=== PATIENT | male | born 1950 | race Caucasian/White ===

== ENCOUNTER → 2021-03-13 12:55 | Outpatient (CLI) | payer OTHER, SELFPAY | PROVIDERS: PCP Family Medicine; Referring Provider Urology; Visit Provider Urology | DX: R33.8 Other retention of urine (principal) | CPT/HCPCS: 87077; 87086; 87088 ==

== ENCOUNTER → 2021-10-13 | Outpatient (CLI) | payer OTHER, SELFPAY ==
--- NOTE | 2021-10-13 07:56 | CT_ITS ---
STUDY: LOW DOSE CT LUNG CANCER SCREENING REASON FOR EXAM: Male, 71 years old. H/o tobacco dependency, SMOKED 1 TO 2 PPD X 55 YEARS RADIATION DOSAGE (If Supplied By Facility): CTDIvol = ( 3.02 ) mGy, DLP = ( 106.84 ) mGycm TECHNIQUE: No contrast was administered. Low dose technique was utilized (average mAS-38 and kVp 120). 1.25 mm axial source images with a slice interval of 1.25-mm were reconstructed in lung windows. 2.5 mm axial source images with a slice interval of 2.5-mm were reconstructed in lung windows. 5.0 mm axial source images with a slice interval of 5.0-mm were reconstructed in soft tissue windows. COMPARISON: None. NODULES: No suspicious nodules are seen. Emphysema: Hyperinflation. Mild emphysematous changes in both lungs. Endobronchial lesion: None Aorta: Atherosclerotic plaque formation. CORONARY ARTERIES: Coronary artery calcification is seen. Heart: Unremarkable Pulmonary artery: Unremarkable Mediastinal nodes: Small mediastinal lymph nodes. Other chest and abdominal findings: CT/Low Dose CT Lung Screening IMPRESSION: Lung-RADS category 2 - Continue annual screening with LDCT in 12 months. IMPORTANT NOTES FOR USE: ACR Lung-RADS Version 1.1 Assessment Categories Release Date: 2018 Category: Coded 0-4 bases on nodule(s) with highest degree of suspicion. Negative screen is defined as categories 1 and 2; a positive screen is defined as categories 3 and 4. Category 3 and 4A nodules that are unchanged on interval CT should be coded as category 2, and individuals returned to screening in 12 months. Category 4X: Category 3 or 4 nodules with additional imaging findings that increase the suspicion of lung cancer, such as spiculation, GGN that doubles in size in 1 year, enlarged lymph notes, etc. Category Modifiers: S (significant finding unrelated to lung cancer) Electronically Signed: Preston Santos MD at 8:53 EDT ,
== END | disposition home or self-care (01) ==
PROVIDERS: PCP Family Medicine; Referring Provider Internal Medicine Critical Care Medicine; Visit Provider Internal Medicine Critical Care Medicine
DX: Z87.891 Personal history of nicotine dependence (principal)
CPT/HCPCS: 71271

== ENCOUNTER → 2021-11-09 | Outpatient (CLI) | payer OTHER, SELFPAY ==
[2021-11-09 12:30] VITALS: PULSE 101; PULSE 74; PULSE 75; PULSE 83; PULSE 84; PULSE 85; PULSE 89; PULSE 96; O2SAT 96; O2SAT 97
--- NOTE | 2021-11-10 05:37 | PCM.PSN.6M ---
PSN 6 Minute Walk Test 6 Minute Walk Test 6 Minute Walk Test: 6 Minute Walk Test PSN:6-Minute Walk Test Start: 11/09/21 12:50 Freq: Status: Active Protocol: [id number] Document 11/09/21 12:30 [facility] (Rec: 11/09/21 12:53 [facility] [id number]) 6 Minute Walk Test Date Performed 11/09/21 Time Performed 12:30 Height 5 ft 9 in Weight: 86.183 kg Weight in Pounds 190.[address]: Dr Sen Assistive device used: None Pre-test Oxygen Delivery Method Room Air Pulse Ox (%) 96 Pulse Rate (60-100 beats/min) 75 Dyspnea Coby Scale (0-10) 0 Exertion Coby Scale (6-20) 6 1st minute Oxygen Delivery Method Room Air Pulse Ox (%) 96 Pulse Rate (60-100 beats/min) 85 2nd minute Oxygen Delivery Method Room Air Pulse Ox (%) 97 Pulse Rate (60-100 beats/min) 83 3rd minute Oxygen Delivery Method Room Air Pulse Rate (60-100 beats/min) 96 Dyspnea Coby Scale (0-10) 89 4th minute Oxygen Delivery Method Room Air Pulse Ox (%) 97 Pulse Rate (60-100 beats/min) 84 5th minute Oxygen Delivery Method Room Air Pulse Ox (%) 97 Pulse Rate (60-100 beats/min) 101 H 6th minute Oxygen Delivery Method Room Air Pulse Ox (%) 96 Pulse Rate (60-100 beats/min) 89 Dyspnea Coby Scale (0-10) 0 Exertion Coby Scale (6-20) 11 Post-test Oxygen Delivery Method Room Air Pulse Ox (%) 97 Pulse Rate (60-100 beats/min) 74 Full Laps Walked 21 Partial Lap, Number of Tiles Walked 14 Total Distance Walked (ft) 1253 Interpretation Interpretation: The patient was able to ambulate 1253 feet over the course of 6 minutes on room air with no assistive devices or breaks. The patient experienced no significant desaturation with an oxygen osvaldo of 96% and no significant tachycardia with a peak heart rate of 101 bpm. These findings are consistent with a normal walking oximetry. Recommendations Recommendations: No supplemental oxygen is indicated at this time.
== END | disposition home or self-care (01) ==
LOC: PSN 12:31
PROVIDERS: PCP Family Medicine; Referring Provider Internal Medicine Critical Care Medicine; Visit Provider Internal Medicine Critical Care Medicine
DX: R06.02 Shortness of breath (principal)
CPT/HCPCS: 94618

== ENCOUNTER → 2021-11-13 | Outpatient (CLI) | payer OTHER, SELFPAY ==
--- NOTE | 2021-11-14 08:52 | PFT ---
INTRODUCTION: The patient is a 71-year-old male that presents for pulmonary function studies secondary to a diagnosis of shortness of breath. Respiratory therapy reported good patient effort. Bronchodilators were used during testing. INTERPRETATION: Forced expiration spirometry demonstrates no evidence of a large airways obstructive ventilatory defect. There was no significant response to aerosolized bronchodilators. Spirograms are of good quality and plateau gradually indicating slow emptying of the lungs. Body plethysmography was performed and reveals lung volumes to be within normal limits. Diffusing capacity by single breath CO is also within normal limits. IMPRESSION: Grossly normal pulmonary function studies.
== END | disposition home or self-care (01) ==
LOC: PSN 10:35
PROVIDERS: PCP Family Medicine; Referring Provider Internal Medicine Critical Care Medicine; Visit Provider Internal Medicine Critical Care Medicine
DX: R06.02 Shortness of breath (principal)
CPT/HCPCS: 94060; 94726; 94729

== ENCOUNTER → 2022-09-06 | Outpatient (CLI) | payer OTHER, SELFPAY ==
--- NOTE | 2022-09-06 09:55 | CDU_ITS ---
Reason For Study: TIA Rt. Velocities/BP Lt. Velocities/BP Prox CCA 67.4/14.5 cm/sec. Prox CCA 64.2/18.8 cm/sec. Mid CCA 58.9/14.5 cm/sec. Mid CCA 69.1/16.3 cm/sec. Dist CCA 53.2/14.5 cm/sec. Dist CCA 58.1/18.8 cm/sec. Prox ICA 56.9/15.1 cm/sec. Prox ICA 104.7/29.8 cm/sec. Mid ICA 93.7/27.4 cm/sec. Mid ICA 74.0/23.7 cm/sec. Dist ICA 72.8/22.5 cm/sec. Dist ICA 60.5/22.5 cm/sec. Rt. ICA/CCA = 1.6. Lt. ICA/CCA = 1.5. Prox ECA 147.7/33.6 cm/sec. Prox ECA 133.9/26.1 cm/sec. Rt. Vert. 54.4/11.4 cm/sec. Lt. Vert. 39.7/13.9 cm/sec. Right Extracranial There is homogeneous, smooth atherosclerotic plaque noted in the right common carotid artery. There is heterogeneous, irregular atherosclerotic plaque noted in the right internal carotid artery. There is homogeneous, smooth atherosclerotic plaque noted in the right external carotid artery. Antegrade flow is noted in the right vertebral artery. Left Extracranial There is homogeneous, smooth atherosclerotic plaque noted in the left common carotid artery. There is heterogeneous, irregular atherosclerotic plaque noted in the left internal carotid artery. There is homogeneous, smooth atherosclerotic plaque noted in the left external carotid artery. Antegrade flow is noted in the left vertebral artery. Procedure Carotid Duplex 19633. This is a Carotid Duplex examination using B-mode, color flow and specral Doppler. The exam was diagnostic. Exam performed in department. VL/Carotid Duplex Ultrasound Interpretation Summary Mild (<50%) stenosis right extracranial internal carotid. Mild (<50%) stenosis left extracranial internal carotid. Patent and antegrade vertebrals bilaterally Ordering Physician: Nohemi Multani Referring Physician: Nohemi Multani Performed By: Arslan Ralph, RVT
--- NOTE | 2022-09-06 09:55 | ART_ITS ---
Reason For Study: claudication Procedure A bilateral lower extremity continuous wave Doppler with analog waveform analysis,segmental pressures,and ankle brachial indexes with exercise. Left Segmental Pressures Left brachial= 188mmHg. Left thigh = 172mmHg. Left calf = 128mmHg. Left posterior tibial artery = 107mmHg. Left dorsalis pedis artery = 104mmHg. Left digit = 75 mmHg. The left dorsalis pedis waveforms are monophasic. The left posterior tibial artery waveforms are monophasic. Right Segmental Pressures Right brachial= 192mmHg. Right thigh = 187mmHg. Right calf = 151mmHg. Right posterior tibial artery = 120mmHg. Right dorsalis pedis artery = 108mmHg. Right digit = 80 mmHg. The right dorsalis pedis waveforms are monophasic. The right posterior tibial artery waveforms are monophasic. Indices The right ankle brachial index by the dorsalis pedis is .56. The right ankle brachial index by the posterior tibial artery is .63. The right digital-brachial index is .42. The right post exercise ankle brachial index is .27. The left ankle brachial index by the dorsalis pedis is .54. The left ankle brachial index by the posterior tibial artery is .56. The left digital-brachial index is .39. The left post exercise ankle brachial index is .27. VL/Lower Ext Art Exam w/ Exercise Interpretation Summary Right CORBY 0.63, moderate arterial insufficiency. Doppler/PVR waveforms and segm ental pressure reveal distal SFA/popliteal, infrapopliteal disease. Right lower extremity with abnormal response to exercise and post exercise CORBY in the critical category. Left CORBY 0.56, severe arterial insufficiency. Doppler/PVR waveforms and segment al pressures reveal vsqdy-[id number]-[id number] femoral, distal SFA/popliteal, infrapopliteal disease. Left lower extremity with abnormal response to exercise and post exercise CORBY i n the critical category. Ordering Physician: Nohemi Multani Performed By: Arslan Ralph RVT
== END | disposition home or self-care (01) ==
LOC: CVS 09:54
PROVIDERS: PCP Family Medicine; Referring Provider Physician Assistant; Visit Provider Physician Assistant
DX: I73.9 Peripheral vascular disease, unspecified (principal); Z86.73 Personal history of transient ischemic attack (TIA), and cerebral infarction without residual deficits
CPT/HCPCS: 93880; 93924

== ENCOUNTER → 2022-11-15 | Outpatient (CLI) | payer OTHER, SELFPAY ==
--- NOTE | 2022-11-15 08:30 | CT_ITS ---
STUDY: LOW DOSE CT LUNG CANCER SCREENING REASON FOR EXAM: Male, 72 years old. h/o Tobacco Dependency. 1 pack per day x58 years RADIATION DOSAGE (If Supplied By Facility): CTDIvol = ( 3.02 ) mGy, DLP = ( 114.00 ) mGycm TECHNIQUE: No contrast was administered. Low dose technique was utilized (average mAS-38 and kVp 120). 1.25 mm axial source images with a slice interval of 1.25-mm were reconstructed in lung windows with coronal and sagittal reformats. COMPARISON: October 13, 2021 NODULES: Nodule #: 1 Density: Solid Lung location: Lateral right apex lobe: Adjacent to pleura Location in series: Series Number: 2 Image: 50 Size - D1 x D2 mm: 2 x 2 mm: 2 average diameter Margin: Circumscribed Shape: Round Calcification: None Fat: None Temporal comparison: Unchanged from October 13, 2021 Nodule #: 2 Density: Solid Lung location: Anterior right upper lobe: 9 mm from pleura Location in series: Series Number: 2 Image: 95 Size - D1 x D2 mm: 3 x 3 mm: 3 average diameter Margin: Circumscribed Shape: Round Calcification: None Fat: None Temporal comparison: New from October 13, 2021 Small calcified granuloma lateral right middle lobe. Parenchyma: No airspace consolidation, effusion, or pneumothorax. Minimal lateral right upper lobe peripheral scarring without significant change from October 13, 2021. Endobronchial lesion: No endobronchial lesion. Aorta: Atherosclerosis. Ascending aorta measures upper limits of normal at 3.9 cm without intramural hematoma. CORONARY ARTERIES: Moderate multivessel coronary atherosclerosis. Heart: No cardiomegaly or pericardial effusion. Pulmonary artery: No main pulmonary arterial enlargement. Mediastinal nodes: Scattered subcentimeter mediastinal lymph nodes, nonpathologic by size criteria. No bulky hilar adenopathy. Other chest and abdominal findings: Left hepatic 2.3 cm cyst unchanged from October 13, 2021. Unremarkable adrenals. Unremarkable esophagus. Unremarkable thyroid. CT/Low Dose CT Lung Screening IMPRESSION: 2 mm right upper lobe nodules, one new from October 13, 2021 with stable calcified right middle lobe granuloma, likely representing sequela of prior granulomatous disease. Continued screening recommended. Lung-RADS category 2 - Continue annual screening with LDCT in 12 months. IMPORTANT NOTES FOR USE: ACR Lung-RADS Version 1.1 Assessment Categories Release Date: 2018 Category: Coded 0-4 bases on nodule(s) with highest degree of suspicion. Negative screen is defined as categories 1 and 2; a positive screen is defined as categories 3 and 4. Category 3 and 4A nodules that are unchanged on interval CT should be coded as category 2, and individuals returned to screening in 12 months. Category 4X: Category 3 or 4 nodules with additional imaging findings that increase the suspicion of lung cancer, such as spiculation, GGN that doubles in size in 1 year, enlarged lymph notes, etc. Category Modifiers: S (significant finding unrelated to lung cancer) Electronically Signed: Aba Gonzalez MD at 19:51 EDT ,
== END | disposition home or self-care (01) ==
LOC: CT 08:30
PROVIDERS: PCP Family Medicine; Referring Provider Internal Medicine Critical Care Medicine; Visit Provider Internal Medicine Critical Care Medicine
DX: F17.210 Nicotine dependence, cigarettes, uncomplicated (principal)
CPT/HCPCS: 71271

== ENCOUNTER → 2022-11-19 | Outpatient (CLI) | payer OTHER, SELFPAY ==
[2022-11-19 11:09] LABS: PSA,Total - Annual Screen 1.07 ng/mL (0.00-4.00)
== END | disposition home or self-care (01) ==
LOC: LAB 09:40
PROVIDERS: PCP Family Medicine; Referring Provider Urology; Visit Provider Urology
DX: Z12.5 Encounter for screening for malignant neoplasm of prostate (principal)
CPT/HCPCS: 36415; 84153; G0103

== ENCOUNTER → 2023-05-29 | Outpatient (CLI) | payer OTHER, SELFPAY ==
[2023-05-29 13:34] LABS: Anion Gap 7 (5-15); BUN 24 mg/dL (7-18); BUN/Creat Ratio 17.5 RATIO (10-20); Calcium,Total 9.3 mg/dL (8.5-10.1); Chloride 108 mmol/L (98-107); Creatinine, Serum 1.37 mg/dL (0.70-1.30); EST Glomerular Filtration Rate 54 mL/min (>60); Est Glom Filt Rate - Afr Amer 65 mL/min (>60); Glucose 97 mg/dL (74-106); Potassium 3.9 mmol/L (3.5-5.1); Sodium Level 140 mmol/L (136-145)
== END | disposition home or self-care (01) ==
LOC: LAB 12:29
PROVIDERS: PCP Family Medicine; Referring Provider Internal Medicine Cardiovascular Disease; Visit Provider Internal Medicine Cardiovascular Disease
DX: R94.31 Abnormal electrocardiogram [ECG] [EKG] (principal); F17.200 Nicotine dependence, unspecified, uncomplicated; I10 Essential (primary) hypertension; R06.02 Shortness of breath; E78.5 Hyperlipidemia, unspecified
CPT/HCPCS: 36415; 80048

== ENCOUNTER → 2023-05-31 | Outpatient (CLI) | payer OTHER, SELFPAY ==
--- NOTE | 2023-05-31 13:56 | CT_ITS ---
HISTORY: ACUTE CYSTITIS. TECHNIQUE: Helically acquired images were obtained of the abdomen and pelvis without oral or IV contrast. A radiation dose optimization technique was used for this scan. 466 images. COMPARISON: None. FINDINGS: LOWER CHEST: Lung bases clear. BOWEL: Bowel including appendix nondilated. Colonic diverticulosis. Mild sigmoid wall thickening. No focal pericolonic inflammatory change. PERITONEUM: No significant free fluid. LIVER: 1.8 cm cyst in the left lobe. GALLBLADDER/BILIARY TREE: Gallbladder present. SPLEEN/PANCREAS/ADRENAL GLANDS: Nonenlarged. KIDNEYS AND URETERS: 9 mm hyperdense lesion in the left upper pole. 1.5 cm right lower and 1.4 cm left lower pole simple appearing cysts. Mild renal vascular calcifications. No hydronephrosis or obstructing ureteral calculus. VESSELS: No abdominal aortic aneurysm. Atherosclerosis present. PELVIC ORGANS: Mild bladder wall thickening. Prostate calcifications. BONES: Mild degenerative change. CT/Abdomen/Pelvis without Cont IMPRESSION: Mild bladder wall thickening, compatible with the history of cystitis. Negative examination for renal stone. 9 mm hyperdense left renal lesion; recommend ultrasound or postcontrast imaging to assess for hyperdense cyst or small solid mass. Mild sigmoid wall thickening, likely sequela of mild colitis or diverticulitis. Electronically Signed: Deborah Weldon MD at 15:08 EST ,
== END | disposition home or self-care (01) ==
LOC: CT 13:54
PROVIDERS: PCP Family Medicine; Referring Provider Urology; Visit Provider Urology
DX: N30.00 Acute cystitis without hematuria (principal); R30.0 Dysuria
CPT/HCPCS: 74176

== ENCOUNTER → 2023-06-21 | Outpatient (CLI) | payer OTHER, SELFPAY ==
--- NOTE | 2023-06-21 14:04 | ECHOD_ITS ---
Reason For Study: sob Procedure This was a 2D Doppler, Color Flow transthoracic echocardiogram. Exam performed in department. Left Ventricle Normal LV size. Moderate concentric left ventricular hypertrophy. The left ventricular ejection fraction is 65 %. Stage 1 diastolic dysfunction. Right Ventricle Normal right ventricle. Atria The left and right atria are normal. Mitral Valve Trivial mitral valve insufficiency. Tricuspid Valve Trivial tricuspid valve insufficiency. Unable to estimate RV systolic pressure due to insufficient tricuspid regurgitant envelope. Aortic Valve Aortic sclerosis, no stenosis. Pulmonic Valve The pulmonic valve is not well visualized. Great Vessels Mild to moderately dilated aortic root. Pericardium/Pleural No pericardial effusion. MMode/2D Measurements & Calculations LVIDd: 3.8 cm IVSd: 1.3 cm Ao root diam: 3.9 cm LVIDs: 2.3 cm LVPWd: 1.4 cm FS: 38.6 % LAV(MOD-bp): 60.2 ml LVAd ap4: 34.0 cm2 SV(MOD-sp4): 68.8 ml LAV(MOD-bp) Indexed: 29.8 ml/m2 LVLd ap4: 9.0 cm LAV(MOD-sp2): 61.7 ml EDV(MOD-sp4): 110.2 ml LAV(MOD-sp4): 59.1 ml EDV(sp4-el): 109.5 ml LVAs ap4: 18.0 cm2 LVLs ap4: 6.9 cm ESV(MOD-sp4): 41.5 ml ESV(sp4-el): 39.8 ml EF(MOD-sp4): 62.4 % EF(sp4-el): 63.7 % SV(sp4-el): 69.7 ml LA A4 area: 19.6 cm2 LA dimension(2D): 3.5 cm RA A4 area: 19.3 cm2 TAPSE: 2.5 cm Time Measurements MV dec time: 0.38 sec Doppler Measurements & Calculations MV E max jd: 51.3 cm/sec Lat Peak E' Jd: 5.5 cm/sec Med Peak E' Jd: 4.3 cm/sec MV A max jd: 76.8 cm/sec E/E' lat: 9.3 E/E' med: 12.0 MV E/A: 0.67 MV V2 max: 78.4 cm/sec Ao V2 max: 129.1 cm/sec MV max P.5 mmHg MV dec slope: 141.4 cm/sec2 Ao max P.7 mmHg MV V2 mean: 40.0 cm/sec Ao V2 mean: 79.4 cm/sec MV mean P.75 mmHg Ao mean P.1 mmHg MV V2 VTI: 23.8 cm Ao V2 VTI: 24.0 cm AV (velocity ratio): 0.98 LV V1 max: 129.1 cm/sec PA V2 max: 92.6 cm/sec LV V1 max P.7 mmHg PA V2 mean: 63.6 cm/sec LV V1 mean P.2 mmHg LV V1 mean: 81.6 cm/sec LV V1 VTI: 23.5 cm ECHO/Echo Complete Interpretation Summary Moderate concentric left ventricular hypertrophy. The left ventricular ejection fraction is 65 %. Stage 1 diastolic dysfunction. Aortic sclerosis, no stenosis. Mild to moderately dilated aortic root. Ordering Physician: Ila Hernandez Referring Physician: Ila Hernandez Performed By: Velia Do RCS
== END | disposition home or self-care (01) ==
LOC: CVS 14:03
PROVIDERS: PCP Family Medicine; Referring Provider Internal Medicine Cardiovascular Disease; Visit Provider Internal Medicine Cardiovascular Disease
DX: R94.31 Abnormal electrocardiogram [ECG] [EKG] (principal); F17.200 Nicotine dependence, unspecified, uncomplicated; I73.9 Peripheral vascular disease, unspecified; E78.5 Hyperlipidemia, unspecified; I10 Essential (primary) hypertension; R06.02 Shortness of breath; R00.2 Palpitations
CPT/HCPCS: 93306

== ENCOUNTER → 2023-10-22 | Outpatient (CLI) | payer OTHER, SELFPAY ==
--- NOTE | 2023-10-22 07:21 | CT_ITS ---
STUDY: CTA OF THE ABDOMINAL AORTA AND BILATERAL LOWER EXTREMITIES REASON FOR EXAM: Male, 73 years old. Hypertension. Bilateral lower extremity pain. Peripheral vascular disease. RADIATION DOSAGE (If Supplied By Facility): CTDIvol = ( 7.34 ) mGy, DLP = ( 1252.51 ) mGycm TECHNIQUE: Axial CT angiography multi-detector data acquisition was obtained from the dome of the liver to the level of the ankles following intravenous administration of IV 100mL Isovue-370. Axial images and MIP images were reconstructed from the axial data set. Post-processing of the angiographic images was performed, with multiplanar reformation and 3D reconstruction. Individualized dose optimization techniques were used for this CT. TECHNICAL QUALITY: Good COMPARISON: None. Descriptors of Narrowing: None (0%) Mild (< 50%) Moderate (50-70%) Severe (70-90%) Subtotal/Total Occlusion (90-100%) Non-Evaluable (technically non-diagnostic FINDINGS: There is diffuse fatty infiltration of the liver. There is a 1.6 cm x 0.9 cm hypodensity in the left lobe of the liver. This may represent either a small cyst or hemangioma. Small bilateral renal cysts. Diffuse sigmoid diverticulosis. Prostatic calcification and enlargement. Abdominal aorta: Atherosclerotic plaque formation of the abdominal aorta with mural thrombus.. Celiac and superior mesenteric arteries: No demonstrated narrowing. Inferior mesenteric artery: No demonstrated narrowing. Right renal artery(arteries): No demonstrated narrowing. Left renal artery(arteries): No demonstrated narrowing. Right common iliac artery: Atherosclerotic plaque formation. Mild stenosis stenosis. Right external iliac artery: Atherosclerotic plaque formation with mild stenosis. Right internal iliac artery: No demonstrated narrowing. Left common iliac artery: Atherosclerotic plaque formation. No significant stenosis. Left external iliac artery: No demonstrated narrowing. Left internal iliac artery: No demonstrated narrowing. RIGHT LOWER EXTREMITY Right common femoral artery: No demonstrated narrowing. Right profundus femoris: No demonstrated narrowing. Right superficial femoral: Occluded at its origin. Right popliteal artery: Reconstitution of the distal portion of the superficial femoral artery and popliteal artery. Right tibioperoneal trunk: No demonstrated narrowing. Right anterior tibial artery: No demonstrated narrowing. Right posterior tibial artery: No demonstrated narrowing. Right peroneal artery: Not visualized. LEFT LOWER EXTREMITY Left common femoral artery: No demonstrated narrowing. Left profundus femoris: No demonstrated narrowing. Left superficial femoral: Superficial femoral artery is occluded at its origin. Left popliteal artery: Reconstitution of the popliteal artery just proximal to the knee joint. Left tibioperoneal trunk: No demonstrated narrowing. Left anterior tibial artery: Not well seen. Left posterior tibial artery: No demonstrated narrowing. Left peroneal artery: Not visualized. CT/CTA Abd w/Runoff W/WO Contrast IMPRESSION: 1 vessel runoff in both lower extremities. Occlusion of both superficial femoral arteries at its origin with reconstitution of the popliteal artery. Electronically Signed: Preston Santos MD at 14:44 EDT ,
[2023-10-22 08:02] LABS: CREATININE FINGERSTICK < 1.0 mg/dL (0.70-1.30); EGFR FINGERSTICK > 60.0000 mL/min (>60)
[2023-10-22 09:14] LABS: Anion Gap 6 (5-15); BUN 19 mg/dL (7-18); BUN/Creat Ratio 14.7 RATIO (10-20); Calcium,Total 8.8 mg/dL (8.5-10.1); Chloride 106 mmol/L (98-107); Cholesterol 214 mg/dL (200); Creatinine, Serum 1.29 mg/dL (0.70-1.30); EST Glomerular Filtration Rate 58 mL/min (>60); Est Glom Filt Rate - Afr Amer 70 mL/min (>60); Glucose 95 mg/dL (74-106); High Density Lipoprotein 41 mg/dL; Potassium 3.7 mmol/L (3.5-5.1); Sodium Level 138 mmol/L (136-145); Triglycerides 165 mg/dL; Very Low Density Lipoprotein 33 mg/dL (5-40)
== END | disposition home or self-care (01) ==
PROVIDERS: PCP Family Medicine; Referring Provider Internal Medicine Cardiovascular Disease; Visit Provider Internal Medicine Cardiovascular Disease
DX: I11.9 Hypertensive heart disease without heart failure (principal); I73.9 Peripheral vascular disease, unspecified; E78.5 Hyperlipidemia, unspecified; R06.02 Shortness of breath
CPT/HCPCS: 36415; 75635; 80048; 80061; Q9967

== ENCOUNTER 2023-11-27 07:15 | Day surgery (SDC) | payer OTHER, SELFPAY ==
[2023-11-26 11:49] VITALS: BMI 28.0
[2023-11-27 07:30] LABS: Hematocrit 48.1 % (40-54); Mean Corp Hgb Conc 33.3 g/dL (32-36); Mean Corpuscular Hgb 30.1 pg (27.0-32.0); Mean Corpuscular Volume 90.4 fL (80-94); Platelet Count 229 K/mm3 (150-450); RBC Distribution Width CV 14.2 % (11.6-14.6); RBC Distribution Width SD 47.6 fl (35.1-43.9); Red Blood Count 5.32 M/mm3 (4.6-6.2); White Blood Count 10.1 K/mm3 (4.4-11.0)
[2023-11-27 07:47] LABS: Anion Gap 5 (5-15); BUN 25 mg/dL (7-18); BUN/Creat Ratio 18.2 RATIO (10-20); Calcium,Total 9.3 mg/dL (8.5-10.1); Chloride 110 mmol/L (98-107); Creatinine, Serum 1.37 mg/dL (0.70-1.30); EST Glomerular Filtration Rate 54 mL/min (>60); Est Glom Filt Rate - Afr Amer 65 mL/min (>60); Estimated Creatinine Clearance 51.45 ml/min; Glucose 103 mg/dL (74-106); Potassium 3.7 mmol/L (3.5-5.1); Sodium Level 140 mmol/L (136-145)
--- NOTE | 2023-11-27 10:55 | OP.PCM_ITS ---
Problems Associated Problem List Diagnoses (1) PAD (peripheral artery disease): Operative Report Date of Procedure: 11/27/23 Procedures performed: 1. Selective catheter placement in the left common iliac artery 2. Selective catheter placement in the left common femoral artery 3. Selective catheter placement in the left superficial femoral artery 4. Selective catheter placement in the left popliteal artery 5. Selective catheter placement in the right common iliac artery 6. Left iliac angiography with distal runoff 7. Right iliac angiography with distal runoff 8. Successful balloon angioplasty with drug-coated balloon to the left popliteal artery 9. Successful balloon angioplasty with drug-coated balloons to the left superficial femoral artery 10. Successful stent placement to the left common iliac artery Indications for procedure: 1. Severe peripheral arterial disease with lifestyle limiting claudication symptoms Technique of procedure: After obtaining informed consent, patient was brought to the cardiac catheterization lab. Bilateral groins were prepped and draped in the usual sterile fashion. Arterial access was obtained in the right common femoral artery using the modified Seldinger technique. After confirming exercise position, the sheath was exchanged for a #6 Moldovan Cordis sheath. A pigtail wire was then advanced over a J-wire into the aorta. This was exchanged over a 0.35 inch wire to a memory artery catheter. The mammary artery catheter was used to engage the ostium of the left common iliac artery. Left iliac angiography was performed with distal runoff. After reviewing the angiographic films, it was decided to intervene on the totally occluded left superficial femoral artery. A 0.35 inch wire was advanced through the mammary artery catheter into the left common femoral artery. The mammary artery catheter and the #6 Moldovan Cordis sheath were withdrawn over this wire. #7 Moldovan Terumo destination sheath was then advanced over this wire with its tip left in the proximal left common femoral artery. Anticoagulation was achieved using a heparin bolus. A 0.35 inch quick cross catheter was then advanced over 0.35 inch Glidewire. These were used to successfully negotiate the total occlusion in the ostial left superficial femoral artery. The catheter was advanced into the left superficial femoral artery over this Glidewire. The wire entered the true lumen into the left popliteal artery. The wire was withdrawn. Catheter position in the true lumen was confirmed using a small contrast injection through the quick cross wire. A 0.35 inch J-wire was then introduced. Balloon angioplasty was performed to the left popliteal artery as well as the left superficial femoral artery initially using 4.0 mm balloon. The wire was then exchanged through this balloon to a 0.14 inch choice extra-support wire. Repeat balloon angioplasty was performed with drug-coated balloons. A 5.0 mm drug-coated balloon was used for angioplasty to the left popliteal artery. 6.0 mm drug-coated balloons were used to perform angioplasty to the left superficial femoral artery. Excellent results were noted with reducing lesion severity from 100% to less than 10%. Attention was then diverted to the lesion in the left common iliac artery. Pressure gradient was recorded across the lesion using the Terumo destination sheath. It was noted to be more than 40 mmHg. Decision was therefore made to intervene on the lesion. An 8.0 x 29 mm Viabahn covered stent was deployed across the lesion with excellent results reducing lesion severity to 0%. The Terumo destination sheath was then pulled into the right common iliac artery. Right iliac angiography was performed with distal runoff. ACT's were checked. The sheath was then withdrawn over a J-wire. The arterial access site was successfully closed using a Perclose closure device. No complications were noted. Angiographic findings: 1. The left common iliac artery was noted to have about 70% lesion in its distal part. The left internal iliac artery was noted to be totally occluded. The left external iliac artery has about 50% stenosis. The common femoral artery did not have any significant stenosis. The left superficial femoral artery was noted to be totally occluded across its ostium. The left popliteal artery reconstituted via collaterals from the profunda. Below the knee, single- vessel runoff through the peroneal artery was noted supplying the foot via the communicating branch to the posterior tibial artery. 2. The right common iliac artery is not noted to have any significant stenosis. The right external and common femoral artery are also free of any critical disease. The right superficial femoral artery is totally occluded across its course with popliteal artery reconstituting distally via collaterals. Once again, single-vessel runoff is noted below the knee. Recommendations: 1. Dual antiplatelet therapy. 2. Risk factor modification. Of paramount importance in the long-term prognosis of this patient would be cessation of smoking. 3. Staged attempted COMBINE OPERATOR to the right superficial femoral artery.
[2023-11-27 11:28] LABS: ACT Activated Clotting Time 293 sec (74-137)
[2023-11-27 11:28] LABS: ACT Activated Clotting Time 232 sec (74-137)
== END 2023-11-27 14:21 | disposition home or self-care (01) ==
PROVIDERS: PCP Family Medicine; Referring Provider Internal Medicine Cardiovascular Disease; Visit Provider Internal Medicine Cardiovascular Disease
DX: I70.202 Unspecified atherosclerosis of native arteries of extremities, left leg (principal); I74.5 Embolism and thrombosis of iliac artery; Z79.82 Long term (current) use of aspirin; Z79.899 Other long term (current) drug therapy; I10 Essential (primary) hypertension; E78.5 Hyperlipidemia, unspecified; F17.210 Nicotine dependence, cigarettes, uncomplicated; I51.89 Other ill-defined heart diseases; I70.92 Chronic total occlusion of artery of the extremities
CPT/HCPCS: 36245; 36246; 36415; 37221; 37224; 75716; 76937; 80048; 85027; 85347; 99152; 99153; C1769; C1874; C1894; C2623; J7040; Q9967; C1725; C1760; C1887

== ENCOUNTER → 2023-12-16 | Outpatient (CLI) | payer OTHER, SELFPAY ==
--- NOTE | 2023-12-16 13:10 | VDLE_ITS ---
Reason For Study: Left leg swelling RIGHT LEFT CFV is compressible, spontaneous, phasic, GSV is normal. competent and demonstrates normal CFV is compressible, spontaneous, phasic, augmentation. competent, and demonstrates normal Procedure augmentation. This is a venous duplex using B-mode, color FV is compressible, spontaneous, phasic, flow and spectral Doppler. competent and demonstrates normal Exam performed in department. augmentation. A preliminary report was called and/or faxed POP V is compressible, spontaneous, phasic, to Mayelin PAYNE. competent and demonstrates normal augmentation. T/P Trunk is compressible. PTV is compressible. LT PerV is compressible. VL/Venous Duplex US, Unilateral Interpretation Summary Deep veins of the left lower extremity are patent and compressible segmentally. There is no evidence of left lower extremity deep vein thrombosis. The left great saphenous vein matthew ears patent and compressible segmentally. Ordering Physician: Ila Hernandez Referring Physician: Jameson Sen MD Performed By: Mari Chaney RVT
== END | disposition home or self-care (01) ==
PROVIDERS: PCP Family Medicine; Referring Provider Internal Medicine Cardiovascular Disease; Visit Provider Internal Medicine Cardiovascular Disease
DX: M79.89 Other specified soft tissue disorders (principal); I72.9 Aneurysm of unspecified site
CPT/HCPCS: 93971

== ENCOUNTER 2024-01-15 07:49 | Day surgery (SDC) | payer OTHER, SELFPAY ==
--- NOTE | 2023-12-27 13:56 | HP.PCM_ITS ---
History and Physical Date of Admission: 01/15/24 This gentleman is here for balloon angioplasty. Unfortunately continues to smoke. Continues to have lifestyle limiting claudication symptoms bilateral lower extremities. Patient has had CT angio of the lower extremities done. He is noted to have total occlusion of the superficial femoral arteries on both sides. 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: No Is patient in pain?: No Allergies pravastatin Adverse Reaction (Severe, Verified 11/14/23 14:11) Panic attack ciprofloxacin (From Cipro) Adverse Reaction (Intermediate, Verified 11/14/23 14:08) Hives Medications: See EMR Have you fallen in the past year?: No PFSH Medical History Hypertensive heart disease Diastolic dysfunction without heart failure Abnormal ECG Nicotine dependence Dyslipidemia PAD (peripheral artery disease) SK (seborrheic keratosis) Essential hypertension Neck pain Hyperlipidemia Anxiety Claudication History of TIA (transient ischemic attack) Elevated BP without diagnosis of hypertension Nicotine dependence, cigarettes, uncomplicated SOB (shortness of breath) Diverticulitis Headache Flank pain Left knee pain Low back pain Claudication Decreased hearing of right ear Generalized anxiety disorder Surgical History Hx of vasectomy Hx of knee surgery Family History Father Lung cancerMother Hypertension Social History Smoking Status: Current every day smoker tobacco type: cigarettes Tobacco: How many years used: 55 Electronic Cigarette Use: not used second hand exposure: No alcohol intake: current alcohol intake frequency: a few times a week substance use type: does not use caffeine: Yes Type: coffee Number of servings: 2 ROS Const Const: Positive for fatigue; Negative for weakness, headache(s), daytime sleepiness or difficulty sleeping ENT ENT: Negative for headache(s), dizziness or Nosebleed/epistaxis Cardio Chest Pain: No Palpitations: No Edema: None Resp Respiratory: Negative for SOB with activity, SOB at rest, SOB orthopnea\SOB lying down or Cough GI GI: Negative nausea, vomiting or heartburn Neuro Neuro: Negative for dizziness, lightheadedness, near syncope, headache(s) or weakness Endo Endo: Positive for fatigue Cardiology Exam Const Appearance: comfortable and no acute distress Nutritional Appearance: well nourished Neck Neck: no JVD Carotids: Negative bruit Chest Auscultation: Bilateral: Clear to Auscultation Cardio Rate: regular rate Rhythm: regular rhythm Heart sounds: S1 normal and S2 normal Neuro General: patient alert, patient awake and patient oriented x3 Extremities Lower Extremity Edema: None: Bilateral Supplemental Info Supplemental Information Echocardiogram from 06/21/2023: Interpretation Summary Moderate concentric left ventricular hypertrophy. The left ventricular ejection fraction is 65 %. Stage 1 diastolic dysfunction. Aortic sclerosis, no stenosis. Mild to moderately dilated aortic root. STRESS TEST 08/25/14: CONCLUSION 1. Moderate exercise tolerance limited by hip pain, achieving a workload of 7.1 METs. 2. Normal physiologic response to Lexiscan infusion. 3. No chest discomfort to suggest angina elicited with treadmill exercise or LexiScan infusion. 4. No ST changes to suggest ischemia elicited with treadmill exercise at the heart rate and workload achieved or with LexiScan infusion. 5. Nuclear images demonstrate no evidence of infarct or inducible ischemia, calculated ejection fraction of 57%. PULMONARY FUNCTION TEST 11/14/21: INTERPRETATION: Forced expiration spirometry demonstrates no evidence of a large airways obstructive ventilatory defect. There was no significant response to aerosolized bronchodilators. Spirograms are of good quality and plateau gradually indicating slow emptying of the lungs. Body plethysmography was performed and reveals lung volumes to be within normal limits. Diffusing capacity by single breath CO is also within normal limits. IMPRESSION: Grossly normal pulmonary function studies. CT LUNG 11/15/22: NODULES: Nodule #: 1 Density: Solid Lung location: Lateral right apex lobe: Adjacent to pleura Location in series: Series Number: 2 Image: 50 Size - D1 x D2 mm: 2 x 2 mm: 2 average diameter Margin: Circumscribed Shape: Round Calcification: None Fat: None Temporal comparison: Unchanged from October 13, 2021 Nodule #: 2 Density: Solid Lung location: Anterior right upper lobe: 9 mm from pleura Location in series: Series Number: 2 Image: 95 Size - D1 x D2 mm: 3 x 3 mm: 3 average diameter Margin: Circumscribed Shape: Round Calcification: None Fat: None Temporal comparison: New from October 13, 2021 Small calcified granuloma lateral right middle lobe. Parenchyma: No airspace consolidation, effusion, or pneumothorax. Minimal lateral right upper lobe peripheral scarring without significant change from October 13, 2021. Endobronchial lesion: No endobronchial lesion. Aorta: Atherosclerosis. Ascending aorta measures upper limits of normal at 3.9 cm without intramural hematoma. CORONARY ARTERIES: Moderate multivessel coronary atherosclerosis. Heart: No cardiomegaly or pericardial effusion. Pulmonary artery: No main pulmonary arterial enlargement. Mediastinal nodes: Scattered subcentimeter mediastinal lymph nodes, nonpathologic by size criteria. No bulky hilar adenopathy. Other chest and abdominal findings: Left hepatic 2.3 cm cyst unchanged from October 13, 2021. Unremarkable adrenals. Unremarkable esophagus. Unremarkable thyroid. IMPRESSION: 2 mm right upper lobe nodules, one new from October 13, 2021 with stable calcified right middle lobe granuloma, likely representing sequela of prior granulomatous disease. Continued screening recommended. CAROTID DUPLEX 09/06/22: Interpretation Summary Mild (<50%) stenosis right extracranial internal carotid. Mild (<50%) stenosis left extracranial internal carotid. Patent and antegrade vertebrals bilaterally EXTREMITY ARTERIAL STUDY 09/06/22: Interpretation Summary Right CORBY 0.63, moderate arterial insufficiency. Doppler/PVR waveforms and segmental pressure reveal distal SFA/popliteal, infrapopliteal disease. Right lower extremity with abnormal response to exercise and post exercise CORBY in the critical category. Left CORBY 0.56, severe arterial insufficiency. Doppler/PVR waveforms and segmental pressures reveal gwalp-crbnk-eglwiavo femoral, distal SFA/popliteal, infrapopliteal disease. Left lower extremity with abnormal response to exercise and post exercise CORBY in the critical category Assessment and Plan Assessment and Plan (1) PAD (peripheral artery disease): Status: Chronic Plan: Continues to have lifestyle limiting claudication symptoms bilaterally. Continue aspirin. Start on clopidogrel. Complete occlusion of bilateral SFAs. Recommended bilateral angiography with possible percutaneous revascularization. Risks benefits and alternatives explained. He understand these and wishes to think about it. (2) Essential hypertension: Status: Chronic Plan: Blood pressure above goal. Add amlodipine 5 mg once daily. (3) Dyslipidemia: Status: Chronic Plan: Patient does not want to be on any lipid-lowering medications. (4) Nicotine dependence: Status: Chronic Plan: Patient unfortunately continues to smoke. Counseled to stop. (5) Hypertensive heart disease: Status: Chronic Plan: Losartan. Amlodipine. (6) Diastolic dysfunction without heart failure: Status: Chronic Plan: For blood pressure control.
[2024-01-14 11:49] VITALS: BMI 28.0
[2024-01-14 12:04] LABS: Absolute Lymphocyte Count 1.84 X10^3/uL (0.83-4.51); Absolute Neutrophil Count 6.5 X10^3/uL (2.0-7.7); Basophil# 0.09 X10^3/uL; Basophil% 0.9 % (0-1); Eosinophil# 0.34 X10^3/uL; Eosinophils% 3.6 % (0-5); Hematocrit 44.1 % (40-54); Hemoglobin 14.5 g/dL (13.0-16.5); Lymphocyte # 1.84 X10^3/ul (0.83-4.51); Lymphocyte % 19.2 % (19-41); Mean Corp Hgb Conc 32.9 g/dL (32-36); Mean Corpuscular Volume 91.1 fL (80-94); Mean Platelet Vol. 8.9 fl (6.2-12.0); Monocyte# 0.75 X10^3/uL; Monocyte% 7.8 % (0-10); NRBC Flagged by Analyzer 0 % (0-5); Neutrophil # 6.47 X10^3/uL (2.7-7.7); Neutrophil % 67.7 % (47-70); Platelet Count 239 K/mm3 (150-450); RBC Distribution Width CV 14.6 % (11.6-14.6); RBC Distribution Width SD 48.7 fl (35.1-43.9); Red Blood Count 4.84 M/mm3 (4.6-6.2); White Blood Count 9.6 K/mm3 (4.4-11.0)
[2024-01-14 12:17] LABS: Partial Thromboplast Time 24.6 Seconds (24.1-36.2)
[2024-01-14 12:56] LABS: Anion Gap 7 (5-15); BUN 21 mg/dL (7-18); BUN/Creat Ratio 15.9 RATIO (10-20); Calcium,Total 9.3 mg/dL (8.5-10.1); Chloride 106 mmol/L (98-107); Creatinine, Serum 1.32 mg/dL (0.70-1.30); EST Glomerular Filtration Rate 56 mL/min (>60); Est Glom Filt Rate - Afr Amer 68 mL/min (>60); Glucose 98 mg/dL (74-106); Potassium 3.8 mmol/L (3.5-5.1); Sodium Level 137 mmol/L (136-145)
--- NOTE | 2024-01-15 11:40 | DCINST_ITS ---
Discharge Instructions Diet Discharge Diet: Low fat / Low cholesterol Activity May resume sexual activity in: 1 week Lifting Restrictions: No heavy lifting, bending or strenuous physical activity for 1 week Dressing / Incision Call your doctor if your incision/area has: Continuous Slow Oozing, Sudden Increased Bleeding, Increased Pain/ Swelling, Increased Redness, Foul Smelling Discharge and Swelling at the incision site Call your doctor if you observe: Coldness, Increased Pain, Numbness or Tingling and Change in Color Follow Up Care Please Follow Up With: Ila Hernandez MD When: 2-4 weeks Test Results: Test results from this visit will be discussed in further detail at your follow- up appointment, if applicable. Discharge Plan Admission Attending Provider: Ila Hernandez Primary Care Provider: Jameson Sen Instructions Print Language: Albanian Discharge Orders/Prescriptions Prescriptions: No Action aspirin 81 mg tablet,delayed release (DR/EC) 81 mg PO DAILY losartan 100 mg tablet 100 mg PO DAILY Qty: 30 11RF amlodipine 5 mg tablet 5 mg PO DAILY Qty: 90 3RF clopidogrel 75 mg tablet 75 mg PO DAILY fenofibrate nanocrystallized [Tricor] 145 mg tablet 145 mg PO QDAY Qty: 30 11RF Referrals / Follow Up: Jameson Sen MD [Primary Care Provider] - Disposition Disposition (needs filled in before D/C Order can be placed): Home, Self Care
--- NOTE | 2024-01-15 12:01 | PCI.CARDCATH ---
PCI Cardiac Cath Report PCI Report: Peripheral angiography and intervention report Procedures performed: 1. Right common femoral angiography with distal runoff 2. Intravascular ultrasound of the right popliteal artery. 3. Selective catheter placement right popliteal artery 4. Selective catheter placement right superficial femoral artery 5. Selective catheter placement right common femoral artery 6. Successful balloon angioplasty with drug-coated balloon to the right superficial femoral artery 7. Successful balloon angioplasty with drug coated balloon and drug-eluting stent placement to the right popliteal artery. Indications for procedure: 1. Peripheral arterial disease with lifestyle limiting claudication symptoms Technique of procedure: The patient's left groin was prepped and draped in the usual sterile fashion. Access was obtained in the right common femoral artery with a micropuncture needle using the modified Seldinger technique. After confirming exercise position, the micropuncture sheath was replaced with a #6 [place] Cordis sheath. A 0.035 inch wire was introduced through the Cordis sheath and parked in the abdominal aorta. The Cordis sheath was exchanged for a #7 [place] Terumo destination sheath. The tip of the destination sheath was parked in the left common iliac artery. Next a 5 [place] memory artery catheter was used to selectively engage the right common iliac artery. A 0.035 inch wire was then advanced through this catheter and parked in the right profunda. The mammary artery catheter was then withdrawn and exchanged for the destination sheath introducer. The destination sheath was then advanced over the 0.035 inch wire and its distal tip was placed in the right common femoral artery. Right femoral angiography was performed with distal runoff. After reviewing angiographic films, it was decided to intervene on the completely occluded right superficial femoral artery. Anticoagulation was achieved using a heparin bolus. A 0.035 inch glide wire was then advanced through a 0.035 inch quick cross catheter. This was advanced to the right popliteal artery. It was noted that we were in a dissection plane. Reentry into the true lumen of the right popliteal artery was obtained under ultrasound guidance using the [place] reentry device. Intravascular ultrasound of the right popliteal artery was performed. Balloon angioplasty was performed to the right popliteal and right superficial femoral artery. The popliteal artery and distal SFA angioplasty was performed using 5.0 mm drug-coated balloons. The proximal and mid right SFA balloon angioplasty was performed using 6.0 mm drug-coated balloons. Excellent results were noted however a small linear dissection was noted in the popliteal artery with residual stenosis of more than 70%. Decision was therefore made to stent the vessel. A 6.0 x 40 mm drug-coated self-expanding stent was positioned across the lesion and deployed. This was postdilated using a 5.0 mm balloon. Final angiography was performed. Excellent results were noted. The [employer] Wireless[employer] destination sheath was then withdrawn over a 0.035 inch wire. The arterial access site in the left common femoral artery was successfully closed using a Perclose closure device. Angiographic findings: 1. The right common femoral artery was free of any significant disease. 2. The right superficial femoral artery was noted to be totally occluded at its ostium. Distally, the right popliteal artery reconstituted via collaterals. Below the knee, single-vessel runoff with peroneal artery was noted to the right foot. The peroneal artery supplied the right foot through the communicating branch. 3. Postintervention, there was excellent results noted with less than 10% residual stenosis in the right superficial femoral artery and right popliteal artery. IVUS findings: 1. The right popliteal artery was noted to be severely diseased in its proximal part. Recommendations: Postprocedure care will be directed towards the prevention of any ischemic hemorrhagic or vascular complications. Of particular interest in the long-term care of this patient would be risk factor modification, particularly cessation of smoking.
[2024-01-15 12:06] LABS: ACT Activated Clotting Time 269 sec (74-137)
[2024-01-15 12:06] LABS: ACT Activated Clotting Time 275 sec (74-137)
[2024-01-15 12:06] LABS: ACT Activated Clotting Time 262 sec (74-137)
== END 2024-01-15 15:36 | disposition home or self-care (01) ==
PROVIDERS: PCP Family Medicine; Referring Provider Internal Medicine Cardiovascular Disease; Visit Provider Internal Medicine Cardiovascular Disease
DX: I73.9 Peripheral vascular disease, unspecified (principal); I70.92 Chronic total occlusion of artery of the extremities; F17.210 Nicotine dependence, cigarettes, uncomplicated; I11.9 Hypertensive heart disease without heart failure; E78.5 Hyperlipidemia, unspecified; Z88.1 Allergy status to other antibiotic agents; Z86.73 Personal history of transient ischemic attack (TIA), and cerebral infarction without residual deficits; Z79.82 Long term (current) use of aspirin; Z79.899 Other long term (current) drug therapy
CPT/HCPCS: 36245; 36415; 37226; 75710; 80048; 85025; 85347; 85730; 93005; 99152; 99153; C1725; C1769; C1874; C1887; C2623; J7040; Q9967; C1760; C1894

== ENCOUNTER 2024-01-15 18:44 | Emergency (ER) | payer OTHER, SELFPAY ==
[2024-01-15 18:46] VITALS: BP 178/90; PULSE 64; RESP 15; TEMP 36.4; O2SAT 96; BMI 26.6
--- NOTE | 2024-01-15 18:49 | EX.ED.DYSGE1 ---
HPI History of Present Illness Chief Complaint: Wound Check [facility] Medical History Hypertensive heart disease Diastolic dysfunction without heart failure Abnormal ECG Nicotine dependence Dyslipidemia PAD (peripheral artery disease) SK (seborrheic keratosis) Essential hypertension Neck pain Hyperlipidemia Anxiety Claudication History of TIA (transient ischemic attack) Elevated BP without diagnosis of hypertension Nicotine dependence, cigarettes, uncomplicated SOB (shortness of breath) Diverticulitis Headache Flank pain Left knee pain Low back pain Claudication Decreased hearing of right ear Generalized anxiety disorder Home Medications ?Medication ?Instructions ?Recorded ?Last Taken ?Type aspirin 81 mg tablet,delayed 81 mg PO DAILY 07/16/23 01/14/24 History release losartan 100 mg tablet 100 mg PO DAILY #30 tabs 10/07/23 01/14/24 Rx amlodipine 5 mg tablet 5 mg PO DAILY #90 tabs 11/14/23 Unknown Rx clopidogrel 75 mg tablet 75 mg PO DAILY 11/27/23 01/14/24 History fenofibrate nanocrystallized 145 145 mg PO QDAY #30 tabs 11/27/23 Unknown Rx mg tablet (Tricor) Allergy/AdvReac Type Severity Reaction Status Date / Time pravastatin AdvReac Severe Panic Verified 01/15/24 18:46 attack ciprofloxacin (From Cipro) AdvReac Intermediate Hives Verified 01/15/24 18:46 Family History Father Lung cancer Mother Hypertension Surgical History Hx of vasectomy Hx of knee surgery Social History Smoking Status: Current every day smoker tobacco type: cigarettes Tobacco: How many years used: 55 Electronic Cigarette Use: not used second hand exposure: No alcohol intake: current alcohol intake frequency: a few times a week substance use type: does not use caffeine: Yes Type: coffee Number of servings: 2 EXAM Physical Exam Const Vital Signs: 01/15/24 18:46 Temperature 97.6 F L Temperature Source Temporal Pulse Rate 64 Respiratory Rate 15 Blood Pressure 178/90 H Blood Pressure Mean 119 Pulse Ox 96 Oxygen Delivery Method Room Air MDM MDM MDM Narrative Medical decision making narrative: HISTORY OF PRESENT ILLNESS: 73-year-old male presents with concern for bleeding for several hours from cath insertion site from his Angiocath done today. Was discharged approximately 330 approximately 3 and half hours prior to arrival. REVIEW OF SYSTEMS: Pertinent positives: Bleeding from site Pertinent negatives: Pain, fever PHYSICAL EXAM: Nursing triage notes reviewed, Vital signs reviewed Constitutional: please see mdm Lungs: Clear to auscultation, No wheezing or rales. No increased work of breathing, no conversational dyspnea, no accessory muscle use, no nasal flaring. No respiratory distress noted Heart: Regular rate and rhythm, No murmurs, No rubs and No gallops, 2+ distal pulses (radial, femoral, posterior tibial) in all extremities Extremities: No edema, good pulses, good cap refill, left lower extremity warm well-perfused. Neuro: Intact sensation L1-S1 dermatomal distributions. Intact 5/5 strength in hip flexion (T12-L3). Knee extension (L2-L4). Ankle dorsiflexion (L4-L5). Ankle plantar flexion (S1). Great toe extension (L5). 2+ patellar and Achilles DTRs. Skin: Left groin site clean dry intact, there is no pulsatile bleeding there is mild bruising noted to left groin. MEDICAL DECISION MAKING: Chief Complaint: Bleeding from cath insertion site External records reviewed: Reviewed right femoral Factors affecting care: Peripheral vascular disease Consults: Dr. Hernandez -discussed patient's case. Dr. Be davies recommended injecting some lidocaine with epinephrine subcutaneously around the bleeding site MDM Narrative: Patient was initially hemodynamically stable, afebrile and nontoxic-appearing. Exam without sign of left lower limb neurovascular compromise. No pulsatile bleeding. Just oozing. I considered the following differential diagnosis: Pseudoaneurysm, postoperative bleeding Initial step of stabilization with Surgicel applied with Tegaderm and weights. After this patient continues to have slight oozing and bleeding. Lidocaine with epi was injected around incision site with almost immediate cessation and bleeding. I then discussed the case with Dr. David davies who recommended trying lidocaine with epi injected subcutaneously around the incision site. He had noted if this did not work then he can be admitted to the PCU for observation. Patient observed for additional 15 minutes with no active bleeding noted. He was appropriate for discharge home with close follow-up with Dr. David davies at the next available appointment. The patient and/or family, caregivers express understanding. The patient and/or family, caregivers agrees with the plan. Shared decision making: I will have a discussion with the patient and or visitors regarding risk/benefits of further testing or admission. They will be made aware of of the risk/benefits inherent in this decision they will be given the opportunity to voice understanding. Total critical care time today provided was at least 0 minutes. This excludes separately billable procedures. Critical care time (if documented) is secondary to the patient having high probability of clinically significant/life threatening deterioration in the patient's condition which required my urgent intervention. Impression: 1. Postop bleeding 2. History of peripheral vascular disease 3. History of antiplatelet the Dispo: Discharge home This note was generated with [employer] dictation software. It may contain incorrect words, spelling, and punctuation that were not noted in review of the chart prior to signing. Discharge Plan Triage Chief Complaint: Wound Check ED Provider: Jarrod Narayan Dx/Rx/DC Orders Prescriptions: No Action aspirin 81 mg tablet,delayed release (DR/EC) 81 mg PO DAILY losartan 100 mg tablet 100 mg PO DAILY Qty: 30 11RF amlodipine 5 mg tablet 5 mg PO DAILY Qty: 90 3RF clopidogrel 75 mg tablet 75 mg PO DAILY fenofibrate nanocrystallized [Tricor] 145 mg tablet 145 mg PO QDAY Qty: 30 11RF Primary Care Provider: Jameson Sen Referrals: Jameson Sen MD [Primary Care Provider] - Print Language: Lithuanian
--- OUTSIDE RECORDS SUMMARY | 2024-01-15 19:58 | XMS RPT_ITS | CCD ---
Author Organization [facility] ion [facility] Care Team Providers Care Patient Services Technician Name Role Phone TRENT STEVENS Unavailable Unavailable Mckinley COLLINS, Jameson Pereira Unavailable [facility], Pulmonary Unavailable Dr. Mckenna Dial Unavailable Oral Surgery Provider Unavailable Unavailmelanie Rice MD, Dr. Jose Gasca Unavailable Amanda Palencia, Dr. Bhardwaj Unavailable [facility] Unavailable Agustín COLLINS, Dr. Jennifer Conn Unavailable Selwyn COLLINS, Dr. Robert Pereira Unavailable Jonatan BATISTA, Jeni Goldsmith Unavailable Unavailable Roz Billy MA Unavailable Unavailable Shawn COLLINS, Kolton Ngo Unavailable Loree SAINZ, Asaf Goldsmith Unavailable Caroline Francois MA Unavailable Unavailable Azael BATISTA, Brenda Unavailable Unavailable Jhonathan BATISTA, Nasim Unavailable Unavailable Maximo SAINZ, Dara Evangelista Unavailable Jeanie CUTTING MACHINE OFFBEARER, Maranda Unavailable Unavailable Jacqueline ALCANTARAN, Isela L Unavailable Unavailab jessy Simon LPN, Elaine Zhu Unavailable Unavailab jessy Andre LPN, Charlene Unavailable Unavailmelanie Ward LPN, Neli Laureano Unavailable Unavaila ble Unavailable Unavailable TRENT STEVENS MD Unavailable HERB LOVE MD Unavailable ULICES MCDONOUGH Unavailable ULICES HINDS MD Unavailable Eulalio Núñez Unavailable Unavailable Ramon PAYNE, Kimberley Unavailable Unavailable Nuha PAYNE, Gaby Unavailable Unavaila JENI Smith Unavailable Unavailable Saima PAYNE, Yusra Unavailable Unavailable Macey Ackerman Unavailable Unavailable Allen Ackerman Unavailable Unavailable MALKA VÁZQUEZ Unavailable Unavailable JIE EMEKA Unavailable Unavailable LYNNETTE ELLINGTON Unavailable Unavailable TANIA PAYNE, ASH Unavailable Unavailable TOMASA SHELTON Unavailable Unavailable Liss Vázquez Unavailable Unavailable SANDRA OSBORN-CPAUL Unavailable Vijaya Solitario Unavailable Unavailable Unavailable Unavailable [facility] Unavailable iNya COLLINS, Dr. Tsai ([facility]) Unavailable [phone] Ramon ALCANTARANFrancheska Unavailable NORY LEE PAC Admitting Unavailable NORY LEE Attending Unavailable NORY LEE PAC Primary Care Unavailable JAMESON SEN Consulting Unavailable PROVIDER, UNKNOWN Consulting Unavailable PROVIDER, UNKNOWN Consulting Unavailable PROVIDER, UNKNOWN Consulting Unavailable Nory Lee PA-C Unavailable Allergies Allergy Classification Reported Allergen(s) Allergy Type Date of Onset Reaction(s) Facility (20 sources) Iodine *CHEMICALS* [facility]; [facility] (8 sources) metroNIDAZOLE Drug Allergy [facility]; [facility] (8 sources) Iodinated Contrast [facility]; [facility] (20 sources) Ciprofloxacin Drug Allergy [facility]; [facility] (1 source) Ciprofloxacin Drug Allergy [facility] (1 source) Iodine Drug Allergy [facility] (1 source) Penicillin Drug Allergy [facility] Medications Current Medications Medication Drug Class(es) Dates Sig (Normalized) Sig (Original) ALPRAZolam 0.5 mg oral tablet (20 sources) Benzodiazepine Start: 08-12-2023 Xanax 0.5 mg tablet ; 1 (one) Tablet two times daily as needed for 0 days Quantity: 30 {Tablet} Refills: 5 Ordered: 12-Aug-2023 MD TRENT STEVENS Start: 12-Aug-2023 Comments: Medication taken as needed. Start: 12-29-2021 take 1 tablet by jennifer th twice daily as needed Xanax 0.5 MG Oral Tablet ; one Tablet two times daily as needed for 0 days Quantity: 30 {Tablet} Refills: 5 Ordered: 29-Dec-2021 MD TRENT STEVENS Start: 29-Dec-2021 Comments: Medication taken as needed. Start: 06-02-2015 End: 09-27-2016 take 0.5-1 tablets by mouth once daily as needed Xanax 0.25 MG Oral Tablet ; 1/2-1 Tablet daily, as needed for 0 days Quantity: 20 {Tablet} Refills: 0 Ordered: 27-Sep-2016 KERRY MARIN Start: 02-Jun-2015 End: 27-Sep-2016 Status: Inactive Comments: Medication taken as needed. Start: 07-08-2012 End: 06-27-2020 take 1 tablet by mouth three times daily as needed Xanax 0.5 MG Oral Tablet ; 1 (one) Tab three times a day as needed for 0 days Quantity: 30 {Tab} Refills: 0 Ordered: 27-Jun-2020 LESTER Simon Elaine Zhu Start: 08-Jul-2012 End: 27-Jun-2020 Status: Inactive Comments: Medication taken as needed. Comment on above: Medication taken as needed. benzonatate 100 mg oral capsule (14 sources) Non-narcotic Antitussive Start: 07-02-2023 benzonatate 100 mg capsule ; 1 (one) capsule tid prn cough for 0 days Quantity: 30 {Capsule} Refills: 1 Ordered: 02-Jul-2023 CATRACHITO Billy Start: 02-Jul-2023 losartan potassium 100 mg oral tablet (20 sources) Angiotensin 2 Receptor Shantell Start: 04-15-2023 losartan 100 mg tablet ; 1 (one) tablet qd for 0 days Quantity: 90 {Tablet} Refills: 1 Ordered: 15-Apr-2023 LESTER Simon Elaine Zhu Start: 15-Apr-2023 Start: 09-10-2017 End: 01-09-2018 take 0.5 tablet by mouth once daily Losartan Potassium 25 MG Oral Tablet ; 1/2 (one half) Tablet daily for 0 days Quantity: 30 {Tablet} Refills: 5 Ordered: 09-Jan-2018 KERRY Breen Start: 10-Sep-2017 End: 09-Jan-2018 Status: Inactive Start: 04-28-2015 End: 09-27-2016 take 0.5 tablet by mouth once daily Losartan Potassium 50 MG Oral Tablet ; 1/2 tablet Tablet daily for 0 days Quantity: 30 {Tablet} Refills: 5 Ordered: 27-Sep-2016 KERRY MARIN Start: 28-Apr-2015 End: 27-Sep-2016 Status: Inactive Start: 07-08-2012 End: 06-27-2020 take 1 tablet by mouth once daily Losartan Potassium 50 MG Oral Tablet ; 1 (one) Tablet daily for 0 days Quantity: 30 {Tablet} Refills: 5 Ordered: 27-Jun-2020 LESTER Simon Elaine Zhu Start: 08-Jul-2012 End: 27-Jun-2020 Status: Inactive losartan 25 mg t ablet ; 1 daily (25 mg) Comments: Cardio Comment on above: Cardio predniSONE 20 mg oral tablet (4 sources) Start: 12-27-2023 predniSONE 20 mg tablet ; 1 (one) Tablet as directed for 0 days Quantity: 20 {Tablet} Refills: 0 Ordered: 27-Dec-2023 ALISTAIR Lee Start: 27-Dec-2023 Comments: Take 3tabs qd for 3 days thenTake 2tabs qd for 3 days thenTake 1tab qd for 3 days thenTake 1/2tab qd for 4 days. Comment on above: Take 3tabs qd for 3 days thenTake 2tabs qd for 3 days thenTake 1tab qd for 3 days thenTake 1/2tab qd for 4 days. VITAMIN B COMPLEX-C (Oral Capsule) (8 sources) take 1 capsule by mouth once daily VITAMIN B COMPLEX-C (Oral Capsule) ; 1 daily Comments: OTC take 1 capsule by mouth once jairo ly VITAMIN B COMPLEX-C (Oral Capsule) ; 1 daily Comment on above: OTC vitamin e 450 mg oral capsul e (8 sources) Vitamin E Comple x 1,000 unit capsule ; 1 daily (1,000 unit) Comments: OTC Comment on above: OTC Completed/Discontinued Medications Medication Drug Class(es) Dates Sig (Normalized) Sig (Original) acetaminophen 325 mg / HYDROcodone bitartrate 5 mg oral tablet (8 sources) Opioid Agonist Start: 01-08-2020 End: 01-13-2020 take 1 tablet by mouth every six hours as needed [place] 5-325 MG Oral Tablet ; 1 (one) Tablet Tablet every six hours, as needed for 5 days Quantity: 20 {Tablet} Refills: 0 Ordered: 08-Jan-2020 SolitarioVijaya Start: 08-Jan-2020 End: 13-Jan-2020 Status: Inactive Comments: Medication taken as needed. Comment on above: Medication taken as needed. acetaminophen 325 mg / oxyCODONE hydrochloride 5 mg oral tablet (20 sources) Opioid Agonist Start: 03-27-2013 End: 06-27-2020 take 1-2 tablets by mouth every six hours as needed for pain Percocet 5-325 MG Oral Tablet ; 1-2 Tablet Tablet q 6hrs prn pain for 0 days Quantity: 30 {Tablet} Refills: 0 Ordered: 27-Jun-2020 LESTER Simon Elaine Zhu Start: 27-Mar-2013 End: 27-Jun-2020 Status: Inactive amoxicillin 500 mg oral capsule (8 sources) Penicillin-class Antibacterial Start: 07-13-2021 End: 07-20-2021 take 1 capsule by mouth three times daily Amoxicillin 500 MG Oral Capsule ; 1 (one) Capsule three times daily for 7 days Quantity: 21 {Capsule} Refills: 0 Ordered: 22-Nov-2021 MD TRENT STEVENS Start: 13-Jul-2021 End: 20-Jul-2021 Status: Inactive amoxicillin 875 mg / clavulanate 125 mg oral tablet (20 sources) Penicillin-class Antibacterial Start: 10-17-2011 End: 06-27-2020 take 1 tablet by mouth twice daily AUGMENTIN, 875-125MG (Oral Tablet) ; 1 (one) Tablet two times daily for 10 days Quantity: 20 {Tablet} Refills: 1 Ordered: 07-May-2016 LESTER Simon Elaine Zhu Start: 17-Oct-2011 End: 27-Jun-2020 Status: Discontinued Comments: This order discontinued per [facility]. Comment on above: This order discontin ued per [employer]. generic ok atorvastatin 20 mg oral tablet (20 sources) HMG-CoA Reductase Inhibitor Start: 10-25-2021 End: 02-19-2022 take 1 tablet by mouth once daily at bedtime Atorvastatin Calcium 20 MG Oral Tablet ; 1 (one) Tablet qhs for 0 days Quantity: 90 {Tablet} Refills: 3 Ordered: 19-Feb-2022 CATRACHITO Francois Start: 25-Oct-2021 End: 19-Feb-2022 Status: Inactive azithromycin 250 mg oral tablet (8 sources) Macrolide Antimicrobial Start: 04-27-2014 End: 05-04-2014 AZITHROMYCIN, 250MG (Oral Tablet) ; 2 x 1 then 1 x 4 Tablet daily for 0 days Quantity: 6 {Tablet} Refills: 0 Ordered: 04-May-2014 MALKA VÁZQUEZ Start: 27-Apr-2014 End: 04-May-2014 Status: Inactive Comments: take two tablets day one and then one tablet daily for 4 days Comment on above: take two tablets day one and then one tablet daily for 4 days 12 hr buPROPion hydrochloride 150 mg extended release oral tablet (20 sources) Aminoketone Start: 05-23-2012 End: 06-27-2020 buPROPion HCl ER (SR) 150 MG Oral Tablet Extended Release 12 Hour ; 1 Tablet ER 12HR bid for 0 days Quantity: 60 {Tablet_ER_12HR} Refills: 5 Ordered: 27-Jun-2020 LESTER Simon Elaine Zhu Start: 23-May-2012 End: 27-Jun-2020 Status: Inactive cephalexin 500 mg oral capsule (20 sources) Cephalosporin Antibacterial Start: 07-02-2023 End: 07-12-2023 cephALEXin 500 mg capsule ; 2 (two) Capsule bid for 10 days Quantity: 40 {Capsule} Refills: 0 Ordered: 02-Jul-2023 MD Jameson Sen Start: 02-Jul-2023 End: 12-Jul-2023 Status: Inactive Start: 04-10-2023 End: 04-20-2023 cephALEXin 500 mg capsule ; 2 (two) Capsule bid for 10 days Quantity: 40 {Capsule} Refills: 0 Ordered: 10-Apr-2023 MD Jameson Sen Start: 10-Apr-2023 End: 20-Apr-2023 Status: Inactive Start: 05-15-2016 End: 05-25-2016 take 1 capsule by mouth three times daily Cephalexin 500 MG Oral Capsule ; 1 Capsule three times daily for 10 days Quantity: 30 {Capsule} Refills: 0 Ordered: 15-May-2016 MD Jameson Sen Start: 15-May-2016 End: 25-May-2016 Status: Inactive ciprofloxacin 500 mg oral tablet (20 sources) Quinolone Antimicrobial Start: 05-14-2023 End: 05-15-2023 ciprofloxacin 500 mg tablet ; 1 (one) tablet two times daily for 10 days Quantity: 20 {Tablet} Refills: 0 Ordered: 15-May-2023 MD Jameson Sen Start: 14-May-2023 End: 15-May-2023 Status: Inactive Start: 02-04-2023 End: 02-11-2023 ciprofloxacin 500 mg tablet ; 1 (one) tablet two times daily for 7 days Quantity: 14 {Tablet} Refills: 0 Ordered: 04-Feb-2023 ALISTAIR Ralph Start: 04-Feb-2023 End: 11-Feb-2023 Status: Inactive Start: 10-11-2022 End: 10-18-2022 ciprofloxacin 500 mg tablet ; 1 (one) tablet bid for 7 days Quantity: 14 {Tablet} Refills: 0 Ordered: 11-Oct-2022 MD Jameson Sen Start: 11-Oct-2022 End: 18-Oct-2022 Status: Inactive codeine phosphate 2 mg/ml / promethazine hydrochloride 1.25 mg/ml oral solution (20 sources) Opioid Agonist, Phenothiazine Start: 04-07-2020 End: 04-14-2020 take 5 mL by mouth four times daily as needed for cough Promethazine-Codeine 6.25-10 MG/5ML Oral Syrup ; 5 Milliliter qid prn cough for 7 days Quantity: 120 {Milliliter} Refills: 0 Ordered: 07-Apr-2020 MD TRENT STEVENS Start: 07-Apr-2020 End: 14-Apr-2020 Status: Inactive Comments: STEFANI [place]. Start: 05-07-2016 End: 06-27-2020 take 1-2 [tsp_us] by mouth every six hours as needed for cough Promethazine-Codeine 6.25-10 MG/5ML Oral Syrup ; 1-2 tsp q 6hrs prn cough for 0 days Quantity: 240 {Milliliter} Refills: 0 Ordered: 27-Jun-2020 LESTER Simon Start: 07-May-2016 End: 27-Jun-2020 Status: Inactive Comments: OARRS 05/07/16 Comment on above: OARRS 05/07/16 STEFANI [place]. cyclobenzaprine hydrochloride 10 mg oral tablet (20 sources) Muscle Relaxant Start: End: take 1 tablet by mouth three times daily as needed for pain Cyclobenzaprine HCl 10 MG Oral Tablet ; 1 (one) Tablet tid prn back pain for 0 days Quantity: 30 {Tablet} Refills: 0 Ordered: 03-Aug-2020 LESTER Simon Start: 27-Jun-2020 End: 03-Aug-2020 Status: Inactive dicyclomine hydrochloride 20 mg oral tablet (8 sources) Anticholinergic Start: End: take 1 tablet by mouth three times daily Dicyclomine HCl 20 MG Oral Tablet ; 1 Tablet Tablet three times daily for 0 days Quantity: 20 {Tablet} Refills: 0 Ordered: 26-Mar-2019 KERRY Landaverde Start: 02-Sep-2018 End: 26-Mar-2019 Status: Inactive finasteride 5 mg oral tablet (8 sources) 5-alpha Reductase Inhibitor Start: End: take 1 tablet by mouth once daily Finasteride 5 MG Oral Tablet ; 1 (one) Tablet daily for 30 days Quantity: 30 {Tablet} Refills: 11 Ordered: 26-Mar-2019 KERRY Landaverde Start: 27-Oct-2018 End: 26-Mar-2019 Status: Inactive Comments: to use with Flomax Comment on above: to use with Flomax FISH OIL + D3, [id number] (Oral Capsule) (8 sources) take 1 capsule by mouth once daily FISH OIL + D3, [id number] (Oral Capsule) ; 1 daily (1516-5674 MG-UNIT) Status: Inactive HAWTHORN, 150MG (Oral Capsule) (8 sources) take 1 capsule by mouth once daily HAWTHORN, 150MG (Oral Capsule) ; 1 daily (150 MG) Status: Inactive lisinopril 10 mg oral tablet (20 sources) Angiotensin Converting Enzyme Inhibitor Start: 023 End: 024 lisinopriL 10 mg tablet ; 1 (one) Tab daily for 0 days Quantity: 90 {Tablet} Refills: 3 Ordered: 02-Jul-2023 MD Jameson Sen Start: 10-Apr-2023 End: 02-Jul-2023 Status: Inactive Start: 05-04-2014 End: 04-28-2015 take 1 tablet by mouth once daily LISINOPRIL, 10MG (Oral Tablet) ; 1 (one) Tablet Tablet daily for 90 days Quantity: 90 {Tablet} Refills: 3 Ordered: 28-Apr-2015 KERRY Breen Start: 04-May-2014 End: 28-Apr-2015 Status: Inactive Start: 02-26-2014 End: 08-23-2014 LISINOPRIL, 5MG (Oral Tablet ) ; 2 tab Tablet daily for 30 days Quantity: 30 {Tablet} Refills: 11 Ordered: 23-Aug-2014 KERRY Breen Start: 26-Feb-2014 End: 23-Aug-2014 Status: Inactive lovastatin 10 mg oral tablet (8 sources) HMG-CoA Reductase Inhibitor Start: 03-02-2014 End: 03-15-2014 take 1 tablet by mouth at bedtime LOVASTATIN, 10MG (Oral Tablet) ; 1 Tablet at bedtime for 30 days Quantity: 30 {Tablet} Refills: 2 Ordered: 15-Mar-2014 KERRY Breen Start: 02-Mar-2014 End: 15-Mar-2014 Status: Inactive naproxen 500 mg oral tablet (8 sources) Nonsteroidal Anti-inflammatory Drug Start: 09-27-2016 End: 11-19-2016 take 1 tablet by mouth twice daily as needed Naproxen 500 MG Oral Tablet ; 1 (one) Tablet two times daily, as needed for 0 days Quantity: 20 {Tablet} Refills: 0 Ordered: 19-Nov-2016 KERRY Navarro Start: 27-Sep-2016 End: 19-Nov-2016 Status: Inactive Comments: Medication taken as needed. Comment on above: Medication taken as needed. omeprazole 20 mg delayed release oral capsule (16 sources) Proton Pump Inhibitor Start: 04-28-2015 End: 09-27-2016 take 1 capsule by mouth once daily as needed Omeprazole 20 MG Oral Capsule Delayed Release ; 1 (one) Capsule DR Capsule DR daily, as needed for 0 days Quantity: 30 {Capsule} Refills: 5 Ordered: 27-Sep-2016 KERRY MARIN Start: 28-Apr-2015 End: 27-Sep-2016 Status: Inactive Comments: Medication taken as needed. Start: 04-27-2015 End: 06-02-2015 OMEPRAZOLE, 20MG (Oral Table t Delayed Release) ; 1 (one) Tablet Tablet prn for 0 days Quantity: 90 {Tablet} Refills: 3 Ordered: 02-Jun-2015 KERRY Breen Start: 27-Apr-2015 End: 02-Jun-2015 Status: Inactive Comment on above: Medication taken as needed. pentoxifylline 400 mg extended release oral tablet (8 sources) Blood Viscosity Heating And Ventilating Drafter Start: End: take 1 tablet by mouth three times daily Pentoxifylline ER 400 MG Oral Tablet Extended Release ; 1 (one) Tablet Tablet tid for 30 days Quantity: 90 {Tablet} Refills: 2 Ordered: 12-Jan-2020 Vijaya Solitario Start: 06-Jul-2019 End: 12-Jan-2020 Status: Discontinued Promethazine VC/Codeine 6.25-5-10 MG/5ML Oral Syrup (20 sources) Start: 013 End: 021 take 1 [tsp_us] by mouth four times daily as needed Promethazine VC/Codeine 6.25-5-10 MG/5ML Oral Syrup ; 1 tsp qid prn for 0 days Quantity: 120 {cc} Refills: 0 Ordered: 27-Jun-2020 LESTER Simon Elaine Zhu Start: 11-Sep-2012 End: 27-Jun-2020 Status: Inactive Comments: wm Comment on above: wm sulfamethoxazole 400 mg / trimethoprim 80 mg oral tablet (20 sources) Dihydrofolate Reductase Inhibitor Antibacterial, Sulfonamide Antimicrobial Start: 024 End: 024 Bactrim 400 mg-80 mg tablet ; 1 (one) tablet bid for 10 days Quantity: 20 {Tablet} Refills: 0 Ordered: 15-May-2023 MD Jameson Sen Start: 15-May-2023 End: 15-May-2023 Status: Inactive Start: 05-15-2023 End: 05-25-2023 Bactrim DS 800 mg-160 mg tab let ; 1 (one) tablet bid for 10 days Quantity: 20 {Tablet} Refills: 0 Ordered: 15-May-2023 MD Jameson Sen Start: 15-May-2023 End: 25-May-2023 Status: Inactive Start: 01-30-2023 End: 02-06-2023 Bactrim 400 mg-80 mg tablet ; 1 (one) tablet bid for 7 days Quantity: 14 {Tablet} Refills: 0 Ordered: 30-Jan-2023 ALISTAIR Ralph Start: 30-Jan-2023 End: 06-Feb-2023 Status: Inactive Start: 10-08-2022 End: 10-11-2022 Bactrim DS 800 mg-160 mg tab let ; 1 (one) tablet bid for 7 days Quantity: 14 {Tablet} Refills: 0 Ordered: 11-Oct-2022 MD Jameson Sen Start: 08-Oct-2022 End: 11-Oct-2022 Status: Inactive tamsulosin hydrochloride 0.4 mg oral capsule (20 sources) alpha-Adrenergic Shantell Start: 02-21-2021 End: 12-29-2021 take 2 capsules by mouth once daily Flomax 0.4 MG Oral Capsule ; 2 Capsule daily as neeeded prostate for 30 days Quantity: 60 {Capsule} Refills: 3 Ordered: 29-Dec-2021 KERRY Landaverde Start: 21-Feb-2021 End: 29-Dec-2021 Status: Inactive Comments: N40.1 take 1 capsule by mouth once jairo ly Tamsulosin HCl 0.4 MG Oral Capsule ; 1 daily (0.4 MG) Status: Inactive Comment on above: N40.1 terbinafine hydrochloride 10 mg/ml topical cream (8 sources) Allylamine Antifungal Start: 11-20-19 End: 03-21-20 17 Terbinafine HCl 1 % External Cream ; 1 (one) Cream two times daily for 21 days Quantity: 1 {Tube} Refills: 1 Ordered: 21-Mar-2017 Start: 19-Nov-2016 End: 21-Mar-2017 Status: Inactive triamcinolone acetonide 1 mg/ml topical cream (20 sources) Corticosteroid Start: 07-01-19 11 End: 03-21-20 11 TRIAMCINOLONE ACETONIDE, 0.1% (External Cream) ; 1 (one) Application(s) two times daily for 0 days Quantity: 80 {gram(s)_tube} Refills: 3 Ordered: 21-Mar-2011 Start: 30-Jun-2010 End: 21-Mar-2011 Status: Inactive varenicline 1 mg oral tablet (16 sources) Partial Cholinergic Nicotinic Agonist Start: 03-26-19 End: 01-12-20 take 1 tablet by mouth once Chantix Starting Month Lam 0.5 MG X 11 & 1 MG X 42 Oral Tablet ; 1 (one) Tablet Tablet as directed for 0 days Quantity: 1 {Package} Refills: 0 Ordered: 12-Jan-2020 Vijaya Solitario Start: 26-Mar-2019 End: 12-Jan-2020 Status: Discontinued Start: 05-04-2014 End: 08-23-2014 take 1 tablet by mouth twice daily CHANTIX, 1MG (Oral Tablet) ; 1 (one) Tablet two times daily for 0 days Quantity: 60 {Tablet} Refills: 3 Ordered: 23-Aug-2014 KERRY Breen Start: 04-May-2014 End: 23-Aug-2014 Status: Inactive Comments: start after finished with starter pack ( from [place] office) Comment on above: start after finished with starter pack ( from [place] office) Problems Active Problems Problem Classification Problem Date Documented Da te Episodic/Chronic Abdominal pain (20 sources) Abdominal pain, left lower quadrant; Translations: [Flank pain] 05-16-2011 Episodic Administrative/social admission (20 sources) Issue of repeat prescriptions; Translations: [Patient encounter status] 05-15-2016 Episodic Allergic reactions (20 sources) Inflammatory dermatosis; Translations: [Dermatitis, unspecified] 06-30-2010 Episodic Anxiety disorders (20 sources) Generalized anxiety disorder; Translations: [Generalized anxiety disorder] 01-30-2023 Chronic Comment on above: Intermittent. Cardiac dysrhythmias (16 sources) Intermittent palpitations; Translations: [Palpitations] 01-06-2020 Episodic Chronic obstructive pulmonary disease and bronchiectasis (20 sources) Bronchitis; Translations: [Bronchitis, not specified as acute or chronic] 07-02-2023 Episodic Disorders of lipid metabolism (20 sources) Hyperlipidemia; Translations: [Hyperlipidemia, unspecified] 01-30-2023 Chronic Comment on above: history of Disorders of teeth and jaw (8 sources) Jaw pain; Translations: [Jaw pain] 08-23-2014 Episodic Diverticulosis and diverticulitis (20 sources) Diverticulitis; Translations: [Diverticulitis of intestine, part unspecified, without perforation or abscess without bleeding] 08-11-2012 Chronic Comment on above: Recurrent Esophageal disorders (20 sources) Gastroesophageal reflux disease; Translations: [Gastro-esophageal reflux disease without esophagitis] 01-06-2020 Chronic Comment on above: Stable. Essential hypertension (20 sources) Hypertensive disorder; Translations: [Essential (primary) hypertension] 01-30-2023 Chronic Genitourinary symptoms and ill-defined conditions (20 sources) Urinary symptoms ; Translations: [Unspecified symptoms and signs involving the genitourinary system] 04-10-2023 Episodic Headache; including migraine (20 sources) Headache; Translations: [Headache] 09-27-2021 Episodic Hyperplasia of prostate (20 sources) Benign prostatic hyperplasia; Translations: [Benign prostatic hyperplasia with lower urinary tract symptoms] 02-21-2021 Chronic Immunizations and screening for infectious disease (20 sources) Encounter for immunization; Translations: [Other specified vaccinations against streptococcus pneumoniae [pneumococcus]] 04-10-2023 Episodic Lymphadenitis (20 sources) Lymphadenitis; Translations: [Nonspecific lymphadenitis, unspecified] 10-17-2011 Episodic Mycoses (8 sources) Tinea corporis; Translations: [Tinea corporis] 11-19-2016 Episodic Nonspecific chest pain (20 sources) Atypical chest pain; Translations: [Other chest pain] 01-06-2020 Episodic Osteoarthritis (20 sources) Osteoarthrosis, localized, 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, hand; Translations: [Degenerative joint disease of shoulder region] 01-30-2023 Chronic Other aftercare (20 sources) Long-term (current) use of other medications 03-20-2010 Episodic Other aftercare (20 sources) H/O: high risk medication; Translations: [Other detention (current) drug therapy] 12-29-2021 Episodic Other circulatory disease (20 sources) Elevated blood pressure; Translations: [Elevated blood-pressure reading, without diagnosis of hypertension] 04-10-2023 Episodic Other circulatory disease (20 sources) Elevated blood pressure reading without diagnosis of hypertension 05-14-2012 Episodic Other circulatory disease (20 sources) Labile systemic arterial hypertension; Translations: [Other specified symptoms and signs involving the circulatory and respiratory systems] 05-04-2014 Episodic Other connective tissue disease (20 sources) Pain in limb 08-11-2012 Episodic Other connective tissue disease (16 sources) Muscle pain; Translations: [Myalgia, unspecified site] 01-06-2020 Episodic Comment on above: Bilateral legs and h ips. ? due to Losartan? Other connective tissue disease (16 sources) Pain in hallux; Translations: [Pain in left toe(s)] 09-27-2016 Episodic Other connective tissue disease (8 sources) Pain in left foot; Translations: [Pain in left foot] 12-27-2023 Episodic Other ear and sense organ disorders (20 sources) Decreased hearing ; Translations: [Unspecified hearing loss, unspecified ear] 01-30-2023 Chronic Other fractures (20 sources) Closed fracture of multiple ribs; Translations: [Multiple fractures of ribs, left side, subsequent encounter for fracture with routine healing] 01-12-2020 Episodic Other fractures (16 sources) Closed fracture of multiple left ribs; Translations: [Multiple fractures of ribs, left side, initial encounter for closed fracture] 01-08-2020 Episodic Other fractures (8 sources) Fracture of rib; Translations: [Fracture of one rib, unspecified side, initial encounter for closed fracture] 01-06-2020 Episodic Other gastrointestinal disorders (20 sources) Stool DNA-based colorectal cancer screening positive; Translations: [Other fecal abnormalities] 01-30-2023 Episodic Other inflammatory condition of skin (8 sources) Seborrheic dermatitis; Translations: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 ago. Note for Abdominal pain : Pt. was shoveling and now is painful. He is wondering if this is a hernia. 07-03-2018 Unclassified (8 sources) !Patient notification of lab results - Cruz. The test(s) that you had done were/was a skin biopsy (This showed that the lesion we removed was skin cancer. Fortunately we got it all - no further treatment is needed. Keep an eye out for any other new lesions elsewhere.). You should call our office if you have any questions. 01-13-2018 Unclassified (8 sources) Skin lesion - The skin lesion appeared gradually and has been occurring for months. It has been increasing in size. The skin lesion is characterized as red and raised above the skin. The skin lesion is located on the upper extremity (left). There has been associated pain. 01-09-2018 Unclassified (8 sources) !Patient notification of lab results - Stevens. The test(s) that you had done were/was a CBC (checks for anemia and infection), a CMP (kidneys, liver, nutrition, sugar), a lipid panel (cholesterol and triglycerides) and a PSA (blood test for prostate cancer). The results of your testing were normal (except for mildly low potassium level. Triglycerides are high when not totally fasting) . Please note that we have included copies of your results and follow up as scheduled. 09-11-2017 Unclassified (8 sources) Physical examination - The patient is here for a annual physical. Note for Physical examination : . 09-10-2017 Unclassified (8 sources) Skin Lesion, Facial - The condition involves multiple lesions. 03-21-2017 Unclassified (8 sources) Skin lesion - The skin lesion appeared rapidly and has been occurring for 1 week. The skin lesion is located on the lower extremity (right leg). 11-19-2016 Unclassified (8 sources) Foot pain - The onset of the foot pain has been acute and has been occurring for 1 week. The pain affects the left foot. The foot pain is described as being located in the great toe. Note for Foot pain : Pt dropped drill part on toe (approx 40 lbs). Immediate pain and swelling. Discomfort continues, difficulty walking/wearing shoes. 09-27-2016 Unclassified (8 sources) recheck - hypertension and reports no headaches. Note for recheck : pt had hip pain with taking the Losartan so he stopped it and the pain improved. Pt took the BP med yesterday and today and hip pain returned.. 06-02-2015 Unclassified (8 sources) HYPERTENSION - Note for HYPERTENSION : BP at [facility] previously 156/90. 04-28-2015 Unclassified (8 sources) !Patient notification of lab results 1 - Stevens. The test(s) that you had done were/was a heart stress test. The results of your testing were normal . You should call our office to schedule an appointment for additional testing (recommend checking an ultrasound of the gallbladder). 08-26-2014 Unclassified (8 sources) Back Pain - This condition occurred without any known injury. Symptoms are located in the right mid back. Onset was 2 day(s) ago (pt has had similar back pain attacks for many years.). Note for Back pain : pt also gets right jaw pain. Thinks it is his gall bladder.. 08-23-2014 Unclassified (8 sources) recheck - other illness (lymphadenitis). The patient reports improvement. Note for recheck : L neck.. 05-04-2014 Unclassified (8 sources) Unspecified Diagnosis 04-27-2014 Unclassified (8 sources) Neck Pain - This condition occurred without any known injury. Symptoms are located in the left lateral neck. Onset was 5 day(s) ago. The patient describes symptoms as worsening. Note for Neck pain : . 04-27-2014 Unclassified (8 sources) Physical examination - The patient is here for a annual physical. Note for Physical examination : Does not want to start the Lovastatin as suggested in results review letter.. 03-15-2014 Unclassified (8 sources) !Patient notification of lab results 1 - Stevens. The test(s) that you had done were/was a CBC (checks for anemia and infection), a CMP (kidneys, liver, nutrition, sugar) and a lipid panel (cholesterol and triglycerides). Your tests showed the following abnormalities: high cholesterol . Please adjust your therapy by starting a cholesterol lowering medication, lovastatin 10 mg daily. You should call our office for a new prescription. Please note that we have included copies of your results (You are higher risk for cholesterol problems, due to age, smoking and blood pressure). 03-01-2014 Unclassified (8 sources) Blood pressure check - Symptoms do not include headache, confusion, visual disturbances, dizziness, shortness of breath, edema or chest pain. The patient is not currently being treated for this problem. Note for Hypertension : Patient stated, My blood pressure has been reading as high as 176/107 recently. Patient first noticed high blood pressure about 6 months ago.. 02-26-2014 Unclassified (1 source) Skin Lesion - The skin lesion appeared gradually and has been occurring for years. It has been increasing in size. The lesion is characterized as raised above the skin. The lesion is located on the back. 04-15-2023 Unclassified (20 sources) Skin Lesion - The skin lesion appeared gradually and has been occurring for years. It has been increasing in size. The lesion is characterized as raised above the skin. The lesion is located on the back. Note for Skin lesion : These lesions protrude and have caught and soares, get painful and itchy 04-15-2023 Unclassified (17 sources) [ADDITIONAL REASON] Hypertension - Note for Hypertension : Pt states has been checking home Bps 196/106 last night. C/O H/A and ringing in ears. 05-14-2023 Unclassified (6 sources) Hypertension - Note for Hypertension : Pt states has been checking home Bps 196/106 last night. C/O H/A and ringing in ears. 05-14-2023 Unclassified (14 sources) Cold Symptoms - Symptoms include sneezing, runny nose, ear fullness (right side), sore throat (10 days ago) and dry cough, but do not include fever. The onset was sudden 10 day(s) ago. The symptoms occur constantly. The patient describes this as moderate in severity and unchanged. The patient is not currently being treated for this problem. Note for Upper respiratory infection : reviewed by [facility] 07-02-2023 Unclassified (7 sources) Anxiety Disorders - It is classified as panic disorder without agoraphobia. The last clinic visit was 17 month(s) ago. Note for Anxiety disorders : Takes Xanax as needed for panic attacks 08-12-2023 Unclassified (6 sources) Leg Numbness - The leg numbness has been occurring in a persistent pattern for 1 year. The course has been worsening. The leg numbness is described as moderate needles and pins, numbness and tingling. The leg numbness is described as being located in the left thigh anteriorly and radiating nowhere. There are no aggravating factors. There has been no associated low back pain, abdominal pain, chills, flank pain, hip pain, leg weakness or trauma. 01-12-2020 Unclassified (6 sources) [ADDITIONAL REASON] Rib fracture - Seen in office 01/06/20. Sent for Xray sameday. Xray confirmed fractured ribs 01-12-2020 Unclassified (3 sources) Abdominal Pain, Male - Symptoms include abdominal pain. The pain is located in the left lower quadrant. The patient describes the pain as sharp. Onset was gradual 2 year(s) ago. Note for Abdominal pain : Pt. was shoveling and now is painful. He is wondering if this is a hernia. 07-03-2018 Unclassified (3 sources) [ADDITIONAL REASON] Skin lesion - The skin lesion is located on the back (4 lesions, black and scaly.). There has been no associated itching or pain. 07-03-2018 Unclassified (1 source) Immunization - Immunizations discussed with patient/ parent: yes (declines flu shot.). 02-21-2021 Unclassified (1 source) [ADDITIONAL REASON] Anxiety Disorders - The last clinic visit was 10 month(s) ago. 02-21-2021 Unclassified (3 sources) Lump on thumb - Pt also would like on lump on right thumb evaluated. Lump has been there for few days and very painful. Has not bumped thub or injured it in any way that he is away of. reviewed by [facility] 08-11-2012 Unclassified (3 sources) [ADDITIONAL REASON] UTI - Symptoms include urinary frequency and abdominal pain (lower abdominal pain). Onset was sudden 8 hour(s) ago. The patient describes this as moderate in severity and worsening. Associated symptoms do not include fever, nausea or vomiting. Note for UTI : Pt states he will get these the pain and frequency couple times a year and usually subside by pushing fluids.Pt has hx of diverticulitis and wondering if flare up of this could be cause of the abdominal p[pain and feeling of urinary frequency. He has no loose stools today but had several yesterday. reviewed by [facility] 08-11-2012 Unclassified (4 sources) Foot pain - The pain is in the left foot and is located in the forefoot (base of the second and third toes). 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 The course has been constant. The pain is moderate. The pain is characterized as a sharp stabbing. The pain is aggravated by physical activity. The symptoms have been associated with swelling, decreased ROM and erythema, but have not been associated with muscle weakness, locking, pain in ankle, pain in calf, warmth, fever or chills. 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 12-27-2023 Urinary tract infections (20 sources) Urinary tract infections 05-14-2023 Results Test Name Value Interpretation Reference Range Facility FOOT COMPLETE LTon FOOT COMPLETE [address] [address] Patient: MCKENNA LAMB Phone#: : 1950 Age: 73 Gender: M Pt. Type: Out Account: [id number] Location: [facility] Ordering: NORY LEE Exam Date: 12/27/2023/15:50 Family Phys: Charge Code: [id number] Physician: Brule Order #: [id number] Dose#: PROCEDURE: X-RAY FOOT LT COMPLETE MIN 3 VIEWS COMPARISON: None. INDICATIONS: Left foot pain. FINDINGS: BONES: Joint space loss at the 2nd, 3rd and 4th DIP articulations. Joint space loss at the 4th PIP articulation. Prominent posterior process of the talus. No acute osseous abnormality. SOFT TISSUES: Mild soft tissue swelling of the dorsal aspect of the foot. EFFUSION: None visible. OTHER: Negative. CONCLUSION: 1. No acute osseous abnormality 2. Joint space loss at multiple PIP and DIP articulations Dictated by: Gi William MD on 12/27/2023 at 16:11 Approved by: Gi William MD on 12/27/2023 at 16:19 Normal [facility] URIC ACIDon 12-27-2023 Urate [Mass/Vol] 5.4 mg/dL Normal 3.5 - 7.2 mg/dL [facility] Comment on above: Performed By: #### 2 [id number] #### [facility],[address] [place], [place] [id number] CULTURE, URINE, ROUTINEon CULTURE, URINE, ROUTINE SEE NOTE Abnormal [facility] Comment on above: Result Comment: CULTURE, URINE, ROUTINE Micro Number: [id number] Test Status: Final Specimen Source: Urine Specimen Quality: Adequate Result: Greater than 100,000 CFU/mL of Klebsiella pneumoniae K.pneumoniae INT ED AMOX/CLAVULANATE S <=2 AMPICILLIN R 16 AMP/SULBACTAM S 4 CEFAZOLIN NR <=4 2 CEFEPIME S <=1 CEFTAZIDIME S <=1 CEFTRIAXONE S <=1 CIPROFLOXACIN S <=0.25 GENTAMICIN S <=1 IMIPENEM S <=0.25 LEVOFLOXACIN S <=0.12 NITROFURANTOIN S 32 PIP/TAZOBACTAM S <=4 TOBRAMYCIN S <=1 TRIMETHOPRIM/SULFA S <=20 S=Susceptible I=Intermediate R=Resistant * = Not Tested NR = Not Reported NN = See Therapy Comments THERAPY COMMENTS Note 1: For infections other than uncomplicated UTI caused by E. coli, K. pneumoniae or P. mirabilis: Cefazolin is resistant if ED > or = 8 mcg/mL. (Distinguishing susceptible versus intermediate for isolates with ED < or = 4 mcg/mL requires additional testing.) Note 2: For uncomplicated UTI caused by E. coli, K. pneumoniae or P. mirabilis: Cefazolin is susceptible if ED <32 mcg/mL and predicts susceptible to the oral agents cefaclor, cefdinir, cefpodoxime, cefprozil, cefuroxime, cephalexin and loracarbef. Performed By: #### 3 95 #### [facility] [address], [address] [place] [id number] Pick Up Attendant: Darian Marquez MD Laboratory - Chemistry and C hemistry - challengeon 05-14-2023 Bilirubin Ql (U) Negative Normal [facility], [facility].; [employer]Card. Ketones Ql (U) Negative Normal [facility] [place] [facility].; [employer], [employer]. pH (U) 6.0 [pH] Normal [employer] [employer] [facility].; [employer]Card. Specific gravity (U) [Rel density] 1.010 Normal Chanel [employer].; [employer], [employer]. Urobilinogen Qn (U) 0.2 mg/dL Normal [facility] [place] [facility].; [employer]. Laboratory - Hematology and Cell countson 05-14-2023 Hemoglobin Ql (U) Trace, hemolyzed Abnormal [facility] [employer]; [employer] Laboratory - Specimen inform ationon 05-14-2023 Appearance (U) Cloudy Abnormal [employer]; [employer] Color (U) Yellow Normal [employer]; [employer] Laboratory - Urinalysison Glucose Test strip (U) [Mass/Vol] Negative Normal [employer]; m[employer]Card. Leukocyte esterase Test strip Ql (U) Moderate Abnormal [employer]; [employer]. Nitrite Ql (U) Negative Normal [employer]; [employer] Protein Ql (U) Negative Normal [employer]; [employer]. No Panel Informationon 05-14 CULTURE, URINE, ROUTINE SEE NOTE Abnormal [employer]; [employer] CULTURE, URINE, ROUTINEon CULTURE, URINE, ROUTINE SEE NOTE Abnormal [facility] Comment on above: Result Comment: CULTURE, URINE, ROUTINE Micro Number: [id number] Test Status: Final Specimen Source: Urine Specimen Quality: Adequate Result: Greater than 100,000 CFU/mL of Klebsiella oxytoca K.oxytoca INT ED AMOX/CLAVULANATE S <=2 AMPICILLIN R >=32 AMP/SULBACTAM S 8 CEFAZOLIN R 16 1 CEFEPIME S <=1 CEFTAZIDIME S <=1 CEFTRIAXONE S <=1 CIPROFLOXACIN S <=0.25 GENTAMICIN S <=1 IMIPENEM S <=0.25 LEVOFLOXACIN S <=0.12 NITROFURANTOIN S <=16 PIP/TAZOBACTAM S <=4 TOBRAMYCIN S <=1 TRIMETHOPRIM/SULFA R >=320 S=Susceptible I=Intermediate R=Resistant * = Not Tested NR = Not Reported NN = See Therapy Comments THERAPY COMMENTS Note 1: For uncomplicated UTI caused by E. coli, K. pneumoniae or P. mirabilis: Cefazolin is susceptible if ED <32 mcg/mL and predicts susceptible to the oral agents cefaclor, cefdinir, cefpodoxime, cefprozil, cefuroxime, cephalexin and loracarbef. Performed By: #### 3 95 #### [facility] [address] [facility], [address] [place] [address] Pick Up Attendant: Darian Marquez MD Laboratory - Chemistry and C hemistry - challengeon 01-30-2023 Bilirubin Ql (U) Negative Normal [facility].; [facility]Card. Ketones Ql (U) Negative Normal [employer].; [employer], [employer]. pH (U) 7.0 [pH] Normal [employer].; [employer]Card. Specific gravity (U) [Rel density] 1.015 Normal [employer].; [employer]. Urobilinogen Qn (U) 0.2 mg/dL Normal [facility] [employer].; [employer]Card. Laboratory - Hematology and Cell countson 01-30-2023 Hemoglobin Ql (U) small Abnormal [employer].; m[employer]Card. Laboratory - Specimen inform ationon 01-30-2023 Appearance (U) cloudy Abnormal [employer].; [employer]Card. Color (U) yellow Normal [employer].; m[employer]Card. Laboratory - Urinalysison Glucose Test strip (U) [Mass/Vol] Negative Normal [employer].; m[employer]Card. Leukocyte esterase Test strip Ql (U) moderate Abnormal [employer].; [employer]Card. Nitrite Ql (U) Negative Normal Chanel [facility] [employer].; [employer]Card. Protein Ql (U) 30 mg/dL Abnormal [facility] [employer].; [employer]Card. No Panel Informationon 01-30 CULTURE, URINE, ROUTINE SEE NOTE Abnormal [employer].; [employer]. CULTURE, URINE, ROUTINEon CULTURE, URINE, ROUTINE SEE NOTE Abnormal [facility] Comment on above: Result Comment: CULTURE, URINE, ROUTINE Micro Number: [id number] Test Status: Final Specimen Source: Urine Specimen Quality: Adequate Result: Greater than 100,000 CFU/mL of Klebsiella oxytoca K.oxytoca INT ED AMOX/CLAVULANATE S <=2 AMPICILLIN R >=32 AMP/SULBACTAM S 8 CEFAZOLIN NR <=4 2 CEFEPIME S <=1 CEFTAZIDIME S <=1 CEFTRIAXONE S <=1 CIPROFLOXACIN S <=0.25 GENTAMICIN S <=1 IMIPENEM S <=0.25 LEVOFLOXACIN S <=0.12 NITROFURANTOIN S 32 PIP/TAZOBACTAM S <=4 TOBRAMYCIN S <=1 TRIMETHOPRIM/SULFA S <=20 S=Susceptible I=Intermediate R=Resistant * = Not Tested NR = Not Reported NN = See Therapy Comments THERAPY COMMENTS Note 1: For infections other than uncomplicated UTI caused by E. coli, K. pneumoniae or P. mirabilis: Cefazolin is resistant if ED > or = 8 mcg/mL. (Distinguishing susceptible versus intermediate for isolates with ED < or = 4 mcg/mL requires additional testing.) Note 2: For uncomplicated UTI caused by E. coli, K. pneumoniae or P. mirabilis: Cefazolin is susceptible if ED <32 mcg/mL and predicts susceptible to the oral agents cefaclor, cefdinir, cefpodoxime, cefprozil, cefuroxime, cephalexin and loracarbef. Performed By: #### 3 95 #### [facility] [address], [address] [place] [phone] Pick Up Attendant: Darian Marquez MD Laboratory - Chemistry and C hemistry - challengeon 10-08-2022 Bilirubin Ql (U) Negative Normal [facility], [employer].; [employer], [employer]. Ketones Ql (U) Negative Normal [facility], [employer].; [employer], [employer]. pH (U) 6.0 [pH] Normal [employer], [employer].; [employer], [employer]. Specific gravity (U) [Rel density] 1.010 Normal [employer].; [employer], [employer]. Urobilinogen Qn (U) 0.2 mg/dL Normal [facility].; [facility]Card. Laboratory - Hematology and Cell countson 10-08-2022 Hemoglobin Ql (U) Trace, hemolyzed Abnormal [facility].; [employer]. Laboratory - Specimen inform ationon 10-08-2022 Appearance (U) Cloudy Abnormal [facility] [employer].; m[employer]Card. Color (U) Yellow Normal [facility] [employer].; m[employer]Card. Laboratory - Urinalysison Glucose Test strip (U) [Mass/Vol] Negative Normal [employer].; m[employer]Card. Leukocyte esterase Test strip Ql (U) Moderate Abnormal [place] [employer].; [employer], [employer]. Nitrite Ql (U) Negative Normal [facility] [employer].; [employer]Card. Protein Ql (U) Negative Normal [facility] [employer].; m[employer]Card. No Panel Informationon 10-08 CULTURE, URINE, ROUTINE SEE NOTE Abnormal [employer].; m[employer]Card. Urease Tiss Qlon 03-12-2022 Urease Ql (Tiss) Negative Normal [facility] Comment on above: Performed By: #### 3 [id number] #### [facility] CLIA [id number] [address] [place] [address] [place] Laboratory - Chemistry and C hemistry - challengeon 10-18-2021 Albumin [Mass/Vol] 4.3 g/dL Normal 3.6 - 5.1 g/dL [place] [facility].; [employer], [employer]. Albumin/Globulin [Mass ratio] 1.4 {ratio} Normal 1.0 - 2.5 [facility] [employer].; [employer], [employer]. ALP [Catalytic activity/Vol] 70 U/L Normal 35 - 144 U/L [employer].; [employer], [employer]. ALT [Catalytic activity/Vol] 16 U/L Normal 9 - 46 U/L [employer].; [employer]Card. AST [Catalytic activity/Vol] 15 U/L Normal 10 - 35 U/L [facility], [facility].; [facility], [facility]. Bilirubin [Mass/Vol] 0.6 mg/dL Normal 0.2 - 1.2 mg/dL [facility], [facility].; [facility], [facility]. Calcium [Mass/Vol] 9.5 mg/dL Normal 8.6 - 10. 3 mg/dL [facility] [place] [facility].; [facility], [facility]. Chloride [Moles/Vol] 105 mmol/L Normal 98 - 110 mmol/L [facility], [facility].; [facility], [facility]. Cholesterol [Mass/Vol] 244 mg/dL Abnormal [facility] [place] [facility].; [facility], [facility]. Cholesterol in HDL [Mass/Vol] 42 mg/dL Normal [facility], [facility].; [facility], [facility]. Cholesterol in LDL [Mass/Vol] 161 mg/dL Abnormal [facility] [place] [facility].; [facility], [facility]. CO2 [Moles/Vol] 24 mmol/L Normal 20 - 32 mmol/L [facility] [place] [facility].; [facility], [facility]. Creatinine [Mass/Vol] 1.38 mg/dL Abnormal 0.70 - 1.28 mg/dL [facility], [facility].; [facility], [facility]. GFR/1.73 sq M.predicted among non-blacks MDRD (S/P/Bld) [Vol rate/Area] 54 mL/min/{1.73_m2} Abnormal [facility], [facility].; [facility] Glucose [Mass/Vol] 105 mg/dL Abnormal 65 - 99 mg/dL [facility], [facility].; [facility], [facility]. Potassium [Moles/Vol] 3.8 mmol/L Normal 3.5 - 5.3 mmol/L [facility], [facility].; [place] [facility] Protein [Mass/Vol] 7.3 g/dL Normal 6.1 - 8.1 g/dL [facility], [facility].; [place] [employer] Sodium [Moles/Vol] 138 mmol/L Normal 135 - 146 mmol/L [facility], [facility].; [facility], [facility]. Triglyceride [Mass/Vol] 242 mg/dL Abnormal [facility] [place] [facility].; [facility], [facility] Urea nitrogen [Mass/Vol] 23 mg/dL Normal 7 - 25 mg/dL [facility] [place] [facility].; [facility], [facility] Urea nitrogen/Creatinine [Mass ratio] 17 mg/mg Normal 6 - 22 [facility] [place] [facility].; [place] [employer], [facility] Laboratory - Hematology and Cell countson 10-18-2021 Basophils (Bld) [#/Vol] 0.118 10*3/uL Normal 0 - 200 {cells/uL} [facility] [place] [facility].; [facility], [facility] Basophils/100 WBC (Bld) 1.2 % Normal [facility] [place] [facility].; [place] [facility], [facility] Eosinophils (Bld) [#/Vol] 0.333 10*3/uL Normal 15 - 500 {cells/uL} [facility], [facility].; [place] [employer], [facility] Eosinophils/100 WBC (Bld) 3.4 % Normal [facility] [place] [facility].; [place] [employer], [employer] Erythrocyte distribution width (RBC) [Ratio] 14.0 % Normal 11.0 - 15.0 % [facility] [place] [facility].; [place] [employer], [facility]. Hematocrit (Bld) [Volume fraction] 47.9 % Normal 38.5 - 50.0 % [place] [facility] [place] [facility].; [place] [employer], [facility]. Hemoglobin (Bld) [Mass/Vol] 16.6 g/dL Normal 13.2 - 17.1 g/dL [facility] [place] [facility] [place], [facility]. Lymphocytes (Bld) [#/Vol] 2.078 10*3/uL Normal 850 - 3900 {cells/uL} [facility] [place] [facility].; [place], [employer]. Lymphocytes/100 WBC (Bld) 21.2 % Normal [facility] [place] [facility].; [place], [facility]. MCH (RBC) [Entitic mass] 31.1 pg Normal 27.0 - 33.0 pg [place] [facility] [place] [facility].; [place], [employer]. MCHC (RBC) [Mass/Vol] 34.7 g/dL Normal 32.0 - 36.0 g/dL [facility] [place] [facility].; [place], [facility]. MCV (RBC) [Entitic vol] 89.7 fL Normal 80.0 - 100.0 fL [facility] [place] [facility].; [place] [facility], [facility]. Monocytes (Bld) [#/Vol] 0.833 10*3/uL Normal 200 - 950 {cells/uL} [facility], [facility].; [place], [employer]. Monocytes/100 WBC (Bld) 8.5 % Normal [facility] [place] [facility].; [place] [facility], [facility]. Neutrophils (Bld) [#/Vol] 6.439 10*3/uL Normal 1500 - 7800 {cells/uL} [facility] [place] [facility].; [place], [facility]. Neutrophils/100 WBC (Bld) 65.7 % Normal [facility] [place] [facility].; [place], [employer]. Platelet mean volume (Bld) [Entitic vol] 9.5 fL Normal 7.5 - 12.5 fL [facility] [place] [facility].; [place], [employer]. Platelets (Bld) [#/Vol] 248 10*3/uL Normal 140 - 400 [facility] [place] [facility].; [place], [facility]. RBC (Bld) [#/Vol] 5.34 10*6/uL Normal 4.20 - 5.8 0 {Million/uL} [facility] [place] [facility].; [place], [employer]. WBC (Bld) [#/Vol] 9.8 10*3/uL Normal 3.8 - 10.8 [facility] [place] [facility].; [place], [employer]. No Panel Informationon 10-18 CHOL/HDLC RATIO 5.8 Abnormal [facility] [place] [facility].; [place] [employer]. GLOBULIN 3.0 Normal 1.9 - 3.7 [facility] [place] [facility].; [place], [employer]. NON HDL CHOLESTEROL 202 Abnormal [facility] [place] [facility].; [place], [employer]. PSA, TOTAL 0.85 ng/mL Normal [facility] [place] [facility].; [place], [employer]. UCon 05-26-2020 UC ORGANISM 1: METH RESISTANT STAPH AUREUS COLONY COUNT > 100,000 METH RESISTANT STAPH AUREUS: M.I.C. REACTION TRIMETH/SULFAMETHOXAZOLE <=0.5/9.5 S CIPROFLOXACIN <=1 S GENTAMICIN <=4 S NITROFURANTOIN <=32 S OXACILLIN >2 R LEVOFLOXACIN <=1 S PENICILLIN 2 R RIFAMPIN <=1 S TETRACYCLINE <=4 S VANCOMYCIN 1 S LINEZOLID <=2 S DAPTOMYCIN <=1 S AZITHROMYCIN <=2 S S = Susceptible I = Intermediate R = Resistant R*=RESISTANT (ORGANISM HAS INTRINSIC OR INDUCED RESISTANCE) N/R= NOT REPORTED PAM= BETA-LACTAMASE POSITIVE ESBL= EXTENDED SPECTRUM BETA-LACTAMASE Normal [facility] Comment on above: Performed By: #### M [id number] #### [place] - [facility] [address] [place] [address] PSAon 04-13-2020 Prostate Specific Antigen 0.57 mg/dL Normal 0.02-4.00 [facility] (ID) Comment on above: Performed By: #### P SA #### [place] [id number] Laboratory - Chemistry and C hemistry - challengeon 04-12-2020 Prostate specific Ag [Mass/Vol] 0.57 mg/dL Normal 0.02 - 4.00 mg/dL [facility], [facility].; [facility], [facility] A1Con 01-13-2020 HbA1c (Bld) [Mass fraction] 5.9 % Normal 4.0-6.0 [facility] ([place]) Comment on above: Performed By: #### A 1C #### [place] [id number] Laboratory - Chemistry and C hemistry - challengeon 01-12-2020 Glucose Glucometer (BldC) [Moles/Vol] 124 mg/dL Abnormal 60 - 105 mg/dL [facility], [facility].; [facility], [facility]. Laboratory - Hematology and Cell countson 01-12-2020 HbA1c (Bld) [Mass fraction] 5.9 % Normal 4.0 - 6.0 % [facility].; [facility], [facility] Laboratory - Microbiology an d Antimicrobial susceptibilityon 09-03-2019 SARS-CoV-2 (COVID-19) Ab IA Ql Negative Normal [facility] [place] [facility] Final Surgical Pathology Rep [email or web address] 01-13-2018 Final Surgical Pathology Report . Pathology ReportsAccession: Collected Date/Time: Received Date/Time: Pathologist:[id number] 01/09/2018 15:20 EDT 01/10/2018 07:41 EDT MD MICAH SHEA Final Surgical Pathology ReportDIAGNOSIS:SKIN, LEFT ELBOW -- INVASIVE, WELL DIFFERENTIATED SQUAMOUS CELL CARCINOMA. MARGINS ARE FREE.CLINICAL INFORMATION:SKIN LESIONSPECIMEN:A LESION - LEFT ELBOW AREAGROSS DESCRIPTION:Submitted in formalin is a skin ellipse measuring 1.5 x 1.0 x 0.3 cm with a central 4 mm elevated whitish nodular region. Inked, serially sectioned and entirely embedded in one cassette. dictated by Alpesh Shea M.D.Dictated by MICAH SHEA MDMICROSCOPIC DESCRIPTION:Slides reviewed.Electronically Signed byPathology Report verified by [facility] Hospital[facility]ronically signed by MICAH SHEA MDSign out Date: 01/13/2018 15:34Performing Lab: [facility], [address] [place] [address] (ID) Comment on above: Performed By: #### S PFR ####[place] [id number] No Panel Informationon 01-09 Final Surgical Pathology Report See Note Normal [facility] [place] [facility].; [facility] Laboratory - Chemistry and C hemistry - challengeon 09-10-2017 Albumin BCP dye [Mass/Vol] 3.7 g/dL Normal 3.2 - 4.8 g/dL [facility] [place] [facility].; [facility] Albumin/Globulin [Mass ratio] 1.1 {ratio} Normal 0.9 - 1.6 {ratio} [facility] [employer] [place] [facility].; [facility] ALP [Catalytic activity/Vol] 71 U/L Normal 38 - 126 U/L [facility] [place] [facility].; [facility] ALT No additional P-5'-P [Catalytic activity/Vol] 24 U/L Normal 12 - 55 U/L [facility]; [facility] ALT With P-5'-P [Catalytic activity/Vol] 24 U/L Normal 12 - 55 U/L [facility]; [facility] AST [Catalytic activity/Vol] 20 U/L Normal 8 - 34 U/L [facility].; [facility] AST With P-5'-P [Catalytic activity/Vol] 20 U/L Normal 8 - 34 U/L [facility].; [facility] Bilirubin [Mass/Vol] 0.6 mg/dL Normal 0.2 - 1.2 mg/dL [facility]; [facility] Bilirubin Ql (U) Negative Normal [facility]; [facility] Calcium [Mass/Vol] 9.1 mg/dL Normal 8.4 - 10. 1 mg/dL [facility]; [facility] Chloride [Moles/Vol] 107 mmol/L Normal 98 - 110 meq/L [facility]; [facility] Cholesterol [Mass/Vol] 216 mg/dL Abnormal 50 - 199 mg/dL [facility]; [facility] Cholesterol in HDL [Mass/Vol] 42 mg/dL Normal 40 - 59 mg/dL [facility]; [facility] Cholesterol in LDL [Mass/Vol] 119 mg/dL Normal 0 - 129 mg/dL [facility]; [facility] CO2 [Moles/Vol] 25 mmol/L Normal 22 - 32 meq/L [facility]; [facility] Creatinine [Mass/Vol] 1.12 mg/dL Normal 0.60 - 1.40 mg/dL [facility]; [facility] Globulin (S) [Mass/Vol] 3.4 g/dL Normal 1.5 - 3.8 g/dL [facility]; [facility] Glucose [Mass/Vol] 107 mg/dL Normal 82 - 115 mg/dL [facility]; [facility] Ketones Ql (U) Negative Normal [facility]; [facility] pH (U) 5.0 [pH] Normal [facility]; [facility] Potassium [Moles/Vol] 3.4 mmol/L Abnormal 3.5 - 5.0 meq/L [facility]; [facility] Prostate specific Ag [Mass/Vol] 0.80 ng/mL Normal 0.02 - 4.00 ng/mL [facility]; [facility] Protein [Mass/Vol] 7.1 g/dL Normal 6.0 - 8.5 g/dL [facility]; [facility] Sodium [Moles/Vol] 143 mmol/L Normal 136 - 145 meq/L [facility]; [facility] Specific gravity (U) [Rel density] 1.005 Normal [facility]; [facility] Triglyceride [Mass/Vol] 273 mg/dL Abnormal 3 - 149 mg/dL [facility]; [facility] Urea nitrogen [Mass/Vol] 18.0 mg/dL Normal 8.0 - 22.0 mg/dL [facility]; [facility] Urea nitrogen/Creatinine [Mass ratio] 16.1 {ratio} Normal 10.0 - 22.0 {ratio} [facility]; [facility] Laboratory - Hematology and Cell countson 09-10-2017 Erythrocyte distribution width (RBC) [Ratio] 14.9 % Normal 11.5 - 15.5 % [facility]; [facility] Hematocrit (Bld) [Volume fraction] 48.2 % Normal 40.0 - 52.0 % [facility].; [facility], [facility]. Hemoglobin (Bld) [Mass/Vol] 16.3 g/dL Normal 13.0 - 17.5 g/dL [facility].; [facility], [facility]. Hemoglobin Ql (U) Negative Normal [facility].; [facility], [facility]. MCH (RBC) [Entitic mass] 31.4 pg Normal 27.0 - 33.0 pg [facility].; [facility], [facility]. MCHC (RBC) [Mass/Vol] 33.9 g/dL Normal 32.0 - 36.0 g/dL [facility].; [facility], [facility]. MCV (RBC) [Entitic vol] 92.6 fL Normal 81.0 - 100.0 fL [facility].; [facility], [facility]. Platelet mean volume (Bld) [Entitic vol] 8.3 fL Normal 6.4 - 10.5 fL [facility].; [facility], [facility]. Platelets (Bld) [#/Vol] 200 {10^3/mcL} Normal 150 - 450 {10^3/mcL} [facility].; [facility], [facility]. RBC (Bld) [#/Vol] 5.20 {10^6/mcL} Normal 4.50 - 6.00 {10^6/mcL} [facility] [place] [facility].; [facility], [facility]. WBC (Bld) [#/Vol] 9.20 {10^3/mcL} Normal 4.50 - 10.80 {10^3/mcL} [facility], [facility].; [facility], [facility]. Laboratory - Specimen inform ationon 09-10-2017 Appearance (U) CLEAR Normal [facility] [place] [facility].; [facility] Color (U) YELLOW Normal [facility] [place] [facility].; [facility], [facility]. Laboratory - Urinalysison Glucose Test strip (U) [Mass/Vol] Negative Normal [facility], [facility].; [facility] Leukocyte esterase Test strip Ql (U) Negative Normal [facility], [facility].; [facility] Nitrite Ql (U) Negative Normal [facility] Protein Ql (U) Negative Normal [facility], [facility].; [facility] No Panel Informationon 09-10 Electrolyte Balance 11.0 meq/L Normal 4.0 - 15 .0 meq/L [facility], [facility].; [facility], [facility]. UA - ODOR Negative [facility] UA - UROBILIGEN 0.2 Normal [facility].; [facility], [facility]. Laboratory - Chemistry and C hemistry - challengeon 08-23-2014 Bilirubin Ql (U) Negative Normal [facility], [facility].; [facility] Ketones Ql (U) Negative Normal [facility], [facility].; [facility] pH (U) 5.0 [pH] Normal [facility], [facility].; [facility] Specific gravity (U) [Rel density] 1.010 [facility], [facility].; [facility] Laboratory - Hematology and Cell countson 08-23-2014 Hemoglobin Ql (U) Negative Normal [facility], [facility].; [facility] Laboratory - Specimen inform ationon 08-23-2014 Appearance (U) CLEAR Normal [facility], [facility].; [facility] Color (U) YELLOW [facility], [facility].; [facility] Laboratory - Urinalysison Glucose Test strip (U) [Mass/Vol] Negative Normal [facility], [facility].; [facility] Leukocyte esterase Test strip Ql (U) Negative Normal [facility], [facility].; [facility] Nitrite Ql (U) Negative Normal [facility], [facility].; [facility] Protein Ql (U) Negative Normal [facility], [facility].; [facility] No Panel Informationon 08-23 UA - ODOR Negative [facility].; [facility] UA - UROBILIGEN 0.2 Normal [facility].; [facility], [facility]. Laboratory - Chemistry and C hemistry - challengeon 03-15-2014 Bilirubin Ql (U) Negative [facility], [facility].; [facility] Ketones Ql (U) Negative Normal [facility], [facility].; [facility] pH (U) 7.0 [pH] Normal [facility], [facility].; [facility] Specific gravity (U) [Rel density] 1.020 [facility].; [facility] Laboratory - Hematology and Cell countson 03-15-2014 Hemoglobin Ql (U) Negative Normal [facility], [facility].; [facility] Laboratory - Specimen inform ationon 03-15-2014 Appearance (U) CLEAR Normal [facility], [facility].; [facility] Color (U) YELLOW [facility], [facility].; [facility] Laboratory - Urinalysison Glucose Test strip (U) [Mass/Vol] Negative [facility], [facility].; [facility] Leukocyte esterase Test strip Ql (U) Negative [facility], [facility].; [facility] Nitrite Ql (U) Negative Normal [facility] Protein Ql (U) Negative Normal [facility], [facility].; [facility] No Panel Informationon 03-15 UA - ODOR Negative Normal [facility]; [facility] UA - UROBILIGEN 0.2 Normal [facility]; [facility], [facility] Laboratory - Chemistry and C hemistry - challengeon 02-27-2014 Albumin BCP dye [Mass/Vol] 3.9 g/dL Normal 3.2 - 4.8 g/dL [facility]; [facility], [facility] Albumin/Globulin [Mass ratio] 1.3 {ratio} Normal 0.9 - 1.6 [facility]; [facility] ALP [Catalytic activity/Vol] 90 U/L Normal 38 - 126 U/L [facility]; [facility], [facility]. ALT No additional P-5'-P [Catalytic activity/Vol] 34 U/L Normal 12 - 55 U/L [facility]; [facility], [facility]. ALT With P-5'-P [Catalytic activity/Vol] 34 U/L Normal 12 - 55 U/L [facility]; [facility], [facility]. AST [Catalytic activity/Vol] 18 U/L Normal 8 - 34 U/L [facility]; [facility], [facility]. AST With P-5'-P [Catalytic activity/Vol] 18 U/L Normal 8 - 34 U/L [facility].; [facility], [facility]. Bilirubin [Mass/Vol] 0.6 mg/dL Normal 0.2 - 1.2 mg/dL [facility]; [facility], [facility] Calcium [Mass/Vol] 9.2 mg/dL Normal 8.4 - 10. 1 mg/dL [facility].; [facility], [facility]. Chloride [Moles/Vol] 107 mmol/L Normal 98 - 110 meq/L [facility]; [facility], [facility] Cholesterol [Mass/Vol] 233 mg/dL Abnormal 50 - 199 mg/dL [facility].; [facility] Cholesterol in HDL [Mass/Vol] 41 mg/dL Normal 40 - 59 mg/dL [facility].; [facility] Cholesterol in LDL [Mass/Vol] 161 mg/dL Abnormal 0 - 129 mg/dL [facility].; [facility] CO2 [Moles/Vol] 28 mmol/L Normal 22 - 32 meq/L [facility].; [facility] Creatinine [Mass/Vol] 0.97 mg/dL Normal 0.60 - 1.40 mg/dL [facility]; [facility] Globulin (S) [Mass/Vol] 3.0 g/dL Normal 1.5 - 3.8 g/dL [facility]; [facility] Glucose [Mass/Vol] 102 mg/dL Normal 82 - 115 mg/dL [facility].; [facility] Potassium [Moles/Vol] 4.0 mmol/L Normal 3.5 - 5.0 meq/L [facility]; [facility] Protein [Mass/Vol] 6.9 g/dL Normal 6.0 - 8.5 g/dL [facility].; [facility], [facility] Sodium [Moles/Vol] 141 mmol/L Normal 136 - 145 meq/L [facility].; [facility], [facility] Triglyceride [Mass/Vol] 153 mg/dL Abnormal 3 - 149 mg/dL [facility]; [facility] Urea nitrogen [Mass/Vol] 16.0 mg/dL Normal 8.0 - 22.0 mg/dL [facility].; [facility], [facility] Urea nitrogen/Creatinine [Mass ratio] 16.5 mg/mg Normal 10.0 - 22.0 [facility]; [facility] [place] [facility] Laboratory - Hematology and Cell countson 02-27-2014 Basophils/100 WBC (Bld) 0.8 % Normal 0.0 - 2.5 % [facility]; [facility] Eosinophils/100 WBC (Bld) 5.6 % Normal 0.0 - 6.0 % [facility].; [facility] Erythrocyte distribution width (RBC) [Ratio] 14.5 % Normal 11.5 - 15.5 % [facility].; [facility] Hematocrit (Bld) [Volume fraction] 48.6 % Normal 40.0 - 52.0 % [facility]; [facility], [facility] Hemoglobin (Bld) [Mass/Vol] 16.0 g/dL Normal 13.0 - 17.5 g/dL [facility] [place] [facility]; [facility] [place] [facility] Lymphocytes/100 WBC (Bld) 23.8 % Normal 20.0 - 40.0 % [facility].; [facility], [facility] MCH (RBC) [Entitic mass] 30.3 pg Normal 27.0 - 33.0 pg [facility]; [facility], [facility] MCHC (RBC) [Mass/Vol] 33.0 g/dL Normal 32.0 - 36.0 g/dL [facility] [place] [facility].; [facility], [facility] MCV (RBC) [Entitic vol] 92.0 fL Normal 81.0 - 100.0 fL [facility].; [facility], [facility] Monocytes/100 WBC (Bld) 9.9 % Normal 2.0 - 13.0 % [facility] [place] [facility].; [facility], [facility] Neutrophils (Bld) [#/Vol] 6.20 {10_3/mcL} Normal 2.00 - 8.00 {10_3/mcL} [facility] [place] [facility].; [facility], [facility] Neutrophils/100 WBC (Bld) 59.9 % Normal 50.0 - 75.0 % [facility]; [facility], [facility] Platelet mean volume (Bld) [Entitic vol] 8.2 fL Normal 6.4 - 10.5 fL [facility]; [facility], [facility] Platelets (Bld) [#/Vol] 226 {10_3/mcL} Normal 150 - 450 {10_3/mcL} [facility].; [facility], [facility] RBC (Bld) [#/Vol] 5.29 {10_6/mcL} Normal 4.50 - 6.00 {10_6/mcL} [facility].; [facility], [facility] WBC (Bld) [#/Vol] 10.30 {10_3/mcL} Normal 4.50 - 10.80 {10_3/mcL} [facility]; [facility], [facility] No Panel Informationon 02-27 Electrolyte Balance 6.0 meq/L Normal 4.0 - 15 .0 meq/L [facility]; [facility], [facility] Laboratory - Chemistry and C hemistry - challengeon 05-16-2011 Albumin [Mass/Vol] 4.4 g/dL Normal 3.6 - 5.1 g/dL [facility]; [facility], [facility] Albumin/Globulin [Mass ratio] 1.7 {ratio} Normal 1.0 - 2.1 [facility]; [facility] [place] [facility] ALP [Catalytic activity/Vol] 107 U/L Normal 40 - 115 U/L [facility], [facility] ALT [Catalytic activity/Vol] 43 U/L Normal 9 - 60 U/L [facility].; [facility], [facility] Amylase [Catalytic activity/Vol] 49 U/L Normal 21 - 101 U/L [facility].; [facility], [facility] AST [Catalytic activity/Vol] 33 U/L Normal 10 - 35 U/L [facility].; [facility] Bilirubin [Mass/Vol] 0.3 mg/dL Normal 0.2 - 1.2 mg/dL [facility], [facility].; [facility], [facility]. Calcium [Mass/Vol] 9.5 mg/dL Normal 8.6 - 10. 3 mg/dL [facility], [facility].; [facility], [facility]. Chloride [Moles/Vol] 107 mmol/L Normal 98 - 110 mmol/L [facility], [facility].; [facility], [facility]. CO2 [Moles/Vol] 20 mmol/L Abnormal 21 - 33 mmol/L [facility], [facility].; [facility], [facility]. Creatinine [Mass/Vol] 1.10 mg/dL Normal 0.70 - 1.25 mg/dL [facility], [facility].; [facility], [facility]. GFR/1.73 sq M.predicted among blacks MDRD (S/P/Bld) [Vol rate/Area] 84 {ML/MIN/1.73M2} Normal [facility], [facility] [facility], [facility]. GFR/1.73 sq M.predicted MDRD (S/P/Bld) [Vol rate/Area] 72 {ML/MIN/1.73M2} Normal [facility], [facility].; [facility], [facility]. Globulin (S) [Mass/Vol] 2.6 g/dL Normal 2.1 - 3.7 g/dL [facility], [facility].; [facility], [facility]. Glucose [Mass/Vol] 88 mg/dL Normal 65 - 99 mg/dL [facility], [facility].; [facility], [facility]. Lipase [Catalytic activity/Vol] 28 U/L Normal 7 - 60 U/L [facility], [facility].; [facility], [facility]. Potassium [Moles/Vol] 4.3 mmol/L Normal 3.5 - 5.3 mmol/L [facility], [facility].; [facility], [facility]. Protein [Mass/Vol] 7.0 g/dL Normal 6.2 - 8.3 g/dL [facility], [facility].; [facility], [facility]. Sodium [Moles/Vol] 139 mmol/L Normal 135 - 146 mmol/L [facility], [facility].; [facility] Urea nitrogen [Mass/Vol] 22 mg/dL Normal 7 - 25 mg/dL [facility].; [facility] Urea nitrogen/Creatinine [Mass ratio] 19.5 mg/mg Normal 6 - 22 [facility].; [facility] [place] [facility] No Panel Informationon 05-16 GLIADIN AB (IGA) 4 AU Normal [facility].; [facility] GLIADIN AB (IGG) 7 AU Normal [facility].; [facility] [place] [facility] Vital Signs Date Time Vital Sign Value Performing Clinician Faci lity 12-27-2023 15:02-0400 Body height 179.07 cm Roz Billy [facility].; [facility] 12-27-2023 15:02-0400 Body mass index (BMI) [Ratio] 26.17 kg/m2 Roz Billy [facility].; [facility]. 12-27-2023 15:02-0400 Body surface area Derived from formula 2.03 m2 Roz Billy MA [facility].; [facility], [facility]. 12-27-2023 15:02-0400 Body weight 83.92 kg Roz Billy [facility].; [facility], [facility]. 12-27-2023 15:02-0400 Diastolic blood pressure 76 mm[Hg] Roz Billy [facility].; [facility] [place] [facility]. Comment on above: Patient Position: Sitting; Cuff Location : Left Arm; Cuff Size: Standard 12-27-2023 15:02-0400 Heart rate 68 /min Roz Billy MA [facility].; [place] [facility] [place] [facility] 2 [facility]. Comment on above: Pattern: Regular 12-27-2023 15:02-0400 Systolic blood pressure 116 mm[Hg] Roz Billy MA [facility].; [facility], [facility]. Comment on above: Patient Position: Sitting; Cuff Location : Left Arm; Cuff Size: Standard 08-12-2023 13:40-0400 Body height 176.53 cm Kimberley Navarro [facility]; [facility] 08-12-2023 13:40-0400 Body mass index (BMI) [Ratio] 27.69 kg/m2 Kimberley Navarro RN [facility], [facility].; [facility] 08-12-2023 13:40-0400 Body surface area Derived from formula 2.03 m2 Kimberley Navarro RN [facility], [facility] 08-12-2023 13:40-0400 Body temperature 99.3 [degF] Kimberley Navarro RN [facility], [facility].; [facility] Comment on above: Method: Oral 08-12-2023 13:40-0400 Body weight 86.3 kg Kimberley Navarro RN [facility], [facility].; [facility] 08-12-2023 13:40-0400 Diastolic blood pressure 79 mm[Hg] Kimberley Navarro RN [facility], [facility] [employer] [facility] Comment on above: Patient Position: Sitting; Cuff Location : Left Arm; Cuff Size: Standard 08-12-2023 13:40-0400 Heart rate 71 /min Kimberley Navarro RN [facility], [employer].; [facility] Comment on above: Pattern: Regular 08-12-2023 13:40-0400 Inhaled oxygen concentration 21 % Kimberley Navarro RN [facility], [facility] [employer] [facility] Comment on above: Room air 08-12-2023 13:40-0400 SaO2% (BldA) [Mass fraction] 96 % Kimberley Navarro RN [facility], [facility] 08-12-2023 13:40-0400 Systolic blood pressure 144 mm[Hg] Kimberley Navarro RN [facility], [employer].; [employer] [facility] Comment on above: Patient Position: Sitting; Cuff Location : Left Arm; Cuff Size: Standard 07-02-2023 10:37-0400 Body height 179.07 cm [facility]. 07-02-2023 10:37-0400 Body mass index (BMI) [Ratio] 27.44 kg/m2 Elaine Simon [employer]APH[employer] [facility].; [facility]. 07-02-2023 10:37-0400 Body surface area Derived from formula 2.07 m2 Elaine Simon [employer]APH[employer] [facility].; [facility]. 07-02-2023 10:37-0400 Body temperature 98.5 [degF] Elaine Simon LPN [facility].; [facility], [facility]. Comment on above: Method: Tympanic 07-02-2023 10:37-0400 Body weight 88 kg Elaine Simon LPN [facility].; [facility], [facility]. 07-02-2023 10:37-0400 Diastolic blood pressure 93 mm[Hg] Elaine Simon GRAPH[employer] INTERN [facility].; [facility], [employer]. Comment on above: Patient Position: Sitting; Cuff Location : Left Arm; Cuff Size: Large 07-02-2023 10:37-0400 Heart rate 91 /min Elaine Simon LPN [facility].; [facility], [facility]. Comment on above: Pattern: Regular 07-02-2023 10:37-0400 Inhaled oxygen concentration 21 % Katelyn Stuckey [facility].; [facility], [facility]. Comment on above: Room air 07-02-2023 10:37-0400 SaO2% (BldA) [Mass fraction] 97 % KatelynAudra Simon [facility].; [facility], [facility]. 07-02-2023 10:37-0400 Systolic blood pressure 156 mm[Hg] Elaine Simon [facility].; [facility], [employer]. Comment on above: Patient Position: Sitting; Cuff Location : Left Arm; Cuff Size: Large 05-14-2023 11:36-0500 Body temperature 96.5 [degF] Nasim Ring [facility].; [facility] 05-14-2023 11:36-0500 Body weight 88 kg Nasim Ring LESTER [facility] 05-14-2023 11:36-0500 Diastolic blood pressure 67 mm[Hg] Nasim Ring [employer] [facility] Comment on above: Patient Position: Sitting; Cuff Location : Left Arm; Cuff Size: Standard 05-14-2023 11:36-0500 Heart rate 73 /min Nasim Ring [employer] [facility], [facility] [facility] Comment on above: Pattern: Regular 05-14-2023 11:36-0500 Systolic blood pressure 125 mm[Hg] Nasim Ring [employer] [facility] Comment on above: Patient Position: Sitting; Cuff Location : Left Arm; Cuff Size: Standard 05-14-2023 11:00-0500 Body height 179.07 cm Elaine Simon LESTER [facility] 04-15-2023 09:51-0500 Body height 179.07 cm Elaine Simon LESTER [facility] [place] [facility] 04-15-2023 09:51-0500 Body mass index (BMI) [Ratio] 27.3 kg/m2 Elaine Simon LESTER [facility], [facility]. 04-15-2023 09:51-0500 Body surface area Derived from formula 2.07 m2 Elaine Simon LESTER [facility], [facility] [place] [facility], [facility]. 04-15-2023 09:51-0500 Body weight 87.54 kg Elaine Simon LESTER [facility] [place] [facility] 04-15-2023 09:51-0500 Diastolic blood pressure 84 mm[Hg] Elaine Simon LESTER [facility], [facility] Comment on above: Patient Position: Sitting; Cuff Location : Left Arm; Cuff Size: Large 04-15-2023 09:51-0500 Heart rate 68 /min Elaine Simon LESTER [facility], [facility].; [facility], [facility]. Comment on above: Pattern: Regular 04-15-2023 09:51-0500 Systolic blood pressure 147 mm[Hg] Elaine Simon LESTER [facility] Comment on above: Patient Position: Sitting; Cuff Location : Left Arm; Cuff Size: Large 04-10-2023 10:35-0500 Body height 179.07 cm Brenda Addison LPN [facility], [facility].; [facility], [facility]. 04-10-2023 10:35-0500 Body mass index (BMI) [Ratio] 27.3 kg/m2 Brenda Addison [employer] [facility], [facility].; [facility], [facility]. 04-10-2023 10:35-0500 Body surface area Derived from formula 2.07 m2 Brenda Addison LPN [facility], [facility].; [place] [facility], [facility]. 04-10-2023 10:35-0500 Body weight 87.54 kg Brenda Addison [facility], [facility].; [facility], [facility]. 04-10-2023 10:35-0500 Diastolic blood pressure 79 mm[Hg] Brenda Addison GRAPHICS INTERN [facility], [facility].; [place] [facility], [employer]. Comment on above: Patient Position: Sitting; Cuff Location : Left Arm; Cuff Size: Standard 04-10-2023 10:35-0500 Heart rate 60 /min Brenda Addison LPN [facility], [facility].; [place] [facility], [employer]. Comment on above: Pattern: Regular 04-10-2023 10:35-0500 Systolic blood pressure 132 mm[Hg] Brenda Addison GRAPHICS INTERN [facility], [facility].; [place] [facility], [employer]. Comment on above: Patient Position: Sitting; Cuff Location : Left Arm; Cuff Size: Standard 01-30-2023 13:05-0500 Body weight 88.45 kg Nasim Ring LPN [facility], [facility].; [place] [facility] 01-30-2023 13:05-0500 Diastolic blood pressure 73 mm[Hg] Nasim Ring LPN [facility], [facility], [employer]. Comment on above: Patient Position: Sitting; Cuff Location : Left Arm; Cuff Size: Standard 01-30-2023 13:05-0500 Heart rate 72 /min Nasim Ring [facility] [employer] Comment on above: Pattern: Regular 01-30-2023 13:05-0500 Systolic blood pressure 138 mm[Hg] Nasim Ring [facility], [facility].; [employer] Comment on above: Patient Position: Sitting; Cuff Location : Left Arm; Cuff Size: Standard 10-08-2022 11:28-0400 Body height 179.07 cm Jameson Sen MD Work Phone: [facility] [place] [facility].; [place] [facility] [place] [facility] 2 [facility]. 10-08-2022 11:28-0400 Body mass index (BMI) [Ratio] 27.16 kg/m2 Jameson Sen MD Work Phone: [facility] [place] [facility].; [facility] [place] [facility] 2 [facility]. 10-08-2022 11:28-0400 Body surface area Derived from formula 2.06 m2 Jameson Sen MD Work Phone: [facility] [place] [facility].; [facility] [place] [facility] 2 [facility]. 10-08-2022 11:28-0400 Body temperature 98.2 [degF] Jameson Sen MD Work Phone: [facility] [place] [facility].; [employer]. Comment on above: Method: Tympanic 10-08-2022 11:28-0400 Body weight 87.09 kg Jameson Sen MD Work Phone: [facility] [employer].; [employer]. 10-08-2022 11:28-0400 Diastolic blood pressure 82 mm[Hg] Jameson Sen MD Work Phone: [facility] [employer].; [employer]. Comment on above: Patient Position: Sitting; Cuff Location : Left Arm; Cuff Size: Standard 10-08-2022 11:28-0400 Heart rate 70 /min Jameson Sen MD Work Phone: [facility] [employer] [employer]. Comment on above: Pattern: Regular 10-08-2022 11:28-0400 Systolic blood pressure 146 mm[Hg] Jameson Sen MD Work Phone: [place] [employer].; [employer]. Comment on above: Patient Position: Sitting; Cuff Location : Left Arm; Cuff Size: Standard 08-17-2022 09:07-0400 Body height 179.07 cm Roz Billy [facility] [employer].; [employer]. 08-17-2022 09:07-0400 Body mass index (BMI) [Ratio] 27.16 kg/m2 Roz Billy MA [place] [facility] [employer].; [employer]. 08-17-2022 09:07-0400 Body surface area Derived from formula 2.06 m2 Roz Billy MA [place] [facility] System[facility] [employer].; [employer]. 08-17-2022 09:07-0400 Body weight 87.09 kg Roz Billy MA [place] [facility] System[facility] [employer].; [employer]. 08-17-2022 09:07-0400 Diastolic blood pressure 93 mm[Hg] Roz Billy MA [place] [facility] System[facility] [employer].; [employer]. Comment on above: Patient Position: Sitting; Cuff Location : Left Arm; Cuff Size: Standard 08-17-2022 09:07-0400 Heart rate 64 /min Roz Billy MA [place] [facility] System[facility] [employer].; [employer]. Comment on above: Pattern: Regular 08-17-2022 09:07-0400 Systolic blood pressure 187 mm[Hg] Roz Billy MA [place] [employer].; [employer]. Comment on above: Patient Position: Sitting; Cuff Location : Left Arm; Cuff Size: Standard 02-19-2022 10:40-0500 Body height 179.07 cm Caroline Francois MA [employer].; [employer]. 02-19-2022 10:40-0500 Body mass index (BMI) [Ratio] 27.58 kg/m2 Caroline Francois MA [facility].; [facility]. 02-19-2022 10:40-0500 Body surface area Derived from formula 2.08 m2 Caroline Francois MA [facility].; [facility]. 02-19-2022 10:40-0500 Body weight 88.45 kg Caroline Alessandro WINSTON [facility].; [facility]. 02-19-2022 10:40-0500 Diastolic blood pressure 109 mm[Hg] Caroline Francois [facility].; [facility] [place] [facility]. Comment on above: Patient Position: Sitting; Cuff Location : Left Arm; Cuff Size: Standard 02-19-2022 10:40-0500 Heart rate 61 /min Caroline Hood [facility].; [facility] [place] [facility]. Comment on above: Pattern: Regular 02-19-2022 10:40-0500 Systolic blood pressure 180 mm[Hg] Caroline Francois [facility].; [facility] [place] [facility]. Comment on above: Patient Position: Sitting; Cuff Location : Left Arm; Cuff Size: Standard 12-29-2021 12:55-0400 Body height 176.53 cm Yusra Landaverde RN [facility].; [facility]. 12-29-2021 12:55-0400 Body mass index (BMI) [Ratio] 28.24 kg/m2 Yusra Landaverde RN [facility].; [facility]. 12-29-2021 12:55-0400 Body surface area Derived from formula 2.05 m2 Yusra Landaverde RN [facility].; [facility] [place] [facility]. 12-29-2021 12:55-0400 Body weight 88 kg Yusra Landaverde RN [facility].; [facility] [place] [facility] 2 [facility]. 12-29-2021 12:55-0400 Diastolic blood pressure 100 mm[Hg] Yusra Landaverde RN [facility].; [facility] [place] [facility]. Comment on above: Patient Position: Sitting; Cuff Location : Right Arm; Cuff Size: Large 12-29-2021 12:55-0400 Heart rate 65 /min Yusra Landaverde RN [facility].; [facility]. Comment on above: Pattern: Regular 12-29-2021 12:55-0400 Systolic blood pressure 175 mm[Hg] Yusra Landaverde RN [facility].; [facility]. Comment on above: Patient Position: Sitting; Cuff Location : Right Arm; Cuff Size: Large 10-25-2021 09:12-0400 Diastolic blood pressure 92 mm[Hg] Maranda Jeanie [facility], [facility].; [facility] [employer]. Comment on above: Patient Position: Sitting; Cuff Location : Left Arm; Cuff Size: Large 10-25-2021 09:12-0400 Systolic blood pressure 178 mm[Hg] Maranda Jeanie [facility], [employer].; [place] [employer]. Comment on above: Patient Position: Sitting; Cuff Location : Left Arm; Cuff Size: Large 10-25-2021 09:10-0400 Body height 179.07 cm Maranda Dohertyr [facility] [place] [employer], [facility]. 10-25-2021 09:10-0400 Body mass index (BMI) [Ratio] 27.73 kg/m2 Maranda Dohertyr [facility].; [facility], [facility]. 10-25-2021 09:10-0400 Body surface area Derived from formula 2.08 m2 Maranda Dohertyr [facility], [facility].; [employer], [facility]. 10-25-2021 09:10-0400 Body weight 88.91 kg Maranda Dohertyr [facility] [place] [employer], [employer]. 10-25-2021 09:10-0400 Diastolic blood pressure 101 mm[Hg] Maranda Jeanie [facility], [employer].; [employer], [employer]. Comment on above: Patient Position: Sitting; Cuff Location : Right Arm; Cuff Size: Large 10-25-2021 09:10-0400 Heart rate 69 /min Marandamartina Ware [facility].; [employer] [facility] SystemVery [employer]. Comment on above: Pattern: Regular 10-25-2021 09:10-0400 Systolic blood pressure 180 mm[Hg] Maranda Ware [facility].; [facility] [employer]. Comment on above: Patient Position: Sitting; Cuff Location : Right Arm; Cuff Size: Large 09-27-2021 14:47-0400 Body height 179.07 cm Brenda Addison LPN [facility], [facility].; [facility], [facility]. 09-27-2021 14:47-0400 Body mass index (BMI) [Ratio] 27.73 kg/m2 Brenda Addison LPN [facility], [facility].; [facility], [facility]. 09-27-2021 14:47-0400 Body surface area Derived from formula 2.08 m2 Brenda Addison LPN [facility], [facility].; [place] [employer], [employer]. 09-27-2021 14:47-0400 Body temperature 97.1 [degF] Brenda Addison LPN [facility].; [employer], [employer]. Comment on above: Method: Tympanic 09-27-2021 14:47-0400 Body weight 88.91 kg Brenda Addison LPN [facility], [facility].; [employer], [employer]. 09-27-2021 14:47-0400 Diastolic blood pressure 88 mm[Hg] Brenda Addison LPN [facility], [facility].; [employer], [employer]. Comment on above: Patient Position: Sitting; Cuff Location : Left Arm; Cuff Size: Standard 09-27-2021 14:47-0400 Heart rate 68 /min Brenda Addison LPN [facility], [facility].; [employer]. Comment on above: Pattern: Regular 09-27-2021 14:47-0400 Inhaled oxygen concentration 20 % Brenda Addison LPN [facility], [facility].; [employer]. Comment on above: Room air 09-27-2021 14:47-0400 Inhaled oxygen concentration 21 % Brenda Addison LPN [facility], [facility].; [employer]. Comment on above: Room air 09-27-2021 14:47-0400 SaO2% (BldA) [Mass fraction] 97 % Brenda Addison [facility].; [facility]. 09-27-2021 14:47-0400 Systolic blood pressure 139 mm[Hg] Brenda Addison [facility].; [facility]. Comment on above: Patient Position: Sitting; Cuff Location : Left Arm; Cuff Size: Standard 07-13-2021 13:33-0400 Body height 176.53 cm Yusra Landaverde RN [facility], [facility].; [facility]. 07-13-2021 13:33-0400 Body mass index (BMI) [Ratio] 29.4 kg/m2 Yusra Landaverde RN [facility], [facility].; [facility], [facility]. 07-13-2021 13:33-0400 Body surface area Derived from formula 2.09 m2 Yusra Landaverde RN [facility], [facility].; [facility], [facility]. 07-13-2021 13:33-0400 Body temperature 98.5 [degF] Yusra Landaverde RN [facility], [facility].; [facility], [employer]. Comment on above: Method: Oral 07-13-2021 13:33-0400 Body weight 91.63 kg Yusra Landaverde RN [facility], [facility].; [facility] 07-13-2021 13:33-0400 Diastolic blood pressure 93 mm[Hg] Yusra Landaverde RN [facility], [facility].; [facility], [employer]. Comment on above: Patient Position: Sitting; Cuff Location : Left Arm; Cuff Size: Large 07-13-2021 13:33-0400 Heart rate 73 /min Yusra Landaverde RN [facility], [facility].; [employer] [facility] Comment on above: Pattern: Regular 07-13-2021 13:33-0400 Systolic blood pressure 156 mm[Hg] Yusra Landaverde RN [facility], [facility] [employer] [facility] Comment on above: Patient Position: Sitting; Cuff Location : Left Arm; Cuff Size: Large 02-21-2021 13:02-0500 Body height 176.53 cm Gaby [facility]reen [facility], [employer].; [facility], [facility]. 02-21-2021 13:02-0500 Body mass index (BMI) [Ratio] 28.97 kg/m2 Gaby Breen RN [facility], [facility] 02-21-2021 13:02-0500 Body surface area Derived from formula 2.07 m2 Gaby [facility] [place] [facility].; [facility], [facility]. 02-21-2021 13:02-0500 Body weight 90.27 kg Gaby Breen RN [facility], [employer].; [facility], [facility]. 02-21-2021 13:02-0500 Diastolic blood pressure 90 mm[Hg] Gaby Breen [facility] [employer].; [facility] Comment on above: Patient Position: Sitting; Cuff Location : Left Arm; Cuff Size: Large 02-21-2021 13:02-0500 Heart rate 80 /min Gaby [facility]reen [facility] [employer].; [facility] Comment on above: Pattern: Regular 02-21-2021 13:02-0500 Systolic blood pressure 153 mm[Hg] Gaby [facility]reen [facility] [employer].; [facility], [employer]. Comment on above: Patient Position: Sitting; Cuff Location : Left Arm; Cuff Size: Large 11-29-2020 11:46-0400 Body height 179.07 cm Jameson Sen MD Work Phone: [employer] [facility] SystemVery [employer].; [employer]. 11-29-2020 11:46-0400 Body mass index (BMI) [Ratio] 28.01 kg/m2 Jameson Sen MD Work Phone: [employer]el[employer] [facility] Healthcare SystemVery [place] Art.; Jobs The Word [facility] SystemVery [place] Art. 11-29-2020 11:46-0400 Body surface area Derived from formula 2.09 m2 Jameson Sen MD Work Phone: [facility] [place] Art.; [employer]. 11-29-2020 11:46-0400 Body weight 89.81 kg Jameson Sen MD Work Phone: [facility]Very [place] Art.; [employer]. 11-29-2020 11:46-0400 Diastolic blood pressure 81 mm[Hg] Jameson Sen MD Work Phone: [place] [facility] SystemVery [place] Art.; [employer]. Comment on above: Patient Position: Sitting; Cuff Location : Right Arm; Cuff Size: Standard 11-29-2020 11:46-0400 Heart rate 81 /min Jameson Sen MD Work Phone: [facility]Very [place] Art.; miiCard. Comment on above: Pattern: Regular 11-29-2020 11:46-0400 Systolic blood pressure 133 mm[Hg] Jameson Sen MD Work Phone: [place] [employer] SystemVery [place] Art.; miiCard. Comment on above: Patient Position: Sitting; Cuff Location : Right Arm; Cuff Size: Standard 10-31-2020 13:52-0400 Body height 179.07 cm Elaine Simon GRAPHICS INTERN [place] [facility] [employer].; [employer] 10-31-2020 13:52-0400 Diastolic blood pressure 83 mm[Hg] Elaine Simon GRAPHICS INTERN [place] [facility] SystemVery [place] Art.; [employer]. Comment on above: Patient Position: Sitting; Cuff Location : Left Arm; Cuff Size: Large 10-31-2020 13:52-0400 Heart rate 68 /min Elaine Simon GRAPHICS INTERN [employer].; [employer]. Comment on above: Pattern: Regular 10-31-2020 13:52-0400 Systolic blood pressure 168 mm[Hg] Elaine Simon LESTER [place] [employer].; [employer]Card. Comment on above: Patient Position: Sitting; Cuff Location : Left Arm; Cuff Size: Large 08-03-2020 09:29-0400 Body height 179.07 cm Jameson Sen MD Work Phone: [facility]Very [place] Art.; [employer]. 08-03-2020 09:29-0400 Body mass index (BMI) [Ratio] 28.72 kg/m2 aJmeson Sen MD Work Phone: [facility]Very [place] Art.; [employer]el [employer]. 08-03-2020 09:29-0400 Body surface area Derived from formula 2.11 m2 Jameson Sen MD Work Phone: [facility] HospitalVery [place] Art.; [employer]el [employer]. 08-03-2020 09:29-0400 Body weight 92.08 kg Jameson Sen MD Work Phone: [facility] HospitalVery [place] Art.; [place] [employer]. 08-03-2020 09:29-0400 Diastolic blood pressure 90 mm[Hg] Jameson Sen MD Work Phone: [facility] HospitalVery [place] Art.; [employer]. Comment on above: Patient Position: Sitting; Cuff Location : Left Arm; Cuff Size: Large 08-03-2020 09:29-0400 Heart rate 69 /min Jameson Sen MD Work Phone: [facility] HospitalVery [place] Art.; [employer]. Comment on above: Pattern: Regular 08-03-2020 09:29-0400 Systolic blood pressure 154 mm[Hg] Jameson Sen MD Work Phone: [facility] HospitalVery [place] Art.; [employer]. Comment on above: Patient Position: Sitting; Cuff Location : Left Arm; Cuff Size: Large 06-27-2020 10:16-0400 Body height 179.07 cm [facility] Alfred [facility], [facility].; [place] [facility] [facility] SystemVery [place] Art. 06-27-2020 10:16-0400 Body mass index (BMI) [Ratio] 28.72 kg/m2 [facility] GRAPHICS INTERN [facility], [facility].; [place] [employer]. 06-27-2020 10:16-0400 Body surface area Derived from formula 2.11 m2 [facility], [facility].; [facility], [facility]. 06-27-2020 10:16-0400 Body weight 92.08 kg Elaine Simon LPN [facility], Inc.; [facility], Inc. 06-27-2020 10:16-0400 Diastolic blood pressure 88 mm[Hg] Elaine Simon [facility], Inc.; [facility], [facility]. Comment on above: Patient Position: Sitting; Cuff Location : Left Arm; Cuff Size: Large 06-27-2020 10:16-0400 Heart rate 69 /min Elaine Simon LPN [facility], Inc.; [facility], Inc. Comment on above: Pattern: Regular 06-27-2020 10:16-0400 Systolic blood pressure 154 mm[Hg] Elaine Simon [facility], Inc.; [facility], [facility]. Comment on above: Patient Position: Sitting; Cuff Location : Left Arm; Cuff Size: Large 04-07-2020 13:22-0500 Body height 176.53 cm Yusra Landaverde RN [facility], Inc.; [facility], [facility]. 04-07-2020 13:22-0500 Body mass index (BMI) [Ratio] 29.69 kg/m2 Yusra Landaverde RN [facility], [facility].; [facility], [facility]. 04-07-2020 13:22-0500 Body surface area Derived from formula 2.09 m2 Yusra Landaverde RN [facility], [facility].; [facility], [facility]. 04-07-2020 13:22-0500 Body weight 92.53 kg Yusra Landaverde RN [facility], [facility].; [facility], [facility]. 04-07-2020 13:22-0500 Diastolic blood pressure 96 mm[Hg] Yusra Landaverde RN [facility], [facility].; [facility], [facility]. Comment on above: Patient Position: Sitting; Cuff Location : Left Arm; Cuff Size: Large 04-07-2020 13:22-0500 Heart rate 79 /min Yusra Landaverde RN [facility] CorningVery [place] [employer].; [facility] HospitalS[facility] [place] [facility] 2 [facility]. Comment on above: Pattern: Regular 04-07-2020 13:22-0500 Systolic blood pressure 172 mm[Hg] Yusra Landaverde RN [facility] [place] - 2 [facility].; [facility], [facility]. Comment on above: Patient Position: Sitting; Cuff Location : Left Arm; Cuff Size: Large 01-12-2020 14:58-0400 Body height 176.53 cm [facility] [place] [facility] 2 [facility].; [facility] [place] [facility] 2 [facility]. 01-12-2020 14:58-0400 Body mass index (BMI) [Ratio] 29.13 kg/m2 [facility] [place] - 2 [facility].; [facility], [facility]. 01-12-2020 14:58-0400 Body surface area Derived from formula 2.08 m2 [facility] [place] - 2 [facility].; [facility] CenterS[facility] [place] - 2 [facility]. 01-12-2020 14:58-0400 Body weight 90.78 kg [facility] [place] - 2 [facility].; [facility] Center[facility] [place] - 2 [facility]. 01-12-2020 14:58-0400 Diastolic blood pressure 87 mm[Hg] [facility] [place] - 2 [facility].; [facility], [employer]. Comment on above: Patient Position: Sitting; Cuff Location : Left Arm; Cuff Size: Standard 01-12-2020 14:58-0400 Heart rate 70 /min [facility] HealthcareVery [place] Art.; [facility] HealthcareVery [place] Art. Comment on above: Pattern: Regular 01-12-2020 14:58-0400 Systolic blood pressure 158 mm[Hg] [facility] HealthcareVery [place] Art.; [facility], [employer]. Comment on above: Patient Position: Sitting; Cuff Location : Left Arm; Cuff Size: Standard 01-06-2020 09:27-0400 Body height 176.53 cm PAUL OSBORN-Campos Work Phone: [facility] HealthcareVery [place] Art.; [facility] HospitalSRE [place] - 2 [facility]. 01-06-2020 09:27-0400 Body mass index (BMI) [Ratio] 29.58 kg/m2 PAUL FLORES DINING CAR WAITER/WAITRESS-C Work Phone: [facility] CorningLessonwriter; Press-[employer] [facility]ningVery [place] Art. 01-06-2020 09:27-0400 Body surface area Derived from formula 2.09 m2 PAUL FLORES DINING CAR WAITER/WAITRESS-C Work Phone: [facility] Francis HealthcareLessonwriter; [employer] [facility] HealthcareLessonwriter 01-06-2020 09:27-0400 Body temperature 97.4 [degF] PAUL FLORES DINING CAR WAITER/WAITRESS-C Work Phone: [facility] CorningLessonwriter; [employer] [facility] HealthcareLessonwriter Comment on above: Method: Oral 01-06-2020 09:27-0400 Body weight 92.19 kg PAUL FLORES DINING CAR WAITER/WAITRESS-C Work Phone: [facility] HealthcareLessonwriter; [employer] [facility] HealthcareVery [place] Art. 01-06-2020 09:27-0400 Diastolic blood pressure 90 mm[Hg] PAUL FLORES DINING CAR WAITER/WAITRESS-C Work Phone: [facility] HealthcareLessonwriter; [employer] [facility] HealthcareLessonwriter Comment on above: Patient Position: Sitting; Cuff Location : Left Arm; Cuff Size: Standard 01-06-2020 09:27-0400 Heart rate 63 /min PAUL FLORES DINING CAR WAITER/WAITRESS-C Work Phone: [facility] HealthcareLessonwriter; [employer] [facility] HealthcareLessonwriter Comment on above: Pattern: Regular 01-06-2020 09:27-0400 Inhaled oxygen concentration 21 % PAUL FLORES DINING CAR WAITER/WAITRESS-C Work Phone: [facility] HealthcareLessonwriter; [employer] [facility] HealthcareLessonwriter Comment on above: Room air 01-06-2020 09:27-0400 SaO2% (BldA) [Mass fraction] 98 % PAUL GIANGER DINING CAR WAITER/WAITRESS-C Work Phone: [facility] HealthcareVery [place] Art.; [employer] [facility] HealthcareVery [place] Art. 01-06-2020 09:27-0400 Systolic blood pressure 160 mm[Hg] PAUL FLORES DINING CAR WAITER/WAITRESS-C Work Phone: [facility] HealthcareVery [place] Art.; Press[employer] [facility] [employer] Word [facility], [employer]. Comment on above: Patient Position: Sitting; Cuff Location : Left Arm; Cuff Size: Standard 03-26-2019 14:29-0500 Body height 176.53 cm Yusra Landaverde RN [facility] HealthcareVery [place] Art.; [employer] [facility] HealthcareVery [place] Art. 03-26-2019 14:29-0500 Body mass index (BMI) [Ratio] 29.4 kg/m2 Yusra Landaverde RN [facility] HealthcareVery [place] Art.; [employer] [facility], Inc. 03-26-2019 14:29-0500 Body surface area Derived from formula 2.09 m2 Yusra Landaverde RN [facility] HealthcareVery [place] Art.; [employer] [facility], [employer]. 03-26-2019 14:29-0500 Body weight 91.63 kg Yusra Landaverde RN [facility] HealthcareVery [place] Art.; [employer] [facility], Inc. 03-26-2019 14:29-0500 Diastolic blood pressure 90 mm[Hg] Yusra Landaverde RN [facility] HealthcareVery [place] Art.; Press-[employer] [facility] [employer] Word [facility], [employer]. Comment on above: Patient Position: Sitting; Cuff Location : Left Arm; Cuff Size: Large 03-26-2019 14:29-0500 Heart rate 79 /min Yusra Landaverde RN [facility] [employer] Word [facility] HealthcareVery [place] Art.; [employer] [facility] Jobs [employer] Word [facility], Inc. Comment on above: Pattern: Regular 03-26-2019 14:29-0500 Systolic blood pressure 143 mm[Hg] Yusra Landaverde RN [facility] [employer] Word [facility] HealthcareVery [place] Art.; Press-[employer] [facility] [employer] Word [facility], [employer]. Comment on above: Patient Position: Sitting; Cuff Location : Left Arm; Cuff Size: Large 10-27-2018 15:10-0400 Body height 176.53 cm TRENT STEVENS MD Work Phone: [facility] CenterFair Winds Brewing [employer].; [facility] Jobs The Word [facility] HealthcareVery [place] Art. 10-27-2018 15:10-0400 Body mass index (BMI) [Ratio] 28.24 kg/m2 TRENT STEVENS MD Work Phone: [facility] CorningVery [place] [employer].; [email or web address] [facility] HealthcareVery [place] Art. 10-27-2018 15:10-0400 Body surface area Derived from formula 2.05 m2 TRENT STEVENS MD Work Phone: [facility] [employer] [facility] HealthcareVery [place] Art.; [email or web address] [facility] In[employer]. 10-27-2018 15:10-0400 Body weight 88 kg TRENT STEVENS MD Work Phone: [facility] CenterFair Winds Brewing [facility] HealthcareVery [place] Art.; [email or web address] [facility] [employer]. 10-27-2018 15:10-0400 Diastolic blood pressure 99 mm[Hg] TRENT STEVENS MD Work Phone: [facility] [facility] HealthcareVery [place] Art.; [email or web address] [facility] [employer]. Comment on above: Patient Position: Sitting; Cuff Location : Right Arm; Cuff Size: Standard 10-27-2018 15:10-0400 Heart rate 73 /min TRENT STEVENS MD Work Phone: [facility] HealthcareVery [place] Art.; [email or web address] [facility] [employer]. Comment on above: Pattern: Regular 10-27-2018 15:10-0400 Systolic blood pressure 159 mm[Hg] TRENT STEVENS MD Work Phone: [facility] HealthcareVery [place] Art.; [email or web address] [facility] [employer]. Comment on above: Patient Position: Sitting; Cuff Location : Right Arm; Cuff Size: Standard 10-02-2018 14:09-0400 Body height 176.53 cm Gaby Breen RN [facility] HealthcareVery [place] Art.; [facility] HospitalS[facility] [place] - 2 Inc. 10-02-2018 14:09-0400 Body mass index (BMI) [Ratio] 27.95 kg/m2 Gaby Breen RN [facility] HealthcareVery [place] Art.; [facility], Inc. 10-02-2018 14:090400 Body surface area Derived from formula 2.04 m2 Gaby Breen RN [facility] Jobs The Word [facility] HealthcareSRE [place] - 2 Inc.; [employer] [facility] Jobs The Word [facility], Inc. 10-02-2018 14:090400 Body weight 87.09 kg Gaby Breen RN [facility] Tissue [employer]enix [facility], Inc.; [employer] [facility] Jobs The Word [facility], Inc. 10-02-2018 14:090400 Diastolic blood pressure 95 mm[Hg] Gaby Breen RN [facility] Jobs The Word [facility] HealthcareSRE [place] - 2 Inc.; Press-sense [facility] Getting-in, Inc. Comment on above: Patient Position: Sitting; Cuff Location : Left Arm; Cuff Size: Large 10-02-2018 14:090400 Heart rate 73 /min Gaby Breen RN [facility] RedCloud Security Inc.; Press-sense [facility] Getting-in, Inc. Comment on above: Pattern: Regular 10-02-2018 14:090400 Systolic blood pressure 158 mm[Hg] Gaby Breen RN [facility] Metabolomx Inc.; Press-[employer] [facility] Getting-in, Inc. Comment on above: Patient Position: Sitting; Cuff Location : Left Arm; Cuff Size: Large 09-02-2018 10:080400 Body height 176.53 cm Liss Vázquez [employer].; [employer], Inc. 09-02-2018 10:08-0400 Body mass index (BMI) [Ratio] 28.24 kg/m2 Liss Ngo [employer] Inc.; [employer] Enterprise PHP Business PlanUOFL HEALTH - MED[facility] Startpack [facility] Getting-in, Inc. 09-02-2018 10:08-0400 Body surface area Derived from formula 2.05 m2 Liss Ngo [employer] Inc.; [employer] Enterprise PHP Business PlanUOFL HEALTH - MED[facility] C[facility] S[facility] [employer], Inc. 09-02-2018 10:08-0400 Body temperature 98.2 [degF] Liss Ngo [employer].; [employer] [facility] Getting-in, Inc. Comment on above: Method: Oral 09-02-2018 10:080400 Body weight 88 kg Liss Ngo [employer] Inc.; [employer] Enterprise PHP Business PlanUOFL HEALTH - MED[facility] [employer], Inc. 09-02-2018 10:08-0400 Diastolic blood pressure 81 mm[Hg] Liss Vázquez [facility] Jobs The Word [facility] HealthcareSRE [place] - 2 Inc.; [facility] Metabolomx Inc. Comment on above: Patient Position: Sitting; Cuff Location : Left Arm; Cuff Size: Large 09-02-2018 10:08-0400 Heart rate 68 /min Liss Ngo [facility] Jobs The Word [facility], Inc.; [facility] Getting-in, Inc. Comment on above: Pattern: Regular 09-02-2018 10:08-0400 Systolic blood pressure 154 mm[Hg] Liss Vázquez [facility] Metabolomx Inc.; [facility] Getting-in, Inc. Comment on above: Patient Position: Sitting; Cuff Location : Left Arm; Cuff Size: Large 07-07-2018 13:12-0400 Body height 176.53 cm Gaby Breen RN [facility] MedPlasts.; Press-sense [facility] Getting-in, Inc. 07-07-2018 13:12-0400 Body mass index (BMI) [Ratio] 28.98 kg/m2 Gaby Breen RN [facility] Jobs The Word [facility] HealthcareVery [place] Art.; [employer] [facility] Getting-in, Inc. 07-07-2018 13:12-0400 Body surface area Derived from formula 2.07 m2 Gaby Breen RN [facility] Overtone.; [employer] [facility] Getting-in, Inc. 07-07-2018 13:12-0400 Body temperature 97.9 [degF] Gaby Breen RN [facility] Inforama.; [facility] Getting-in, Inc. Comment on above: Method: Oral 07-07-2018 13:12-0400 Body weight 90.32 kg Gaby Breen RN [facility] RedCloud Security Inc.; Press-sense [facility] Getting-in, Inc. 07-07-2018 13:12-0400 Diastolic blood pressure 84 mm[Hg] Gaby Breen RN [facility] Overtone.; Press-[employer] [facility] Getting-in, Inc. Comment on above: Patient Position: Sitting; Cuff Location : Left Arm; Cuff Size: Large 07-07-2018 13:12-0400 Heart rate 68 /min Gaby Breen RN [facility] MedPlasts.; Press-sense [facility] Getting-in, Inc. Comment on above: Pattern: Regular 07-07-2018 13:12-0400 Systolic blood pressure 146 mm[Hg] Gaby Breen RN [facility] Overtone.; Press-[employer] [facility] Getting-in, Inc. Comment on above: Patient Position: Sitting; Cuff Location : Left Arm; Cuff Size: Large 07-03-2018 09:05-0400 Body height 176.53 cm Liss Ngo [facility] Jobs The Word [facility], Inc.; Press-sense [facility] Getting-in, Inc. 07-03-2018 09:05-0400 Body mass index (BMI) [Ratio] 29.18 kg/m2 Liss Ngo Vázquez [facility] Jobs The Word [facility], Inc.; [employer] [facility], Inc. 07-03-2018 09:05-0400 Body surface area Derived from formula 2.08 m2 Liss Ngo [facility] Jobs The Word [facility], Inc.; [employer] [facility] [place] [facility], Inc. 07-03-2018 09:05-0400 Body weight 90.95 kg Liss Ngo [facility] Overtone.; Press-sense [facility] Getting-in, Inc. 07-03-2018 09:05-0400 Diastolic blood pressure 87 mm[Hg] Liss Ngo Vázquez [facility] Metabolomx Inc.; Press-[employer] [facility] Getting-in, Inc. Comment on above: Patient Position: Sitting; Cuff Location : Left Arm; Cuff Size: Standard 07-03-2018 09:05-0400 Heart rate 74 /min Liss Ngo Vázquez Dilip Metabolomx Inc.; [employer], Inc. Comment on above: Pattern: Regular 07-03-2018 09:05-0400 Systolic blood pressure 138 mm[Hg] Liss Ngo Vázquez [facility] Metabolomx Inc.; [employer], Inc. Comment on above: Patient Position: Sitting; Cuff Location : Left Arm; Cuff Size: Standard 01-09-2018 14:34-0400 Body height 175.9 cm Gaby Breen RN [facility] [employer]Cloud Security Inc.; [employer], Inc. 01-09-2018 14:34-0400 Body mass index (BMI) [Ratio] 28.88 kg/m2 Gaby Breen RN [facility], Inc.; [employer] [facility], Inc. 01-09-2018 14:34-0400 Body surface area Derived from formula 2.06 m2 Gaby Breen RN [facility], Inc.; [employer] [facility] Chanel [facility], Inc. 01-09-2018 14:34-0400 Body weight 89.36 kg Gaby Breen RN [facility], Inc.; [employer] [facility], Inc. 01-09-2018 14:34-0400 Diastolic blood pressure 94 mm[Hg] Gaby Breen RN [facility], Inc.; [employer] [facility], Inc. Comment on above: Patient Position: Sitting; Cuff Location : Left Arm; Cuff Size: Large 01-09-2018 14:34-0400 Heart rate 80 /min Gaby Breen RN [facility], Inc.; [employer] [facility], Inc. Comment on above: Pattern: Regular 01-09-2018 14:34-0400 Systolic blood pressure 164 mm[Hg] Gaby Breen RN [facility], Inc.; [employer] [facility] Chanel [facility], Inc. Comment on above: Patient Position: Sitting; Cuff Location : Left Arm; Cuff Size: Large 09-10-2017 10:45-0400 Body height 175.9 cm Yusra Landaverde RN [facility], Inc.; [employer] [facility], Inc. 09-10-2017 10:45-0400 Body mass index (BMI) [Ratio] 28.59 kg/m2 Yusra Landaverde RN [facility], Inc.; [employer] [facility] Chanel [facility], Inc. 09-10-2017 10:45-0400 Body surface area Derived from formula 2.05 m2 Yusra Landaverde RN [facility], Inc.; [employer] [facility], Inc. 09-10-2017 10:45-0400 Body weight 88.45 kg Yusra Landaverde RN [facility], Inc.; [employer] [facility] Chanel [employer], Inc. 09-10-2017 10:45-0400 Diastolic blood pressure 89 mm[Hg] Yusra Landaverde RN [facility] [employer].; [place] [facility] HealthcareVery [place] Art. Comment on above: Patient Position: Sitting; Cuff Location : Left Arm; Cuff Size: Large 09-10-2017 10:45-0400 Heart rate 71 /min Yusra Landaverde RN [facility] HealthcareVery [place] Art.; Press-sense [facility] [employer]. Comment on above: Pattern: Regular 09-10-2017 10:45-0400 Systolic blood pressure 159 mm[Hg] Yusra Landaverde RN [facility] CenterFair [employer]s Brewing [facility] HealthcareVery [place] Art.; [place] [employer] [facility] ChipCare [facility] HealthcareVery [place] Art. Comment on above: Patient Position: Sitting; Cuff Location : Left Arm; Cuff Size: Large 03-21-2017 13:24-0500 Body height 176.53 cm TRENT STEVENS MD Work Phone: [facility] [employer]Care [facility] HealthcareVery [place] Art.; [employer] [facility] ChipCare [facility] HealthcareVery [place] Art. 03-21-2017 13:24-0500 Body mass index (BMI) [Ratio] 28.91 kg/m2 TRENT STEVENS MD Work Phone: [facility] [employer]Care [facility] HealthcareVery [place] Art.; [email or web address] [facility] Inforama. 03-21-2017 13:24-0500 Body surface area Derived from formula 2.07 m2 TRENT STEVENS MD Work Phone: [facility] [employer].; [email or web address] [facility] In[employer]. 03-21-2017 13:24-0500 Body weight 90.08 kg TRENT STEVENS MD Work Phone: [facility] Center[facility] Winds Brewing [facility] HealthcareVery [place] Art.; [email or web address] [facility] [employer]. 03-21-2017 13:24-0500 Diastolic blood pressure 84 mm[Hg] TRENT STEVENS MD Work Phone: [employer].; [email or web address]pack [facility] Chanel Inforama. Comment on above: Patient Position: Sitting; Cuff Location : Left Arm; Cuff Size: Standard 03-21-2017 13:24-0500 Heart rate 80 /min TRENT STEVENS MD Work Phone: [employer].; [facility] Jobs The Word [facility] HealthcareVery [place] Art. Comment on above: Pattern: Regular 03-21-2017 13:24-0500 Systolic blood pressure 146 mm[Hg] TRENT STEVENS MD Work Phone: [facility] [employer]Care [facility] HealthcareVery [place] Art.; [employer] [facility] Chanel ChipCare [facility] HealthcareLessonwriter Comment on above: Patient Position: Sitting; Cuff Location : Left Arm; Cuff Size: Standard 11-19-2016 15:39-0400 Body height 176.53 cm Kimberley Navarro RN [facility] [employer] [facility] HealthcareVery [place] Art.; [employer] [facility] ChipCare [facility] HealthcareSRE [place] - 2 Inc. 11-19-2016 15:39-0400 Body mass index (BMI) [Ratio] 28.38 kg/m2 Kimberley Navarro RN [facility] [employer]Care [facility] HealthcareVery [place] Art.; [employer] [facility] Chanel ChipCare [facility] HealthcareVery [place] Art. 11-19-2016 15:39-0400 Body surface area Derived from formula 2.05 m2 Kimberley Navarro RN [facility] [employer] [facility] HealthcareVery [place] Art.; [employer] [facility] ChipCare [facility] HealthcareVery [place] Art. 11-19-2016 15:39-0400 Body temperature 98.6 [degF] Kimberley Navarro RN [facility] [employer] [facility] HealthcareVery [place] Art.; [employer] [facility] Overtone. Comment on above: Method: Oral 11-19-2016 15:39-0400 Body weight 88.45 kg Kimberley Navarro RN [facility] [employer] [facility] HealthcareVery [place] Art.; [employer] [facility] Chanel [employer]seen, Inc. 11-19-2016 15:39-0400 Diastolic blood pressure 91 mm[Hg] Kimberley Navarro RN [facility] [employer] [facility] HealthcareVery [place] Art.; [employer] [facility] Overtone. Comment on above: Patient Position: Sitting; Cuff Location : Left Arm; Cuff Size: Standard 11-19-2016 15:39-0400 Heart rate 67 /min Kimberley Navarro RN [facility] [employer] [facility] HealthcareVery [place] Art.; [employer], [employer]. Comment on above: Pattern: Regular 11-19-2016 15:39-0400 Systolic blood pressure 165 mm[Hg] Kimberley Navarro RN [facility] ChipCare [facility] HealthcareSRE [place] - 2 Inc.; [employer], Inc. Comment on above: Patient Position: Sitting; Cuff Location : Left Arm; Cuff Size: Standard 09-27-2016 13:51-0400 Body height 175.26 cm ASH GRATE KERRY [facility], Inc.; [facility], Inc. 09-27-2016 13:51-0400 Body mass index (BMI) [Ratio] 28.06 kg/m2 ASH GRATE KERRY [facility], Inc.; [facility], Inc. 09-27-2016 13:51-0400 Body surface area Derived from formula 2.02 m2 ASH GRATE KERRY [facility], Inc.; [facility] [employer] [facility], Inc. 09-27-2016 13:51-0400 Body weight 86.18 kg ASH GRATE KERRY [facility], Inc.; [facility], Inc. 09-27-2016 13:51-0400 Diastolic blood pressure 88 mm[Hg] ASH GRATE KERRY [facility], Inc.; [facility] [employer]Care [facility], [employer]. Comment on above: Patient Position: Sitting; Cuff Location : Right Arm; Cuff Size: Standard 09-27-2016 13:51-0400 Heart rate 64 /min ASH MARIN RN [facility], Inc.; [facility] [employer] [facility], Inc. Comment on above: Pattern: Regular 09-27-2016 13:51-0400 Systolic blood pressure 162 mm[Hg] ASH MARIN RN [facility], Inc.; [facility] [employer] [facility], Inc. Comment on above: Patient Position: Sitting; Cuff Location : Right Arm; Cuff Size: Standard 05-07-2016 14:44-0500 Body temperature 97.8 [degF] Jeni Cheung [facility] ChipCare [facility], Inc.; [employer] Inc. 05-07-2016 14:44-0500 Body weight 92.99 kg Jeni Cheung [facility] ChipCare [facility], Inc.; Ne[employer], Inc. 05-07-2016 14:44-0500 Diastolic blood pressure 94 mm[Hg] Jeni Cheung [facility] [employer]Care [facility], Inc.; miiCard. Comment on above: Patient Position: Sitting; Cuff Location : Left Arm; Cuff Size: Standard 05-07-2016 14:44-0500 Heart rate 76 /min Jeni Cheung [facility], [facility].; [facility] HospitalS[facility] [place] - 2 [facility]. Comment on above: Pattern: Regular 05-07-2016 14:44-0500 Systolic blood pressure 176 mm[Hg] Jeni Cheung [facility], [facility].; [facility] HospitalS[facility] [place] - 2 [facility]. Comment on above: Patient Position: Sitting; Cuff Location : Left Arm; Cuff Size: Standard 06-02-2015 14:26-0500 Body height 179.07 cm Gaby Breen RN [facility] [employer] [facility], [employer] Genius.; [facility] ChipCare [facility], Inc. 06-02-2015 14:26-0500 Body mass index (BMI) [Ratio] 28.86 kg/m2 Gaby Breen RN [facility] [employer] [facility] HealthcareVery [place] Art.; [facility] [employer]Care [facility], Inc. 06-02-2015 14:26-0500 Body surface area Derived from formula 2.12 m2 Gaby Breen RN [facility] [employer] [facility] HealthcareVery [place] Art.; [facility] [employer]Care [facility], [employer]. 06-02-2015 14:26-0500 Body weight 92.53 kg Gaby Breen RN [facility] ChipCare [facility] HealthcareVery [place] Art.; [facility] ChipCare [facility], [employer]. 06-02-2015 14:26-0500 Diastolic blood pressure 85 mm[Hg] Gaby Breen RN [facility] [employer]Care [facility] HealthcareVery [place] Art.; [employer] [facility] Chanel [employer]Care [facility], [employer] Gen[employer]. Comment on above: Patient Position: Sitting; Cuff Location : Left Arm; Cuff Size: Large 06-02-2015 14:26-0500 Heart rate 84 /min Gaby Breen RN [facility] Fair [employer]s [employer] [facility] HealthcareVery [place] Art.; [employer] [facility] Jobs The Word [facility], [employer]. Comment on above: Pattern: Regular 06-02-2015 14:26-0500 Systolic blood pressure 143 mm[Hg] Gaby Breen RN [facility] [employer] [facility] HealthcareVery [place] Art.; [employer] [facility]Care [facility], [employer]. Comment on above: Patient Position: Sitting; Cuff Location : Left Arm; Cuff Size: Large 04-28-2015 14:23-0500 Body height 177.8 cm Gaby Breen RN [facility] [employer] [facility] HealthcareVery [place] Art.; [facility] Jobs The Word [facility] HealthcareVery [place] Art. 04-28-2015 14:23-0500 Body mass index (BMI) [Ratio] 29.56 kg/m2 Gaby Breen RN [facility] [employer]el [employer] [facility], [employer]ius.; [facility] Chanel [employer] [facility], Inc. 04-28-2015 14:23-0500 Body surface area Derived from formula 2.11 m2 Gaby Breen RN [facility] [employer] [facility], Inc.; [facility] Chanel ChipCare [facility] HealthcareSRE [place] - 2 Inc. 04-28-2015 14:23-0500 Body weight 93.44 kg Gaby Breen RN [facility] Tissue Regenix [facility] HealthcareVery [place] Art.; [facility] Chanel ChipCare [facility] HealthcareSRE [place] - 2 Inc. 04-28-2015 14:23-0500 Diastolic blood pressure 105 mm[Hg] Gaby Breen RN [facility] Jobs The Word [facility] HealthcareVery [place] Art.; [facility] Jobs The Word [facility], [employer]. Comment on above: Patient Position: Sitting; Cuff Location : Left Arm; Cuff Size: Large 04-28-2015 14:23-0500 Heart rate 77 /min Gaby Breen RN [facility] [employer] ChipCare [facility] HealthcareVery [place] Art.; [employer] [facility] Jobs The Word [facility] HealthcareVery [place] Art. Comment on above: Pattern: Regular 04-28-2015 14:23-0500 Systolic blood pressure 165 mm[Hg] Gaby Breen RN [facility] Jobs The Word [facility] HealthcareVery [place] Art.; [employer] [facility] Jobs The Word [facility], [employer]. Comment on above: Patient Position: Sitting; Cuff Location : Left Arm; Cuff Size: Large 08-23-2014 10:58-0400 Body height 179.71 cm Gaby Breen RN [facility] Tissue Regenix [facility] HealthcareSRE [place] - 2 Inc.; [facility] Chanel [employer] [facility], Inc. 08-23-2014 10:58-0400 Body mass index (BMI) [Ratio] 28.09 kg/m2 Gaby Breen RN [facility] Jobs The Word [facility] HealthcareVery [place] Art.; [facility] Chanel ChipCare [facility] HealthcareSRE [place] - 2 Inc. 08-23-2014 10:58-0400 Body surface area Derived from formula 2.1 m2 Gaby Breen RN [facility] [employer] Word [facility], Inc.; [facility] Chanel [employer]Care [facility], Inc. 08-23-2014 10:58-0400 Body temperature 97.9 [degF] Gaby [facility]reen [facility]Very [place] Art.; [facility], Inc. Comment on above: Method: Oral 08-23-2014 10:58-0400 Body weight 90.72 kg Gaby Breen RN [facility] CenterVery [place] Art.; [facility], Inc. 08-23-2014 10:58-0400 Diastolic blood pressure 81 mm[Hg] Gaby Breen RN [facility] CorningVery [place] Art.; [facility] ChipCare [facility], Inc. Comment on above: Patient Position: Sitting; Cuff Location : Left Arm; Cuff Size: Large 08-23-2014 10:58-0400 Heart rate 68 /min Gaby Breen RN [facility] CenterVery [place] Art.; [facility], [employer]. Comment on above: Pattern: Regular 08-23-2014 10:58-0400 Systolic blood pressure 154 mm[Hg] Gaby Breen RN [facility] CorningVery [place] Art.; [facility] ChipCare [facility], Inc. Comment on above: Patient Position: Sitting; Cuff Location : Left Arm; Cuff Size: Large 05-04-2014 14:41-0500 Body height 175.26 cm MALKA Pastor [facility] Center[facility] [place] - 2 [facility].; [facility], Inc. 05-04-2014 14:41-0500 Body mass index (BMI) [Ratio] 30.86 kg/m2 MALKA Pastor [facility] CenterS[facility] [place] - 2 Inc.; [facility], Inc. 05-04-2014 14:41-0500 Body surface area Derived from formula 2.1 m2 MALKA Pastor [facility] CenterS[facility] [place] - 2 [facility].; [facility] ChipCare [facility], Inc. 05-04-2014 14:41-0500 Body weight 94.8 kg MALKA Pastor [facility] ChipCare [facility] HealthcareSRE [place] - 2 Inc.; [facility] ChipCare [facility], Inc. 05-04-2014 14:41-0500 Diastolic blood pressure 91 mm[Hg] MALKA Pastor [facility] ChipCare [facility] HealthcareVery [place] Art.; [facility] ChipCare [facility], Inc. Comment on above: Patient Position: Sitting; Cuff Location : Left Arm; Cuff Size: Standard 05-04-2014 14:41-0500 Heart rate 66 /min MALKA Pastor [facility] ChipCare [facility] HealthcareVery [place] Art.; [employer] ChanelFair Winds Brewing [facility], Inc. Comment on above: Pattern: Regular 05-04-2014 14:41-0500 Systolic blood pressure 147 mm[Hg] LISRupal Pastor VÁZQUEZ [facility] CenterFair Winds Brewing [facility] HealthcareSRE [place] - 2 Inc.; [facility] ChipCare [facility], Inc. Comment on above: Patient Position: Sitting; Cuff Location : Left Arm; Cuff Size: Standard 04-27-2014 14:43-0500 Body height 175.26 cm MALKA Pastor [facility]Fair [employer]s Brewing [facility], Inc.; [facility] ChipCare [facility], Inc. 04-27-2014 14:43-0500 Body mass index (BMI) [Ratio] 30.72 kg/m2 [facility] MCALESTERRupal Pastor [facility] HospitalFair Winds Brewing [facility] HealthcareSRE [place] - 2 [facility].; [facility] ChipCare [facility], [facility]. 04-27-2014 14:43-0500 Body surface area Derived from formula 2.1 m2 MALKA Pastor [facility] Jobs The Word [facility], Inc.; [facility] ChipCare [facility], [facility]. 04-27-2014 14:43-0500 Body weight 94.35 kg MALKA Pastor [facility] Jobs The Word [facility] HealthcareSRE [place] - 2 Inc.; [facility] HospitalFair Winds Brewing [facility], Inc. 04-27-2014 14:43-0500 Diastolic blood pressure 106 mm[Hg] MALKA Pastor [facility] [employer] Inc.; [facility] ChipCare [facility] HealthcareSRE [place] - 2 Inc. Comment on above: Patient Position: Sitting; Cuff Location : Left Arm; Cuff Size: Standard 04-27-2014 14:43-0500 Heart rate 60 /min MALKA Pastor VÁZQUEZ [facility] [employer] The Word Saint [facility] HealthcareVery [place] Art.; [employer] ChanelVirtual Call Center, Inc. Comment on above: Pattern: Regular 04-27-2014 14:43-0500 Systolic blood pressure 160 mm[Hg] MALKA Pastor [facility] Metabolomx Inc.; [place] Startpack [facility] Getting-in, Inc. Comment on above: Patient Position: Sitting; Cuff Location : Left Arm; Cuff Size: Standard 03-15-2014 10:36-0500 Body height 175.26 cm Gaby Breen RN [facility] Tissue Regenix [facility] HealthcareVery [place] Art.; Press-sense [facility] Getting-in, [employer]. 03-15-2014 10:36-0500 Body mass index (BMI) [Ratio] 29.98 kg/m2 Gaby Breen RN [facility] CenterFair Winds Brewing [facility] HealthcareVery [place] Art.; [employer] [facility]Care [facility], Inc. 03-15-2014 10:36-0500 Body surface area Derived from formula 2.08 m2 Gaby Breen RN [facility] [employer] [facility], [employer].; [employer] [facility]Care [facility], Inc. 03-15-2014 10:36-0500 Body weight 92.08 kg Gaby Breen RN [facility] ChipCare [facility], Inc.; [facility] ChipCare [facility], Inc. 03-15-2014 10:36-0500 Diastolic blood pressure 88 mm[Hg] Gaby Breen RN [facility] CenterFair Winds Brewing [facility] HealthcareSRE [place] - 2 Inc.; [employer] [facility]Care [facility], Inc. Comment on above: Patient Position: Sitting; Cuff Location : Left Arm; Cuff Size: Large 03-15-2014 10:36-0500 Heart rate 73 /min Gaby Breen RN [facility] Tissue Regenix [facility] HealthcareVery [place] Art.; [employer] [facility]Care [facility], Inc. Comment on above: Pattern: Regular 03-15-2014 10:36-0500 Systolic blood pressure 136 mm[Hg] Gaby Breen RN [facility] CenterFair Winds Brewing [facility] HealthcareSRE [place] - 2 Inc.; [employer] [facility] Chanel ChipCare [facility], Inc. Comment on above: Patient Position: Sitting; Cuff Location : Left Arm; Cuff Size: Large 02-26-2014 15:07-0500 Body height 175.26 cm EMEKA [facility] ChipCare [facility] HealthcareVery [place] Art.; [employer] [facility], Inc. 02-26-2014 15:07-0500 Body mass index (BMI) [Ratio] 29.53 kg/m2 EMEKA [facility] ChipCare [facility] HealthcareVery [place] Art.; [employer] [facility], Inc. 02-26-2014 15:07-0500 Body surface area Derived from formula 2.07 m2 EMEKA [facility] ChipCare [facility] HealthcareSRE [place] - 2 Inc.; [facility] ChipCare [facility], Inc. 02-26-2014 15:07-0500 Body weight 90.72 kg EMEKA [facility] ChipCare [facility] HealthcareVery [place] Art.; [facility] ChipCare [facility], Inc. 02-26-2014 15:07-0500 Diastolic blood pressure 90 mm[Hg] EMEKA GustLake Charles Memorial HospitalFair Winds Brewing [facility], Inc.; [facility]. Comment on above: Patient Position: Sitting; Cuff Location : Left Arm; Cuff Size: Standard 02-26-2014 15:07-0500 Heart rate 80 /min [facility]; [facility]. Comment on above: Pattern: Regular 02-26-2014 15:07-0500 Systolic blood pressure 148 mm[Hg] [facility].; [facility]. Comment on above: Patient Position: Sitting; Cuff Location : Left Arm; Cuff Size: Standard 02-12-2013 15:35-0500 Body height 179.07 cm Neli Ward LPN [facility].; [facility]. 02-12-2013 15:35-0500 Body mass index (BMI) [Ratio] 28.57 kg/m2 Neli Wrad LPN [facility].; [facility]. 02-12-2013 15:35-0500 Body surface area Derived from formula 2.11 m2 Neli Ward LPN [facility].; [facility] HospitalS[facility] [place] - 2 [facility]. 02-12-2013 15:35-0500 Body temperature 97.9 [degF] Neli Ward LPN [facility].; [facility] HospitalVery [place] Art. Comment on above: Method: Tympanic 02-12-2013 15:35-0500 Body weight 91.63 kg Neli Ward LPN [facility], [facility].; [facility]. 02-12-2013 15:35-0500 Diastolic blood pressure 89 mm[Hg] Neli Ward LPN [facility].; [place] [employer]. Comment on above: Patient Position: Sitting; Cuff Location : Left Arm; Cuff Size: Standard 02-12-2013 15:35-0500 Heart rate 73 /min Neli Ward LPN [facility].; [place] [employer]. Comment on above: Pattern: Regular 02-12-2013 15:35-0500 Systolic blood pressure 154 mm[Hg] Neli N Ed [facility], [facility].; [place] ChipCare [facility] SystemVery [place] Art. Comment on above: Patient Position: Sitting; Cuff Location : Left Arm; Cuff Size: Standard 11-10-2012 14:48-0400 Body temperature 98 [degF] Elaine Simon LPN [facility], Inc.; [place] ChipCare [facility], [employer]ius. Comment on above: Method: Tympanic 11-10-2012 14:48-0400 Body weight 88.45 kg Elaine Simon LPN [facility], Inc.; [place] ChipCare [facility] SystemSRE [place] - 2 Inc. 11-10-2012 14:48-0400 Diastolic blood pressure 88 mm[Hg] Elaine Simon [facility], [facility].; [place] ChipCare [facility] SystemVery [place] Art. Comment on above: Patient Position: Sitting; Cuff Location : Left Arm; Cuff Size: Large 11-10-2012 14:48-0400 Heart rate 74 /min Elaine Simon GRAPHICS INTERN [facility], [employer].; [place] ChipCare [facility] SystemVery [place] Art. Comment on above: Pattern: Regular 11-10-2012 14:48-0400 Inhaled oxygen concentration 20 % KatelynAudra Simon [facility], [facility].; [place] ChipCare [facility] SystemVery [place] Art. Comment on above: Room air 11-10-2012 14:48-0400 Inhaled oxygen concentration 21 % Katelyn Stuckey [facility], [facility].; [employer]ctions. Comment on above: Room air 11-10-2012 14:48-0400 SaO2% (BldA) [Mass fraction] 98 % Elaine Simon [facility], [facility].; Chanel [employer]. 11-10-2012 14:48-0400 Systolic blood pressure 153 mm[Hg] Elaine Simon [facility], [facility].; [employer]. Comment on above: Patient Position: Sitting; Cuff Location : Left Arm; Cuff Size: Large 08-19-2012 10:04-0400 Body height 179.07 cm Jameson Sen MD Work Phone: [facility] HospitalVery [place] Art.; [place] ChipCare [facility] SystemVery [place] Art. 08-19-2012 10:04-0400 Body mass index (BMI) [Ratio] 27.58 kg/m2 Jameson Sen MD Work Phone: miiCard.; miiCard. 08-19-2012 10:04-0400 Body surface area Derived from formula 2.08 m2 Jameson Sen MD Work Phone: mii[employer].; m[employer]Card. 08-19-2012 10:04-0400 Body weight 88.45 kg Jameson Sen MD Work Phone: mii[employer].; m[employer]Card. 08-19-2012 10:04-0400 Diastolic blood pressure 78 mm[Hg] Jameson Sen MD Work Phone: miiCard.; miiCard. Comment on above: Patient Position: Sitting; Cuff Location : Left Arm; Cuff Size: Large 08-19-2012 10:04-0400 Heart rate 68 /min Jameson Sen MD Work Phone: [employer]; miiCard. Comment on above: Pattern: Regular 08-19-2012 10:04-0400 Systolic blood pressure 142 mm[Hg] Jameson Sen MD Work Phone: miiCard.; miiCard. Comment on above: Patient Position: Sitting; Cuff Location : Left Arm; Cuff Size: Large 08-11-2012 15:04-0400 Body weight 88.45 kg Jeni Cheung LPN [employer].; m[employer]Card. 08-11-2012 15:04-0400 Diastolic blood pressure 85 mm[Hg] Jeni Cheung LPN miiCard.; miiCard. Comment on above: Patient Position: Sitting; Cuff Location : Left Arm; Cuff Size: Standard 08-11-2012 15:04-0400 Heart rate 78 /min Jeni Cheung LPN [employer].; miiCard. Comment on above: Pattern: Regular 08-11-2012 15:04-0400 Systolic blood pressure 130 mm[Hg] Jeni Cheung LPN miiCard.; [employer] ChipCare [facility] SystemVery [place] Art. Comment on above: Patient Position: Sitting; Cuff Location : Left Arm; Cuff Size: Standard 07-08-2012 13:38-0400 Body weight 89.36 kg Jameson Sen MD Work Phone: [facility] HospitalS[facility] [place] - 2 [facility].; [place] [employer]. 07-08-2012 13:38-0400 Diastolic blood pressure 88 mm[Hg] Jameson Sen MD Work Phone: [facility] HospitalS[facility] [place] - 2 [facility].; [employer]. Comment on above: Patient Position: Sitting; Cuff Location : Left Arm; Cuff Size: Large 07-08-2012 13:38-0400 Heart rate 77 /min Jameson Sen MD [facility]: [facility] [place] [facility] [place] [employer]. Comment on above: Pattern: Regular 07-08-2012 13:38-0400 Systolic blood pressure 138 mm[Hg] Jameson Sen MD Work Phone: [facility] [place] [facility] [place] [employer]. Comment on above: Patient Position: Sitting; Cuff Location : Left Arm; Cuff Size: Large 05-23-2012 13:48-0500 Body weight 90.27 kg Jeni Cheung L[facility] [place] [facility] [place] [employer]. 05-23-2012 13:48-0500 Diastolic blood pressure 80 mm[Hg] Jeni Cheung GRAPHICS INTERN [facility] [place] [facility] [employer]. Comment on above: Patient Position: Sitting; Cuff Location : Left Arm; Cuff Size: Standard 05-23-2012 13:48-0500 Heart rate 81 /min Jeni Cheung LPN [facility] [place] [facility] [place] [employer]. Comment on above: Pattern: Regular 05-23-2012 13:48-0500 Systolic blood pressure 153 mm[Hg] Jeni [facility]ung LPN [facility] [place] [facility] [place] [employer]. Comment on above: Patient Position: Sitting; Cuff Location : Left Arm; Cuff Size: Standard 05-14-2012 13:00-0500 Body height 179.07 cm Katelyn Alfred BATISTA [facility], [facility].; [facility], [facility]. 05-14-2012 13:00-0500 Body mass index (BMI) [Ratio] 27.87 kg/m2 Elaine Simon GRAPHICS INTERN [facility], [facility].; [facility] 05-14-2012 13:00-0500 Body surface area Derived from formula 2.08 m2 Elaine Simon LESTER [facility] 05-14-2012 13:00-0500 Body weight 89.36 kg Elaine Simon GRAPHICS INTERN [facility], [facility].; [place] [facility], [facility]. 05-14-2012 13:00-0500 Diastolic blood pressure 100 mm[Hg] Elaine Simon GRAPHICS INTERN [facility], [facility].; [facility] Comment on above: Patient Position: Sitting; Cuff Location : Left Arm; Cuff Size: Large 05-14-2012 13:00-0500 Systolic blood pressure 166 mm[Hg] Elaine Simon LESTER [facility], [facility].; [place] [employer] Comment on above: Patient Position: Sitting; Cuff Location : Left Arm; Cuff Size: Large 10-17-2011 [id number] Body height 179.07 cm Neli Ward LPN [facility], [facility].; [facility] 10-17-2011 11:28-0400 Body mass index (BMI) [Ratio] 27.16 kg/m2 Neli Ward LPN [facility] 10-17-2011 11:28-0400 Body surface area Derived from formula 2.06 m2 Neli Ward LPN [facility], [facility].; [place] [facility], [facility]. 10-17-2011 11:28-0400 Body temperature 98.1 [degF] Neli Ward LPN [facility], [facility].; [place] [employer]. Comment on above: Method: Tympanic 10-17-2011 11:28-0400 Body weight 87.09 kg Neli Ward LPN [facility], [facility].; [place] [employer] 10-17-2011 11:28-0400 Diastolic blood pressure 91 mm[Hg] Neli Laureano Ed ALCANTARAN [facility] [place] [facility].; [place] [facility] [employer]. Comment on above: Patient Position: Sitting; Cuff Location : Left Arm; Cuff Size: Standard 10-17-2011 11:28-0400 Heart rate 72 /min Neli Laureano Ed ALCANTARAN [facility], [facility].; [facility] [place] [employer]. Comment on above: Pattern: Regular 10-17-2011 11:28-0400 Systolic blood pressure 148 mm[Hg] Neli Laureano Ed GRAPHICS INTERN [facility] [place] [facility].; [place] [employer]. Comment on above: Patient Position: Sitting; Cuff Location : Left Arm; Cuff Size: Standard 05-16-2011 11:14-0500 Body weight 89.81 kg Jameson Sen MD Work Phone: [facility] [place] [employer]. 05-16-2011 11:14-0500 Diastolic blood pressure 80 mm[Hg] Jameson Sen MD Work Phone: [facility] [employer].; [place] [employer]. Comment on above: Patient Position: Sitting; Cuff Location : Left Arm; Cuff Size: Standard 05-16-2011 11:14-0500 Heart rate 60 /min Jameson Sen MD Work Phone: [facility] [employer] [employer]. Comment on above: Pattern: Regular 05-16-2011 11:14-0500 Systolic blood pressure 138 mm[Hg] Jameson Sen MD Work Phone: [facility] [place] [employer].; [employer]. Comment on above: Patient Position: Sitting; Cuff Location : Left Arm; Cuff Size: Standard 03-21-2011 15:59-0500 Body weight 90.72 kg Dara Gasac Work Phone: [facility] [place] [facility].; [employer]. 03-21-2011 15:59-0500 Diastolic blood pressure 94 mm[Hg] Dara Marsh PA-C Work Phone: [facility] [place] [employer].; [employer]. Comment on above: Patient Position: Sitting; Cuff Location : Left Arm; Cuff Size: Standard 03-21-2011 15:59-0500 Heart rate 72 /min Dara Gasca Work Phone: [facility] [place] [employer].; [employer]. Comment on above: Pattern: Regular 03-21-2011 15:59-0500 Systolic blood pressure 166 mm[Hg] Dara Marsh PA-C Work Phone: [facility] [place] [employer].; [employer]. Comment on above: Patient Position: Sitting; Cuff Location : Left Arm; Cuff Size: Standard 06-30-2010 11:10-0400 Body weight 89.81 kg Jeni Cheung LPN [facility] [place] [employer].; [employer]. 06-30-2010 11:10-0400 Diastolic blood pressure 87 mm[Hg] Jeni Cheung LPN [facility] [employer] [employer]. Comment on above: Patient Position: Sitting; Cuff Location : Left Arm; Cuff Size: Standard 06-30-2010 11:10-0400 Heart rate 67 /min Jeni Cheung LPN [employer] [facility] SystemVery [place] [employer].; [employer]. Comment on above: Pattern: Regular 06-30-2010 11:10-0400 Systolic blood pressure 150 mm[Hg] Jeni Cheung LPN [place] [facility] [facility] System[facility] [place] [employer].; [employer]. Comment on above: Patient Position: Sitting; Cuff Location : Left Arm; Cuff Size: Standard Encounters Encounter Date Encounter Type Care Provider Facility Start: 12-27-2023 Review Jameson Sen MD Work Phone: [employer] [employer] [facility] [place] [employer] Start: 12-27-2023 End: 12-27-2023 ambulatory NORY PAC LEE [facility] Start: 12-27-2023 End: 12-27-2023 Office outpatient visit 15 minutes Jameson Sen MD Work Phone: [employer] Start: 08-12-2023 End: 08-12-2023 Office outpatient visit 15 minutes TRENT STEVENS MD [facility] [place] [facility]. Start: 07-02-2023 End: 07-02-2023 Office outpatient visit 15 minutes Jameson Sen MD Work Phone: [facility] [place] [facility]. Start: 05-15-2023 End: 05-15-2023 Medication Jameson Sen MD Work Phone: [facility] [place] [facility]. Start: 05-14-2023 Review Jameson Sen MD Work Phone: [facility] [place] [facility]. Start: 05-14-2023 Review Jameson Sen MD [facility] Phone[facility] Start: 05-14-2023 End: 05-14-2023 Office outpatient visit 15 minutes Jameson Sen MD Work Phone: [facility] [place] [facility]. Start: 04-15-2023 End: 04-15-2023 Patient encounter procedure Jameson Sen MD Work Phone: [employer]. Start: 04-15-2023 Review Jameson Sen MD Work Phone: [place] [facility] [employer]. Start: 04-10-2023 End: 04-10-2023 Office outpatient visit 15 minutes Jameson Sen MD Work Phone: [place] [facility] Start: 04-10-2023 Review Jameson Sen MD Work Phone: [employer]. Start: 02-04-2023 End: 02-04-2023 Medication Jameson Sen MD Work Phone: [employer]. Start: 01-30-2023 End: 01-30-2023 Office outpatient visit 15 minutes Jameson Sen MD Work Phone: [employer]. Start: 10-11-2022 End: 10-11-2022 Medication Jameson Sen MD Work Phone: [employer]. Start: 10-08-2022 End: 10-08-2022 Medication Jameson Sen MD Work Phone: [employer]. Start: 10-08-2022 End: 10-08-2022 Office outpatient visit 15 minutes Jameson Sen MD Work Phone: [employer]. Start: 08-17-2022 End: 08-17-2022 Office outpatient visit 25 minutes Jameson Sen MD Work Phone: [employer]. Start: 02-19-2022 End: 02-19-2022 Patient encounter procedure Jameson Sen MD Work Phone: [employer]. Start: 12-29-2021 End: 12-29-2021 Office outpatient visit 15 minutes TRENT STEVENS MD Work Phone: [facility] [employer]. Start: 11-28-2021 End: 11-28-2021 Orders Jameson Sen MD Work Phone: [employer]. Start: 10-25-2021 End: 10-24-2021 Annotation/Addendum Jameson Sen MD Work Phone: [employer]. Start: 10-25-2021 End: 10-25-2021 Patient encounter procedure Jameson Sen MD Work Phone: [employer]. Start: 10-25-2021 End: 10-25-2021 Periodic preventive med est patient 65yrs& older Jameson Sen MD Work Phone: [employer]. Start: 10-17-2021 End: 10-17-2021 Orders Jameson Sen MD Work Phone: [employer]. Start: 10-04-2021 End: 10-04-2021 Orders Jameson Sen MD Work Phone: [employer]. Start: 09-27-2021 End: 09-27-2021 Office outpatient visit 15 minutes Jameson Sen MD Work Phone: [employer]. Start: 07-13-2021 End: 07-13-2021 Office outpatient visit 15 minutes TRENT STEVENS MD Work Phone: [facility] Start: 02-21-2021 End: 02-21-2021 Office outpatient visit 25 minutes TRENT STEVENS MD Work Phone: [facility] [place] [facility]. Start: 12-01-2020 End: 12-01-2020 Orders Jameson eSn MD Work Phone: [facility] [place] [facility]. Start: 11-29-2020 End: 11-29-2020 Office outpatient visit 15 minutes Jameson Sen MD Work Phone: [facility] [place] [facility]. Start: 10-31-2020 End: 10-31-2020 Patient encounter procedure Jameson Sen MD Work Phone: [facility] Start: 08-03-2020 End: 08-03-2020 Office outpatient visit 15 minutes Jameson Sen MD Work Phone: [facility] [place] [facility]. Start: 06-27-2020 End: 06-27-2020 Patient encounter procedure Jameson Sen MD Work Phone: [place] [facility] [employer] Start: 04-12-2020 End: 04-12-2020 Lab Only TRENT STEVENS MD Work Phone: [facility] Start: 04-07-2020 End: 04-07-2020 Office outpatient visit 25 minutes TRENT STEVENS MD [facility] Start: 03-21-2020 End: 03-21-2020 Medication Refill/Order TRENT STEVENS MD Work Phone[facility]. Start: 01-15-2020 End: 01-15-2020 Results Review TRENT STEVENS MD [facility] Phone[facility] Start: 01-12-2020 End: 01-12-2020 Office outpatient visit 15 minutes TRENT STEVENS MD [facility] Start: 01-08-2020 End: 01-08-2020 Medication Refill/Order TRENT STEVENS MD [facility] Start: 01-06-2020 End: 01-06-2020 Results Review TRENT STEVENS MD [facility]: [facility] Start: 01-06-2020 End: 01-06-2020 Office outpatient visit 15 minutes TRENT STEVENS MD Work Phone: [facility] [place] [facility] Start: 09-28-2019 End: 09-28-2019 Medication Refill/Order TRENT STEVENS MD Work Phone: [facility] [employer] Start: 09-17-2019 End: 09-17-2019 Historical Summary TRENT STEVENS MD Work Phone: [facility] [place] [facility] Start: 09-07-2019 End: 09-07-2019 Medication Refill/Order TRENT STEVENS MD Work Phone: [facility] [place] [facility] Start: 09-02-2019 End: 09-02-2019 Orders Jameson Sen MD Work Phone: [facility] Start: 06-08-2019 End: 06-08-2019 Medication Refill/Order TRENT STEVENS MD Work Phone: [facility] [place] [facility] Start: 04-06-2019 End: 04-06-2019 Results Review TRENT STEVENS MD Work Phone: [facility] Start: 03-26-2019 End: 03-26-2019 Office outpatient visit 25 minutes TRENT STEVENS MD Work Phone: [facility] Start: 10-27-2018 End: 10-27-2018 Office outpatient visit 15 minutes TRENT STEVENS MD [facility]: [facility] Start: 10-24-2018 End: 10-24-2018 Procedure Order TRENT STEVENS MD Work Phone: [place] [employer] [facility] [employer]. Start: 10-06-2018 End: 10-06-2018 Follow-up encounter TRENT STEVENS MD Work Phone: [place] [employer] [facility] [employer]. Start: 10-02-2018 End: 10-02-2018 Office outpatient visit 15 minutes TRENT STEVENS MD Work Phone: [place] [employer] [facility] [employer]. Start: 09-02-2018 End: 09-02-2018 Office outpatient visit 15 minutes TRENT STEVENS MD Work Phone: [facility] [employer]. Start: 09-01-2018 End: 09-01-2018 Historical Summary TRENT STEVENS MD Work Phone: [place] [employer] [facility] [employer]. Start: 07-07-2018 End: 07-07-2018 Historical Summary TRENT STEVENS MD Work Phone: [place] [employer] [facility] [employer]. Start: 07-07-2018 End: 07-07-2018 Office outpatient visit 15 minutes TRENT STEVENS MD Work Phone: [employer] [facility] [employer]. Start: 07-03-2018 End: 07-03-2018 Office outpatient visit 15 minutes TRENT STEVENS MD Work Phone: [place] [employer] [facility] [employer]. Start: 05-13-2018 End: 05-13-2018 Medication Refill/Order TRENT STEVENS MD Work Phone: [employer]. Start: 01-15-2018 End: 01-16-2018 Addendum to visit TRENT STEVENS MD Work Phone: [facility] [employer] Start: 01-13-2018 End: 01-13-2018 Results Review TRENT STEVENS MD Work Phone: [facility] Start: 01-09-2018 End: 01-14-2018 Patient encounter TRENT STEVENS [facility] Start: 01-09-2018 End: 01-09-2018 Office outpatient visit 15 minutes TRENT STEVENS MD Work Phone: [facility] [place] [facility] Start: 01-09-2018 End: 01-09-2018 Physical examination TRENT STEVENS MD Work Phone: [facility]; [facility] [place] [employer] Start: 09-11-2017 End: 09-11-2017 Follow-up encounter TRENT STEVENS MD Work Phone: [facility] Start: 09-10-2017 End: 09-10-2017 Office outpatient visit 25 minutes TRENT STEVENS MD Work Phone: [facility] Start: 09-10-2017 End: 09-10-2017 Patient encounter status TRENT STEVENS MD Work Phone: [facility] [facility]; [place] [employer] [facility] Start: 03-21-2017 End: 03-21-2017 Office outpatient visit 15 minutes TRENT STEVENS MD Work Phone: [facility] [employer] [facility] Start: 11-19-2016 End: 11-19-2016 Office outpatient visit 15 minutes TRENT STEVENS MD Work Phone: [facility] [employer] [facility] Start: 09-27-2016 End: 09-27-2016 Historical Summary TRENT STEVENS MD Work Phone: [facility] [employer] [facility] Start: 09-27-2016 End: 09-27-2016 Office outpatient visit 15 minutes TRENT STEVENS MD Work Phone: [facility] [employer] Start: 05-15-2016 End: 05-15-2016 Medication Jameson Sen MD Work Phone: [facility] Start: 05-07-2016 End: 05-07-2016 Office outpatient visit 15 minutes Jameson Sen MD Work Phone: [facility] Start: 06-02-2015 End: 06-02-2015 Office outpatient visit 15 minutes TRENT STEVENS MD Work Phone: [facility] [place] [facility]. Start: 04-28-2015 End: 04-28-2015 Office outpatient visit 15 minutes TRENT STEVENS MD Work Phone: [facility] [place] [facility]. Start: 08-26-2014 End: 08-26-2014 Patient encounter procedure TRENT STEVENS MD Work Phone: [facility] [place] [facility]. Start: 08-23-2014 End: 08-23-2014 Office outpatient visit 15 minutes TRENT STEVENS MD Work Phone: [facility] [place] [facility]. Start: 05-14-2014 End: 05-14-2014 Historical Summary TRENT STEVENS MD [facility]: [facility] Start: 05-04-2014 End: 05-04-2014 Office outpatient visit 15 minutes TRENT STEVENS MD Work Phone: [facility] [place] [facility] Start: 04-27-2014 End: 04-27-2014 Office outpatient visit 15 minutes TRENT STEVENS MD Work Phone: [facility] [place] [facility]. Start: 03-15-2014 End: 03-15-2014 Office outpatient visit 25 minutes TRENT STEVENS MD Work Phone: [facility] [place] [facility]. Start: 03-15-2014 End: 03-15-2014 Patient encounter status TRENT STEVENS MD Work Phone: [facility] [employer].; [facility] [employer]. Start: 03-02-2014 End: 03-03-2014 Medication Refill/Order TRENT STEVENS MD Work Phone: [facility] [employer]. Start: 03-01-2014 End: 03-01-2014 Nutrition therapy TRENT STEVENS MD Work Phone: [facility] [place] [facility] Start: 02-27-2014 End: 02-27-2014 Lab Only TRENT STEVENS MD Work Phone: [facility]. Start: 02-26-2014 End: 02-26-2014 Office outpatient visit 15 minutes TRENT STEVENS MD Work Phone: [facility] [employer]. Start: 03-27-2013 End: 03-27-2013 Medication Jameson Sen MD Work Phone: [employer]. Start: 02-12-2013 End: 02-12-2013 Patient encounter procedure Jameson Sen MD Work Phone: [employer]. Start: 11-10-2012 End: 11-10-2012 Patient encounter procedure Jameson Sen MD Work Phone: [employer]. Start: 08-19-2012 End: 08-19-2012 Patient encounter procedure Jameson Sen MD Work Phone: [employer]. Start: 08-19-2012 End: 08-19-2012 Routine general medical examination at a health care facility Jameson Sen MD Work Phone: [employer]. Start: 08-11-2012 End: 08-11-2012 Patient encounter procedure Jamesno Sen MD Work Phone: [employer]. Start: 07-08-2012 End: 07-08-2012 Patient encounter procedure Jameson Sen MD Work Phone: [employer]. Start: 05-23-2012 End: 05-23-2012 Patient encounter procedure Jameson Sen MD Work Phone: [employer]. Start: 05-14-2012 End: 05-14-2012 Patient encounter procedure Jameson Sen MD Work Phone: [employer] Start: 03-24-2012 End: 03-24-2012 Medication Jameson Sen MD Work Phone: [employer] [facility] [place] [employer]. Start: 10-17-2011 End: 10-17-2011 Patient encounter procedure Jameson Sen MD Work Phone: [employer]. Start: 07-17-2011 End: 07-17-2011 Orders Jameson Sen MD Work Phone: [employer]. Start: 05-16-2011 End: 05-16-2011 Patient encounter procedure Jameson Sen MD Work Phone: [employer]. Start: 03-21-2011 End: 03-21-2011 Patient encounter procedure Jameson Sen MD Work Phone: [employer] Start: 06-30-2010 End: 06-30-2010 Patient encounter procedure Jameson Sen MD Work Phone: [employer] Start: 03-20-2010 End: 03-20-2010 Medication Jameson Sen MD Work Phone: [employer]. Start: 12-26-2009 End: 12-26-2009 Patient encounter procedure Jameson Sen MD Work Phone: [employer] [facility] [place] [facility] Patient encounter procedure Brenda Addison LPN [facility] [place] [facility].; [employer] [facility] [place] [facility] Patient encounter status PAUL FLORES DINING CAR WAITER/WAITRESS-C Work Phone: [facility] [place] [facility].; [facility] [place] [facility] Physical examination PAUL HONEYCUTT DINING CAR WAITER/WAITRESS-C Work Phone: [facility] [place] [facility].; [facility] [place] [facility] Routine general medi bria examination at a health care facility Jameson Sen MD Work Phone: [employer] [facility] System[facility] [place] [employer].; [facility] [facility] Procedures Date Procedure Procedure Detail Performing Clinician Start: 12-27-2023 End: 12-27-2023 Radex foot complete minimum 3 views Nory Lee PA-C Work Phone: Start: 08-12-2023 End: 08-12-2023 Dischrg meds reconciled w/current med list TRENT STEVENS MD Work Phone: Start: 08-12-2023 End: 08-12-2023 Collj & interpj physiol data min 30 min ea 30 d TRENT STEVENS MD Work Phone: Start: 04-15-2023 End: 04-15-2023 Destruction premalignant lesion 1st Jameson Sen MD Work Phone: Start: 03-12-2022 End: 03-12-2022 Screening for malignant neoplasm of large intestine Elaine Simon GRAPHICS INTERN Comment on above: Colonoscopy-negative , repeat in 10 years Start: 02-19-2022 End: 02-19-2022 Radex ribs uni w/posteroant ch minimum 3 views Dara JOHN-C Work Phone: Start: 12-29-2021 End: 12-29-2021 Dischrg meds reconciled w/current med list TRENT STEVENS MD Work Phone: Start: 12-29-2021 End: 12-29-2021 Collj & interpj physiol data min 30 min ea 30 d TRENT STEVENS MD Work Phone: Start: 10-25-2021 End: 10-25-2021 Adv care pln/ no alt dcsn mkr docd or refusal Jameson Sen MD Work Phone: Start: 10-25-2021 End: 10-25-2021 Depression screening Jameson Sen MD Work Phone: Start: 10-25-2021 End: 10-25-2021 Falls risk assessment documented Jameson Sen MD Work Phone: Start: 10-25-2021 End: 11-28-2021 Oncology colorectal screening yandy 10 dna markrs Jameson Sen MD Work Phone: Start: 10-25-2021 End: 10-25-2021 PPPS, subseq visit Jameson Sen MD Work Phone: Start: 10-25-2021 End: 10-25-2021 Pt falls assess docd w/o fall/injury past year Jameson Sen MD Work Phone: Start: 10-25-2021 End: 10-25-2021 Scr dep neg, no plan reqd Jameson Sen MD Work Phone: Start: 10-18-2021 End: 10-18-2021 Comprehensive metabolic 2000 panel - Serum or Plasma Elaine Simon GRAPHICS INTERN Comment on above: 105 Glucose Start: 10-18-2021 End: 10-18-2021 Lipid panel Elaine Simon LP N Start: 10-18-2021 End: 10-18-2021 Prostate specific antigen measurement Elaine Simno GRAPHICS INTERN Comment on above: 0.85 Start: 09-27-2021 End: 10-04-2021 Non-invasive physiologic study extremity 3 levls Jameson Sen MD Work Phone: Start: 07-13-2021 End: 07-13-2021 Dischrg meds reconciled w/current med list TRENT STEVENS MD Work Phone: Start: 02-21-2021 End: 02-21-2021 Collj & interpj physiol data min 30 min ea 30 d TRENT STEVENS MD Work Phone: Start: 11-29-2020 End: 12-01-2020 Radex spine lumbosacral minimum 4 views Jameson Sen MD Work Phone: Start: 10-31-2020 End: 10-31-2020 Arthrocentesis aspir&/inj interm jt/burs w/o us Jameson Sen MD Work Phone: Start: 10-31-2020 End: 10-31-2020 Radiologic exam knee complete 4/more views Jameson Sen MD Work Phone: Start: 04-07-2020 End: 04-07-2020 Dischrg meds reconciled w/current med list TRENT STEVENS MD Work Phone: Start: 04-07-2020 End: 04-07-2020 Urinary Incontinence Yusra Landaverde RN Comment on above: Negative. Start: 04-07-2020 End: 04-07-2020 Collj & interpj physiol data min 30 min ea 30 d TRENT STEVENS MD Work Phone: Start: 03-21-2020 End: 03-21-2020 Collj & interpj physiol data min 30 min ea 30 d TRENT STEVENS MD Work Phone: Start: 01-06-2020 End: 01-06-2020 Dischrg meds reconciled w/current med list PAUL FLORES DINING CAR WAITER/WAITRESS-C Work Phone: Start: 01-06-2020 End: 01-06-2020 Radex ribs bi w/posteroant ch minimum 4 views PAUL FLORES DINING CAR WAITER/WAITRESS-C Work Phone: Comment on above: kicked by horse left posterior Start: 09-07-2019 End: 09-07-2019 Collj & interpj physiol data min 30 min ea 30 d TRENT STEVENS MD Work Phone: Start: 06-08-2019 End: 06-08-2019 Collj & interpj physiol data min 30 min ea 30 d TRENT STEVENS MD Work Phone: Start: 03-26-2019 End: 03-26-2019 Collj & interpj physiol data min 30 min ea 30 d RTENT STEVENS MD Work Phone: Start: 03-26-2019 End: 03-26-2019 Dischrg meds reconciled w/current med list TRENT STEVENS MD Work Phone: Start: 10-27-2018 End: 10-27-2018 Dischrg meds reconciled w/current med list TRENT STEVENS MD Work Phone: Start: 10-02-2018 End: 10-02-2018 Exc b9 lesion mrgn xcp sk tg t/a/l 0.6-1.0 cm TRENT STEVENS MD Work Phone: Start: 09-02-2018 End: 09-02-2018 Ceftriaxone sodium injection AMAN STEVESN MD Work Phone: Start: 09-02-2018 End: 09-02-2018 Dischrg meds reconciled w/current med list AMAN STEVENS MD Work Phone: Start: 09-02-2018 End: 09-02-2018 Therapeutic prophylactic/dx injection subq/im AMAN STEVENS MD Work Phone: Start: 07-03-2018 End: 07-03-2018 Dischrg meds reconciled w/current med list TRENT STEVENS MD Work Phone: Start: 01-09-2018 End: 01-09-2018 Exc b9 lesion mrgn xcp sk tg t/a/l 0.6-1.0 cm TRENT STEVENS MD Work Phone: Start: 01-09-2018 End: 01-09-2018 Falls risk assessment documented TRENT STEVENS MD Work Phone: Start: 01-09-2018 End: 01-09-2018 Dischrg meds reconciled w/current med list TRENT STEVENS MD Work Phone: Start: 01-09-2018 End: 01-09-2018 Fall Risk Assessment Vijaya Solitario Start: 08-25-2014 End: 08-25-2014 Cardiovascular Stress Test - Priscilla FLORES [employer]ING [employer] WA[employer]/WAITRESS-C Work Phone: Comment on above: Negative. EF 57% Start: 05-14-2012 End: 05-14-2012 Pure tone audiometry air only Jameson Sen MD Work Phone: 2007, right knee men iscus Dr. Hugo FLORES [employer]ING [employer] WA[employer]WAITRESS-C Work Phone: Colonoscopy Maranda Jeanie CUTTING MACHINE OFFBEARER Comment on above: Within Normal Limits . May 2011 knee surgery Maranda Ware C[employer]TING MACHINE OFFBEARER Comment on above: 1998 knee surgery Elaine Boyd ey GRAPHICS INTERN Comment on above: 1998 knee surgery Elaine Boyd ey GRAPHICS INTERN Comment on above: 1998 Screening colonoscopy Vijaya Solitario Comment on above: 2011 Screening colonoscopy Rico Navarro RN Comment on above: 2011 TDAP - Adacel/Boostrix Cami Navarro RN Comment on above: Discussed. 08/12/2023 Plan of Treatment Date Care Activity Detail Author Start: 12-27-2023 Assay of blood/uric acid URIC ACID BLOOD (46205) Start: 27-Dec-2023 Request miiCard.; miiCard. Start: 12-27-2023 Radex foot complete minimum 3 views Foot, Left Complete x-ray ([id number]) Start: 27-Dec-2023 Intent miiCard.; miiCard. Start: 05-14-2023 Culture bacterial quanttative colony count urine Urine Culture ([id number]) Start: 14-May-2023 11:40 Request miiCard.; miiCard. Start: 04-15-2023 Patient encounter procedure Medical; LESION/SKINTAG REMOVAL - Lesion removal miiCard. Start: 15-Apr-2023 9:50 MD Jameson Sen Appointment Request miiCard. Start: 12-01-2020 Ct abdomen & pelvis w/o contrst 1/> body re Abdomen/Pelvis CT W/O Contrast & W/ Contrast per protocol ([id number]) Start: 01-Dec-2020 Intent miiCard.; miiCard. Start: 01-12-2020 End: 01-12-2020 Collj & interpj physiol data min 30 min ea 30 d QUERY OARRS REPORT ([id number]) Date: 12-Jan-2020 [facility] D and K interprises; [facility] [employer]. Start: 03-26-2019 External ecg scannin g analysis report HOLTER MONITOR WITH REPORT, 24 HRS ([id number]) Start: 26-Mar-2019 Intent [facility] [employer].; [facility] [employer]. Start: 10-02-2018 [facility] [employer]. Start: 09-02-2018 Patient Education DIVERTICULIT IS Indication: Diverticulitis Start: 02-Sep-2018 Instruction Type: Patient Education [facility] [employer].; [facility] [employer]. Start: 01-09-2018 Patient Education SUTURE CARE Indication: SCC (squamous cell carcinoma) Start: 09-Jan-2018 Instruction Type: Patient Education [facility] [employer].; [facility] [employer]. Start: 09-10-2017 Im adm prq id subq/i m njxs ea vaccine IMMUNIZATION ADMIN EACH ADD ([id number]) Start: 10-Sep-2017 Intent [facility] [employer]; [facility] [employer]. Start: 09-10-2017 Patient Education TIA Indicati on: Transient cerebral ischemia, unspecified type Start: 10-Sep-2017 Instruction Type: Patient Education [facility] [employer] and K inter[employer]; [facility] [employer]. Start: 03-21-2017 Destruction premalig nant lesion 1st ACTINIC KERATOSIS FREEZE ([id number]) Start: 21-Mar-2017 Intent [employer]; [facility] [employer]. Start: 03-21-2017 Destruction premalig nant lesion 2-14 ea ACTINIC KERATOSIS FREEZE EACH, 2-14 ([id number]) Start: 21-Mar-2017 Intent [facility] [employer]; [facility] [employer]. Start: 09-27-2016 Non-pneum walk boot pre allergist/immunologist WALKING BOOT, NON-PNEUMATIC, WITH OR WITHOUT JOINTS, WITH OR WITHOUT INTERFACE MATERIAL, PREFABRICATED ([id number]) Start: 27-Sep-2016 Intent Comments: post-op shoe [employer]; [employer] [facility] [employer] Comment on above: post-op shoe Start: 09-27-2016 Radex toe minimum 2 views X-RAY TOE(S) ([id number]) Start: 27-Sep-2016 Intent [employer]; [employer] [facility] [employer] Start: 06-02-2015 Patient Education HYPERTENSION Indication: Benign hypertension Start: 02-Jun-2015 Instruction Type: Patient Education [facility] [facility]; [facility] [employer] [facility] [place] [employer]. Start: 04-28-2015 Patient Education HYPERTENSION Indication: Benign hypertension Start: 28-Apr-2015 Instruction Type: Patient Education [facility].; [employer] [facility] [employer]. Start: 08-23-2014 Chest x-ray X-RAY CHEST- T WO VIEWS - AP/LL ([id number]) Start: 23-Aug-2014 [facility]; [employer] [facility] [employer]. Start: 08-23-2014 Cv strs tst xers&/or rx cont ecg w/si&r CARDIOVASCULAR EXERCISE STRESS TEST - WITH IMAGING ([id number]) ([id number]) Start: 23-Aug-2014 [facility]; [employer] [facility]. Start: 08-23-2014 Patient Education HYPERTENSION Indication: Benign hypertension Start: 23-Aug-2014 Instruction Type: Patient Education [facility] [employer]; [place] [employer] [facility] [employer]. Start: 05-04-2014 Patient Education TOBACCO - WA YS TO QUIT Indication: Smoker Start: 04-May-2014 Instruction Type: Patient Education [facility]; [facility] [employer]. Start: 04-27-2014 Patient Education LYMPHADENOPA THY Indication: LYMPHADENITIS (Renamed from Adenitis) Start: 27-Apr-2014 Instruction Type: Patient Education [facility] [employer]; [place] [employer] [facility] [employer]. Start: 03-15-2014 Patient Education HYPERTENSION Indication: Labile hypertension Start: 15-Mar-2014 Instruction Type: Patient Education [facility]; [place] [employer] [facility] [employer]. Start: 02-26-2014 Patient Education [facility] [employer]; [facility] [employer] Immunizations Immunization Date Immunization Notes Care Provider Fa carissa 10-25-2021 pneumococcal conjuga te vaccine, 13 valent Jameson Sen MD Work Phone: [facility]; [facility] Comment on above: Site: Right DeltoidV IS Given: * Pneumococcal Conjugate (PCV13) (01/27/15) 05-26-2020 COVID-Pfizer (30 MCG /0.3 ML) Jameson Sen MD Work Phone: [facility]; [facility] 04-28-2020 COVID-Pfizer (30 MCG /0.3 ML) Jameson Sen MD Work Phone: [facility]; [facility] 09-10-2017 *IMMUNIZATION ADMIN ([id number]) TRENT STEVENS MD Work Phone: [facility]; [facility] 09-10-2017 pneumococcal conjuga te vaccine, 13 valent TRENT STEVENS MD Work Phone: [facility]; [facility]. Comment on above: Site: Right DeltoidV IS Given: * Multiple Vaccines (DTaP, Hib, Hepatitis B, Polio, and PCV13) (01/27/15) 09-10-2017 tetanus toxoid, redu maryann diphtheria toxoid, and acellular pertussis vaccine, adsorbed TRENT STEVENS MD Work Phone: [facility]; [facility] Comment on above: Site: Left DeltoidVI S Given: * Tdap (Tetanus, Diphtheria, Pertussis) (05/18/14) 05-13-2014 zoster vaccine, live TRENT STEVENS MD Work Phone: [facility]; [facility] Comment on above: given at [facility] 03-15-2014 varicella zoster imm une globulin TRENT STEVENS MD Work Phone: [facility] [place] [facility]; [facility] [place] [facility] 08-19-2012 pneumococcal polysaccharide vaccine, 23 valent Jameson Sen MD Work Phone: [facility] [place] [facility]; [facility] [place] [facility] Comment on above: Site: Deltoid (Left) VIS Given: * Pneumococcal Polysaccharide (PPSV23) (12/28/08) influenza virus vacc ine, unspecified formulation TRENT STEVENS MD Work Phone: [facility]; [facility] Comment on above: Refused. 02/21/2021 influenza virus vacc ine, unspecified formulation TRENT STEVENS MD Work Phone: [facility]; [facility] Comment on above: Refused. 02/21/2021 Payers Date Payer Category Payer Unknown [id number] 1950 Unknown [id number] 1950 Unknown [id number] Unknown [employer] Social History Date Type Detail Facility Alcohol Use: Alcohol Use: ; O ccasional alcohol use. [facility] [place] [facility] Caffeine Use Caffeine Use [facility] [place] [facility] [place] [facility] Male [facility] [place] [facility]; [facility] [place] [facility] Work Phone: Occasional alcohol use [facility]; [facility] Work Phone: Alcohol Use: Alcohol Use: ; 1 to 7 drinks per week. 2 drinks per occasion. [facility] [place] [facility] Marital status: Marital status: ; . [facility] [place] [facility].; [facility] [place] [facility] Tobacco use: Tobacco use: ; S mokes 1 pack of cigarettes per day. [facility] [place] [facility].; [facility] Smokes 1 pack of cigarettes per day [facility]; [facility] [place] [facility] Work Phone: [facility] [place] [facility] [place] [facility] Work Phone: [facility] [place] [facility] [place] [facility] Work Phone: Summary Purpose Family History Cerebrovascular Accident Status:Active Comment s:Mother. Coronary Artery Disease Status:Active Comments :Negative Family History Of. Diabetes Mellitus Type II Status:Active Commen ts:Negative Family History Of. Hypertension Status:Active Comments:Mother. Hypothyroidism Status:Active Comments:Negativ e Family History Of. Lung Cancer Status:Active Comments:Father. Cerebrovascular Accident Status:Active Comment s:Mother. Coronary Artery Disease Status:Active Comments :Negative Family History Of. Diabetes Mellitus Type II Status:Active Commen ts:Negative Family History Of. Hypertension Status:Active Comments:Mother. Hypothyroidism Status:Active Comments:Negativ e Family History Of. Lung Cancer Status:Active Comments:Father. Brother (s) Status:Active Comments:In good health. age 59 Daughter (s) Status:Active Comments:4. Father Status:Active Comments: d. Lung Cancer. at age 71 Mother Status:Active Comments:age 91- of natural causes. Sister (s) Status:Active Comments:In good health. age 70 Son (s) Status:Active Comments:1. Cerebrovascular Accident Status:Active Comment s:Mother. Coronary Artery Disease Status:Active Comments :Negative Family History Of. Diabetes Mellitus Type II Status:Active Commen ts:Negative Family History Of. Hypertension Status:Active Comments:Mother. Hypothyroidism Status:Active Comments:Negativ e Family History Of. Lung Cancer Status:Active Comments:Father. Cerebrovascular Accident Status:Active Comment s:Mother. Coronary Artery Disease Status:Active Comments :Negative Family History Of. Diabetes Mellitus Type II Status:Active Commen ts:Negative Family History Of. Hypertension Status:Active Comments:Mother. Hypothyroidism Status:Active Comments:Negativ e Family History Of. Lung Cancer Status:Active Comments:Father. Cerebrovascular Accident Status:Active Comment s:Mother. Coronary Artery Disease Status:Active Comments :Negative Family History Of. Diabetes Mellitus Type II Status:Active Commen ts:Negative Family History Of. Hypertension Status:Active Comments:Mother. Hypothyroidism Status:Active Comments:Negativ e Family History Of. Lung Cancer Status:Active Comments:Father. Cerebrovascular Accident Status:Active Comment s:Mother. Coronary Artery Disease Status:Active Comments :Negative Family History Of. Diabetes Mellitus Type II Status:Active Commen ts:Negative Family History Of. Hypertension Status:Active Comments:Mother. Hypothyroidism Status:Active Comments:Negativ e Family History Of. Lung Cancer Status:Active Comments:Father. Cerebrovascular Accident Status:Active Comment s:Mother. Coronary Artery Disease Status:Active Comments :Negative Family History Of. Diabetes Mellitus Type II Status:Active Commen ts:Negative Family History Of. Hypertension Status:Active Comments:Mother. Hypothyroidism Status:Active Comments:Negativ e Family History Of. Lung Cancer Status:Active Comments:Father. Cerebrovascular Accident Status:Active Comment s:Mother. Coronary Artery Disease Status:Active Comments :Negative Family History Of. Diabetes Mellitus Type II Status:Active Commen ts:Negative Family History Of. Hypertension Status:Active Comments:Mother. Hypothyroidism Status:Active Comments:Negativ e Family History Of. Lung Cancer Status:Active Comments:Father. Cerebrovascular Accident Status:Active Comment s:Mother. Coronary Artery Disease Status:Active Comments :Negative Family History Of. Diabetes Mellitus Type II Status:Active Commen ts:Negative Family History Of. Hypertension Status:Active Comments:Mother. Hypothyroidism Status:Active Comments:Negativ e Family History Of. Lung Cancer Status:Active Comments:Father. Cerebrovascular Accident Status:Active Comment s:Mother. Coronary Artery Disease Status:Active Comments :Negative Family History Of. Diabetes Mellitus Type II Status:Active Commen ts:Negative Family History Of. Hypertension Status:Active Comments:Mother. Hypothyroidism Status:Active Comments:Negativ e Family History Of. Lung Cancer Status:Active Comments:Father. Cerebrovascular Accident Status:Active Comment s:Mother. Coronary Artery Disease Status:Active Comments :Negative Family History Of. Diabetes Mellitus Type II Status:Active Commen ts:Negative Family History Of. Hypertension Status:Active Comments:Mother. Hypothyroidism Status:Active Comments:Negativ e Family History Of. Lung Cancer Status:Active Comments:Father. Cerebrovascular Accident Status:Active Comment s:Mother. Coronary Artery Disease Status:Active Comments :Negative Family History Of. Diabetes Mellitus Type II Status:Active Commen ts:Negative Family History Of. Hypertension Status:Active Comments:Mother. Hypothyroidism Status:Active Comments:Negativ e Family History Of. Lung Cancer Status:Active Comments:Father. Cerebrovascular Accident Status:Active Comment s:Mother. Coronary Artery Disease Status:Active Comments :Negative Family History Of. Diabetes Mellitus Type II Status:Active Commen ts:Negative Family History Of. Hypertension Status:Active Comments:Mother. Hypothyroidism Status:Active Comments:Negativ e Family History Of. Lung Cancer Status:Active Comments:Father. Cerebrovascular Accident Status:Active Comment s:Mother. Coronary Artery Disease Status:Active Comments :Negative Family History Of. Diabetes Mellitus Type II Status:Active Commen ts:Negative Family History Of. Hypertension Status:Active Comments:Mother. Hypothyroidism Status:Active Comments:Negativ e Family History Of. Lung Cancer Status:Active Comments:Father. Cerebrovascular Accident Status:Active Comment s:Mother. Coronary Artery Disease Status:Active Comments :Negative Family History Of. Diabetes Mellitus Type II Status:Active Commen ts:Negative Family History Of. Hypertension Status:Active Comments:Mother. Hypothyroidism Status:Active Comments:Negativ e Family History Of. Lung Cancer Status:Active Comments:Father. Cerebrovascular Accident Status:Active Comment s:Mother. Coronary Artery Disease Status:Active Comments :Negative Family History Of. Diabetes Mellitus Type II Status:Active Commen ts:Negative Family History Of. Hypertension Status:Active Comments:Mother. Hypothyroidism Status:Active Comments:Negativ e Family History Of. Lung Cancer Status:Active Comments:Father. Cerebrovascular Accident Status:Active Comment s:Mother. Coronary Artery Disease Status:Active Comments :Negative Family History Of. Diabetes Mellitus Type II Status:Active Commen ts:Negative Family History Of. Hypertension Status:Active Comments:Mother. Hypothyroidism Status:Active Comments:Negativ e Family History Of. Lung Cancer Status:Active Comments:Father. Brother (s) Status:Active Comments:In good health. age 59 Daughter (s) Status:Active Comments:4. Father Status:Active Comments: d. Lung Cancer. at age 71 Mother Status:Active Comments:age 91- of natural causes. Sister (s) Status:Active Comments:In good health. age 70 Son (s) Status:Active Comments:1. Brother (s) Status:Active Comments:In good health. age 59 Daughter (s) Status:Active Comments:4. Father Status:Active Comments: d. Lung Cancer. at age 71 Mother Status:Active Comments:age 91- of natural causes. Sister (s) Status:Active Comments:In good health. age 70 Son (s) Status:Active Comments:1. Brother (s) Status:Active Comments:In good health. age 59 Daughter (s) Status:Active Comments:4. Father Status:Active Comments: d. Lung Cancer. at age 71 Mother Status:Active Comments:age 91- of natural causes. Sister (s) Status:Active Comments:In good health. age 70 Son (s) Status:Active Comments:1. Brother (s) Status:Active Comments:In good health. age 59 Daughter (s) Status:Active Comments:4. Father Status:Active Comments: d. Lung Cancer. at age 71 Mother Status:Active Comments:age 91- of natural causes. Sister (s) Status:Active Comments:In good health. age 70 Son (s) Status:Active Comments:1. Brother (s) Status:Active Comments:In good health. age 59 Daughter (s) Status:Active Comments:4. Father Status:Active Comments: d. Lung Cancer. at age 71 Mother Status:Active Comments:age 91- of natural causes. Sister (s) Status:Active Comments:In good health. age 70 Son (s) Status:Active Comments:1. Brother (s) Status:Active Comments:In good health. age 59 Daughter (s) Status:Active Comments:4. Father Status:Active Comments: d. Lung Cancer. at age 71 Mother Status:Active Comments:age 91- of natural causes. Sister (s) Status:Active Comments:In good health. age 70 Son (s) Status:Active Comments:1. Brother (s) Status:Active Comments:In good health. age 59 Daughter (s) Status:Active Comments:4. Father Status:Active Comments: d. Lung Cancer. at age 71 Mother Status:Active Comments:age 91- of natural causes. Sister (s) Status:Active Comments:In good health. age 70 Son (s) Status:Active Comments:1. Cerebrovascular Accident Status:Active Comment s:Mother. Coronary Artery Disease Status:Active Comments :Negative Family History Of. Diabetes Mellitus Type II Status:Active Commen ts:Negative Family History Of. Hypertension Status:Active Comments:Mother. Hypothyroidism Status:Active Comments:Negativ e Family History Of. Lung Cancer Status:Active Comments:Father. Cerebrovascular Accident Status:Active Comment s:Mother. Coronary Artery Disease Status:Active Comments :Negative Family History Of. Diabetes Mellitus Type II Status:Active Commen ts:Negative Family History Of. Hypertension Status:Active Comments:Mother. Hypothyroidism Status:Active Comments:Negativ e Family History Of. Lung Cancer Status:Active Comments:Father. Cerebrovascular Accident Status:Active Comment s:Mother. Coronary Artery Disease Status:Active Comments :Negative Family History Of. Diabetes Mellitus Type II Status:Active Commen ts:Negative Family History Of. Hypertension Status:Active Comments:Mother. Hypothyroidism Status:Active Comments:Negativ e Family History Of. Lung Cancer Status:Active Comments:Father. Cerebrovascular Accident Status:Active Comment s:Mother. Coronary Artery Disease Status:Active Comments :Negative Family History Of. Diabetes Mellitus Type II Status:Active Commen ts:Negative Family History Of. Hypertension Status:Active Comments:Mother. Hypothyroidism Status:Active Comments:Negativ e Family History Of. Lung Cancer Status:Active Comments:Father. Cerebrovascular Accident Status:Active Comment s:Mother. Coronary Artery Disease Status:Active Comments :Negative Family History Of. Diabetes Mellitus Type II Status:Active Commen ts:Negative Family History Of. Hypertension Status:Active Comments:Mother. Hypothyroidism Status:Active Comments:Negativ e Family History Of. Lung Cancer Status:Active Comments:Father. Cerebrovascular Accident Status:Active Comment s:Mother. Coronary Artery Disease Status:Active Comments :Negative Family History Of. Diabetes Mellitus Type II Status:Active Commen ts:Negative Family History Of. Hypertension Status:Active Comments:Mother. Hypothyroidism Status:Active Comments:Negativ e Family History Of. Lung Cancer Status:Active Comments:Father. Cerebrovascular Accident Status:Active Comment s:Mother. Coronary Artery Disease Status:Active Comments :Negative Family History Of. Diabetes Mellitus Type II Status:Active Commen ts:Negative Family History Of. Hypertension Status:Active Comments:Mother. Hypothyroidism Status:Active Comments:Negativ e Family History Of. Lung Cancer Status:Active Comments:Father. Cerebrovascular Accident Status:Active Comment s:Mother. Coronary Artery Disease Status:Active Comments :Negative Family History Of. Diabetes Mellitus Type II Status:Active Commen ts:Negative Family History Of. Hypertension Status:Active Comments:Mother. Hypothyroidism Status:Active Comments:Negativ e Family History Of. Lung Cancer Status:Active Comments:Father. Cerebrovascular Accident Status:Active Comment s:Mother. Coronary Artery Disease Status:Active Comments :Negative Family History Of. Diabetes Mellitus Type II Status:Active Commen ts:Negative Family History Of. Hypertension Status:Active Comments:Mother. Hypothyroidism Status:Active Comments:Negativ e Family History Of. Lung Cancer Status:Active Comments:Father. Cerebrovascular Accident Status:Active Comment s:Mother. Coronary Artery Disease Status:Active Comments :Negative Family History Of. Diabetes Mellitus Type II Status:Active Commen ts:Negative Family History Of. Hypertension Status:Active Comments:Mother. Hypothyroidism Status:Active Comments:Negativ e Family History Of. Lung Cancer Status:Active Comments:Father. Cerebrovascular Accident Status:Active Comment s:Mother. Coronary Artery Disease Status:Active Comments :Negative Family History Of. Diabetes Mellitus Type II Status:Active Commen ts:Negative Family History Of. Hypertension Status:Active Comments:Mother. Hypothyroidism Status:Active Comments:Negativ e Family History Of. Lung Cancer Status:Active Comments:Father. Advance Directives No Advanced Directives Records FoundNo Advanced Directives Records FoundNo Advanced Directives Records FoundNo Advanced Directives Records FoundNo Advanced Directives Records FoundNo Advanced Directives Records Found Additional Source Comments (unrecognized sect ion and content) No Status Records FoundNo Status Records FoundNo Status Records FoundNo Status Records FoundNo Status Records FoundNo Status Records Found INFORMATION SOURCE (unrecogn ized section and content) DATE CREATED AUTHOR 02/12/2018 [facility] ([place]) DATE CREATED AUTHOR AUTHOR'S ORGANIZ ATION 04/13/2020 [facility] ([place]) DATE CREATED AUTHOR AUTHOR'S ORGANIZ ATION 06/27/2020 [facility] DATE CREATED AUTHOR AUTHOR'S ORGANIZ ATION 03/17/2022 [facility] DATE CREATED AUTHOR AUTHOR'S ORGANIZ ATION 05/23/2023 [facility] DATE CREATED AUTHOR AUTHOR'S ORGANIZ ATION 12/29/2023 [facility] FOR RECORDS PERTAINING TO PATIENTS WHO ARE OR HAVE BEEN ENROLLED IN A CHEMICAL DEPENDENCY/SUBSTANCEABUSE PROGRAM, SOME INFORMATION MAY BE OMITTED. This clinical summary was aggregated from multiple sources. Caution should be exercised in using it in the provision of clinical care. This summary normalizes information from multiple sources, and as a consequence, information in this document may materially change the coding, format and clinical context of patient data. In addition, data may be omitted in some cases. CLINICAL DECISIONS SHOULD BE BASED ON THE PRIMARY CLINICAL RECORDS. [facility]. provides no warranty or guarantee of the accuracy or completeness of information in this document.
[2024-01-15] MEDS: Lidocaine 1% /Epi 1:100 (20ml) 20 ML Vial 5 ML INFILT (20:20)
[2024-01-15 20:39] VITALS: BP 137/71; PULSE 61; RESP 17; TEMP 36.6; O2SAT 99
== END 2024-01-15 20:43 | disposition home or self-care (01) ==
PROVIDERS: Emergency Provider Emergency Medicine; PCP Family Medicine; Visit Provider Emergency Medicine
DX: T82.838A Hemorrhage due to vascular prosthetic devices, implants and grafts, initial encounter (principal); I11.9 Hypertensive heart disease without heart failure; E78.5 Hyperlipidemia, unspecified; I73.9 Peripheral vascular disease, unspecified; F17.210 Nicotine dependence, cigarettes, uncomplicated; Z86.73 Personal history of transient ischemic attack (TIA), and cerebral infarction without residual deficits; Z79.82 Long term (current) use of aspirin; Z79.02 Long term (current) use of antithrombotics/antiplatelets; Z79.899 Other long term (current) drug therapy
CPT/HCPCS: 99282

== ENCOUNTER → 2024-07-09 | Outpatient (CLI) | payer MEDICARE, OTHER, SELFPAY ==
[2024-07-09 15:47] LABS: PSA,Total - Annual Screen 0.76 ng/mL (0.02-4.00)
== END | disposition home or self-care (01) ==
LOC: LAB 13:27
PROVIDERS: PCP Family Medicine; Referring Provider Urology; Visit Provider Urology
DX: Z12.5 Encounter for screening for malignant neoplasm of prostate (principal)
CPT/HCPCS: 36415; 84153; G0103

== ENCOUNTER → 2025-01-26 | Outpatient (CLI) | payer MEDICARE, OTHER, SELFPAY ==
--- NOTE | 2025-01-26 06:53 | ART_ITS ---
Reason For Study VL/Lower Ext Art Exam w/ Exercise
--- NOTE | 2025-01-26 06:53 | ECHOD_ITS ---
Reason For Study ECHO/Echo Complete
--- NOTE | 2025-01-26 12:56 | STRESSREP_ITS ---
Stress Test Report
--- NOTE | 2025-01-26 12:56 | STRESSREP ---
Stress Test Report Date: 01/26/2025 Procedure: Pharmacologic stress nuclear imaging study Indications: Chest pain Consent: Per the patient Procedure: The patient underwent pharmacologic (Regadenoson 0.4mg ) evaluation with a peak heart rate of 84 beats per minute (57%predicted maximal heart rate) and a peak blood pressure of 130/74 mmHg. The baseline ECG demonstrated sinus rhythm with nonspecific ST changes.. The peak pharmacologic ECG did not show any diagnostic ischemic changes. PVCs noted pretest, during infusion and in recovery. There was no complaint of chest discomfort during pharmacologic infusion or recovery. The patient was injected with 13.5 millicuries of technetium 99m Cardiolite and subsequently rest SPECT Cardiolite nuclear imaging was obtained in the horizontal long, vertical long, and short axis views. The patient underwent pharmacologic (Regadenoson) evaluation. The patient was injected with 42.3 millicuries of technetium 99m Cardiolite and subsequently stress SPECT Cardiolite nuclear imaging was obtained in the horizontal long, vertical long, and short axis views. A gated Cardiolite study at peak stress was obtained. The examination was stopped secondary to completion of protocol. Rest and stress SPECT Cardiolite nuclear imaging status post realignment, normalization, and attenuation correction demonstrate mildly reduced perfusion of the inferior wall post pharmacological stress, suggestive of mild inferior ischemia. There is end systolic thickening and brightening. The gated Cardiolite study demonstrates myocardial thickening and inward wall motion. The reported LVEF is 64%. Impression: 1. Pharmacologic (Regadenoson) evaluation 2. Peak pharmacologic ECG with no diagnostic ischemic changes. 3. Frequent PVCs noted. 5. Mild inferior wall ischemia. 6. The gated Cardiolite study reports an LVEF of 64%. This note was generated with Feed[employer] software. It may contain incorrect words, spelling, and punctuation that were not noted in checking the note before signing.
== END | disposition home or self-care (01) ==
LOC: CVS 06:50
PROVIDERS: PCP Family Medicine; Referring Provider Internal Medicine Cardiovascular Disease; Visit Provider Internal Medicine Cardiovascular Disease
DX: R07.9 Chest pain, unspecified (principal); I73.9 Peripheral vascular disease, unspecified; F17.200 Nicotine dependence, unspecified, uncomplicated; E78.5 Hyperlipidemia, unspecified; I11.9 Hypertensive heart disease without heart failure; R06.02 Shortness of breath
CPT/HCPCS: 78452; 93017; 93306; 93924; A9500; A4216; J2785

== ENCOUNTER 2025-02-09 07:43 | Day surgery (SDC) | payer MEDICARE, OTHER, SELFPAY ==
--- NOTE | 2025-02-02 10:32 | RAD_ITS ---
PROCEDURE: CHEST PA AND LATERAL 02/02/2025 REASON FOR EXAM: ABNORMAL STRESS TEST TECHNIQUE: Procedure Code: RADCXR Modality: DX Procedure: CHEST PA AND LATERAL COMPARISON: CT from 11/15/22 FINDINGS: No focal consolidation. No pleural effusion or pneumothorax. Cardiac silhouette is within normal limits. No acute fractures. RAD/Chest PA and Lateral IMPRESSION: No focal consolidations. Reading Location: [facility]
[2025-02-02 11:01] LABS: Hematocrit 45.5 % (40-54); Hemoglobin 15.6 g/dL (13.0-16.5); Immature Granulocytes Count 0.070 X10^3/uL (0.0-0.0); Mean Corp Hgb Conc 34.3 g/dL (32-36); Mean Corpuscular Volume 89.9 fL (80-94); Mean Platelet Vol. 9.5 fl (6.2-12.0); NRBC Flagged by Analyzer 0 % (0-5); Platelet Count 225 K/mm3 (150-450); RBC Distribution Width CV 14.8 % (11.6-14.6); RBC Distribution Width SD 48.7 fl (35.1-43.9); Red Blood Count 5.06 M/mm3 (4.6-6.2); White Blood Count 9.3 K/mm3 (4.4-11.0)
[2025-02-02 12:03] LABS: Anion Gap 11 (5-15); BUN 23 mg/dL (4-19); BUN/Creat Ratio 17.1 RATIO (10-20); Calcium,Total 9.5 mg/dL (7.6-11.0); Carbon Dioxide 22.5 mmol/L (21.0-32.0); Chloride 105 mmol/L (98-108); Glucose 111 mg/dL (70-99); Potassium 3.7 mmol/L (3.3-5.1)
[2025-02-08 08:26] VITALS: BMI 28.2
--- NOTE | 2025-02-09 11:46 | ECHOTEE_ITS ---
Reason For Study Reason For Study: Mitral Regurgitation Medication ROYCE probe 6VT-D (SN [id number]) passed without difficulty. No complications were noted. [id number] gargled and swallowed. Versed 2 mg given slow IVP. Fentanyl 50 mcg given slow IVP. Performed a rapid injection of agitated mix of 9 cc saline and 1cc air to assess for atrial septal defect. Left Ventricle Normal size and thickness. The left ventricular ejection fraction is 65 %. Right Ventricle Normal right ventricle. Atria Bubble contrast study is positive for PFO. The left and right atria are normal. No LA appendage clot. Normal velocities in the LA appendage. Mitral Valve Mild prolapse of the posterior mitral valve leaflet. Moderate anteriorly directed mitral valve regurgitation. Tricuspid Valve Normal tricuspid valve. Aortic Valve Trisinus/trileaflet aortic valve. There is no aortic stenosis. No aortic valve insufficiency. Pulmonic Valve Normal pulmonic valve. Vessels Atherosclerotic descending thoracic aorta and arch. Pericardium No pericardial effusion. ECHO/Echo Transesophageal (ROYCE) Interpretation Summary The left ventricular ejection fraction is 65 %. Bubble contrast study is positive for PFO. Mild prolapse of the posterior mitral valve leaflet. Moderate anteriorly direct ed mitral valve regurgitation. Atherosclerotic descending thoracic aorta and arch. Ordering Physician: lIa Hernandez Referring Physician: Jameson Sen Performed By: Roula Coppola, RDLITZY, RVT
--- NOTE | 2025-02-09 12:50 | CL.D_ITS ---
Patient Name: MCKENNA CAMPOVERDE Study Date: 02/09/2025 Performing: Ila Hernandez MD Ht: 69 inches 175.26 cm : 1950 Wt: 191.01 lbs 86.64 kg Age: 74 Gender: male BSA: 2.03 PROCEDURE(S) PERFORMED DC01-(80074)LHC/COR/LV CLINICAL PROFILE AND INDICATIONS Indications: Suspected CAD Heart Failure: None Stress/Imaging Stress Test w/SPECT MPI: Yes Result: Positive Intermediate RiskStress Test with SPECT MPI: Positive Intermediate Risk CAD Presentations: Other: Dyspnea CONCLUSIONS 80% Mid LAD 65% Mid LCX; 90% Lat OM1 (small 1.5 mm vessel) 50% Mid RCA; 99% Mid RPLV (small 2 mm vessel) LVEF 65% Suspect Moderate MR RECOMMENDATIONS Evaluate MR with ROYCE. If significant, then surgical consult otherwise PCI to LAD DESCRIPTION OF PROCEDURE The patient arrived to the procedure lab. The risks and benefits of the procedure as well as a full description of our services here and current unavailability of surgical backup were fully explained to the patient and/or their significant other prior to the catheterization. The Timeout was completed, verifying the correct patient and procedure. The patient's procedural site was prepped and draped in the usual fashion. Local anesthetic was given subcutaneously to right radial region with Lidocaine 2%. Using a modified Seldinger technique, arterial access was obtained via the right radial artery, a 6Fr sheath was inserted. Left Coronary Artery selective angiography was performed in multiple views using a 5 Fr. 4.0 [place] catheter. Right Coronary Artery selective angiography was then performed in multiple views using a 5 Fr. 4.0 [place] catheter. Left Ventriculography was performed in WARREN projection using a 5 Fr. Pigtail catheter. LV to AO pullback pressures were then recorded.The arterial sheath was pulled and a TR Band was applied for hemostasis - 10cc air CORONARY ANGIOGRAPHY DOMINANCE: Right Dominant LEFT HEART ASSESSMENT Left Ventricular Ejection Fraction: by LV Gram 65 % LEFT MAIN: Tubular 20% Ostial lesion in LMCA LEFT ANTERIOR DESCENDING ARTERY: LAD: Tubular 80% Mid lesion in LAD RIGHT CORONARY ARTERY: RCA: Tubular 50% Mid lesion in RCA VALVE FINDINGS: Moderate MR COMPLICATIONS No Complications PROCEDURE MEDICATIONS Versed 1 mg IV Fentanyl 50 mcg IV Oxygen: 2 L/min via nasal cannula Heparin given IA 02/09/2025 10:59:14 Verapamil 2.5mg, Ntg 200mcgs, 2000 units of Heparin given IA 02/09/2025 10:59:14 SUMMARY OF HEMODYNAMIC DATA Time AIR REST ECG 08:10:38 AO 111/68 (85) SA 11:01:53 LV 142/13, 24 11:11:22 LV 143/13, 26 11:11:30 LV 142/21, 28 11:12:27 LV 137/21, 28 11:12:35 LVp 141/78, 80 11:13:44 AOp 145/79 (104) 11:13:52 Signed By Ila Hernandez MD On 02/09/2025 12:49:23 Ila Hernandez MD
== END 2025-02-09 14:30 | disposition home or self-care (01) ==
PROVIDERS: Nurse Practitioner Gerontology; PCP Family Medicine; Referring Provider Internal Medicine Cardiovascular Disease; Visit Provider Internal Medicine Cardiovascular Disease
DX: I25.9 Chronic ischemic heart disease, unspecified (principal); I34.0 Nonrheumatic mitral (valve) insufficiency; R06.00 Dyspnea, unspecified; Z79.899 Other long term (current) drug therapy; Z79.01 Long term (current) use of anticoagulants; Z79.02 Long term (current) use of antithrombotics/antiplatelets; I10 Essential (primary) hypertension; E78.5 Hyperlipidemia, unspecified; F17.210 Nicotine dependence, cigarettes, uncomplicated; I77.810 Thoracic aortic ectasia
CPT/HCPCS: 36415; 71046; 80048; 85025; 93312; 93320; 93325; 93458; 99152; 99153; C1894; Q9967; A4216; C1769

== ENCOUNTER 2025-02-11 09:16 | Observation (INO) | payer MEDICARE, OTHER, SELFPAY ==
[2025-02-10 09:19] VITALS: BMI 28.2
[2025-02-11] VITALS (12 sets, daily range): BP systolic 127–156; BP diastolic 71–86; PULSE 48–67; RESP 18; TEMP 36.7–36.8; O2SAT 95–99; BMI 27.4
--- OUTSIDE RECORDS SUMMARY | 2025-02-11 07:05 | XMS RPT_ITS | CCD ---
Author Organization [facility] Care Team Providers Care Zipper Lining Folder Name Role Phone TRENT STEVENS Unavailable Unavailable Dr. Trent Stevens Referring Provider Dr. Mason Espinosa Attending Provider Dr. Jameson Espinosa Primary Care Provider Dr. Mason Espinosa Referring Provider Dr. Mason Espinosa Other Provider Dr. Horacio Callahan Attending Provider Dr. Jameson Espinosa Primary Care Provider Dr. Jameson Espinosa Referring Provider DORA Multani Attending Provider Dr. Mckenna Dial Attending Provider DORA Multani Referring Provider Jameson Espinosa MD Unavailable [facility] Pulmonary Unavailable Dr. Mckenna Dial Unavailable Oral Surgery Provider Unavailable Unavailmelanie Rice MD, Dr. Jose Gasca Unavailable Amanda Palencia, Dr. Bhardwaj Unavailable [phone] [facility] Unavailable Agustín COLLINS, Dr. Jeninfer Conn Unavailable Dr. Robert Samano MD Unavailable Jonatan SUPERINTENDENT METER TESTS, Jeni E Unavailable Unavailable Wenceslao WINSTON, Roz Unavailable Unavailable Shawn COLLINS, Kolton Ngo Unavailable Loree SAINZ, Asaf Goldsmith Unavailable Alessandro WINSTON, Caroline Unavailable Unavailable Azael SUPERINTENDENT METER TESTS, Brenda Unavailable Unavailable Jhonathan SUPERINTENDENT METER TESTS, Nasim Unavailable Unavailable Maximo SAINZ, Dara J Unavailable [phone] Jeanie APPLIANCE WORKER, Maranda Unavailable Unavailable Richert SUPERINTENDENT METER TESTS, Isela L Unavailable Unavailab le Alfred SUPERINTENDENT METER TESTS, Katelyn Unavailable Unavailab le Wengerd SUPERINTENDENT METER TESTS, Charlene Unavailable Unavailabl e [place] SUPERINTENDENT METER TESTS, Neli N Unavailable Unavaila ble Unavailable Unavailable HILDA COLLINS, TRENT Armstrong Unavailable KATE COLLINS, HERB Unavailable ULICES MCDONOUGH Unavailable JACKIE COLLINS, ULICES Westfall Unavailable Eulalio Núñez Unavailable Unavailable Ramon PAYNE, Kimberley Unavailable Unavailable Nuha RN, Gaby Unavailable Unavaila ble PHUC, JENI Unavailable Unavailable Saima RN, Yusra Unavailable Unavailable Tyron, Macey Unavailable Unavailable Tyron, Allen Unavailable Unavailable LIS VÁZQUEZE D Unavailable Unavailable JIE, EMEKA Unavailable Unavailable LYNNETTE ELLINGTON Unavailable Unavailable TANIA RN, ASH Unavailable Unavailable TOMASA SHELTON Unavailable Unavailable Liss Vázquez Unavailable Unavailable SANDRA OSBORN-C, PAUL Conn Unavailable Vijaya Solitario Unavailable Unavailable Unavailable Unavailable [facility] Unavailable Niya COLLINS, Dr. Tsai (Ruiz) Unavailable Ramon BATISTA, Francheska Unavailable Dr. Jameson Espinosa Primary Care Provider Dr. Jameson Espinosa Referring Provider Dr. Ila Hernandez Attending Provider LEE, NORY PAC Admitting Unavailable ROSA NORY PAC Attending Unavailable ROSA, NORY PAC Primary Care Unavailable JAMESON ESPINOSA Consulting Unavailable PROVIDER, UNKNOWN Consulting Unavailable PROVIDER, UNKNOWN Consulting Unavailable PROVIDER, UNKNOWN Consulting Unavailable Rosa SAINZ, Nory Evangelista Unavailable SANDRA FLORES, PAUL Conn Unavailable Unav ailable Mckinley COLLINS, Dr. Barba Primary Care Provider Mckinley COLLINS, Dr. Barba Referring Provider David COLLINS, Dr. Thorpe Attending Provider [phone] Danny SUPERVISOR BILLPOSTING, Shae Attending Unavailable Brown, Jameson Primary Care Unavailable Danny REDMAN, Shae Attending Unavailable Brown, Jameson Primary Care Unavailable Brown, Jameson Primary Care Unavailable David, Ila Attending Unavailable David, Ila Referring Unavailable David, Ila Consulting Unavailable Brown, Jameson Referring Unavailable Danny REDMAN, Shae Attending Unavailable Brown, Jameson Primary Care Unavailable Brown, Jameson Primary Care Unavailable Brown, Jameson Referring Unavailable David, Ila Attending Unavailable Brown, Jameson Referring Unavailable David, Ila Attending Unavailable Mckinley, Jameson Primary Care Unavailable Danny REDMAN, Shae Attending Unavailable Brown, Jameson Primary Care Unavailable NiyaElualioCarlos Attending Unavailable Niya, Carlos Referring Unavailable Brown, Jameson Primary Care Unavailable David, Ila Attending Unavailable David, Ila Referring Unavailable Brown, Jameson Primary Care Unavailable David, Ila Attending Unavailable Brown, Jameson Primary Care Unavailable David, Ila Referring Unavailable Allergies Allergy Classification Reported Allergen(s) Allergy Type Date of Onset Reaction(s) Facility (9 sources) Iodine Drug Allergy 2 Unknown, [facility] (20 sources) Iodine *CHEMICALS* [facility], [facility] (9 sources) metroNIDAZOLE Drug Allergy [facility].; [facility], [facility]. (9 sources) Iodinated Contrast [facility]; [facility], [facility] (20 sources) Ciprofloxacin Drug Allergy [facility], [facility] (4 sources) Ciprofloxacin Drug Allergy 4 [facility] (3 sources) Sulfamethoxazole Drug Allergy 4 [facility] (3 sources) Trimethoprim Drug Allergy 4 [facility] (1 source) Ciprofloxacin Drug Allergy [facility] (1 source) Iodine Drug Allergy [facility] (1 source) Penicillin Drug Allergy [facility] (1 source) Pravastatin Drug Allergy 5 [facility] (1 source) Ciprofloxacin Drug Allergy 5 [facility] (1 source) Pravastatin Drug Allergy 5 [facility] Medications Current Medications Medication Drug Class(es) [...] Comment on above: Medication taken as needed. amLODIPine 5 mg oral tablet (6 sources) Dihydropyridine Calcium Channel Shantell Start: 11-14-19 End: 10-31-19 take 1 tablet by mouth once daily Amlodipine 5 mg tablet Active 5 mg PO DAILY 90 October 30, 2024 11:27am Comment on above: cardio aspirin 81 mg delayed release oral tablet (5 sources) Platelet Aggregation Inhibitor, Nonsteroidal Anti-inflammatory Drug Start: 05-21-19 End: 07-16-19 take 1 tablet by mouth once daily Aspirin 81 mg tablet,delayed release (DR/EC) Active 81 mg PO DAILY July 16, 2023 12:00am 12 hr buPROPion hydrochloride 150 mg extended release oral tablet (20 sources) Aminoketone Start: 02-11-20 buPROPion HCL SR 150 mg tablet,12 hr sustained-release ; 1 Tablet ER 12HR bid for 0 days Quantity: 60 {Tablet} Refills: 5 Ordered: 11-Feb-2024 MD Jameson Espinosa Start: 11-Feb-2024 Start: 05-23-2012 End: 06-27-2020 buPROPion HCl ER (SR) 150 MG Oral Tablet Extended Release 12 Hour ; 1 Tablet ER 12HR bid for 0 days Quantity: 60 {Tablet_ER_12HR} Refills: 5 Ordered: 27-Jun-2020 LESTER Simon Elaine Zhu Start: 23-May-2012 End: 27-Jun-2020 Status: Inactive clopidogrel 75 mg oral tablet (7 sources) P2Y12 Platelet Inhibitor Start: 11-14-2023 End: 10-30-2024 take 1 tablet by mouth once daily Clopidogrel 75 mg tablet Active 75 mg PO DAILY 90 October 30, 2024 11:27am Comment on above: cardio losartan potassium 50 mg oral tablet (20 sources) Angiotensin 2 Receptor Shantell Start: 06-02-2024 End: 09-08-2024 take 1 tablet by mouth once daily Losartan 50 mg tablet Active 50 mg PO daily 90 September 08, 2024 11:03am Start: 07-16-2023 End: 10-07-2023 take 1 tablet by mouth once daily Losartan 50 mg tablet Discontinued 50 mg PO DAILY 90 July 16, 2023 12:00am October 07, 2023 2:44pm Start: 05-21-2023 End: 07-16-2023 take 1 tablet by mouth once daily Losartan 25 mg tablet Discontinued 25 mg PO DAILY 90 May 21, 2023 1:00am July 16, 2023 1:34pm Start: 04-15-2023 End: 06-02-2024 take 1 tablet by mouth once daily Losartan 100 mg tablet Discontinued 100 mg PO DAILY 30 October 07, 2023 12:00am June 02, 2024 1:57pm Start: 09-10-2017 End: 01-09-2018 take 0.5 tablet [...] Start: 08-Jul-2012 End: 27-Jun-2020 Status: Inactive losartan 100 mg tablet ; (100 mg) Comments: cardio-patient only takes 50 mg Comment on above: Cardio cardio-patient only takes 50 mg VITAMIN B COMPLEX-C (Oral Capsule) (9 sources) take 1 capsule by mouth once daily VITAMIN B COMPLEX-C (Oral Capsule) ; 1 daily Comments: OTC take 1 capsule by mouth once jairo ly VITAMIN B COMPLEX-C (Oral Capsule) ; 1 daily Comment on above: OTC vitamin e 450 mg oral capsul e (9 sources) Vitamin E Comple x 1,000 unit capsule ; 1 daily (1,000 unit) Comments: OTC Comment on above: OTC Completed/Discontinued Medications Medication Drug Class(es) Dates Sig (Normalized) Sig (Original) acetaminophen 325 mg / HYDROcodone bitartrate 5 mg oral tablet (9 sources) Opioid Agonist Start: 01-08-2020 End: 01-13-2020 take 1 tablet by mouth every six hours as needed Mandan 5-325 MG Oral Tablet ; 1 (one) Tablet Tablet every six hours, as needed for 5 days Quantity: 20 {Tablet} Refills: 0 Ordered: 08-Jan-2020 Vijaya Solitario Start: 08-Jan-2020 End: 13-Jan-2020 Status: Inactive Comments: [...] Status: Inactive amoxicillin 500 mg oral capsule (9 sources) Penicillin-class Antibacterial Start: 07-13-2021 End: 07-20-2021 [...] discontin ued per Medi-Span. generic ok atorvastatin 80 mg oral tablet (20 sources) HMG-CoA Reductase Inhibitor Start: 09-04-2022 End: 10-31-2022 take 1 tablet by mouth at bedtime Atorvastatin 80 mg tablet Discontinued 80 mg PO AT BEDTIME 30 September 04, 2022 12:00am October 31, 2022 11:34am Start: 10-25-2021 End: 02-19-2022 take 1 tablet by mouth once daily at bedtime Atorvastatin Calcium 20 MG Oral Tablet ; 1 (one) Tablet qhs for 0 days Quantity: 90 {Tablet} Refills: 3 Ordered: 19-Feb-2022 CATRACHITO Francois Start: 25-Oct-2021 End: 19-Feb-2022 Status: Inactive azithromycin 250 mg oral tablet (9 sources) Macrolide Antimicrobial Start: 04-27-2014 End: 05-04-2014 [...] then one tablet daily for 4 days benzonatate 100 mg oral capsule (20 sources) Non-narcotic Antitussive Start: 07-02-2023 End: 02-10-2024 benzonatate 100 mg capsule ; 1 (one) capsule tid prn cough for 0 days Quantity: 30 {Capsule} Refills: 1 Ordered: 10-Feb-2024 LESTER Addison Start: 02-Jul-2023 End: 10-Feb-2024 Status: Inactive cephalexin 500 mg oral capsule (20 sources) Cephalosporin Antibacterial Start: 07-02-2023 End: 07-12-2023 cephALEXin 500 mg capsule ; 2 (two) Capsule bid for 10 days Quantity: 40 {Capsule} Refills: 0 Ordered: 02-Jul-2023 MD Jameson Espinosa Start: 02-Jul-2023 End: 12-Jul-2023 Status: Inactive Start: 04-10-2023 End: 04-20-2023 cephALEXin 500 mg capsule ; 2 (two) Capsule bid for 10 days Quantity: 40 {Capsule} Refills: 0 Ordered: 10-Apr-2023 MD Jameson Espinosa Start: 10-Apr-2023 End: 20-Apr-2023 Status: Inactive Start: 05-15-2016 End: 05-25-2016 take 1 capsule by mouth three times daily Cephalexin 500 MG Oral Capsule ; 1 Capsule three times daily for 10 days Quantity: 30 {Capsule} Refills: 0 Ordered: 15-May-2016 MD Jameson Espinosa Start: 15-May-2016 End: 25-May-2016 Status: Inactive cilostazol 100 mg oral tablet (17 sources) Phosphodiesterase 3 Inhibitor Start: 10-07-2023 End: 11-14-2023 take 1 tablet by mouth twice daily Cilostazol 100 mg tablet Discontinued 100 mg PO TWICE A DAY 60 October 07, 2023 12:00am November 14, 2023 2:09pm Start: 09-13-2022 End: 05-21-2023 take 1 tablet by mouth twice daily Cilostazol 50 mg tablet Discontinued 50 mg PO TWICE A DAY 60 October 31, 2022 11:35am May 21, 2023 12:20pm cilostazoL 100 m g tablet ; 1 daily (100 mg) Comments: cardio- not taking right now Comment on above: cardio- not taking r ight now ciprofloxacin 500 mg oral tablet (20 sources) Quinolone Antimicrobial Start: 05-14-2023 End: 05-15-2023 ciprofloxacin 500 mg tablet ; 1 (one) tablet two times daily for 10 days Quantity: 20 {Tablet} Refills: 0 Ordered: 15-May-2023 MD Jameson Espinosa Start: 14-May-2023 End: 15-May-2023 Status: Inactive Start: [...] {Tablet} Refills: 0 Ordered: 11-Oct-2022 MD Jameson Espinosa Start: 11-Oct-2022 End: 18-Oct-2022 Status: Inactive codeine [...] {Milliliter} Refills: 0 Ordered: 27-Jun-2020 LESTER Simon Katelyn Start: 07-May-2016 End: 27-Jun-2020 Status: Inactive Comments: OARRS 05/07/16 Comment on above: OARRS 05/07/16 STEFANI [place]. cyclobenzaprine hydrochloride 10 mg oral tablet (20 sources) Muscle Relaxant Start : 06-27 End: 08-03 take 1 tablet by mouth three times daily as needed for pain Cyclobenzaprine HCl 10 MG Oral Tablet ; 1 (one) Tablet tid prn back pain for 0 days Quantity: 30 {Tablet} Refills: 0 Ordered: 03-Aug-2020 LESTER Simon Katelyn Start: 27-Jun-2020 End: 03-Aug-2020 Status: Inactive dicyclomine hydrochloride 20 mg oral tablet (9 sources) Anticholinergic Start : 09-02 End: 03-26 take 1 tablet by mouth three times daily Dicyclomine HCl 20 MG Oral Tablet ; 1 Tablet Tablet three times daily for 0 days Quantity: 20 {Tablet} Refills: 0 Ordered: 26-Mar-2019 KERRY Landaverde Start: 02-Sep-2018 End: 26-Mar-2019 Status: Inactive fenofibrate 145 mg oral tablet (1 source) Peroxisome Proliferator Receptor alpha Agonist Start : 11-26 End: 06-02 take 1 tablet by mouth once daily Fenofibrate Nanocrystallized (Tricor) 145 mg tablet Discontinued 145 mg PO daily 30 November 27, 2023 12:00am June 02, 2024 1:57pm finasteride 5 mg oral tablet (9 sources) 5-alpha Reductase Inhibitor Start : 10-27 End: 03-26 take 1 tablet by mouth once daily Finasteride 5 MG Oral Tablet ; 1 (one) Tablet daily for 30 days Quantity: 30 {Tablet} Refills: 11 Ordered: 26-Mar-2019 KERRY Landaverde Start: 27-Oct-2018 End: 26-Mar-2019 Status: Inactive Comments: to use with Flomax Comment on above: to use with Flomax FISH OIL + D3, [id number] (Oral Capsule) (9 sources) take 1 capsule by mouth once daily FISH OIL + D3, [id number] (Oral Capsule) ; 1 daily (8802-2290 MG-UNIT) Status: Inactive HAWTHORN, 150MG (Oral Capsule) (9 sources) take 1 capsule by mouth once daily HAWTHORN, 150MG (Oral Capsule) ; 1 daily (150 MG) Status: Inactive hydroCHLOROthiazide 12.5 mg oral tablet (1 source) Thiazide Diuretic Start : 07-15 End: 10-06 take 1 tablet by mouth once daily Hydrochlorothiazide 12.5 mg tablet Discontinued 12.5 mg PO DAILY 90 July 16, 2023 12:00am October 07, 2023 2:06pm lisinopril 10 mg oral tablet (20 sources) Angiotensin Converting Enzyme Inhibitor Start : 10-08 End: 07-01 take 1 tablet by mouth once daily Lisinopril 10 mg tablet Discontinued 10 mg PO DAILY October 31, 2022 12:00am May 03, 2023 8:08pm Start: 05-04-2014 End: 04-28-2015 take 1 tablet [...] Status: Inactive lovastatin 10 mg oral tablet (9 sources) HMG-CoA Reductase Inhibitor Start: 03-02-2014 End: 03-15-2014 take 1 tablet by mouth at bedtime LOVASTATIN, 10MG (Oral Tablet) ; 1 Tablet at bedtime for 30 days Quantity: 30 {Tablet} Refills: 2 Ordered: 15-Mar-2014 KERRY Breen Start: 02-Mar-2014 End: 15-Mar-2014 Status: Inactive naproxen 500 mg oral tablet (9 sources) Nonsteroidal Anti-inflammatory Drug Start: 09-27-2016 End: [...] omeprazole 20 mg delayed release oral capsule (18 sources) Proton Pump Inhibitor Start: 04-28-2015 End: [...] Comment on above: Medication taken as needed. pantoprazole 20 mg delayed release oral tablet (6 sources) Proton Pump Inhibitor Start: 023 End: 02-27-2 024 take 1 tablet by mouth once daily Pantoprazole 20 mg tablet,delayed release (DR/EC) Discontinued 20 mg PO DAILY October 31, 2022 12:00am May 21, 2023 12:20pm pentoxifylline 400 mg extended release oral tablet (9 sources) Blood Viscosity Chalk Molding Machine Operator Start: End: take 1 tablet by mouth three times daily Pentoxifylline ER 400 MG Oral Tablet Extended Release ; 1 (one) Tablet Tablet tid for 30 days Quantity: 90 {Tablet} Refills: 2 Ordered: 12-Jan-2020 Vijaya Solitario Start: 06-Jul-2019 End: 12-Jan-2020 Status: Discontinued pravastatin sodium 40 mg oral tablet (5 sources) HMG-CoA Reductase Inhibitor Start: End: take 1 tablet by mouth at bedtime Pravastatin 40 mg tablet Discontinued 40 mg PO AT BEDTIME 90 3 July 16, 2023 12:00am October 07, 2023 2:06pm predniSONE 20 mg oral tablet (12 sources) Start: End: predniSONE 20 mg tablet ; 1 (one) Tablet as directed for 0 days Quantity: 20 {Tablet} Refills: 0 Ordered: 10-Feb-2024 LESTER Addison Start: 27-Dec-2023 End: 10-Feb-2024 Status: Inactive Comments: Take 3tabs qd for 3 days thenTake 2tabs qd for 3 days thenTake 1tab qd for 3 days thenTake 1/2tab qd for 4 days. Comment on above: Take 3tabs qd for 3 days thenTake 2tabs qd for 3 days thenTake 1tab qd for 3 days thenTake 1/2tab qd for 4 days. Promethazine VC/Codeine 6.25-5-10 MG/5ML Oral Syrup (20 sources) Start: End: take 1 [tsp_us] by mouth four times daily as needed Promethazine VC/Codeine 6.25-5-10 MG/5ML Oral Syrup ; 1 tsp qid prn for 0 days Quantity: 120 {cc} Refills: 0 Ordered: 27-Jun-2020 LESTER Simon Start: 11-Sep-2012 End: 27-Jun-2020 Status: Inactive Comments: wm Comment on above: wm rosuvastatin calcium 5 mg oral tablet (6 sources) HMG-CoA Reductase Inhibitor Start: End: take 1 tablet by mouth once daily Rosuvastatin (Crestor) 5 mg tablet Discontinued 5 mg PO DAILY 30 5 October 31, 2022 12:00am May 21, 2023 12:20pm sulfamethoxazole 800 mg / trimethoprim 160 mg oral tablet (20 sources) Dihydrofolate Reductase Inhibitor Antibacterial, Sulfonamide Antimicrobial Start: End: Sulfamethoxazole-Trim ethoprim 800-160 mg tablet Discontinued 1 {tbl} PO DAILY May 21, 2023 1:00am July 16, 2023 1:34pm Start: 05-21-2023 take 1 tablet by jennifer th once daily Sulfamethoxazole-Trimethoprim Active 1 T ABLET PO DAILY May 21, 2023 1:00am Start: 05-15-2023 End: 05-15-2023 Bactrim 400 mg-80 mg tablet ; 1 (one) tablet bid for 10 days Quantity: 20 {Tablet} Refills: 0 Ordered: 15-May-2023 MD Jameson Espinosa Start: 15-May-2023 End: 15-May-2023 Status: Inactive Start: 05-15-2023 End: 05-25-2023 Bactrim DS 800 mg-160 mg tab let ; 1 (one) tablet bid for 10 days Quantity: 20 {Tablet} Refills: 0 Ordered: 15-May-2023 MD Jameson Espinosa Start: 15-May-2023 End: 25-May-2023 Status: Inactive Start: [...] {Tablet} Refills: 0 Ordered: 11-Oct-2022 MD Jameson Espinosa Start: 08-Oct-2022 End: 11-Oct-2022 Status: Inactive tamsulosin [...] N40.1 terbinafine hydrochloride 10 mg/ml topical cream (9 sources) Allylamine Antifungal Start: 11-20-19 17 End: 03-21-20 17 Terbinafine HCl 1 % [...] Status: Inactive varenicline 1 mg oral tablet (18 sources) Partial Cholinergic Nicotinic Agonist Start: 03-26-19 [...] after finished with starter pack ( from [place] office) Comment on above: start after finished with starter pack ( from [place] office) Problems Active Problems Problem Classification Problem [...] Chronic Comment on above: Intermittent. Cardiac dysrhythmias (18 sources) Intermittent palpitations; Translations: [Palpitations] 01-06-2020 Episodic Chronic obstructive pulmonary disease and bronchiectasis (20 sources) Bronchitis; Translations: [Bronchitis, not specified as acute or chronic] 07-02-2023 Episodic Complications of surgical procedures or medical care (1 source) Postoperative hemorrhage; Translations: [Hemorrhage complicating a procedure] 01-23-2024 Episodic Disorders of lipid metabolism (20 sources) Hyperlipidemia; Translations: [Hyperlipidemia, unspecified] Onset: 5 01-30-2023 Chronic Comment on above: history of Disorders of teeth and jaw (9 sources) Jaw pain; Translations: [Jaw pain] 08-23-2014 Episodic Diverticulosis and diverticulitis (20 sources) Diverticulitis; Translations: [Diverticulitis of intestine, part unspecified, without perforation or abscess without bleeding] 08-11-2012 Chronic Comment on above: Recurrent Esophageal disorders (20 sources) Gastroesophageal reflux disease; Translations: [Gastro-esophageal reflux disease without esophagitis] 01-06-2020 Chronic Comment on above: Stable. Essential hypertension (20 sources) Hypertensive disorder; Translations: [Essential (primary) hypertension] Onset: 5 01-30-2023 Chronic Genitourinary symptoms and ill-defined conditions (20 sources) Urinary symptoms ; Translations: [Unspecified symptoms and signs involving the genitourinary system] 04-10-2023 Episodic Headache; including migraine (20 sources) Headache; Translations: [Headache] 09-27-2021 Episodic Hyperplasia of prostate (20 sources) Benign prostatic hyperplasia; Translations: [Benign prostatic hyperplasia with lower urinary tract symptoms] 02-21-2021 Chronic Hypertension with complications and secondary hypertension (4 sources) Hypertensive heart disease; Translations: [Hypertensive heart disease without heart failure] Onset: 5 09-06-2023 Chronic Immunizations and screening for infectious disease (20 sources) Encounter for immunization; Translations: [Other specified vaccinations against streptococcus pneumoniae [pneumococcus]] 04-10-2023 Episodic Lymphadenitis (20 sources) Lymphadenitis; Translations: [Nonspecific lymphadenitis, unspecified] 10-17-2011 Episodic Mycoses (9 sources) Tinea corporis; Translations: [Tinea corporis] 11-19-2016 Episodic Nonspecific chest pain (20 sources) Atypical chest pain; Translations: [Other chest pain] Onset: 5 01-06-2020 Episodic Osteoarthritis (20 sources) Osteoarthrosis, localized, 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, hand; Translations: [Degenerative joint disease of shoulder region] 01-30-2023 Chronic Other aftercare (20 sources) Long-term (current) use of other medications 03-20-2010 Episodic Other aftercare (20 sources) H/O: high risk medication; Translations: [Other care home (current) drug therapy] 12-29-2021 Episodic Other and ill-defined heart disease (2 sources) Diastolic dysfunction; Translations: [Other ill-defined heart diseases] 09-06-2023 Chronic Other and ill-defined heart disease (1 source) Other ill-defined heart diseases; Translations: [Other ill-defined heart diseases] Onset: Chronic Other circulatory disease (7 sources) Elevated blood-pressure reading without diagnosis of hypertension; Translations: [Elevated blood-pressure reading, without diagnosis of hypertension] 11-20-2021 Episodic Other circulatory disease (7 sources) History of transient ischemic attack; Translations: [Personal history of transient ischemic attack (TIA), and cerebral infarction without residual deficits] 09-04-2022 Episodic Other circulatory disease (5 sources) Personal history of transient ischemic attack (TIA), and cerebral infarction without residual deficits; Translations: [Personal history of transient ischemic attack (TIA), and cerebral infarction without residual deficits] 09-04-2022 Episodic Other circulatory disease (20 sources) Elevated [...] limb 08-11-2012 Episodic Other connective tissue disease (18 sources) Muscle pain; Translations: [Myalgia, unspecified site] 01-06-2020 Episodic Comment on above: Bilateral legs and h ips. ? due to Losartan? Other connective tissue disease (18 sources) Pain in hallux; Translations: [Pain in left toe(s)] 09-27-2016 Episodic Other connective tissue disease (20 sources) Pain in left foot; Translations: [Pain in left foot] 12-27-2023 Episodic Other connective tissue disease (1 source) Swelling of left foot; Translations: [Other specified soft tissue disorders] 12-16-2023 Episodic Other ear and sense organ disorders (20 sources) Decreased hearing ; Translations: [Unspecified hearing loss, unspecified ear] 01-30-2023 Chronic Other fractures (20 sources) Closed fracture of multiple ribs; Translations: [Multiple fractures of ribs, left side, subsequent encounter for fracture with routine healing] 01-12-2020 Episodic Other fractures (18 sources) Closed fracture of multiple left ribs; Translations: [Multiple fractures of ribs, left side, initial encounter for closed fracture] 01-08-2020 Episodic Other fractures (9 sources) Fracture of rib; Translations: [Fracture of one rib, unspecified side, initial encounter for closed fracture] 01-06-2020 Episodic Other gastrointestinal disorders (20 sources) Stool DNA-based colorectal cancer screening positive; Translations: [Other fecal abnormalities] 01-30-2023 Episodic Other inflammatory condition of skin (9 sources) Seborrheic dermatitis; Translations: [Seborrheic dermatitis, unspecified] 08-23-2014 Episodic Other lower respiratory disease (10 sources) Dyspnea; Translations: [Shortness of breath] 10-04-2021 Episodic Other lower respiratory disease (4 sources) Shortness of breath; Translations: [Shortness of breath] Onset: 5 Episodic Other lower respiratory disease (18 sources) Angiotensin-converting -enzyme inhibitor adverse reaction; Translations: [Cough] 04-28-2015 Episodic Other lower respiratory disease (20 sources) Cough; Translations: [Cough] 04-07-2020 Episodic Other nervous system disorders (18 sources) Neuropathy of lower limb; Translations: [Unspecified [...] for screening for malignant neoplasm of colon] Onset: 5 01-30-2023 Episodic Other skin disorders (2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 CAMPOVERDE Huber Rep #: [id number] : 1950 Provider: KRYSTAL mejia Age/Sex: 74/M Location: [facility] [place] Status: Signed HPI HPI History of Present Illness Surgical H P: Yes Details: This is a 74-year-old male who presents today for cardiovascular follow-up visit. He has a history of peripheral arterial disease status post percutaneous intervention to bilateral SFAs, hypertension and dyslipidemia. He underwent a stress test on 01/26/2025 which demonstrated frequent PVCs, and mild inferior wall ischemia. His echocardiogram on 01/26/2025 demonstrated ejection fraction of 65%, stage I diastolic dysfunction, moderate to severe mitral valve regurgitation with a mildly dilated ascending aorta, measuring 4.1 cm. From a cardiac standpoint, the patient is doing well. He does acknowledge occasional palpitations- thumping. He denies any chest pain, pressure or heaviness. He denies SOB, Orthopnea, and PND. He does not have bleeding issues; no blood in urine, stool, or nosebleeds. He denies any decrease in energy level, myalgias, or claudication. He does not have edema, or sudden weight gain. He does acknowledge occasional lightheadedness. He denies dizziness, syncopal or near syncopal episodes, and headaches. Intake Vital Signs 12/07/24 13:24 02/02/25 07:19 Height 5 ft 9 in 5 ft 9 in Weight: 191 lb BMI 28.2 BP 135/82 H Blood Pressure Location Lt brachial Position Sitting Respiration 18 Pulse 64 Pulse Source Monitor Pulse Oximetry (%) 2 Intake Visit Reasons: SEE NOTE Rehabilitation Services Coordinator Required: No Is patient in pain?: No Allergies pravastatin Adverse Reaction (Severe, Verified 02/02/25 10:28) Panic attack ciprofloxacin (From Cipro) Adverse Reaction (Intermediate, Verified 02/02/25 10:28) Hives Medications ???Medication ???Instructions ???Recorded ???Confirmed ???Type aspirin 81 mg tablet,delayed 81 mg PO DAILY 07/16/23 02/02/25 H istory release losartan 50 mg tablet 50 mg PO QDAY #90 tabs 09/08/24 Rx amlodipine 5 mg tablet 5 mg PO DAILY #90 tabs 10/30/24 Rx clopidogrel 75 mg tablet 75 mg PO DAILY #90 tabs 10/30/24 1 04/04/24 Rx Ejection fraction %: 65 Have you fallen in the past year?: No PFSH Medical History (Reviewed 02/02/25 @ 10:27 by Shae Delgado [employer]PERVISOR [employer]ILL[employer]ING, SUPERVISOR [employer]ILL[employer]ING-C) Hypertensive heart disease Diastolic dysfunction without heart failure Abnormal ECG Nicotine dependence Dyslipidemia PAD (peripheral artery disease) SK (seborrheic keratosis) Essential hypertension Neck pain Hyperlipidemia Anxiety Claudication History of TIA (transient ischemic attack) Elevated BP without diagnosis of hypertension Nicotine dependence, cigarettes, uncomplicated SOB (shortness of breath) Diverticulitis Headache Flank pain Left knee pain Low back pain Claudication Decreased hearing of right ear Generalized anxiety disorder Surgical History (Reviewed 02/02/25 @ 10:28 by Shae Delgado SUPERVISOR BILLPOSTING, SUPERVISOR BILLPOSTING-C) Hx of vasectomy Hx of knee surgery Family History (Reviewed 02/02/25 @ 10:28 by Shae Delgado SUPERVISOR BILLPOSTING, SUPERVISOR BILLPOSTING-C) Father Lung cancer Mother Hypertension Social History Smoking Status: Current every day smoker tobacco type: cigarettes Tobacco: How many years used: 55 Electronic Cigarette Use: not used second hand exposure: No alcohol intake: current alcohol intake frequency: a few times a week substance use type: does not use caffeine: Yes Type: coffee Number of servings: 2 ROS Const Const: Negative for fatigue, weakness, headache(s) or frequent falls Eyes Eyes: Negative for blurry vision ENT ENT: Negative for headache(s), dizziness or Nosebleed/epistaxis Cardio Chest Pain: No Palpitations: Yes feels like its: thumping Edema: None Muscle aches with walking: None Resp Respiratory: Negative for SOB with activity, SOB at rest or SOB orthopnea SOB lying down GI GI: Positive for heartburn; Negative nausea, vomiting, bright, red blood in stools or black,tarry stools : Negative for hematuria Neuro Neuro: Positive for lightheadedness; Negative for dizziness, near syncope, syncope, frequent falls, headache(s), weakness or blurry vision Endo Endo: Negative for fatigue Cardiology Exam Const Appearance: cooperative, comfortable and no acute distress Nutritional Appearance: well nourished and overweight Orientation: alert and oriented x3 Head Head: normal to inspection Ears: hearing grossly normal bilaterally Nose: external nose normal Face and Sinus: face symmetric Eyes General: appearance normal, both eyes and all related structures (more content not included)... Normal [facility] Chest PA and Lateralon 02-02 Chest PA and Lateral [facility] Services [address] [place] [address] Chest PA and Lateral MR#: [id number] Acct: [id number] Name: MCKENNA CAMPOVERDE Rep #: [id number] : 1950 M 74 From: Candido Pastor PCP: Dr. Jameson Espinosa MD Status: PRE [facility] Study: Chest PA and Lateral Date of Exam: 02/02/25 Exam# [id number] Ordering Dr: Shae Delgado NP [employer]PER[employer]- C PROCEDURE: CHEST PA AND LATERAL 02/02/2025 REASON FOR EXAM: ABNORMAL STRESS TEST TECHNIQUE: Procedure Code: RADCXR Modality: DX Procedure: CHEST PA AND LATERAL COMPARISON: CT from 11/15/22 FINDINGS: No focal consolidation. No pleural effusion or pneumothorax. Cardiac silhouette is within normal limits. No acute fractures. RAD/Chest PA and Lateral IMPRESSION: No focal consolidations. Reading Location: [facility] CC: SUPERVISOR BILLPOSTING-C Shae Delgado; Dr. Jameson Espinosa MD Awning Frame Maker: Signed Normal [facility] Echo Completeon 01-26-2025 Echo Complete [facility] [address] [place] [address] Echo Complete 01/26/25 0912 MR#: [id number] Acct: [id number] Name: MCKENNA CAMPOVERDE Rep #: [id number] : 1950 74 From: Ila Hernandez MD Attending Dr: Dr. Ila Hernandez MD Status: REG CLI Ordering Dr: Ila Hernandez MD Date: 01/26/25 Location: [facility] Sex: M C Admitted: Reason For Study Reason For Study: Chest Pain Procedure This was a 2D Doppler, Color Flow transthoracic echocardiogram. Myocardial strain analysis was performed in this exam to aid in the assessment of cardiac function. Exam performed in department. Left Ventricle Mild concentric left ventricular hypertrophy. Normal LV size. The left ventricular ejection fraction is 65 %. Stage 1 diastolic dysfunction. Right Ventricle Normal right ventricle. Atria The left and right atria are normal. Mitral Valve Moderate to severe mitral valve regurgitation. Recommend ROYCE for further evaluation if clinically indicated. Tricuspid Valve Mild (1+) tricuspid valve insufficiency. Pulmonary artery systolic pressure estimated between 28-38 mmHg. Aortic Valve Aortic sclerosis, no stenosis. Pulmonic Valve The pulmonic valve is not well visualized. Great Vessels Mildly dilated ascending aorta. Mobile atheromatous plaque noted in aortic arch. Pericardium/Pleural No pericardial effusion. MMode/2D Measurements Calculations LVIDd: 4.3 cm IVSd: 1.2 cm Ao root diam: 4.1 cm LVIDs: 3.0 cm LVPWd: 1.2 cm RVDd: 3.9 cm FS: 29.6 % LAV(MOD-bp): 55.2 ml LVAd ap4: 28.8 cm2 SV(MOD-sp4): 56.6 ml LAV(MOD-bp) Indexed: 27.3 ml/m2 LVLd ap4: 7.6 cm SI(MOD-sp4): 28.0 ml/m2 LAV(MOD-sp2): 55.5 ml EDV(MOD-sp4): 87.8 ml LAV(MOD-sp4): 50.1 ml EDV(sp4-el): 92.3 ml LVAs ap4: 15.1 cm2 LVLs ap4: 6.2 cm ESV(MOD-sp4): 31.1 ml ESV(sp4-el): 31.5 ml EF(MOD-sp4): 64.5 % EF(sp4-el): 65.8 % SV(sp4-el): 60.7 ml LA A4 area: 19.0 cm2 LA dimension(2D): 4.0 cm RA A4 area: 16.3 cm2 TAPSE: 2.4 cm Time Measurements MV dec time: 0.25 sec Doppler Measurements Calculations MV E max brissa: 79.6 cm/sec Lat Peak E' Brissa: 7.8 cm/sec Med Peak E' Brissa: 6.6 cm/sec MV A max brissa: 81.5 cm/sec E/E' lat: 10.2 E/E' med: 12.1 MV E/A: 0.98 Ao V2 max: 109.0 cm/sec LV V1 max: 99.6 cm/sec MV dec slope: 317.5 cm/sec2 Ao max P.8 mmHg LV V1 max P.0 mmHg Ao V2 mean: 70.1 cm/sec LV V1 mean P.8 mmHg Ao mean P.3 mmHg LV V1 mean: 61.2 cm/sec Ao V2 VTI: 26.4 cm LV V1 VTI: 23.1 cm AV (velocity ratio): 0.87 PA V2 max: 86.8 cm/sec PI end-d brissa: 100.0 cm/sec TR max brissa: 241.0 cm/sec TR max P.2 mmHg ECHO/Echo Complete Interpretation Summary Mild concentric left ventricular hypertrophy. The left ventricular ejection fraction is 65 %. Stage 1 diastolic dysfunction. Moderate to severe mitral valve regurgitation. Recommend ROYCE for further evaluation if clinically indicated. Mild (1+) tricuspid valve insufficiency. Pulmonary artery systolic pressure estimated between 28-38 mmHg. Mildly dilated ascending aorta. Mobile atheromatous plaque noted in aortic arch. ___ Ordering Physician: Ila Hernandez Referring Physician: Jameson Espinosa Performed By: Roula Coppola RDCS, RVT 01/26/25 1315 Date Ila Hernandez MD CC: Dr. Ila Hernandez MD; Dr. Jameson Espinosa MD Date Dictated: 01/26/25911 Date Transcribed: 01/26/25 131 Awning Frame Maker: Signed Normal [facility] Lower Ext Art Exam w/ Exerci ravi 01-26-2025 Lower Ext Art Exam w/ Exercise [facility] [address] [place] [address] Lower Ext Art Exam w/ Exercise 01/26/25 1039 MR#: [id number] Acct: [id number] Name: MCKENNA CAMPOVERDE Rep #: [id number] : 1950 74 From: Janes Mosqueda MD Attending Dr: Dr. Ila Hernandez MD Status: REG CLI Ordering Dr: Ila Hernandez MD Date: 01/26/25 Location: [facility] Sex: M C Admitted: Reason For Study Reason For Study: PVD Procedure A bilateral lower extremity continuous wave Doppler with analog waveform analysis,segmental pressures,and ankle brachial indexes with exercise. Left Segmental Pressures Left brachial= 125mmHg. Left posterior tibial artery = 133mmHg. Left dorsalis pedis artery = 115mmHg. Left digit = 43 mmHg. The left dorsalis pedis waveforms are triphasic. The left posterior tibial artery waveforms are triphasic. Right Segmental Pressures Right brachial= 123mmHg. Right calf = 113mmHg. Right posterior tibial artery = 111mmHg. Right dorsalis pedis artery = 107mmHg. Right digit = 69 mmHg. The right dorsalis pedis waveforms are biphasic. The right posterior tibial artery waveforms are biphasic. Indices The right ankle brachial index by the dorsalis pedis is 0.86. The right ankle brachial index by the posterior tibial artery is 0.89. The right digital-brachial index is 0.55. The right post exercise ankle brachial index is 0.61. The left ankle brachial index by the dorsalis pedis is 0.92. The left ankle brachial index by the posterior tibial artery is 1.06. The left digital-brachial index is 0.34. The left post exercise ankle brachial index is 0.99. VL/Lower Ext Art Exam w/ Exercise Interpretation Summary Biphasic Doppler waveforms are noted at ankle level on the right. Triphasic Doppler waveforms are noted at ankle level on the left. Pulse-volume recordings appear diminished at digital level on the right, but satisfactory at all other levels bilaterally. The resting right ankle-brachial index is moderately diminished. The resting left ankle-brachial index is normal. The right digital-brachial index is mildly diminished. The left digital-brachial index is moderately to severely diminished. The patoient ambulated on a treadmill for 5 minutes at 2 MPH and a 5% grade, following which ankle pressures diminished bilaterally for at least 9 minutes. There is evidence of moderate arterial occlusive disease in the right lower extremity. There is evidence moderate-to- severe arterial occlusive disease in the left lower extremity, most notable at digital level. ___ Ordering Physician: Ila Hernandez Referring Physician: Jameson Espinosa MD Performed By: Mari Chaney RVT 01/26/251945 Date Janes Mosqueda MD CC: Dr. Ila Hernandez MD; Dr. Jameson Espinosa MD Date Dictated: 01/26/25 1039 Date Transcribed: 01/26/251945 Awning Frame Maker: Signed Normal [facility] Stress Reporton 01-26-2025 Stress Report [facility] [address] [place] [id number] MR#: [id number] Acct: [id number] Name: MCKENNA CAMPOVERDE Rep #: [id number] : 1950 74 From: Ila Hernandez MD Primary Care: Dr. Jameson Espinosa MD Status: REG I Referring Dr: Ila Hernandez MD Sex: Fabien C Stress Test Report Date: 01/26/2025 Procedure: Pharmacologic stress nuclear imaging study Indications: Chest pain Consent: Per the patient Procedure: The patient underwent pharmacologic (Regadenoson 0.4mg ) evaluation with a peak heart rate of 84 beats per minute (57%predicted maximal heart rate) and a peak blood pressure of 130/74 mmHg. The baseline ECG demonstrated sinus rhythm with nonspecific ST changes.. The peak pharmacologic ECG did not show any diagnostic ischemic changes. PVCs noted pretest, during infusion and in recovery. There was no complaint of chest discomfort during pharmacologic infusion or recovery. The patient was injected with 13.5 millicuries of technetium 99m Cardiolite and subsequently rest SPECT Cardiolite nuclear imaging was obtained in the horizontal long, vertical long, and short axis views. The patient underwent pharmacologic (Regadenoson) evaluation. The patient was injected with 42.3 millicuries of technetium 99m Cardiolite and subsequently stress SPECT Cardiolite nuclear imaging was obtained in the horizontal long, vertical long, and short axis views. A gated Cardiolite study at peak stress was obtained. The examination was stopped secondary to completion of protocol. Rest and stress SPECT Cardiolite nuclear imaging status post realignment, normalization, and attenuation correction demonstrate mildly reduced perfusion of the inferior wall post pharmacological stress, suggestive of mild inferior ischemia. There is end systolic thickening and brightening. The gated Cardiolite study demonstrates myocardial thickening and inward wall motion. The reported LVEF is 64%. Impression: 1. Pharmacologic (Regadenoson) evaluation 2. Peak pharmacologic ECG with no diagnostic ischemic changes. 3. Frequent PVCs noted. 5. Mild inferior wall ischemia. 6. The gated Cardiolite study reports an LVEF of 64%. This note was generated with [employer] software. It may contain incorrect words, spelling, and punctuation that were not noted in checking the note before signing. 01/26/25 1300 Date Ila Hernandez MD CC: Dr. Ila Hernandez MD; Dr. Jameson Espinosa MD Date Dictated: 01/26/25 1256 Date Transcribed: 01/26/251255 Awning Frame Maker: TATYANA Signed Normal [facility] Cardiology Visit Reporton Cardiology Visit Report [facility] [address] [place] [address] OFFICE VISIT Date of Service: 12/07/24 MR#: [id number] Acct: [id number] Name: MCKENNA CAMPOVERDE Rep #: [id number] : 1950 Provider: Dr. Ila Hernandez MD Age/Sex: 74/M Location: [facility] [place] [facility] [place] Status: Signed HPI HPI History of Present Illness Details: This gentleman with a history of peripheral arterial disease status post percutaneous intervention to bilateral SFAs, hypertension and dyslipidemia is here for follow-up visit. According to him, he has bilateral hip claudication with strenuous exertion only. Per patient, he has had an episode where and he had sharp right sided chest discomfort that lasted for a few seconds only. Denies any shortness of breath. No exertional chest discomfort. Denies orthopnea or PND. No ankle edema. Denies any palpitations. Intake Vital Signs 06/02/24 13:03 12/07/24 13:24 Height 5 ft 9 in 5 ft 9 in Weight: 191 lb 191 lb BMI 28.2 28.2 BP 117/75 122/74 H Blood Pressure Location Lt brachial Lt brachial Position Sitting Sitting Respiration 16 16 Pulse 66 65 Pulse Source NIBP Monitor Intake Visit Reasons: 6 M FU Rehabilitation Services Coordinator Required: No Accompanied by: Allergies pravastatin Adverse Reaction (Severe, Verified 12/07/24 13:25) Panic attack ciprofloxacin (From Cipro) Adverse Reaction (Intermediate, Verified 12/07/24 13:25) Hives Medications ???Medication ???Instructions ???Recorded ???Confirmed ???Type aspirin 81 mg tablet,delayed 81 mg PO DAILY 07/16/23 12/07/24 H istory release losartan 50 mg tablet 50 mg PO QDAY #90 tabs 09/08/24 Rx amlodipine 5 mg tablet 5 mg PO DAILY #90 tabs 10/30/24 Rx clopidogrel 75 mg tablet 75 mg PO DAILY #90 tabs 10/30/24 0 12/07/24 Rx Ejection fraction %: 65 Have you fallen in the past year?: No PFSH Medical History Hypertensive heart disease Diastolic dysfunction without heart failure Abnormal ECG Nicotine dependence Dyslipidemia PAD (peripheral artery disease) SK (seborrheic keratosis) Essential hypertension Neck pain Hyperlipidemia Anxiety Claudication History of TIA (transient ischemic attack) Elevated BP without diagnosis of hypertension Nicotine dependence, cigarettes, uncomplicated SOB (shortness of breath) Diverticulitis Headache Flank pain Left knee pain Low back pain Claudication Decreased hearing of right ear Generalized anxiety disorder Surgical History Hx of vasectomy Hx of knee surgery Family History Father Lung cancer Mother Hypertension Social History Smoking Status: Current every day smoker tobacco type: cigarettes Tobacco: How many years used: 55 Electronic Cigarette Use: not used second hand exposure: No alcohol intake: current alcohol intake frequency: a few times a week substance use type: does not use caffeine: Yes Type: coffee Number of servings: 2 ROS Const Const: Positive for fatigue and weakness Eyes Eyes: Negative for change in vision ENT ENT: Negative for dizziness or balance problems Cardio Chest Pain: Yes Frequency: other (one time yest-think pulled muscle) Character: sharp Duration: brief Palpitations: No Edema: None Resp Respiratory: Negative for SOB with activity, SOB at rest or SOB orthopnea SOB lying down GI GI: Negative nausea or heartburn Musc Musc: Negative for balance problems Neuro Neuro: Positive for weakness; Negative for dizziness, lightheadedness, near syncope or syncope Endo Endo: Positive for fatigue Cardiology Exam Const Appearance: comfortable and no acute distress Nutritional Appearance: well nourished Neck Neck: no JVD Carotids: Negative bruit Chest Auscultation: Bilateral: Clear to Auscultation Cardio Rate: regular rate Rhythm: regular rhythm Heart sounds: S1 normal and S2 normal Neuro General: patient alert, patient awake and patient oriented x3 Extremities Lower Extremity Edema: None: Bilateral Supplemental Info Supplemental Information Labs: LDL Cholesterol 140 mg/dL (0-130) H HDL Cholesterol 41 mg/dL (40-) Cholesterol 214 mg/dL (200) H Triglycerides 165 mg/dL (-199) Diagnostics: Electrocardiogram Catheterization Lab Venous Doppler Study Pulmonary: No Data to Display Past Visits: Cardiology Visit 12/07/24 Assessment and Plan Assessment and Plan (1) PAD (peripheral artery disease): Status: Chronic Comment: Status post percutaneous intervention to bilateral SFAs and right popliteal. Plan: No claudic (more content not included)... Normal [facility] PSA,Total - Annual Screenon 07-09-2024 PSA,TOT SCREEN 0.76 ng/mL Normal 0.02-4.00 [facility] Comment on above: Result Comment: This test was performed using the [employer] tPSA method. Measured values of a patient??sample can vary depending on the testing procedure used. PSA values determined on patient samples by different testing procedures cannot be used interchangeably. If there is a change in PSA assays while monitoring therapy, sequential testing should be performed to confirm baseline values. Performed By: #### L 501.9910 #### [facility] [address] [place], [address] Cardiology Visit Reporton Cardiology Visit Report [facility] [address] [place] [address] OFFICE VISIT Date of Service: 06/02/24 MR#: [id number] Acct: [id number] Name: MCKENNA CAMPOVERDE Rep #: [id number] : 1950 Provider: Dr. Ila Hernandez MD Age/Sex: 73/M Location: [facility] [place] [facility] [place] Status: Signed HPI HPI History of Present Illness Details: This gentleman with history of peripheral arterial disease status post percutaneous intervention to bilateral SFAs is here for follow-up visit. Denies any claudication. Physically active. Denies any chest pains or shortness of breath either at rest or with exertion. No palpitations. No orthopnea or PND. No ankle edema. Intake Vital Signs 01/15/24 18:46 06/02/24 13:03 Height 5 ft 9 in 5 ft 9 in Weight: 180 lb 12.465 oz 191 lb BMI 26.6 28.2 BP 178/90 H 117/75 Blood Pressure Location Lt brachial Position Sitting Respiration 15 16 Pulse 64 66 Pulse Source NIBP Temp 97.6 F L Pulse Oximetry (%) 96 Intake Visit Reasons: 6 M FU Rehabilitation Services Coordinator Required: No Accompanied by: Is patient in pain?: No Allergies pravastatin Adverse Reaction (Severe, Verified 06/02/24 13:54) Panic attack ciprofloxacin (From Cipro) Adverse Reaction (Intermediate, Verified 06/02/24 13:54) Hives Medications ???Medication ???Instructions ???Recorded ???Confirmed ???Type aspirin 81 mg tablet,delayed 81 mg PO DAILY 07/16/23 06/02/24 H istory release amlodipine 5 mg tablet 5 mg PO DAILY #90 tabs 11/14/23 Rx clopidogrel 75 mg tablet 75 mg PO DAILY 11/27/23 06/02/24 H istory losartan 50 mg tablet 50 mg PO QDAY 06/02/24 06/02/24 Hi story Ejection fraction %: 65 Have you fallen in the past year?: No PFSH Medical History Abnormal ECG Anxiety Claudication Claudication Decreased hearing of right ear Diastolic dysfunction without heart failure Diverticulitis Dyslipidemia Elevated BP without diagnosis of hypertension Essential hypertension Flank pain Generalized anxiety disorder Headache History of TIA (transient ischemic attack) Hyperlipidemia Hypertensive heart disease Left knee pain Low back pain Neck pain Nicotine dependence Nicotine dependence, cigarettes, uncomplicated PAD (peripheral artery disease) SK (seborrheic keratosis) SOB (shortness of breath) Surgical History Hx of knee surgery Hx of vasectomy Family History Father Lung cancer Mother Hypertension Social History Smoking Status: Current every day smoker tobacco type: cigarettes Tobacco: How many years used: 55 Electronic Cigarette Use: not used second hand exposure: No alcohol intake: current alcohol intake frequency: a few times a week substance use type: does not use caffeine: Yes Type: coffee Number of servings: 2 ROS Const Const: Negative for fatigue, weakness, headache(s) or weight gain ENT ENT: Negative for headache(s), dizziness, Nosebleed/epistaxis or balance problems Cardio Chest Pain: No Palpitations: No Edema: None Muscle aches with walking: None Resp Respiratory: Negative for SOB with activity, SOB at rest or SOB orthopnea SOB lying down GI GI: Negative nausea, vomiting or heartburn Musc Musc: Negative for muscle aches/ myalgia, muscle weakness, joint pain or balance problems Neuro Neuro: Negative for dizziness, lightheadedness, near syncope, syncope, headache(s) or weakness Endo Endo: Negative for fatigue Cardiology Exam Const Appearance: comfortable and no acute distress Nutritional Appearance: well nourished Neck Neck: no JVD Carotids: Negative bruit Chest Auscultation: Bilateral: Clear to Auscultation Cardio Rate: regular rate Rhythm: regular rhythm Heart sounds: S1 normal and S2 normal Neuro General: patient alert, patient awake and patient oriented x3 Extremities Lower Extremity Edema: None: Bilateral Supplemental Info Supplemental Information Echocardiogram 06/21/2023: Interpretation Summary Moderate concentric left ventricular hypertrophy. The left ventricular ejection fraction is 65 %. Stage 1 diastolic dysfunction. Aortic sclerosis, no stenosis. Mild to moderately dilated aortic root. STRESS TEST 08/25/2014: CONCLUSION 1. Moderate exercise tolerance limited by hip pain, achieving a workload of 7.1 METs. 2. Normal physiologic response to Lexiscan infusion. 3. No chest discomfort to suggest angina elicited with treadmill exercise or LexiScan infusion. 4. No ST changes to suggest ischemia elicited with treadmill exercise at the heart rate and workload achieved or with LexiScan infusion. 5. Nuclea (more content not included)... Normal [facility] FOOT COMPLETE LTon 4 FOOT COMPLETE [address] [address] Patient: MCKENNA CAMPOVERDE Phone#: : 1950 Age: 73 Gender: M Pt. Type: Out Account: [id number] Location: [facility] Ordering: NORY LEE Exam Date: 12/27/2023/15:50 Family Phys: Charge Code: [id number] Physician: Warren Order #: [id number] Dose#: PROCEDURE: X-RAY FOOT LT COMPLETE MIN [...] William MD on 12/27/2023 at 16:19 Normal [facility] URIC ACIDon 12-27-2023 Urate [Mass/Vol] 5.4 mg/dL Normal 3.5 - 7.2 mg/dL [facility] Comment on above: Performed By: #### 2 [id number] #### [facility],[address] [address] Basophil percentageOrdered B y: Ila Hernandez on 05-29-2023 Chloride [Moles/Vol] 108 mmol/L 98-107 [facility] Glucose [Mass/Vol] 97 mg/dL 74-106 [facility] Potassium [Moles/Vol] 3.9 mmol/L 3.5-5.1 [facility] Sodium [Moles/Vol] 140 mmol/L 136-145 [facility] Laboratory - Chemistry and C hemistry - challengeOrdered By: Ila Hernandez on 05-29-2023 CO2 [Moles/Vol] 25.0 mmol/L 21.0-32.0 [facility] Urea nitrogen/Creatinine [Mass ratio] 17.5 mg/mg 10-20 [facility] No Panel InformationOrdered By: Ila Hernandez on 05-29-2023 Estimated GFR (MDRD) Amer 65 mL/min >60 [facility] Comment on above: GFR Calc Estimated GFR (MDRD) Non-Af Amer 54 mL/min >60 [facility] Comment on above: Non- GFR Calc Serum or plasma calcium ashwin urement (mass/volume)Ordered By: Ila Hernandez on 05-29-2023 Calcium [Mass/Vol] 9.3 mg/dL 8.5-10.1 [facility] Serum or plasma creatinine m easurement (mass/volume)Ordered By: Ila Hernandez on 05-29-2023 Creatinine [Mass/Vol] 1.37 mg/dL 0.70-1.30 [facility] Comment on above: The validity of the calculated GFR & GFRAA in patients over 70 years has not been determined. Clinical correlation is essential. Serum or plasma urea nitroge n measurement (mass/volume)Ordered By: Ila Hernandez on 05-29-2023 Urea nitrogen [Mass/Vol] 24 mg/dL 7-18 [facility] Thin prep Papanicolaou smear with manual screeningOrdered By: Ila Hernandez on 05-29-2023 Thin prep Papanicolaou smear with manual screening 7 5-15 [facility] CULTURE, URINE, ROUTINEon CULTURE, URINE, ROUTINE SEE NOTE Abnormal [facility] Comment on above: Result Comment: CULTURE, URINE, ROUTINE Micro Number: [id number] Test Status: Final Specimen Source: Urine Specimen [...] loracarbef. Performed By: #### 3 95 #### [facility] [address], [address] [place] [id number] Room Worker: Darian Marquez MD Laboratory - Chemistry and C hemistry - challengeon 05-14-2023 Bilirubin Ql (U) Negative Normal [facility].; [employer]. Ketones Ql (U) Negative Normal [facility] Health[facility]St[facility] Enterprises.; [employer], [employer]. pH (U) 6.0 [pH] Normal [employer].; [employer], [employer]. Specific gravity (U) [Rel density] 1.010 Normal [employer].; [employer] Urobilinogen Qn (U) 0.2 mg/dL Normal [facility] EastXCOR Aer[employer]; [employer]. Laboratory - Hematology and Cell countson 05-14-2023 Hemoglobin Ql (U) Trace, hemolyzed Abnormal H [facility]; [employer]. Laboratory - Specimen inform ationon 05-14-2023 Appearance (U) Cloudy Abnormal [facility] [employer]; [employer] Color (U) Yellow Normal [facility]el[facility]; [employer]. Laboratory - Urinalysison Glucose Test strip (U) [Mass/Vol] Negative Normal [facility]elC[employer]; [employer] Leukocyte esterase Test strip Ql (U) Moderate Abnormal [place] [employer]; [employer]. Nitrite Ql (U) Negative Normal [facility] [employer]; [employer] Protein Ql (U) Negative Normal [facility]; [employer]. No Panel Informationon 05-14 CULTURE, URINE, ROUTINE SEE NOTE Abnormal [employer]; [employer] CULTURE, URINE, ROUTINEon CULTURE, URINE, ROUTINE SEE NOTE Abnormal [facility] Comment on above: Result Comment: CULTURE, URINE, ROUTINE Micro Number: [id number] Test Status: Final Specimen Source: Urine Specimen [...] By: #### 3 95 #### [facility] [address] [facility], [address] [place] [address] Room Worker: Darian Marquez MD Laboratory - Chemistry and C hemistry - challengeon 01-30-2023 Bilirubin Ql (U) Negative Normal [facility]ium[facility].; [employer]. Ketones Ql (U) Negative Normal [employer].; [employer], [employer]. pH (U) 7.0 [pH] Normal [employer].; [employer]. Specific gravity (U) [Rel density] 1.015 Normal [employer].; [employer]. Urobilinogen Qn (U) 0.2 mg/dL Normal [facility] [employer].; [employer]. Laboratory - Hematology and Cell countson 01-30-2023 Hemoglobin Ql (U) small Abnormal [employer].; [employer]. Laboratory - Specimen inform ationon 01-30-2023 Appearance (U) cloudy Abnormal [facility] [employer].; [employer]. Color (U) yellow Normal [employer].; [employer]. Laboratory - Urinalysison Glucose Test strip (U) [Mass/Vol] Negative Normal [employer].; [employer]. Leukocyte esterase Test strip Ql (U) moderate Abnormal [employer].; [employer]. Nitrite Ql (U) Negative Normal [facility] [employer].; [employer], [employer]. Protein Ql (U) 30 mg/dL Abnormal [facility] [employer].; [employer]. No Panel Informationon 01-30 CULTURE, URINE, ROUTINE SEE NOTE Abnormal [employer].; [facility] No Panel InformationOrdered By: Eulalio Núñez on 11-19-2022 Prostate Specific Antigen Screen 1.07 ng/mL 0.00-4.00 [facility] Comment on above: This test was perfor med using the TPSA assay method for [employer] chemistry system. Values obtained with differentassay methods cannot be used interchangably.When changing PSA assays in the course of monitoring apatient, additional sequential testing should be carriedout to confirm baseline values. CULTURE, URINE, ROUTINEon CULTURE, URINE, ROUTINE SEE NOTE Abnormal [facility] Comment on above: Result Comment: CULTURE, URINE, ROUTINE Micro Number: [id number] Test Status: Final Specimen Source: Urine Specimen [...] By: #### 3 95 #### [facility] [address], [address] [place] [address] Room Worker: Darian Marquez MD Laboratory - Chemistry and C hemistry - challengeon 10-08-2022 Bilirubin Ql (U) Negative Normal [facility], [employer].; [employer], [employer]. Ketones Ql (U) Negative Normal [facility] [employer], [employer].; [employer], [employer]. pH (U) 6.0 [pH] Normal [employer].; [employer], [employer]. Specific gravity (U) [Rel density] 1.010 Normal [employer].; [employer], [employer]. Urobilinogen Qn (U) 0.2 mg/dL Normal [facility] [employer].; [employer], [employer]. Laboratory - Hematology and Cell countson 10-08-2022 Hemoglobin Ql (U) Trace, hemolyzed Abnormal [facility] [employer].; [employer], [employer]. Laboratory - Specimen inform ationon 10-08-2022 Appearance (U) Cloudy Abnormal [facility] [employer].; [employer], [employer]. Color (U) Yellow Normal [employer].; [employer], [employer]. Laboratory - Urinalysison Glucose Test strip (U) [Mass/Vol] Negative Normal [employer].; [employer]. Leukocyte esterase Test strip Ql (U) Moderate Abnormal [employer].; [employer] Nitrite Ql (U) Negative Normal [facility] Fam [employer].; [employer], [employer] Protein Ql (U) Negative Normal [facility] [employer].; [employer], [employer] No Panel Informationon 10-08 CULTURE, URINE, ROUTINE SEE NOTE Abnormal [employer].; [employer], [employer]. Urease Tiss Qlon 03-12-2022 Urease Ql (Tiss) Negative Normal [facility] Comment on above: Performed By: #### 3 [id number] #### [facility] CLIA [id number] [address] [place] [address] [place] Laboratory - Chemistry and C hemistry - challengeon 10-18-2021 Albumin [Mass/Vol] 4.3 g/dL Normal 3.6 - 5.1 g/dL [facility] HospitalBrainSt[facility] Cell The[facility].; [facility], [facility]. Albumin/Globulin [Mass ratio] 1.4 {ratio} Normal 1.0 - 2.5 [facility], [facility].; [facility], [facility]. ALP [Catalytic activity/Vol] 70 U/L Normal 35 - 144 U/L [facility] HospitalBrainSt[facility] Cell The[facility].; [facility], [facility]. ALT [Catalytic activity/Vol] 16 U/L Normal 9 - 46 U/L [facility] HospitalBrainSt[facility] Cell [facility].; [facility], [facility]. AST [Catalytic activity/Vol] 15 U/L Normal 10 - 35 U/L [facility] HospitalBrainSt[facility] Cell [facility].; [facility], [facility]. Bilirubin [Mass/Vol] 0.6 mg/dL Normal 0.2 - 1 .2 mg/dL [facility] HospitalBrainSt[facility] Cell The[facility].; [facility], [facility]. Calcium [Mass/Vol] 9.5 mg/dL Normal 8.6 - 10. 3 mg/dL [facility] HospitalBrainSt[facility] Cell [facility].; [facility], [facility]. Chloride [Moles/Vol] 105 mmol/L Normal 98 - 11 0 mmol/L [facility] HospitalBrainSt[facility] Cell The[facility].; [facility], [facility]. Cholesterol [Mass/Vol] 244 mg/dL Abnormal [facility] HospitalBrainSt[facility] Cell The[facility].; [facility], [facility]. Cholesterol in HDL [Mass/Vol] 42 mg/dL Normal [facility] HospitalBrainSt[facility] Cell The[facility].; [place] [facility], [facility]. Cholesterol in LDL [Mass/Vol] 161 mg/dL Abnormal [facility] HospitalBrainSt[facility] Cell The[facility].; [place] [employer], [facility]. CO2 [Moles/Vol] 24 mmol/L Normal 20 - 32 mmol/L [facility] HospitalBrainSt[facility].; [place] [facility], [facility]. Creatinine [Mass/Vol] 1.38 mg/dL Abnormal 0.70 - 1.28 mg/dL [facility] Hospital[facility]St[facility].; [place] [facility], [facility]. GFR/1.73 sq M.predicted among non-blacks MDRD (S/P/Bld) [Vol rate/Area] 54 mL/min/{1.73_m2} Abnormal [facility].; [place] [employer], [facility]. Glucose [Mass/Vol] 105 mg/dL Abnormal 65 - 99 mg/dL [facility] Hospital[facility].; [facility]. Potassium [Moles/Vol] 3.8 mmol/L Normal 3.5 - 5.3 mmol/L [facility] HospitalBrainSt[facility] Cell [facility].; [facility], [facility] Protein [Mass/Vol] 7.3 g/dL Normal 6.1 - 8.1 g/dL [facility] HospitalB[facility]St[facility].; [facility], [facility]. Sodium [Moles/Vol] 138 mmol/L Normal 135 - 146 mmol/L [facility] Hospital[facility].; [facility] Hospital[facility]. Triglyceride [Mass/Vol] 242 mg/dL Abnormal [facility] Hospital[facility].; [place] [facility], [facility]. Urea nitrogen [Mass/Vol] 23 mg/dL Normal 7 - 25 mg/dL [facility] Hospital[facility].; [place] [facility], [facility] Urea nitrogen/Creatinine [Mass ratio] 17 mg/mg Normal 6 - 22 [facility] Hospital[facility].; [facility] Hospital[facility]. Laboratory - Hematology and Cell countson 10-18-2021 Basophils (Bld) [#/Vol] 0.118 10*3/uL Normal 0 - 200 {cells/uL} [facility] HospitalB[facility]St[facility].; [place] [facility] EastBrainSt[facility] Cell The[facility]. Basophils/100 WBC (Bld) 1.2 % Normal [facility] HospitalB[facility]St[facility].; [facility] Hospital[facility] Eosinophils (Bld) [#/Vol] 0.333 10*3/uL Normal 15 - 500 {cells/uL} [facility] Hospital[facility].; [facility] Eosinophils/100 WBC (Bld) 3.4 % Normal [facility] HospitalB[facility]St[facility].; [place] [facility] EastBrainSt[facility] Erythrocyte distribution width (RBC) [Ratio] 14.0 % Normal 11.0 - 15.0 % [facility] HospitalB[facility].; [place] [facility], [facility]. Hematocrit (Bld) [Volume fraction] 47.9 % Normal 38.5 - 50.0 % [facility] HospitalB[facility]St[facility].; [place] [facility], [facility] Hemoglobin (Bld) [Mass/Vol] 16.6 g/dL Normal 13.2 - 17.1 g/dL [facility] HospitalB[facility]St[facility].; [facility], [facility]. Lymphocytes (Bld) [#/Vol] 2.078 10*3/uL Normal 850 - 3900 {cells/uL} [place] [employer] [facility].; [place] [employer], [facility]. Lymphocytes/100 WBC (Bld) 21.2 % Normal [facility] HospitalB[facility]St[facility].; [facility] [employer], [employer]. MCH (RBC) [Entitic mass] 31.1 pg Normal 27.0 - 33.0 pg [place] [employer] [facility].; [place] [employer], [facility]. MCHC (RBC) [Mass/Vol] 34.7 g/dL Normal 32.0 - 36.0 g/dL [place] [employer] [facility].; [facility], [employer]. MCV (RBC) [Entitic vol] 89.7 fL Normal 80.0 - 100.0 fL [place] [employer] [facility].; [facility], [employer]. Monocytes (Bld) [#/Vol] 0.833 10*3/uL Normal 200 - 950 {cells/uL} [place] [employer] [facility].; [facility]elS[facility] Health, Inc. Monocytes/100 WBC (Bld) 8.5 % Normal [place] [employer] [facility].; [facility]el [employer], [employer]. Neutrophils (Bld) [#/Vol] 6.439 10*3/uL Normal 1500 - 7800 {cells/uL} [place] [employer] [facility].; [facility]elS[facility] Health, Inc. Neutrophils/100 WBC (Bld) 65.7 % Normal [place] [employer] [facility].; [facility], [employer]. Platelet mean volume (Bld) [Entitic vol] 9.5 fL Normal 7.5 - 12.5 fL [place] [employer] [facility].; [facility]elS[facility], Inc. Platelets (Bld) [#/Vol] 248 10*3/uL Normal 140 - 400 [place] [employer].; [facility]elSBR Health, [employer]. RBC (Bld) [#/Vol] 5.34 10*6/uL Normal 4.20 - 5.8 0 {Million/uL } [place] [employer], [facility].; [facility]elSBR Health, Inc. WBC (Bld) [#/Vol] 9.8 10*3/uL Normal 3.8 - 10.8 [place] [employer].; [facility], [facility]. No Panel Informationon 10-18 CHOL/HDLC RATIO 5.8 Abnormal [facility], [facility].; [facility], [facility]. GLOBULIN 3.0 Normal 1.9 - 3.7 [facility] HospitalBrainSt[facility] Cell The[facility].; [facility], [facility]. NON HDL CHOLESTEROL 202 Abnormal [facility] MiamiBrainSt[facility].; [facility], [facility]. PSA, TOTAL 0.85 ng/mL Normal [facility].; [facility] HospitalBrainSt[facility] Cell The[facility]. No Panel Informationon 03-13 URC See Note Normal [facility] HospitalBrainSt[facility] Cell The[facility].; [facility], [employer]. Work Phone: UCon 05-26-2020 ORGANISM 1: METH RESISTANT STAPH AUREUS COLONY [...] BETA-LACTAMASE POSITIVE ESBL= EXTENDED SPECTRUM BETA-LACTAMASE Normal [facility] Comment on above: Performed By: #### M 120.0100 #### [facility] - LABORATORY [address] [place] [address] PSAon 04-13-2020 Prostate Specific Antigen 0.57 mg/dL Normal 0.02-4.00 [facility] ([place]) Comment on above: Performed By: #### P SA #### [place] [address] Laboratory - Chemistry and C hemistry - challengeon 04-12-2020 Prostate specific Ag [Mass/Vol] 0.57 mg/dL Normal 0.02 - 4.00 mg/dL [facility] HospitalE[facility]ac[facility].; [facility]. A1Con 01-13-2020 HbA1c (Bld) [Mass fraction] 5.9 % Normal 4.0-6.0 [facility] ([place]) Comment on above: Performed By: #### A 1C #### [place] [address] Laboratory - Chemistry and C hemistry - challengeon 01-12-2020 Glucose Glucometer (BldC) [Moles/Vol] 124 mg/dL Abnormal 60 - 105 mg/dL [facility] HospitalBrainStorm Cell Therapeutics [facility].; [facility] Center[facility]St[facility]. Laboratory - Hematology and Cell countson 01-12-2020 HbA1c (Bld) [Mass fraction] 5.9 % Normal 4.0 - 6.0 % [facility] HospitalE[facility].; [facility] CenterB[facility]St[facility] Cell The[facility] Laboratory - Microbiology an d Antimicrobial susceptibilityon 09-03-2019 SARS-CoV-2 (COVID-19) Ab IA Ql Negative Normal [facility] Hospital[facility]; [facility] HospitalE[facility]ac[facility] No Panel Informationon 10-02 Final Surgical Pathology Report See Note Normal [facility] HospitalE[facility].; [facility]. Work Phone: Laboratory - Chemistry and C hemistry - challengeon 07-04-2018 Albumin [Mass/Vol] 3.9 g/dL Normal 3.4 - 4.8 g/dL [facility] HospitalE[facility].; [facility]. Work Phone: Albumin [Mass/Vol] 1.4 g/dL Normal 0.9 - 1.6 [facility].; [facility]. Work Phone: ALT [Catalytic activity/Vol] 27 U/L Normal 10 - 40 U/L [facility] Hospital[facility].; [facility]. Work Phone: Anion gap [Moles/Vol] 9 mmol/L Abnormal 10 - 2 0 mmol/L [facility] HospitalE[facility].; [facility], [employer]. Work Phone: AST [Catalytic activity/Vol] 21 U/L Normal 13 - 39 U/L [facility] HospitalE[facility].; [facility]. Work Phone: Bilirubin [Mass/Vol] 0.8 mg/dL Normal 0.0 - 1 .5 mg/dL [facility] Work Phone: Bilirubin [Mass/Vol] Negative Normal [facility] Work Phone: Calcium [Mass/Vol] 9.2 mg/dL Normal 8.6 - 10. 2 mg/dL [facility].; [facility] Work Phone: Chloride [Moles/Vol] 106 mmol/L Normal 98 - 10 7 mmol/L [facility] Hospital[facility] Work Phone: CO2 [Moles/Vol] 25.8 mmol/L Normal 21.0 - 31.0 mmol/L [facility]. Work Phone: Creatinine [Mass/Vol] 1.1 mg/dL Normal 0.7 - 1.3 mg/dL [facility], [facility]. Work Phone: GFR/1.73 sq M.predicted among blacks MDRD (S/P/Bld) [Vol rate/Area] mL/min/{1.73_m2} Normal 60 - 999 {ML/MINUTE} [facility].; [facility], [facility]. Work Phone: GFR/1.73 sq M.predicted MDRD (S/P/Bld) [Vol rate/Area] mL/min/{1.73_m2} Normal 60 - 999 {ML/MINUTE} [facility].; [facility], [facility]. Work Phone: Globulin (S) [Mass/Vol] 2.7 g/dL Normal 1.5 - 3.8 g/dL [facility], [facility]. Work Phone: Glucose [Mass/Vol] 104 mg/dL Normal 74 - 106 mg/dL [facility], [facility]. Work Phone: Glucose [Mass/Vol] NORM Normal [facility].; [facility], [facility]. Work Phone: Lipase [Catalytic activity/Vol] 10.0 U/L Abnormal 18.0 - 51.0 U/L [facility], [facility]. Work Phone: pH (Bld) 6.5 [pH] Normal [facility], [facility]. Work Phone: Potassium [Moles/Vol] 4.0 mmol/L Normal 3.5 - 5.1 mmol/L [facility], [facility]. Work Phone: Protein [Mass/Vol] 6.6 g/dL Normal 6.4 - 8.3 g/dL [facility], [facility]. Work Phone: Protein [Mass/Vol] Negative Normal [facility].; [facility], [facility]. Work Phone: Sodium [Moles/Vol] 137 mmol/L Normal 136 - 145 mmol/L [facility].; [facility], [facility]. Work Phone: Urea nitrogen [Mass/Vol] 19 mg/dL Normal 6 - 20 mg/dL [facility].; [facility], [facility]. Work Phone: Urea nitrogen/Creatinine [Mass ratio] 17 {ratio} Normal 0 - 30 {ratio} [facility] Hospital[facility]ac[facility]. Work Phone: Laboratory - Hematology and Cell countson 07-04-2018 Basophils (Bld) [#/Vol] 0.10 {x10EE3/UL} Normal 0.00 - 0.10 {x10EE3/UL} [facility] HospitalBrainSt[facility].; [facility] Hospital[facility]rainStorm Cell [facility]. Work Phone: Basophils/100 WBC (Bld) 0.8 % Normal 0.0 - 2.0 % [facility] Hospital[facility]rain[facility].; [facility] Hospital[facility]. Work Phone: Eosinophils (Bld) [#/Vol] 0.30 {x10EE3/UL} Normal 0.00 - 0.50 {x10EE3/UL} [facility] HospitalEco-[facility]ac[facility].; [facility]. Work Phone: Eosinophils/100 WBC (Bld) 2.4 % Normal 0.0 - 7.0 % [facility] HospitalE[facility]ac[facility].; [facility]. Work Phone: Erythrocyte distribution width (RBC) [Ratio] 14.8 % Normal 12.0 - 15.6 % [facility] HospitalE[facility]ac[facility].; [facility]. Work Phone: Hematocrit (Bld) [Volume fraction] 43.6 % Normal 40.0 - 52.0 % [facility] HospitalE[facility]ac[facility].; [facility] HospitalBrainSt[facility]. Work Phone: Hemoglobin (Bld) [Mass/Vol] 15.0 g/dL Normal 13.0 - 17.5 g/dL [facility] [employer] [facility]oke[facility].; [facility], [facility]. Work Phone: Lymphocytes (Bld) [#/Vol] 1.10 {x10EE3/UL} Normal 0.80 - 2.80 {x10EE3/UL} [facility] HospitalE[facility].; [facility]. Work Phone: Lymphocytes/100 WBC (Bld) 9.8 % Abnormal 20.0 - 45.0 % [facility], [facility]. Work Phone: MCH (RBC) [Entitic mass] 31 pg Normal 27 - 33 pg [facility].; [facility], [facility]. Work Phone: MCHC (RBC) [Mass/Vol] 35 {X10_3} Normal 32 - 3 6 {X10_3} [facility] HospitalBrainSt[facility] Cell [facility].; [facility], [facility]. Work Phone: MCV (RBC) [Entitic vol] 91 fL Normal 81 - 98 fL [facility] HospitalBrainSt[facility] Cell [facility].; [facility] HospitalB[facility]. Work Phone: Monocytes (Bld) [#/Vol] 1.20 {x10EE3/UL} Abnormal 0.20 - 1.00 {x10EE3/UL} [facility] HospitalBrainSt[facility] Cell [facility].; [facility], [facility]. Work Phone: Monocytes/100 WBC (Bld) 10.4 % Abnormal 0.0 - 10.0 % [facility] HospitalBrainSt[facility] Cell [facility].; [facility], [facility]. Work Phone: Morphology Hawk (Bld) [Interp] N/A Normal [facility], [facility]. Work Phone: Neutrophils (Bld) [#/Vol] 8.60 {x10EE3/UL} Abnormal 1.50 - 7.10 {x10EE3/UL} [facility] HospitalBrainSt[facility] Cell [facility].; [facility], [facility]. Work Phone: Neutrophils/100 WBC (Bld) 76.6 % Abnormal 46.0 - 76.0 % [facility] HospitalBrainSt[facility] Cell [facility].; [facility], [facility]. Work Phone: Platelet mean volume (Bld) [Entitic vol] 7.5 fL Normal 6.4 - 10.5 fL [facility] [employer] [facility]okeE[employer].; [employer] [facility] HospitalE[facility]ac[facility]. Work Phone: Platelets (Bld) [#/Vol] 200 {x10EE3/UL} Normal 150 - 450 {x10EE3/UL} [facility] [employer] [facility]okeE[employer].; [place] [employer] [facility], [employer]. Work Phone: RBC (Bld) [#/Vol] 4.81 {x_10EE6/UL} Normal 4.50 - 6.00 {x_10EE6/UL } [facility] [employer] [facility]oke[facility].; [facility] [employer] [facility], [employer]. Work Phone: WBC (Bld) [#/Vol] 11.3 {x_10EE3/UL} Abnormal 4.5 - 10.8 {x_10EE3/UL } [facility] [employer] [facility]okeE[employer].; [employer] [facility] [employer] Work Phone: WBC (Bld) [#/Vol] Negative Normal [facility] [employer] [facility].; [employer] [facility] [employer], [employer]. Work Phone: Laboratory - Specimen inform ationon 07-04-2018 Clarity (U) clear Normal [facility] [employer] [facility] [employer] [facility]okeE[facility]. Work Phone: Color (U) p.yel Normal [facility] [employer] [facility] [employer] [facility], [employer]. Work Phone: Specimen type Nom (Spec) UNSPECIFIED Normal [facility] [employer] [facility]okeE[employer].; [employer] [facility] [employer] [facility]okeE[facility]. Work Phone: Laboratory - Urinalysison Nitrite Ql (U) Negative Normal [facility] [employer] [facility]okeE[employer].; [employer] [facility] [employer], [employer]. Work Phone: No Panel Informationon 07-04 AGE 68 {years} Normal [facility] HospitalE[facility]ac[facility].; [facility]. Work Phone: ALK PHOS 60 U/L Normal 38 - 126 U/L [facility].; [facility]. Work Phone: Blood Negative Normal [facility].; [facility]. Work Phone: CBC + DIFF Normal [facility].; [facility]. Work Phone: CMP with eGFR Normal [facility].; [facility]. Work Phone: Ketone Negative Normal [facility].; [facility] HospitalBrainSt[facility] Cell [facility]. Work Phone: MANUAL DIFF N/A [facility].; [facility] HospitalBrainSt[facility] Cell [facility]. Work Phone: Microscopic NOT INDICATED Normal [facility].; [facility] HospitalBrainSt[facility] Cell [facility]. Work Phone: Sp Sorrento 1.010 Normal [facility].; [facility] HospitalBrainStorm Cell [facility]. Work Phone: Urobilinog NORM Normal [facility].; [facility] HospitalBrainSt[facility] Cell [facility]. Work Phone: Final Surgical Pathology Rep [facility] 01-13-2018 Final Surgical Pathology Report . Pathology ReportsAccession: Collected Date/Time: Received Date/Time: Pathologist:[id number] 01/09/2018 15:20 EDT 01/10/2018 07:41 EDT MD VAMSI SHEA Final Surgical Pathology ReportDIAGNOSIS:SKIN, LEFT ELBOW -- INVASIVE, WELL DIFFERENTIATED SQUAMOUS CELL CARCINOMA. MARGINS ARE FREE.CLINICAL INFORMATION:SKIN LESIONSPECIMEN:A LESION - LEFT ELBOW AREAGROSS DESCRIPTION:Submitted in formalin is a skin ellipse measuring 1.5 x 1.0 x 0.3 cm with a central 4 mm elevated whitish nodular region. Inked, serially sectioned and entirely embedded in one cassette. dictated by Alpesh Shea M.D.Dictated by VAMSI SHEA MDMICROSCOPIC DESCRIPTION:Slides reviewed.Electronically Signed byPathology Report verified by [facility]stownElectronically signed by VAMSI SHEA MDSign out Date: 01/13/2018 15:34Performing Lab: [facility], [address] [place] [address] Normal [facility] ([place]) Comment on above: Performed By: #### S PFR ####[facility] [place] [address] No Panel Informationon 01-09 Final Surgical Pathology Report See Note Normal [employer] [facility] Chanel [employer] Laboratory - Chemistry and C hemistry - challengeon 09-10-2017 Albumin BCP dye [Mass/Vol] 3.7 g/dL Normal 3.2 - 4.8 g/dL [employer] [place] [facility] [employer], [employer]. Albumin/Globulin [Mass ratio] 1.1 {ratio} Normal 0.9 - 1.6 {ratio} [employer].; [place] - [employer] [facility], [employer]. ALP [Catalytic activity/Vol] 71 U/L Normal 38 - 126 U/L [facility] [employer], [employer].; [place] - [employer] ALT No additional P-5'-P [Catalytic activity/Vol] 24 U/L Normal 12 - 55 U/L [facility] [employer], [employer].; [place] - [facility] Chanel [facility], [employer]. ALT With P-5'-P [Catalytic activity/Vol] 24 U/L Normal 12 - 55 U/L [facility] [employer], [employer].; [place] - [employer] AST [Catalytic activity/Vol] 20 U/L Normal 8 - 34 U/L [facility] [employer], [employer].; [place] - [facility] Chanel [facility], [employer]. AST With P-5'-P [Catalytic activity/Vol] 20 U/L Normal 8 - 34 U/L [facility] UpmcSmart Picture Tech [facility], Inc.; [employer] [facility] [employer], [employer]. Bilirubin [Mass/Vol] 0.6 mg/dL Normal 0.2 - 1 .2 mg/dL [facility] Bilirubin Ql (U) Negative Normal [facility]; [facility] Calcium [Mass/Vol] 9.1 mg/dL Normal 8.4 - 10. 1 mg/dL [facility] Chloride [Moles/Vol] 107 mmol/L Normal 98 - 11 0 meq/L [facility] Cholesterol [Mass/Vol] 216 mg/dL Abnormal 50 - 199 mg/dL [facility] Cholesterol in HDL [Mass/Vol] 42 mg/dL Normal 40 - 59 mg/dL [facility] Cholesterol in LDL [Mass/Vol] 119 mg/dL Normal 0 - 129 mg/dL [facility] CO2 [Moles/Vol] 25 mmol/L Normal 22 - 32 meq/L [facility] Creatinine [Mass/Vol] 1.12 mg/dL Normal 0.60 - 1.40 mg/dL [facility]. GFR/1.73 sq M.predicted among blacks MDRD (S/P/Bld) [Vol rate/Area] mL/min/{1.73_m2} Normal [facility] Work Phone: GFR/1.73 sq M.predicted among non-blacks MDRD (S/P/Bld) [Vol rate/Area] mL/min/{1.73_m2} Normal [facility].; [facility], [facility] Work Phone: Globulin (S) [Mass/Vol] 3.4 g/dL Normal 1.5 - 3.8 g/dL [facility], [facility]. Glucose [Mass/Vol] 107 mg/dL Normal 82 - 115 mg/dL [facility] Ketones Ql (U) Negative Normal [facility]; [facility], [facility] pH (U) 5.0 [pH] Normal [facility] Potassium [Moles/Vol] 3.4 mmol/L Abnormal 3.5 - 5.0 meq/L [facility].; [facility] Prostate specific Ag [Mass/Vol] 0.80 ng/mL Normal 0.02 - 4.00 ng/mL [facility] Protein [Mass/Vol] 7.1 g/dL Normal 6.0 - 8.5 g/dL [facility]. Sodium [Moles/Vol] 143 mmol/L Normal 136 - 145 meq/L [facility].; [facility] HospitalBrainStorm Cell [facility]. Specific gravity (U) [Rel density] 1.005 Normal [facility] Triglyceride [Mass/Vol] 273 mg/dL Abnormal 3 - 149 mg/dL [facility].; [facility], [facility]. Urea nitrogen [Mass/Vol] 18.0 mg/dL Normal 8.0 - 22.0 mg/dL [facility].; [facility], [facility]. Urea nitrogen/Creatinine [Mass ratio] 16.1 {ratio} Normal 10.0 - 22.0 {ratio} [facility] HospitalBrainStorm Cell The[facility].; [facility] HospitalBrainStorm Cell [facility] Laboratory - Hematology and Cell countson 09-10-2017 Basophils (Bld) [#/Vol] 0.10 {10^3/mcL} Normal 0.00 - 0.27 {10^3/mcL} [facility] HospitalBrainStorm Cell The[facility].; [facility] HospitalBrainSt[facility] Work Phone: Basophils/100 WBC (Bld) 1.3 % Normal 0.0 - 2.5 % [facility] Work Phone: Eosinophils/100 WBC (Bld) 5.6 % Normal 0.0 - 6.0 % [facility].; [facility], [facility] Work Phone: Erythrocyte distribution width (RBC) [Ratio] 14.9 % Normal 11.5 - 15.5 % [facility], [facility] Hematocrit (Bld) [Volume fraction] 48.2 % Normal 40.0 - 52.0 % [facility], [facility] Hemoglobin (Bld) [Mass/Vol] 16.3 g/dL Normal 13.0 - 17.5 g/dL [facility], [facility] Hemoglobin Ql (U) Negative Normal [facility]; [facility], [facility] Lymphocytes (Bld) [#/Vol] 2.00 {10^3/mcL} Normal 0.90 - 4.32 {10^3/mcL} [facility], [facility] Work Phone: Lymphocytes/100 WBC (Bld) 21.5 % Normal 20.0 - 40.0 % [facility], [facility] Work Phone: MCH (RBC) [Entitic mass] 31.4 pg Normal 27.0 - 33.0 pg [facility], [facility] MCHC (RBC) [Mass/Vol] 33.9 g/dL Normal 32.0 - 36.0 g/dL [facility], [facility] MCV (RBC) [Entitic vol] 92.6 fL Normal 81.0 - 100.0 fL [facility] HospitalBrainStorm Cell Therapeutics [facility]; [facility] [employer] [facility], [employer] Monocytes (Bld) [#/Vol] 0.70 {10^3/mcL} Normal 0.09 - 1.40 {10^3/mcL} [facility] [employer] [facility], [employer].; [facility] [employer] [facility], [employer] Work Phone: Monocytes/100 WBC (Bld) 8.0 % Normal 2.0 - 13.0 % [facility] [employer] [facility], [employer].; [facility] [employer] [facility], [employer]. Work Phone: Neutrophils (Bld) [#/Vol] 5.90 {10^3/mcL} Normal 2.25 - 8.10 {10^3/mcL} [facility] [employer] [facility], [employer].; [facility] [employer] [facility], [employer]. Work Phone: Neutrophils/100 WBC (Bld) 63.6 % Normal 50.0 - 75.0 % [facility]pmcSmart Picture Tech [facility], [employer].; [place] [employer] [facility] [employer] [facility], [employer]. Work Phone: Platelet mean volume (Bld) [Entitic vol] 8.3 fL Normal 6.4 - 10.5 fL [facility] [employer], [employer].; [facility] [employer] [facility], [employer] Platelets (Bld) [#/Vol] 200 {10^3/mcL} Normal 150 - 450 {10^3/mcL} [facility] [employer].; [facility] [employer] [facility], [employer] RBC (Bld) [#/Vol] 5.20 {10^6/mcL} Normal 4.50 - 6.00 {10^6/mcL} [facility] [employer].; [facility] [employer] [facility], [employer] WBC (Bld) [#/Vol] 9.20 {10^3/mcL} Normal 4.50 - 10.80 {10^3/mcL} [facility] [employer].; [place] [employer] [facility] [employer] Laboratory - [facility] 09-10-2017 Appearance (U) CLEAR Normal [employer] [place] [employer] [facility] [employer] Color (U) YELLOW Normal [facility] [email or web address].; [facility], [employer]. Laboratory - Urinalysison Glucose Test strip (U) [Mass/Vol] Negative Normal [facility] HospitalBrainStorm Cell The[facility].; [facility], [facility]. Leukocyte esterase Test strip Ql (U) Negative Normal [facility] HospitalBrainStorm Cell The[facility].; [facility], [employer] Nitrite Ql (U) Negative Normal [facility].; [facility], Inc[employer] Protein Ql (U) Negative Normal [facility] She[facility]onE[employer].; [facility], Inc. No Panel Informationon 09-10 Electrolyte Balance 11.0 meq/L Normal 4.0 - 15 .0 meq/L [facility] HospitalBrainStorm Cell The[facility].; [facility], [employer]. Eosinophil, Absolute 0.50 {10^3/mcL} Normal 0.00 - 0.65 {10^3/mcL} [facility] HospitalBrainStorm Cell The[facility].; [facility], [employer]. Work Phone: UA - ODOR Negative [facility] [place] [facility].; [facility], [employer]. UA - UROBILIGEN 0.2 Normal [facility].; [facility], [employer]. Laboratory - Chemistry and C hemistry - challengeon 08-23-2014 Bilirubin Ql (U) Negative Normal [facility].; [facility], Inc. Ketones Ql (U) Negative Normal [facility] She[facility]onE[employer].; [facility], Inc. pH (U) 5.0 [pH] Normal [facility].; [facility], Inc. Specific gravity (U) [Rel density] 1.010 Normal [facility] HospitalE[facility].; [facility], Inc[employer] Laboratory - Hematology and Cell countson 08-23-2014 Hemoglobin Ql (U) Negative Normal [facility].; [facility] [employer] [facility] [employer], [employer] Laboratory - Specimen inform ationon 08-23-2014 Appearance (U) CLEAR Normal [facility]on[facility].; [facility], Inc. Color (U) YELLOW [facility] [place] [facility], [facility].; [facility], [employer]. Laboratory - Urinalysison Glucose Test strip (U) [Mass/Vol] Negative Normal [facility], [facility].; [facility], [employer]. Leukocyte esterase Test strip Ql (U) Negative Normal [facility], Inc.; [facility], Inc. Nitrite Ql (U) Negative Normal [facility], Inc.; [facility], Inc. Protein Ql (U) Negative Normal [facility], Inc.; [facility], Inc. No Panel Informationon 08-23 UA - ODOR Negative [facility] [place] [facility], [facility].; [facility], [employer]. UA - UROBILIGEN 0.2 Normal [facility]; [facility], [facility]. Laboratory - Chemistry and C hemistry - challengeon 03-15-2014 Bilirubin Ql (U) Negative [facility], [facility].; [facility], [employer]. Ketones Ql (U) Negative Normal [facility], [facility].; [facility], [employer]. pH (U) 7.0 [pH] Normal [facility], [facility].; [facility], Inc. Specific gravity (U) [Rel density] 1.020 [facility] [place] [facility], [facility].; [facility], [employer]. Laboratory - Hematology and Cell countson 03-15-2014 Hemoglobin Ql (U) Negative Normal [facility], [facility].; [facility], [employer]. Laboratory - Specimen inform ationon 03-15-2014 Appearance (U) CLEAR Normal [facility], [facility].; [facility], Inc. Color (U) YELLOW [facility] [place] [facility], [facility].; [facility], Inc. Laboratory - Urinalysison Glucose Test strip (U) [Mass/Vol] Negative [facility] [place] [facility], Inc.; [facility], Inc. Leukocyte esterase Test strip Ql (U) Negative Normal [facility].; [facility], [facility]. Nitrite Ql (U) Negative Normal [facility].; [facility], [facility]. Protein Ql (U) Negative Normal [facility].; [facility], [facility]. No Panel Informationon 03-15 UA - ODOR Negative Normal [facility].; [facility], [facility]. UA - UROBILIGEN 0.2 Normal [facility]; [facility], [facility]. Laboratory - Chemistry and C hemistry - challengeon 02-27-2014 Albumin BCP dye [Mass/Vol] 3.9 g/dL Normal 3.2 - 4.8 g/dL [facility], [facility]. Albumin/Globulin [Mass ratio] 1.3 {ratio} Normal 0.9 - 1.6 [facility], [facility]. ALP [Catalytic activity/Vol] 90 U/L Normal 38 - 126 U/L [facility].; [facility], [facility]. ALT No additional P-5'-P [Catalytic activity/Vol] 34 U/L Normal 12 - 55 U/L [facility], [facility]. ALT With P-5'-P [Catalytic activity/Vol] 34 U/L Normal 12 - 55 U/L [facility].; [facility], [facility]. AST [Catalytic activity/Vol] 18 U/L Normal 8 - 34 U/L [facility].; [facility], [facility]. AST With P-5'-P [Catalytic activity/Vol] 18 U/L Normal 8 - 34 U/L [facility].; [facility], [facility]. Bilirubin [Mass/Vol] 0.6 mg/dL Normal 0.2 - 1 .2 mg/dL [facility].; [facility], [facility]. Calcium [Mass/Vol] 9.2 mg/dL Normal 8.4 - 10. 1 mg/dL [facility].; [facility]. Chloride [Moles/Vol] 107 mmol/L Normal 98 - 11 0 meq/L [facility].; [facility]. Cholesterol [Mass/Vol] 233 mg/dL Abnormal 50 - 199 mg/dL [facility].; [facility]. Cholesterol in HDL [Mass/Vol] 41 mg/dL Normal 40 - 59 mg/dL [facility].; [facility]. Cholesterol in LDL [Mass/Vol] 161 mg/dL Abnormal 0 - 129 mg/dL [facility].; [facility]. CO2 [Moles/Vol] 28 mmol/L Normal 22 - 32 meq/L [facility].; [facility], [facility]. Creatinine [Mass/Vol] 0.97 mg/dL Normal 0.60 - 1.40 mg/dL [facility].; [facility], [facility]. GFR/1.73 sq M.predicted among blacks MDRD (S/P/Bld) [Vol rate/Area] mL/min/{1.73_m2} Normal [facility].; [facility]. Work Phone: GFR/1.73 sq M.predicted among non-blacks MDRD (S/P/Bld) [Vol rate/Area] mL/min/{1.73_m2} Normal [facility].; [facility], [facility]. Work Phone: Globulin (S) [Mass/Vol] 3.0 g/dL Normal 1.5 - 3.8 g/dL [facility].; [facility], [facility]. Glucose [Mass/Vol] 102 mg/dL Normal 82 - 115 mg/dL [facility].; [facility], [facility] Potassium [Moles/Vol] 4.0 mmol/L Normal 3.5 - 5.0 meq/L [facility] Protein [Mass/Vol] 6.9 g/dL Normal 6.0 - 8.5 g/dL [facility] Sodium [Moles/Vol] 141 mmol/L Normal 136 - 145 meq/L [facility] Triglyceride [Mass/Vol] 153 mg/dL Abnormal 3 - 149 mg/dL [facility] Urea nitrogen [Mass/Vol] 16.0 mg/dL Normal 8.0 - 22.0 mg/dL [facility] Urea nitrogen/Creatinine [Mass ratio] 16.5 mg/mg Normal 10.0 - 22.0 [facility] Laboratory - Hematology and Cell countson 02-27-2014 Basophils/100 WBC (Bld) 0.8 % Normal 0.0 - 2.5 % [facility] Eosinophils/100 WBC (Bld) 5.6 % Normal 0.0 - 6.0 % [facility] Erythrocyte distribution width (RBC) [Ratio] 14.5 % Normal 11.5 - 15.5 % [facility], [facility] Hematocrit (Bld) [Volume fraction] 48.6 % Normal 40.0 - 52.0 % [facility] Hemoglobin (Bld) [Mass/Vol] 16.0 g/dL Normal 13.0 - 17.5 g/dL [facility] Lymphocytes/100 WBC (Bld) 23.8 % Normal 20.0 - 40.0 % [facility], [facility] MCH (RBC) [Entitic mass] 30.3 pg Normal 27.0 - 33.0 pg [facility], [facility]. MCHC (RBC) [Mass/Vol] 33.0 g/dL Normal 32.0 - 36.0 g/dL [facility].; [facility], [facility] MCV (RBC) [Entitic vol] 92.0 fL Normal 81.0 - 100.0 fL [facility], [facility] Monocytes/100 WBC (Bld) 9.9 % Normal 2.0 - 13.0 % [facility], [facility] Neutrophils (Bld) [#/Vol] 6.20 {10_3/mcL} Normal 2.00 - 8.00 {10_3/mcL} [facility].; [facility], [facility] Neutrophils/100 WBC (Bld) 59.9 % Normal 50.0 - 75.0 % [facility].; [facility], [facility]. Platelet mean volume (Bld) [Entitic vol] 8.2 fL Normal 6.4 - 10.5 fL [facility].; [facility], [facility]. Platelets (Bld) [#/Vol] 226 {10_3/mcL} Normal 150 - 450 {10_3/mcL} [facility], [facility].; [facility], [facility]. RBC (Bld) [#/Vol] 5.29 {10_6/mcL} Normal 4.50 - 6.00 {10_6/mcL} [facility].; [facility], [facility]. WBC (Bld) [#/Vol] 10.30 {10_3/mcL} Normal 4.50 - 10.80 {10_3/mcL} [facility], [facility].; [facility], [facility]. No Panel Informationon 02-27 Electrolyte Balance 6.0 meq/L Normal 4.0 - 15 .0 meq/L [facility].; [facility], [facility] Laboratory - Chemistry and C hemistry - challengeon 05-16-2011 Albumin [Mass/Vol] 4.4 g/dL Normal 3.6 - 5.1 g/dL [facility] Albumin/Globulin [Mass ratio] 1.7 {ratio} Normal 1.0 - 2.1 [facility]; [facility], [facility] ALP [Catalytic activity/Vol] 107 U/L Normal 40 - 115 U/L [facility].; [facility], [facility] ALT [Catalytic activity/Vol] 43 U/L Normal 9 - 60 U/L [facility]; [facility], [facility] Amylase [Catalytic activity/Vol] 49 U/L Normal 21 - 101 U/L [facility]; [facility]. AST [Catalytic activity/Vol] 33 U/L Normal 10 - 35 U/L [facility]; [facility] Bilirubin [Mass/Vol] 0.3 mg/dL Normal 0.2 - 1 .2 mg/dL [facility].; [facility]. Calcium [Mass/Vol] 9.5 mg/dL Normal 8.6 - 10. 3 mg/dL [facility]; [facility], [facility]. Chloride [Moles/Vol] 107 mmol/L Normal 98 - 11 0 mmol/L [facility].; [facility], [facility]. CO2 [Moles/Vol] 20 mmol/L Abnormal 21 - 33 mmol/L [facility].; [facility], [facility]. Creatinine [Mass/Vol] 1.10 mg/dL Normal 0.70 - 1.25 mg/dL [facility], [facility].; [facility], [facility]. GFR/1.73 sq M.predicted among blacks MDRD (S/P/Bld) [Vol rate/Area] 84 {ML/MIN/1.73M2} Normal [facility], [facility].; [facility], [facility]. GFR/1.73 sq M.predicted MDRD (S/P/Bld) [Vol rate/Area] 72 {ML/MIN/1.73M2} Normal [facility].; [facility]. Globulin (S) [Mass/Vol] 2.6 g/dL Normal 2.1 - 3.7 g/dL [facility].; [facility] Glucose [Mass/Vol] 88 mg/dL Normal 65 - 99 mg/dL [facility].; [facility]. Lipase [Catalytic activity/Vol] 28 U/L Normal 7 - 60 U/L [facility]; [facility] Potassium [Moles/Vol] 4.3 mmol/L Normal 3.5 - 5.3 mmol/L [facility]; [facility] Protein [Mass/Vol] 7.0 g/dL Normal 6.2 - 8.3 g/dL [facility]; [facility] Sodium [Moles/Vol] 139 mmol/L Normal 135 - 146 mmol/L [facility].; [facility] Urea nitrogen [Mass/Vol] 22 mg/dL Normal 7 - 25 mg/dL [facility]; [facility] Urea nitrogen/Creatinine [Mass ratio] 19.5 mg/mg Normal 6 - 22 [facility].; [facility] No Panel Informationon 05-16 GLIADIN AB (IGA) 4 AU Normal [facility]. GLIADIN AB (IGG) 7 AU Normal [facility].; [facility] Vital Signs Date Time Vital Sign Value Performing Clinician Faci lity 12-07-2024 13:24-0400 Body height 175.[address] Jameson Espinosa MD Work Phone: [facility] 12-07-2024 13:24-0400 Body mass index (BMI) [Ratio] 28.2 kg/m2 Dr. Jameson Espinosa MD Work Phone: [facility] 12-07-2024 13:24-0400 Body weight 86.[address] Jameson Espinosa MD Work Phone: [facility] 12-07-2024 13:24-0400 Diastolic blood pressure 74 mm[Hg] Dr. Jameson Espinosa MD Work Phone: [facility] 12-07-2024 13:24-0400 Heart rate 65 /min Dr. Jameson Espinosa MD Work Phone: [facility] 12-07-2024 13:24-0400 Respiratory rate 16 /min Dr. Jameson Espinosa MD Work Phone: [facility] 12-07-2024 13:24-0400 Systolic blood pressure 122 mm[Hg] Dr. Jameson Espinosa MD Work Phone: [facility] 02-11-2024 08:02-0500 Body height 179.07 cm Brenda Addison LPN [facility], [facility].; [facility], [facility]. 02-11-2024 08:02-0500 Body mass index (BMI) [Ratio] 26.31 kg/m2 Brenda Addison LPN [facility], [facility].; [facility], [facility]. 02-11-2024 08:02-0500 Body surface area Derived from formula 2.03 m2 Brenda Addison LPN [facility], [facility].; [facility], [facility]. 02-11-2024 08:02-0500 Body weight 84.37 kg Brenda Addison SUPERINTENDENT METER TESTS [facility], [facility].; [place] [facility], [facility]. 02-11-2024 08:02-0500 Diastolic blood pressure 81 mm[Hg] Brenda Addison LPN [facility], [facility].; [employer] [facility], [facility]. Comment on above: Patient Position: Sitting; Cuff Location : Left Arm; Cuff Size: Standard 02-11-2024 08:02-0500 Heart rate 65 /min Brenda Addison LPN [facility], [facility].; [facility], [facility]. Comment on above: Pattern: Regular 02-11-2024 08:02-0500 Systolic blood pressure 146 mm[Hg] Brenda Addison LPN [facility], [facility].; [facility], [facility]. Comment on above: Patient Position: Sitting; Cuff Location : Left Arm; Cuff Size: Standard 12-27-2023 15:02-0400 Body height 179.07 cm Roz Billy MA [facility], [facility].; [facility], [facility]. 12-27-2023 15:02-0400 Body mass index (BMI) [Ratio] 26.17 kg/m2 Roz Billy MA [facility].; [facility]. 12-27-2023 15:02-0400 Body surface area Derived from formula 2.03 m2 Roz Billy MA [facility].; [facility]. 12-27-2023 15:02-0400 Body weight 83.92 kg Roz Billy MA [facility].; [facility]. 12-27-2023 15:02-0400 Diastolic blood pressure 76 mm[Hg] Roz Wenceslao [facility].; [facility]. Comment on above: Patient Position: Sitting; Cuff Location : Left Arm; Cuff Size: Standard 12-27-2023 15:02-0400 Heart rate 68 /min Roz Billy [facility].; [employer] [facility]. Comment on above: Pattern: Regular 12-27-2023 15:02-0400 Systolic blood pressure 116 mm[Hg] Roz Billy MA [facility].; [place] [employer] [facility]. Comment on above: Patient Position: Sitting; Cuff Location : Left Arm; Cuff Size: Standard 08-12-2023 13:40-0400 Body height 176.53 cm Kimberley Navarro RN [facility], [facility].; [facility]. 08-12-2023 13:40-0400 Body mass index (BMI) [Ratio] 27.69 kg/m2 Kimberley Navarro RN [facility].; [facility], [facility]. 08-12-2023 13:40-0400 Body surface area Derived from formula 2.03 m2 Kimberley Navarro RN [facility].; [facility], [facility]. 08-12-2023 13:40-0400 Body temperature 99.3 [degF] Kimberley Navarro RN [facility] Hospital[facility].; [facility]. Comment on above: Method: Oral 08-12-2023 13:40-0400 Body weight 86.3 kg Kimberley Navarro RN [facility], [facility].; [facility]. 08-12-2023 13:40-0400 Diastolic blood pressure 79 mm[Hg] Kimberley Navarro RN [facility].; [facility], [employer]. Comment on above: Patient Position: Sitting; Cuff Location : Left Arm; Cuff Size: Standard 08-12-2023 13:40-0400 Heart rate 71 /min Kimberley Navarro RN [facility], [facility].; [facility], [employer]. Comment on above: Pattern: Regular 08-12-2023 13:40-0400 Inhaled oxygen concentration 21 % Kimberley Navarro RN [facility].; [facility], [facility]. Comment on above: Room air 08-12-2023 13:40-0400 SaO2% (BldA) [Mass fraction] 96 % Kimberley Navarro RN [facility], [facility].; [facility], [facility]. 08-12-2023 13:40-0400 Systolic blood pressure 144 mm[Hg] Kimberley Navarro RN [facility].; [facility], [employer]. Comment on above: Patient Position: Sitting; Cuff Location : Left Arm; Cuff Size: Standard 07-02-2023 10:37-0400 Body height 179.07 cm Elaine Simon LPN [facility], [facility].; [facility], [facility]. 07-02-2023 10:37-0400 Body mass index (BMI) [Ratio] 27.44 kg/m2 Elaine Simon LPN [facility], [facility].; [facility], [facility]. 07-02-2023 10:37-0400 Body surface area Derived from formula 2.07 m2 KatelynAudra Simon LPN [facility], [facility].; [facility], [facility]. 07-02-2023 10:37-0400 Body temperature 98.5 [degF] Elaine Simon LPN [facility], [facility].; [facility], [facility]. Comment on above: Method: Tympanic 07-02-2023 10:37-0400 Body weight 88 kg Elaine Simon LPN [facility], [employer].; [facility]. 07-02-2023 10:37-0400 Diastolic blood pressure 93 mm[Hg] Elaine Simon [facility].; [facility]. Comment on above: Patient Position: Sitting; Cuff Location : Left Arm; Cuff Size: Large 07-02-2023 10:37-0400 Heart rate 91 /min Elaine Simon SUPERINTENDENT METER TESTS [facility].; [place] [employer] [facility]. Comment on above: Pattern: Regular 07-02-2023 10:37-0400 Inhaled oxygen concentration 21 % [facility].; [facility]. Comment on above: Room air 07-02-2023 10:37-0400 SaO2% (BldA) [Mass fraction] 97 % [facility].; [facility]. 07-02-2023 10:37-0400 Systolic blood pressure 156 mm[Hg] Elaine Simon [facility].; [place] [employer] [facility]. Comment on above: Patient Position: Sitting; Cuff Location : Left Arm; Cuff Size: Large 05-21-2023 11:30-0500 Diastolic blood pressure 78 mm[Hg] Dr. Jameson Espinosa Work Phone: [facility] 05-21-2023 11:30-0500 Heart rate 74 /min Dr. Jameson Espinosa Work Phone: [facility] 05-21-2023 11:30-0500 Systolic blood pressure 147 mm[Hg] Dr. Jameson Espinosa Work Phone: [facility] 05-21-2023 11:18-0500 Body height 175.[address] Jameson Espinosa Work Phone: [facility] 05-21-2023 11:18-0500 Body mass index (BMI) [Ratio] 28.2 kg/m2 Dr. Jameson Espinosa Work Phone: [facility] 05-21-2023 11:18-0500 Body weight 86.[address] Jameson Espinosa Work Phone: [facility] 05-21-2023 11:18-0500 Respiratory rate 16 /min Dr. Jameson Espinosa Work Phone: [facility] 05-14-2023 11:36-0500 Body temperature 96.5 [degF] Nasim Jhonathan [employer]PERINTENDENT METER TESTS [facility] [place] [facility], [facility] 05-14-2023 11:36-0500 Body weight 88 kg Nasim Jhonathan SUPERINTENDENT METER TESTS [facility].; [employer] [facility], [facility] 05-14-2023 11:36-0500 Diastolic blood pressure 67 mm[Hg] Nasim Jhonathan [facility].; [employer] [facility], [facility] Comment on above: Patient Position: Sitting; Cuff Location : Left Arm; Cuff Size: Standard 05-14-2023 11:36-0500 Heart rate 73 /min Nasim Jhonathan SUPERINTENDENT METER TESTS [facility], [facility].; [employer] [facility], [employer] Comment on above: Pattern: Regular 05-14-2023 11:36-0500 Systolic blood pressure 125 mm[Hg] Nasim Jhonathan [facility], [facility].; [employer] [facility], [facility] Comment on above: Patient Position: Sitting; Cuff Location : Left Arm; Cuff Size: Standard 05-14-2023 11:00-0500 Body height 179.07 cm Elaine Simon SUPERINTENDENT METER TESTS [facility], [facility].; [employer] [facility], [facility] 04-15-2023 09:51-0500 Body height 179.07 cm Elaine Simon SUPERINTENDENT METER TESTS [facility], [facility].; [employer] [facility], [employer] 04-15-2023 09:51-0500 Body mass index (BMI) [Ratio] 27.3 kg/m2 [facility].; [employer] [facility], [facility] 04-15-2023 09:51-0500 Body surface area Derived from formula 2.07 m2 [facility] [employer] METER TESTS [facility], [facility].; [facility] 04-15-2023 09:51-0500 Body weight 87.54 kg Elaine Simon LPN [facility], [facility].; [facility], [facility] 04-15-2023 09:51-0500 Diastolic blood pressure 84 mm[Hg] Elaine Simon LESTER [facility], [facility] Comment on above: Patient Position: Sitting; Cuff Location : Left Arm; Cuff Size: Large 04-15-2023 09:51-0500 Heart rate 68 /min Elaine Simon LESTER [facility], [facility].; [facility], [employer] Comment on above: Pattern: Regular 04-15-2023 09:51-0500 Systolic blood pressure 147 mm[Hg] Elaine Simon LESTER [facility].; [facility], [employer] Comment on above: Patient Position: Sitting; Cuff Location : Left Arm; Cuff Size: Large 04-10-2023 10:35-0500 Body height 179.07 cm Brenda Addison LPN [facility].; [employer] 04-10-2023 10:35-0500 Body mass index (BMI) [Ratio] 27.3 kg/m2 Brenda Addison LPN [facility], [facility].; [facility], [employer] 04-10-2023 10:35-0500 Body surface area Derived from formula 2.07 m2 Brenda Addison LPN [facility].; [facility], [employer] 04-10-2023 10:35-0500 Body weight 87.54 kg Brenda Addison LPN [facility], [facility].; [facility], [employer] 04-10-2023 10:35-0500 Diastolic blood pressure 79 mm[Hg] Brenda Addison LPN [place] [employer] [facility], [facility].; [facility], [employer] Comment on above: Patient Position: Sitting; Cuff Location : Left Arm; Cuff Size: Standard 04-10-2023 10:35-0500 Heart rate 60 /min Brenda Addison LPN [facility] [employer], [employer]. Comment on above: Pattern: Regular 04-10-2023 10:35-0500 Systolic blood pressure 132 mm[Hg] Brenda Azael [facility], [facility].; [facility], [facility]. Comment on above: Patient Position: Sitting; Cuff Location : Left Arm; Cuff Size: Standard 01-30-2023 13:05-0500 Body weight 88.45 kg Nasim Ring SUPERINTENDENT METER TESTS [facility] 01-30-2023 13:05-0500 Diastolic blood pressure 73 mm[Hg] Nasim Ring SUPERINTENDENT METER TESTS [facility], [facility].; [facility], [facility]. Comment on above: Patient Position: Sitting; Cuff Location : Left Arm; Cuff Size: Standard 01-30-2023 13:05-0500 Heart rate 72 /min Nasimashley Ring [facility], [facility].; [facility], [facility]. Comment on above: Pattern: Regular 01-30-2023 13:05-0500 Systolic blood pressure 138 mm[Hg] Nasimashley Ring [facility].; [facility], [facility]. Comment on above: Patient Position: Sitting; Cuff Location : Left Arm; Cuff Size: Standard 10-31-2022 10:56-0400 Body temperature 98.2 [degF] Dr. Jameson Espinosa Work Phone: [facility] 10-31-2022 10:56-0400 Body weight 85.[address] Jameson Espinosa Work Phone: [facility] 10-31-2022 10:56-0400 Diastolic blood pressure 87 mm[Hg] Dr. Jameson Espinosa Work Phone: [facility] 10-31-2022 10:56-0400 Heart rate 60 /min Dr. Jameson Espinosa Work Phone: [facility] 10-31-2022 10:56-0400 Respiratory rate 18 /min Dr. Jameson Espinosa Work Phone: [facility] 10-31-2022 10:56-0400 SaO2% (BldA) [Mass fraction] 97 % Dr. Jameson Espinosa Work Phone: [facility] 10-31-2022 10:56-0400 Systolic blood pressure 143 mm[Hg] Dr. Jameson Espinosa Work Phone: [facility] 10-08-2022 11:28-0400 Body height 179.07 cm Jameson Espinosa MD Work Phone: [employer]. 10-08-2022 11:28-0400 Body mass index (BMI) [Ratio] 27.16 kg/m2 Jameson Espinosa MD Work Phone: [employer]. 10-08-2022 11:28-0400 Body surface area Derived from formula 2.06 m2 Jameson Espinosa MD Work Phone: [employer]; [employer]. 10-08-2022 11:28-0400 Body temperature 98.2 [degF] Jameson Espinosa MD Work Phone: [employer]; [employer]. Comment on above: Method: Tympanic 10-08-2022 11:28-0400 Body weight 87.09 kg Jameson Espinosa MD Work Phone: [employer]. 10-08-2022 11:28-0400 Diastolic blood pressure 82 mm[Hg] Jameson Espinosa MD Work Phone: [employer]. Comment on above: Patient Position: Sitting; Cuff Location : Left Arm; Cuff Size: Standard 10-08-2022 11:28-0400 Heart rate 70 /min Jameson Espinosa MD Work Phone: [employer]. Comment on above: Pattern: Regular 10-08-2022 11:28-0400 Systolic blood pressure 146 mm[Hg] Jameson Espinosa MD Work Phone: [employer]. Comment on above: Patient Position: Sitting; Cuff Location : Left Arm; Cuff Size: Standard 09-04-2022 09:13-0400 Body temperature 98.2 [degF] Dr. Jameson Espinosa Work Phone: [facility] 09-04-2022 09:13-0400 Body weight 85.[address] Jameson Espinosa Work Phone: [facility] 09-04-2022 09:13-0400 Diastolic blood pressure 94 mm[Hg] Dr. Jameson Espinosa Work Phone: [facility] 09-04-2022 09:13-0400 Heart rate 62 /min Dr. Jameson Espinosa Work Phone: [facility] 09-04-2022 09:13-0400 Respiratory rate 16 /min Dr. Jameson Espinosa Work Phone: [facility] 09-04-2022 09:13-0400 SaO2% (BldA) [Mass fraction] 97 % Dr. Jameson Espinosa Work Phone: [facility] 09-04-2022 09:13-0400 Systolic blood pressure 162 mm[Hg] Dr. Jameson Espinosa Work Phone: [facility] 08-17-2022 09:07-0400 Body height 179.07 cm Roz Billy MA [facility], [facility].; [facility], [facility] 08-17-2022 09:07-0400 Body mass index (BMI) [Ratio] 27.16 kg/m2 Roz Billy MA [facility], [facility].; [facility] 08-17-2022 09:07-0400 Body surface area Derived from formula 2.06 m2 Roz Billy MA [facility], [facility].; [facility] 08-17-2022 09:07-0400 Body weight 87.09 kg Roz Billy MA [facility], [facility].; [facility] 08-17-2022 09:07-0400 Diastolic blood pressure 93 mm[Hg] Roz Billy MA [facility], [facility].; [facility], [facility]. Comment on above: Patient Position: Sitting; Cuff Location : Left Arm; Cuff Size: Standard 08-17-2022 09:07-0400 Heart rate 64 /min Roz Billy MA [facility], [facility]; [facility]. Comment on above: Pattern: Regular 08-17-2022 09:07-0400 Systolic blood pressure 187 mm[Hg] Roz Billy MA [facility] Hospital[facility].; [place] [employer] [facility]. Comment on above: Patient Position: Sitting; Cuff Location : Left Arm; Cuff Size: Standard 02-19-2022 10:40-0500 Body height 179.07 cm Caroline Francois MA [facility] Hospital[facility].; [place] [employer] [facility]. 02-19-2022 10:40-0500 Body mass index (BMI) [Ratio] 27.58 kg/m2 Caroline Francois MA [facility] Hospital[facility].; [place] [employer] [facility]. 02-19-2022 10:40-0500 Body surface area Derived from formula 2.08 m2 Caroline Francois MA [facility] Hospital[facility].; [place] [facility] [employer] [facility]. 02-19-2022 10:40-0500 Body weight 88.45 kg Caroline Francois MA [facility] HospitalBrainStorm Cell [facility].; Chanel K[facility]. 02-19-2022 10:40-0500 Diastolic blood pressure 109 mm[Hg] Caroline Francois MA [facility] HospitalBrainStorm Cell [facility].; [employer]. Comment on above: Patient Position: Sitting; Cuff Location : Left Arm; Cuff Size: Standard 02-19-2022 10:40-0500 Heart rate 61 /min Caroline Francois MA [facility] HospitalBrainStorm Cell The[facility].; [employer]. Comment on above: Pattern: Regular 02-19-2022 10:40-0500 Systolic blood pressure 180 mm[Hg] Caroline Francois MA [facility] HospitalBrainStorm Cell The[facility].; [employer]. Comment on above: Patient Position: Sitting; Cuff Location : Left Arm; Cuff Size: Standard 12-29-2021 12:55-0400 Body height 176.53 cm Yusra Landaverde RN [facility] HospitalBrainStorm Cell [facility].; [facility]. 12-29-2021 12:55-0400 Body mass index (BMI) [Ratio] 28.24 kg/m2 Yusra Landaverde RN [facility].; [facility]. 12-29-2021 12:55-0400 Body surface area Derived from formula 2.05 m2 Yusra Landaverde RN [facility].; [facility]. 12-29-2021 12:55-0400 Body weight 88 kg Yusra Landaverde RN [facility].; [facility] 12-29-2021 12:55-0400 Diastolic blood pressure 100 mm[Hg] Yusra Landaverde RN [facility].; [facility]. Comment on above: Patient Position: Sitting; Cuff Location : Right Arm; Cuff Size: Large 12-29-2021 12:55-0400 Heart rate 65 /min Yusra Landaverde RN [facility].; [facility]. Comment on above: Pattern: Regular 12-29-2021 12:55-0400 Systolic blood pressure 175 mm[Hg] Yusra Landaverde RN [facility].; [facility]. Comment on above: Patient Position: Sitting; Cuff Location : Right Arm; Cuff Size: Large 11-09-2021 12:30-0400 Body height 175.[address] Trent Stevens Work Phone: [facility] Work Phone: 11-09-2021 12:30-0400 Body weight 86.[address] Trent Stevens Work Phone: [facility] Work Phone: 11-09-2021 12:30-0400 Heart rate 75 /min Dr. Trent Stevens Work Phone: [facility] Work Phone: 11-09-2021 12:30-0400 SaO2% (BldA) [Mass fraction] 96 % Dr. Trent Stevens Work Phone: [facility] Work Phone: 10-25-2021 09:12-0400 Diastolic blood pressure 92 mm[Hg] Maranda Dohertyr [facility] HospitalSmart Picture [facility] East[facility]ac[facility].; [employer]. Comment on above: Patient Position: Sitting; Cuff Location : Left Arm; Cuff Size: Large 10-25-2021 09:12-0400 Systolic blood pressure 178 mm[Hg] Maranda Dohertyr [facility] [employer] [facility] EastBrainStorm Cell Therapeutics Inc.; [employer]. Comment on above: Patient Position: Sitting; Cuff Location : Left Arm; Cuff Size: Large 10-25-2021 09:10-0400 Body height 179.07 cm Maranda Dohertyr [facility] [employer] [facility] EastE[facility].; [employer]. 10-25-2021 09:10-0400 Body mass index (BMI) [Ratio] 27.73 kg/m2 Maranda Dohertyr [facility] [employer] [facility] East[facility].; [employer]. 10-25-2021 09:10-0400 Body surface area Derived from formula 2.08 m2 Maranda Dohertyr [facility] [employer] [facility] EastE[facility]ac[facility].; [employer]. 10-25-2021 09:10-0400 Body weight 88.91 kg Maranda Ware [facility] [employer] [facility] EastE[facility]ac[facility].; [employer]. 10-25-2021 09:10-0400 Diastolic blood pressure 101 mm[Hg] Maranda Dohertyr [facility] [employer] [facility] EastE[facility].; [employer], [employer]. Comment on above: Patient Position: Sitting; Cuff Location : Right Arm; Cuff Size: Large 10-25-2021 09:10-0400 Heart rate 69 /min Maranda Dohertyr [facility] HospitalSmart [facility] EastE[facility]ac[facility].; [employer]. Comment on above: Pattern: Regular 10-25-2021 09:10-0400 Systolic blood pressure 180 mm[Hg] Maranda Dohertyr [facility] HospitalQuincy Bioscience.; [employer]. Comment on above: Patient Position: Sitting; Cuff Location : Right Arm; Cuff Size: Large 10-04-2021 10:47-0400 Body height 175.[address] Trent Stevens Work Phone: [facility] Work Phone: 10-04-2021 10:47-0400 Body mass index (BMI) [Ratio] 28.8 kg/m2 Dr. Trent Stevens Work Phone: [facility] Work Phone: 10-04-2021 10:47-0400 Body temperature 97.8 [degF] Dr. Trent Stevens Work Phone: [facility] Work Phone: 10-04-2021 10:47-0400 Body weight 88.[address] Trent Stevens Work Phone: [facility] Work Phone: 10-04-2021 10:47-0400 Diastolic blood pressure 90 mm[Hg] Dr. Trent Stevens Work Phone: [facility] Work Phone: 10-04-2021 10:47-0400 Heart rate 86 /min Dr. Trent Stevens Work Phone: [facility] Work Phone: 10-04-2021 10:47-0400 Respiratory rate 17 /min Dr. Trent Stevens Work Phone: [facility] Work Phone: 10-04-2021 10:47-0400 SaO2% (BldA) [Mass fraction] 98 % Dr. Trent tSevens Work Phone: [facility] Work Phone: 10-04-2021 10:47-0400 Systolic blood pressure 166 mm[Hg] Dr. Trent Stevens Work Phone: [facility] Work Phone: 09-27-2021 14:47-0400 Body height 179.07 cm Brenda Addison LPN [facility].; [facility]. 09-27-2021 14:47-0400 Body mass index (BMI) [Ratio] 27.73 kg/m2 Brenda Addison LPN [facility].; [facility]. 09-27-2021 14:47-0400 Body surface area Derived from formula 2.08 m2 Brenda Addison LPN [facility].; [facility]. 09-27-2021 14:47-0400 Body temperature 97.1 [degF] Brenda Addison LPN [facility].; [facility]. Comment on above: Method: Tympanic 09-27-2021 14:47-0400 Body weight 88.91 kg Brenda Addison LPN [facility].; [facility]. 09-27-2021 14:47-0400 Diastolic blood pressure 88 mm[Hg] Brenda Addison [facility].; [facility]. Comment on above: Patient Position: Sitting; Cuff Location : Left Arm; Cuff Size: Standard 09-27-2021 14:47-0400 Heart rate 68 /min Brenda Addison LPN [facility].; [facility]. Comment on above: Pattern: Regular 09-27-2021 14:47-0400 Inhaled oxygen concentration 20 % Brenda Addison LPH[facility].; [facility]. Comment on above: Room air 09-27-2021 14:47-0400 Inhaled oxygen concentration 21 % Brenda Addison LPN [facility].; [place] [facility], [employer]. Comment on above: Room air 09-27-2021 14:47-0400 SaO2% (BldA) [Mass fraction] 97 % Brenda Addison LPN [facility].; [place] [employer] [facility], [facility]. 09-27-2021 14:47-0400 Systolic blood pressure 139 mm[Hg] Brenda Addison LPH[facility].; [facility], [facility]. Comment on above: Patient Position: Sitting; Cuff Location : Left Arm; Cuff Size: Standard 07-13-2021 13:33-0400 Body height 176.53 cm Yusra Landaverde [facility]; [facility] 07-13-2021 13:33-0400 Body mass index (BMI) [Ratio] 29.4 kg/m2 Yusra Landaverde RN [facility], [facility].; [facility] 07-13-2021 13:33-0400 Body surface area Derived from formula 2.09 m2 Yusra Landaverde RN [facility], [facility].; [facility], [facility] 07-13-2021 13:33-0400 Body temperature 98.5 [degF] Yusra Landaverde RN [facility], [facility].; [facility], [facility] Comment on above: Method: Oral 07-13-2021 13:33-0400 Body weight 91.63 kg Yusra Landaverde RN [facility], [facility].; [facility], [facility] 07-13-2021 13:33-0400 Diastolic blood pressure 93 mm[Hg] Yusra Landaverde RN [facility], [facility].; [facility], [facility] Comment on above: Patient Position: Sitting; Cuff Location : Left Arm; Cuff Size: Large 07-13-2021 13:33-0400 Heart rate 73 /min Yusra Landaverde RN [facility], [facility].; [facility], [facility] Comment on above: Pattern: Regular 07-13-2021 13:33-0400 Systolic blood pressure 156 mm[Hg] Yusra Landaverde RN [facility], [facility].; [facility], [facility] Comment on above: Patient Position: Sitting; Cuff Location : Left Arm; Cuff Size: Large 02-21-2021 13:02-0500 Body height 176.53 cm Gaby Breen RN [facility], [facility].; [facility], [facility] 02-21-2021 13:02-0500 Body mass index (BMI) [Ratio] 28.97 kg/m2 Gaby Breen RN [facility], [facility].; [facility], [facility] 02-21-2021 13:02-0500 Body surface area Derived from formula 2.07 m2 Gaby Breen RN [facility], [facility].; [facility], [facility] 02-21-2021 13:02-0500 Body weight 90.27 kg Gaby Breen RN [facility] HospitalBrainStorm Cell Therapeutics [facility].; [facility], [facility]. 02-21-2021 13:02-0500 Diastolic blood pressure 90 mm[Hg] Gaby Breen RN [facility] HospitalBrainStorm Cell Therapeutics [facility].; [facility], [facility]. Comment on above: Patient Position: Sitting; Cuff Location : Left Arm; Cuff Size: Large 02-21-2021 13:02-0500 Heart rate 80 /min Gaby Breen RN [facility] HospitalBrainStorm Cell Therapeutics [facility].; [facility], [facility]. Comment on above: Pattern: Regular 02-21-2021 13:02-0500 Systolic blood pressure 153 mm[Hg] Gaby Breen RN [facility] HospitalBrainStorm Cell Therapeutics [facility].; [facility], [facility]. Comment on above: Patient Position: Sitting; Cuff Location : Left Arm; Cuff Size: Large 11-29-2020 11:46-0400 Body height 179.07 cm Jameson Espinosa MD Work Phone: [place] [employer] [facility] East[facility].; [employer]. 11-29-2020 11:46-0400 Body mass index (BMI) [Ratio] 28.01 kg/m2 Jameson Espinosa MD Work Phone: [place] [employer].; Chanelmig[employer] [facility]. 11-29-2020 11:46-0400 Body surface area Derived from formula 2.09 m2 Jameson Espinosa MD Work Phone: [employer].; Chnaelmig[employer] [facility]. 11-29-2020 11:46-0400 Body weight 89.81 kg Jameson Espinosa MD Work Phone: [employer].; [employer]. 11-29-2020 11:46-0400 Diastolic blood pressure 81 mm[Hg] Jameson Espinosa MD Work Phone: [employer].; [employer]. Comment on above: Patient Position: Sitting; Cuff Location : Right Arm; Cuff Size: Standard 11-29-2020 11:46-0400 Heart rate 81 /min Jameson Espinosa MD Work Phone: [place] [employer].; [employer]. Comment on above: Pattern: Regular 11-29-2020 11:46-0400 Systolic blood pressure 133 mm[Hg] Jameson Espinosa MD Work Phone: [place] [employer].; [employer]. Comment on above: Patient Position: Sitting; Cuff Location : Right Arm; Cuff Size: Standard 10-31-2020 13:52-0400 Body height 179.07 cm Elaine Simon [facility] [employer].; [employer]. 10-31-2020 13:52-0400 Diastolic blood pressure 83 mm[Hg] Elaine Simon [facility] [employer] EastEco-Vacay.; [employer]. Comment on above: Patient Position: Sitting; Cuff Location : Left Arm; Cuff Size: Large 10-31-2020 13:52-0400 Heart rate 68 /min Elaine Simon [facility] CountyMyStargo Enterprises.; [employer]. Comment on above: Pattern: Regular 10-31-2020 13:52-0400 Systolic blood pressure 168 mm[Hg] Elaine Simon [facility] HealthcareQuin[facility].; [employer]. Comment on above: Patient Position: Sitting; Cuff Location : Left Arm; Cuff Size: Large 08-03-2020 09:29-0400 Body height 179.07 cm Jameson Espinosa MD Work Phone: [place] [employer]. 08-03-2020 09:29-0400 Body mass index (BMI) [Ratio] 28.72 kg/m2 Jameson Espinosa MD Work Phone: [employer].; [employer]. 08-03-2020 09:29-0400 Body surface area Derived from formula 2.11 m2 Jameson Espinosa MD Work Phone: [employer].; [employer]. 08-03-2020 09:29-0400 Body weight 92.08 kg Jameson Espinosa MD Work Phone: [facility] HospitalBrainStorm Cell The[facility].; [place] [facility] EastEco-Vac[facility]. 08-03-2020 09:29-0400 Diastolic blood pressure 90 mm[Hg] Jameson Espinosa MD Work Phone: [facility] HospitalBrainStorm Cell Therapeutics [facility].; [place] [employer]. Comment on above: Patient Position: Sitting; Cuff Location : Left Arm; Cuff Size: Large 08-03-2020 09:29-0400 Heart rate 69 /min Jameson Espinosa MD Work Phone: [facility] HospitalEco[facility]ac[facility].; [place] [employer]. Comment on above: Pattern: Regular 08-03-2020 09:29-0400 Systolic blood pressure 154 mm[Hg] Jameson Espinosa MD Work Phone: [facility].; [employer]Qu[employer]. Comment on above: Patient Position: Sitting; Cuff Location : Left Arm; Cuff Size: Large 06-27-2020 10:16-0400 Body height 179.07 cm Elaine Simon [facility], [facility].; [place] [employer] [facility] EastE[facility]ac[facility]. 06-27-2020 10:16-0400 Body mass index (BMI) [Ratio] 28.72 kg/m2 [facility] HospitalBrainStorm Cell Therapeutics [facility].; [place] [employer] [facility] EastE[facility]ac[facility]. 06-27-2020 10:16-0400 Body surface area Derived from formula 2.11 m2 [facility] CenterBrainStorm Cell Therapeutics [facility].; [place] [employer] [facility] EastE[facility]ac[facility]. 06-27-2020 10:16-0400 Body weight 92.08 kg Ktaelyn Enterprise [facility] HospitalBrainStorm Cell Therapeutics [facility].; [employer]Qu[employer]. 06-27-2020 10:16-0400 Diastolic blood pressure 88 mm[Hg] Katelyn Alfred [facility] HospitalBrainStorm Cell Therapeutics [facility].; [employer]Qu[employer]. Comment on above: Patient Position: Sitting; Cuff Location : Left Arm; Cuff Size: Large 06-27-2020 10:16-0400 Heart rate 69 /min Katelyn Alfred SUPERINTENDENT METER TESTS [facility] HospitalEco-Vacay.; [facility]. Comment on above: Pattern: Regular 06-27-2020 10:16-0400 Systolic blood pressure 154 mm[Hg] Elaine Simon SUPERINTENDENT METER TESTSHca [facility].; [facility]. Comment on above: Patient Position: Sitting; Cuff Location : Left Arm; Cuff Size: Large 04-07-2020 13:22-0500 Body height 176.53 cm Yusra Landaverde RN [facility].; [facility]. 04-07-2020 13:22-0500 Body mass index (BMI) [Ratio] 29.69 kg/m2 Yusra Landaverde RN [facility].; [facility]. 04-07-2020 13:22-0500 Body surface area Derived from formula 2.09 m2 Yusra Landaverde RN [facility].; [facility], [facility]. 04-07-2020 13:22-0500 Body weight 92.53 kg Yusra Landaverde RN [facility].; [facility], [facility]. 04-07-2020 13:22-0500 Diastolic blood pressure 96 mm[Hg] Yusra Landaverde RN [facility].; [facility]. Comment on above: Patient Position: Sitting; Cuff Location : Left Arm; Cuff Size: Large 04-07-2020 13:22-0500 Heart rate 79 /min Yusra Landaverde RN [facility].; [facility], Inc[facility] Comment on above: Pattern: Regular 04-07-2020 13:22-0500 Systolic blood pressure 172 mm[Hg] Yusra Landaverde RN [facility].; [facility], [facility]. Comment on above: Patient Position: Sitting; Cuff Location : Left Arm; Cuff Size: Large 01-12-2020 14:58-0400 Body height 176.53 cm [facility], [facility].; [facility], [facility]. 01-12-2020 14:58-0400 Body mass index (BMI) [Ratio] 29.13 kg/m2 [facility].; [facility], [facility]. 01-12-2020 14:58-0400 Body surface area Derived from formula 2.08 m2 [facility] HospitalBrainStorm Cell Therapeutics [facility].; [facility], [facility]. 01-12-2020 14:58-0400 Body weight 90.78 kg [facility], [facility].; [facility], [facility]. 01-12-2020 14:58-0400 Diastolic blood pressure 87 mm[Hg] [facility].; [facility], [facility]. Comment on above: Patient Position: Sitting; Cuff Location : Left Arm; Cuff Size: Standard 01-12-2020 14:58-0400 Heart rate 70 /min [facility] HospitalBrainStorm Cell Therapeutics [facility].; [facility] CenterBrainStorm Cell Therapeutics [facility]. Comment on above: Pattern: Regular 01-12-2020 14:58-0400 Systolic blood pressure 158 mm[Hg] [facility].; [facility] CenterBrainStorm Cell Therapeutics [facility]. Comment on above: Patient Position: Sitting; Cuff Location : Left Arm; Cuff Size: Standard 01-06-2020 09:27-0400 Body height 176.53 cm PAUL FLORES [employer] Work Phone: [facility] HospitalBrainStorm Cell Therapeutics [facility].; [facility], [facility]. 01-06-2020 09:27-0400 Body mass index (BMI) [Ratio] 29.58 kg/m2 PAUL GIANGAirpoweredP-C Work Phone: [facility] HospitalBrainStorm Cell Therapeutics [facility].; [facility], [facility]. 01-06-2020 09:27-0400 Body surface area Derived from formula 2.09 m2 PAUL GIANGTerritorial Prescience-C Work Phone: [facility] HospitalBrainStorm Cell Therapeutics [facility].; [facility], [facility]. 01-06-2020 09:27-0400 Body temperature 97.4 [degF] PAUL NAVARROTETTAirpoweredP-C Work Phone: [facility] HospitalXCOR Aerospace; [employer] [facility] HospitalEco-Vacay. Comment on above: Method: Oral 01-06-2020 09:27-0400 Body weight 92.19 kg PAUL GIANGER DIRECTOR FUNDS DEVELOPMENT-C Work Phone: [facility] HospitalEco-Vacay.; [employer] [facility] HospitalEco-Vacay. 01-06-2020 09:27-0400 Diastolic blood pressure 90 mm[Hg] PAUL BOURGEOISTTER DIRECTOR FUNDS DEVELOPMENT-C Work Phone: [facility] HospitalEco-Vacay.; [employer] [facility]idal[facility] NanticokeEco-Vacay. Comment on above: Patient Position: Sitting; Cuff Location : Left Arm; Cuff Size: Standard 01-06-2020 09:27-0400 Heart rate 63 /min PAUL GIANGER DIRECTOR FUNDS DEVELOPMENT-C Work Phone: [facility]idal[facility] NanticokeEco-Vacay.; [employer] [facility] NanticokeEco-Vacay. Comment on above: Pattern: Regular 01-06-2020 09:27-0400 Inhaled oxygen concentration 21 % PAUL GIANGER DIRECTOR FUNDS DEVELOPMENT-C Work Phone: [facility]idalhealth NanticokeXCOR [employer]; [employer] [facility] K[facility] NanticokeEco-Vacay. Comment on above: Room air 01-06-2020 09:27-0400 SaO2% (BldA) [Mass fraction] 98 % PAUL FLORES DIRECTOR FUNDS DEVELOPMENT-C Work Phone: [facility] [employer] NanticokeEco-[employer]ac[employer].; [employer] [facility] HospitalEco-Vacay. 01-06-2020 09:27-0400 Systolic blood pressure 160 mm[Hg] PAUL GIANGER DIRECTOR FUNDS DEVELOPMENT-C Work Phone: [facility] [employer] NanticokeEco-[employer]ac[employer].; [employer] [facility] NanticokeEco-Vacay. Comment on above: Patient Position: Sitting; Cuff Location : Left Arm; Cuff Size: Standard 03-26-2019 14:29-0500 Body height 176.53 cm Yusra Landaverde RN [facility] HospitalEco-Vacay.; [facility], [employer]. 03-26-2019 14:29-0500 Body mass index (BMI) [Ratio] 29.4 kg/m2 Yusra Landaverde RN [facility], Inc.; [facility], Inc. 03-26-2019 14:29-0500 Body surface area Derived from formula 2.09 m2 Yusra Landaverde RN [facility], Inc.; [facility], Inc. 03-26-2019 14:29-0500 Body weight 91.63 kg Yusra Landaverde RN [facility], Inc.; [facility], Inc. 03-26-2019 14:29-0500 Diastolic blood pressure 90 mm[Hg] Yusra Landaverde RN [facility], [facility].; [facility], Inc. Comment on above: Patient Position: Sitting; Cuff Location : Left Arm; Cuff Size: Large 03-26-2019 14:29-0500 Heart rate 79 /min Yusra Landaverde RN [facility], [employer].; [facility], [employer]. Comment on above: Pattern: Regular 03-26-2019 14:29-0500 Systolic blood pressure 143 mm[Hg] Yusra Landaverde RN [facility] HospitalEco-Vacay.; [facility], [employer]. Comment on above: Patient Position: Sitting; Cuff Location : Left Arm; Cuff Size: Large 10-27-2018 [id number] Body height 176.53 cm TRENT STEVENS MD Work Phone: [facility] [employer] NanticokeEco-[employer]ac[employer].; [facility] K[employer]health NanticokeEco-Vacay. 10-27-2018 15:10-0400 Body mass index (BMI) [Ratio] 28.24 kg/m2 TRENT STEVENS MD Work Phone: [facility] Chanel [employer] [facility] NanticokeEco-Vacay.; [facility] DCOchs[facility] K[employer] [facility]idalhealth NanticokeEco-Vacay. 10-27-2018 [id number] Body surface area Derived from formula 2.05 m2 TRENT STEVENS MD Work Phone: [facility] NanticokeEco-Vacay.; [facility] DCOchs[facility] K[employer] [facility]idalhealth NanticokeEco-Vacay. 10-27-2018 [id number] Body weight 88 kg TRENT STEVENS MD Work Phone: [employer]. 10-27-2018 15:10-0400 Diastolic blood pressure 99 mm[Hg] TRENT STEVENS MD Work Phone: [employer].; [facility] [employer]. Comment on above: Patient Position: Sitting; Cuff Location : Right Arm; Cuff Size: Standard 10-27-2018 15:10-0400 Heart rate 73 /min TRENT STEVENS MD Work Phone: [employer].; [facility] [employer]. Comment on above: Pattern: Regular 10-27-2018 15:10-0400 Systolic blood pressure 159 mm[Hg] TRENT STEVENS MD Work Phone: [employer].; [facility] [employer] [facility] [email or web address]. Comment on above: Patient Position: Sitting; Cuff Location : Right Arm; Cuff Size: Standard 10-02-2018 14:0400 Body height 176.53 cm Gaby Breen RN [facility] [employer] [facility], [employer].; [employer] [facility] [employer] [facility], [employer] 10-02-2018 14:09-0400 Body mass index (BMI) [Ratio] 27.95 kg/m2 Gaby Breen RN [facility] [employer] [facility], [facility].; Kashmi [facility] K[employer]ium [facility] 10-02-2018 14:090400 Body surface area Derived from formula 2.04 m2 Gaby Breen RN [facility] [employer] [facility], Inc.; BTR, Inc. 10-02-2018 14:090400 Body weight 87.09 kg Gaby Breen RN [facility] [employer], Enplug.; [employer] [facility] Pressly, Inc. 10-02-2018 14:09-0400 Diastolic blood pressure 95 mm[Hg] Gaby Breen RN [facility] [employer] [facility], Inc.; [employer] [facility] Pressly, Inc. Comment on above: Patient Position: Sitting; Cuff Location : Left Arm; Cuff Size: Large 10-02-2018 14:09-0400 Heart rate 73 /min Gaby Breen RN [employer], Inc.; BTR, Inc. Comment on above: Pattern: Regular 10-02-2018 14:09-0400 Systolic blood pressure 158 mm[Hg] Gaby Breen RN [employer], Inc.; B[employer], Inc. Comment on above: Patient Position: Sitting; Cuff Location : Left Arm; Cuff Size: Large 09-02-2018 10:08-0400 Body height 176.53 cm Liss Ngo Pantheon, Inc.; [employer], Inc.[facility] SchemaLogic, Inc. 09-02-2018 10:08-0400 Body mass index (BMI) [Ratio] 28.24 kg/m2 Liss Ngo [employer]he[employer], Inc.; Truminim, Inc. 09-02-2018 10:08-0400 Body surface area Derived from formula 2.05 m2 Liss Ngo Pantheon, Inc.; Truminim, Inc. 09-02-2018 10:08-0400 Body temperature 98.2 [degF] Liss Ngo [employer]he[employer], Inc.; [employer], Inc.[facility] [employer]Logic, Inc. Comment on above: Method: Oral 09-02-2018 10:08-0400 Body weight 88 kg Liss Ngo [employer]heon, Inc.; Truminim, Inc. 09-02-2018 10:08-0400 Diastolic blood pressure 81 mm[Hg] Liss Ngo [employer], Inc.; [employer], Inc.[facility] [employer]Logic, Inc. Comment on above: Patient Position: Sitting; Cuff Location : Left Arm; Cuff Size: Large 09-02-2018 10:08-0400 Heart rate 68 /min Liss Ngo [employer]he[employer], Inc.; Truminim, Inc. Comment on above: Pattern: Regular 09-02-2018 10:08-0400 Systolic blood pressure 154 mm[Hg] Liss Ngo [employer]he[employer], Inc.; Truminim, Inc. Comment on above: Patient Position: Sitting; Cuff Location : Left Arm; Cuff Size: Large 07-07-2018 13:120400 Body height 176.53 cm Gaby Breen RN [facility].; [facility] [employer] [facility] Inc. 07-07-2018 13:12-0400 Body mass index (BMI) [Ratio] 28.98 kg/m2 Gaby Breen RN [facility] [employer] [facility], Inc.; [facility] [employer] [facility], Inc. 07-07-2018 13:12-0400 Body surface area Derived from formula 2.07 m2 Gaby Breen RN [facility] [employer] [facility], Inc.; [facility] Pressly, Inc. 07-07-2018 13:12-0400 Body temperature 97.9 [degF] Gaby Breen RN [facility] [employer] [facility], Inc.; [employer] [facility] Pressly, Inc. Comment on above: Method: Oral 07-07-2018 13:12-0400 Body weight 90.32 kg Gaby Breen RN [facility] [facility], Inc.; Kashmi [employer], Inc. 07-07-2018 13:12-0400 Diastolic blood pressure 84 mm[Hg] Gaby Breen RN [facility] [facility], Inc.; [employer] [facility] Pressly, Inc. Comment on above: Patient Position: Sitting; Cuff Location : Left Arm; Cuff Size: Large 07-07-2018 13:12-0400 Heart rate 68 /min Gaby Breen RN [facility] [facility], Inc.; [employer] [facility] Pressly, Inc. Comment on above: Pattern: Regular 07-07-2018 13:12-0400 Systolic blood pressure 146 mm[Hg] Gaby Breen RN [facility] [facility], Inc.; [employer] [facility] Pressly, Inc. Comment on above: Patient Position: Sitting; Cuff Location : Left Arm; Cuff Size: Large 07-03-2018 09:05-0400 Body height 176.53 cm Liss Huber [facility] [employer] [facility], [facility].; [employer] [facility] Pressly, Inc. 07-03-2018 09:05-0400 Body mass index (BMI) [Ratio] 29.18 kg/m2 Liss Huber [facility] [employer] [facility], [facility].; [employer] [facility] Inc. 07-03-2018 09:05-0400 Body surface area Derived from formula 2.08 m2 Liss Cherry [facility], [facility].; [employer] [facility], Inc. 07-03-2018 09:05-0400 Body weight 90.95 kg Liss Ngo Vázquez Dilip [facility], Inc.; Shoptimise [facility], Inc. 07-03-2018 09:05-0400 Diastolic blood pressure 87 mm[Hg] Liss Ngo Vázquez [facility] [employer] [facility], Inc.; BTR, Inc. Comment on above: Patient Position: Sitting; Cuff Location : Left Arm; Cuff Size: Standard 07-03-2018 09:05-0400 Heart rate 74 /min Liss Ngo Vázquez Dilip [facility], Inc.; BTR, Inc. Comment on above: Pattern: Regular 07-03-2018 09:05-0400 Systolic blood pressure 138 mm[Hg] Liss Ngo Vázquez Dilip [facility], Inc.; BTR, Inc. Comment on above: Patient Position: Sitting; Cuff Location : Left Arm; Cuff Size: Standard 01-09-2018 14:34-0400 Body height 175.9 cm Gaby Breen RN [facility] [employer] [facility], [facility].; BTR, Inc. 01-09-2018 14:34-0400 Body mass index (BMI) [Ratio] 28.88 kg/m2 Gaby Breen RN [facility] [facility].; [employer] [facility] [employer] [facility], Inc. 01-09-2018 14:34-0400 Body surface area Derived from formula 2.06 m2 Gaby Breen RN [facility] [employer] [facility], Inc.; [facility] Pressly, Inc. 01-09-2018 14:34-0400 Body weight 89.36 kg Gaby Breen RN [facility] [employer] [facility], [facility].; BTR, Inc. 01-09-2018 14:34-0400 Diastolic blood pressure 94 mm[Hg] Gaby Breen RN [facility] [employer] [facility], Inc.; [employer] [facility] Pressly, Inc. Comment on above: Patient Position: Sitting; Cuff Location : Left Arm; Cuff Size: Large 01-09-2018 14:34-0400 Heart rate 80 /min Gaby Breen RN [facility] [employer] [facility], Enplug.; Shoptimise [facility], Inc. Comment on above: Pattern: Regular 01-09-2018 14:34-0400 Systolic blood pressure 164 mm[Hg] Gaby Breen RN [facility] [employer] [facility], Inc.; BTR, Inc. Comment on above: Patient Position: Sitting; Cuff Location : Left Arm; Cuff Size: Large 09-10-2017 10:45-0400 Body height 175.9 cm Yusra Landaverde RN [facility] [employer] [facility], Enplug.; [facility] Chanel [employer], Inc. 09-10-2017 10:45-0400 Body mass index (BMI) [Ratio] 28.59 kg/m2 Yusra Landaverde RN [facility] [employer] [facility], Inc.; Kashmi [facility] [employer]ia [facility], Inc. 09-10-2017 10:45-0400 Body surface area Derived from formula 2.05 m2 Yusra Landaverde RN [facility] [employer] [facility], Inc.; [facility] Chanel [employer], Inc. 09-10-2017 10:45-0400 Body weight 88.45 kg Yusra Landaverde RN [facility] [employer] [facility], Inc.; [facility] Chanel [employer], Inc. 09-10-2017 10:45-0400 Diastolic blood pressure 89 mm[Hg] Yusra Landaverde RN [facility] [employer] [facility], Inc.; [facility] Pressly, Inc. Comment on above: Patient Position: Sitting; Cuff Location : Left Arm; Cuff Size: Large 09-10-2017 10:45-0400 Heart rate 71 /min Yusra Landaverde RN [facility] [employer] [facility], Inc.; BTR, Inc. Comment on above: Pattern: Regular 09-10-2017 10:45-0400 Systolic blood pressure 159 mm[Hg] Yusra Landaverde RN [facility] [employer] [facility], Inc.; [employer] [facility] Pressly, Inc. Comment on above: Patient Position: Sitting; Cuff Location : Left Arm; Cuff Size: Large 03-21-2017 13:24-0500 Body height 176.53 cm TRENT STEVENS MD Work Phone: [facility] [email or web address] DBA eGifter.; [employer] [facility] [email or web address] D[employer]. 03-21-2017 13:24-0500 Body mass index (BMI) [Ratio] 28.91 kg/m2 TRENT STEVENS MD Work Phone: [facility] Kardium [facility]-Vacay.; [facility] DCEK Finario [facility] [email or web address] DBA eGifter. 03-21-2017 13:24-0500 Body surface area Derived from formula 2.07 m2 TRENT STEVENS MD Work Phone: [facility] [email or web address] DBA eGifter.; [facility] DCEK [employer] [facility] [employer] DBA [employer]Gifter. 03-21-2017 13:24-0500 Body weight 90.08 kg TRENT STEVENS MD Work Phone: [facility] [email or web address] DBA [employer]Gifter.; [employer] [facility] [employer] DBA [employer]. 03-21-2017 13:24-0500 Diastolic blood pressure 84 mm[Hg] TRENT STEVENS MD Work Phone: [facility] [email or web address] DBA [employer]Gifter.; [facility] [employer]CEK [employer] [facility] [email or web address] DBA eGifter. Comment on above: Patient Position: Sitting; Cuff Location : Left Arm; Cuff Size: Standard 03-21-2017 13:24-0500 Heart rate 80 /min TRENT STEVENS MD Work Phone: [facility] [employer]; [employer] [facility] [employer] Comment on above: Pattern: Regular 03-21-2017 13:24-0500 Systolic blood pressure 146 mm[Hg] TRENT STEVENS MD Work Phone: [facility] [email or web address] DBA eGifter.; [facility] [employer]CEK [employer] [facility] [email or web address] DBA [employer]Gifter. Comment on above: Patient Position: Sitting; Cuff Location : Left Arm; Cuff Size: Standard 11-19-2016 15:39-0400 Body height 176.53 cm Kimberley Navarro RN [facility] [email or web address] DBA eGifter.; [facility] Chanel [facility], Inc[facility] 11-19-2016 15:39-0400 Body mass index (BMI) [Ratio] 28.38 kg/m2 Kimberley Navarro RN [facility], Inc.; [facility] [employer]ia [facility], Inc. 11-19-2016 15:39-0400 Body surface area Derived from formula 2.05 m2 Kimberley Navarro RN [facility], Inc.; [facility] [employer] [facility], Inc. 11-19-2016 15:39-0400 Body temperature 98.6 [degF] Kimberley Navarro RN [facility], Inc.; [facility] [employer] [facility], Inc. Comment on above: Method: Oral 11-19-2016 15:39-0400 Body weight 88.45 kg Kimberley Navarro RN [facility], Inc.; Kashmi [facility] [employer] [facility], Inc. 11-19-2016 15:39-0400 Diastolic blood pressure 91 mm[Hg] Kimberley Navarro RN [facility], Inc.; [facility] Chanel [employer], Inc. Comment on above: Patient Position: Sitting; Cuff Location : Left Arm; Cuff Size: Standard 11-19-2016 15:39-0400 Heart rate 67 /min Kimberley Navarro RN [facility], Inc.; [facility] [employer] [facility], Inc. Comment on above: Pattern: Regular 11-19-2016 15:39-0400 Systolic blood pressure 165 mm[Hg] Kimberley Navarro RN [facility], Inc.; [facility] [employer] [facility], Inc. Comment on above: Patient Position: Sitting; Cuff Location : Left Arm; Cuff Size: Standard 09-27-2016 13:51-0400 Body height 175.26 cm ASH MARIN RN [facility] [employer] [facility], Inc.; [facility] Chanel [facility], Enplug. 09-27-2016 13:51-0400 Body mass index (BMI) [Ratio] 28.06 kg/m2 ASH GRATE KERRY [facility] [employer] [facility], Inc.; [facility] K[facility]ia [facility], Inc. 09-27-2016 13:51-0400 Body surface area Derived from formula 2.02 m2 ASH MARIN RN [facility] [employer] [facility], Inc.; [facility] Kimbia [facility]anticokeEco-Vacay. 09-27-2016 13:51-0400 Body weight 86.18 kg ASH MARIN RN [facility].; [facility] Hospital[facility]ac[facility]. 09-27-2016 13:51-0400 Diastolic blood pressure 88 mm[Hg] ASH MARIN RN [facility] Enplug.; [facility] [place] [facility] HospitalEco-Vacay. Comment on above: Patient Position: Sitting; Cuff Location : Right Arm; Cuff Size: Standard 09-27-2016 13:51-0400 Heart rate 64 /min ASH MARIN RN [facility] Enplug.; [facility] [place] [facility] HospitalEco-Vacay. Comment on above: Pattern: Regular 09-27-2016 13:51-0400 Systolic blood pressure 162 mm[Hg] ASH MARIN RN [facility] Enplug.; [place] [facility] HospitalEco-Vacay. Comment on above: Patient Position: Sitting; Cuff Location : Right Arm; Cuff Size: Standard 05-07-2016 14:44-0500 Body temperature 97.8 [degF] Jeni [facility]ung [facility]ac[facility].; ChanelQuincy Bioscience. 05-07-2016 14:44-0500 Body weight 92.99 kg Jeni [facility]ung [facility]co-Vacay.; [employer]elQuincy [employer]. 05-07-2016 14:44-0500 Diastolic blood pressure 94 mm[Hg] Jeni [facility]ung [facility] Hospital[facility]co-Vacay.; [employer]. Comment on above: Patient Position: Sitting; Cuff Location : Left Arm; Cuff Size: Standard 05-07-2016 14:44-0500 Heart rate 76 /min Jeni [facility]ung [facility] Hospital[facility]co-Vacay.; [employer]. Comment on above: Pattern: Regular 05-07-2016 14:44-0500 Systolic blood pressure 176 mm[Hg] Jeni Cheung [facility] Kimbia [facility] EastEco-Vacay.; [employer]. Comment on above: Patient Position: Sitting; Cuff Location : Left Arm; Cuff Size: Standard 06-02-2015 14:26-0500 Body height 179.07 cm Gaby Breen RN [facility] HospitalEco-Vacay.; [facility] HospitalBrainStorm Cell Therapeutics Inc. 06-02-2015 14:26-0500 Body mass index (BMI) [Ratio] 28.86 kg/m2 Gaby Breen RN [facility], Inc.; [facility], Inc. 06-02-2015 14:26-0500 Body surface area Derived from formula 2.12 m2 Gaby Breen RN [facility], Inc.; [facility], Inc. 06-02-2015 14:26-0500 Body weight 92.53 kg Gaby Breen RN [facility], Inc.; [facility], Inc. 06-02-2015 14:26-0500 Diastolic blood pressure 85 mm[Hg] Gaby Breen RN [facility], Inc.; [facility] [employer] [facility], Inc. Comment on above: Patient Position: Sitting; Cuff Location : Left Arm; Cuff Size: Large 06-02-2015 14:26-0500 Heart rate 84 /min Gaby Breen RN [facility], Inc.; [facility] [employer] [facility], Inc. Comment on above: Pattern: Regular 06-02-2015 14:26-0500 Systolic blood pressure 143 mm[Hg] Gaby Breen RN [facility] [employer] [facility], Inc.; [facility] [employer] [facility], Inc. Comment on above: Patient Position: Sitting; Cuff Location : Left Arm; Cuff Size: Large 04-28-2015 14:23-0500 Body height 177.8 cm Gaby Breen RN [facility] [employer] [facility], Inc.; [facility], Inc. 04-28-2015 14:23-0500 Body mass index (BMI) [Ratio] 29.56 kg/m2 Gaby Breen RN [facility], Inc.; [facility], Inc. 04-28-2015 14:23-0500 Body surface area Derived from formula 2.11 m2 Gaby Breen RN [facility], Inc.; [facility] [employer] [facility], Inc. 04-28-2015 14:23-0500 Body weight 93.44 kg Gaby Breen RN [facility] [employer] [facility], Inc.; [facility] [employer] [facility], Inc. 04-28-2015 14:23-0500 Diastolic blood pressure 105 mm[Hg] Gaby Breen RN [facility] [employer] [facility], Inc.; [facility] [employer] [facility], Inc. Comment on above: Patient Position: Sitting; Cuff Location : Left Arm; Cuff Size: Large 04-28-2015 14:23-0500 Heart rate 77 /min Gaby Breen RN [facility] [employer] [facility], Inc.; [facility] Chanel [employer], Inc. Comment on above: Pattern: Regular 04-28-2015 14:23-0500 Systolic blood pressure 165 mm[Hg] Gaby Breen RN [facility] [employer] [facility], Inc.; [facility] Chanel [employer], Inc. Comment on above: Patient Position: Sitting; Cuff Location : Left Arm; Cuff Size: Large 08-23-2014 10:58-0400 Body height 179.71 cm Gaby Breen RN [facility] [employer] [facility], Inc.; [facility] [employer] [facility], Inc. 08-23-2014 10:58-0400 Body mass index (BMI) [Ratio] 28.09 kg/m2 Gaby Breen RN [facility] [employer] [facility], Inc.; [facility] [employer] [facility], Inc. 08-23-2014 10:58-0400 Body surface area Derived from formula 2.1 m2 Gaby Breen RN [facility] [employer] [facility], Inc.; [facility] K[employer] [facility], Inc. 08-23-2014 10:58-0400 Body temperature 97.9 [degF] Gaby Breen RN [facility] [employer] [facility], Inc.; [facility] Chanel [employer] [facility], Inc. Comment on above: Method: Oral 08-23-2014 10:58-0400 Body weight 90.72 kg Gaby Breen RN [facility] [employer] [facility], Inc.; [facility] Chanel [employer], Inc. 08-23-2014 10:58-0400 Diastolic blood pressure 81 mm[Hg] Gaby Breen RN [facility] [employer] [facility], Enplug.; [facility] Pressly, Inc. Comment on above: Patient Position: Sitting; Cuff Location : Left Arm; Cuff Size: Large 08-23-2014 10:58-0400 Heart rate 68 /min Gaby Breen RN [facility] [employer] [facility], Inc.; [place] [facility] [place] [email or web address] DBA eGifter. Comment on above: Pattern: Regular 08-23-2014 10:58-0400 Systolic blood pressure 154 mm[Hg] Gaby Breen RN [facility] UpmcHouseboat Resort Club.; [employer] [facility] [employer] DBA eGifter. Comment on above: Patient Position: Sitting; Cuff Location : Left Arm; Cuff Size: Large 05-04-2014 14:41-0500 Body height 175.26 cm MALKA Pastor [facility] Kardium [facility]Eco-Vacay.; [facility] [employer]Gifting.[email or web address] DBA eGifter. 05-04-2014 14:41-0500 Body mass index (BMI) [Ratio] 30.86 kg/m2 [facility] ENIDRupal Pastor [facility] Kardium [facility]Eco-Vacay.; [facility] Kardium [facility]anticokeBrainStorm Cell Therapeutics [facility]. 05-04-2014 14:41-0500 Body surface area Derived from formula 2.1 m2 MALKA Pastor [facility] Kardium [facility]okeEco-Vacay.; [facility] [email or web address] DBA eGifter. 05-04-2014 14:41-0500 Body weight 94.8 kg MALKA VÁZQUEZ [facility] Kardium [facility]okeEco-Vacay.; [facility] [email or web address] DBA eGifter. 05-04-2014 14:41-0500 Diastolic blood pressure 91 mm[Hg] MALKA Pastor [facility] [email or web address] DBA eGifter.; [employer] [facility] [employer] DBA eGifter. Comment on above: Patient Position: Sitting; Cuff Location : Left Arm; Cuff Size: Standard 05-04-2014 14:41-0500 Heart rate 66 /min MALKA VÁZQUEZ [facility] [email or web address] DBA eGifter.; [employer] [place]. Comment on above: Pattern: Regular 05-04-2014 14:41-0500 Systolic blood pressure 147 mm[Hg] MALKA VÁZQUEZ [facility] [email or web address] DBA eGifter.; [employer] [facility] [employer]Gifting[employer] DBA eGifter. Comment on above: Patient Position: Sitting; Cuff Location : Left Arm; Cuff Size: Standard 04-27-2014 14:43-0500 Body height 175.26 cm MALKA Pastor [facility] [email or web address] DBA eGifter.; [employer] [facility] Pressly, Inc. 04-27-2014 14:43-0500 Body mass index (BMI) [Ratio] 30.72 kg/m2 [facility] ENIDRupal Pastor [facility] [email or web address] DBA eGifter.; [facility] PresslyBrainStorm Cell Therapeutics [facility]. 04-27-2014 14:43-0500 Body surface area Derived from formula 2.1 m2 MALKA Pastor [facility] Kimbia [facility] NanticokeBrainStorm Cell Therapeutics [facility].; [facility] Kimbia [facility] NanticokeBrainStorm Cell Therapeutics [facility]. 04-27-2014 14:43-0500 Body weight 94.35 kg MALKA VÁZQUEZ [facility] [employer] [facility], Inc.; [facility] Kimbia [facility] NanticokeBrainStorm Cell Therapeutics Inc. 04-27-2014 14:43-0500 Diastolic blood pressure 106 mm[Hg] MALKA Pastor [facility] Kimbia [facility] NanticokeBrainStorm Cell Therapeutics Inc.; [facility] Kimbia [facility] NanticokeBrainStorm Cell Therapeutics [facility]. Comment on above: Patient Position: Sitting; Cuff Location : Left Arm; Cuff Size: Standard 04-27-2014 14:43-0500 Heart rate 60 /min LISRupal Pastor [facility] Kimbia [facility] NanticokeEco-Vacay.; [employer] [facility] Kardium [facility]okeEco-Vacay. Comment on above: Pattern: Regular 04-27-2014 14:43-0500 Systolic blood pressure 160 mm[Hg] MALKA Pastor [facility] HospitalSmart Picture Tech [facility]Eco-Vacay.; [facility] Kimbia [facility]okeEco-Vacay. Comment on above: Patient Position: Sitting; Cuff Location : Left Arm; Cuff Size: Standard 03-15-2014 10:36-0500 Body height 175.26 cm Gaby Breen RN [facility] Kardium [facility]okeEco-Vacay.; [facility] [employer] [facility], Inc. 03-15-2014 10:36-0500 Body mass index (BMI) [Ratio] 29.98 kg/m2 Gaby Breen RN [facility] UpmcSmart Picture Tech [facility]okeEco-Vacay.; [facility] Kimbia [facility] NanticokeBrainStorm Cell Therapeutics [facility]. 03-15-2014 10:36-0500 Body surface area Derived from formula 2.08 m2 Gaby Breen RN [facility] UpmcSmart Picture Tech [facility]anticokeBrainStorm Cell Therapeutics [facility].; [facility] Kardium [facility] NanticokeEco-Vacay. 03-15-2014 10:36-0500 Body weight 92.08 kg Gaby Breen RN [facility] Kardium [facility] NanticokeEco-Vacay.; [facility] Chanel Kimbia [facility] NanticokeEco-Vacay. 03-15-2014 10:36-0500 Diastolic blood pressure 88 mm[Hg] Gaby Breen RN [facility] UpmcSmart Picture Tech [facility]anticokeEco-Vacay.; [facility] [facility] Comment on above: Patient Position: Sitting; Cuff Location : Left Arm; Cuff Size: Large 03-15-2014 10:36-0500 Heart rate 73 /min Gaby Breen RN [facility], [employer] [facility], Inc[facility] Comment on above: Pattern: Regular 03-15-2014 10:36-0500 Systolic blood pressure 136 mm[Hg] Gaby Breen RN [facility], [facility].; [facility], Inc[facility] Comment on above: Patient Position: Sitting; Cuff Location : Left Arm; Cuff Size: Large 02-26-2014 15:07-0500 Body height 175.26 cm [facility], [employer] 02-26-2014 15:07-0500 Body mass index (BMI) [Ratio] 29.53 kg/m2 [facility] 02-26-2014 15:07-0500 Body surface area Derived from formula 2.07 m2 [facility].; [facility], [facility] 02-26-2014 15:07-0500 Body weight 90.72 kg [facility], [employer] 02-26-2014 15:07-0500 Diastolic blood pressure 90 mm[Hg] [facility] Comment on above: Patient Position: Sitting; Cuff Location : Left Arm; Cuff Size: Standard 02-26-2014 15:07-0500 Heart rate 80 /min [facility], [facility].; [employer] [facility] Comment on above: Pattern: Regular 02-26-2014 15:07-0500 Systolic blood pressure 148 mm[Hg] PORTER [facility], [facility].; [facility] Comment on above: Patient Position: Sitting; Cuff Location : Left Arm; Cuff Size: Standard 02-12-2013 15:35-0500 Body height 179.07 cm Neli Ward LPN [facility], [facility].; [facility] 02-12-2013 15:35-0500 Body mass index (BMI) [Ratio] 28.57 kg/m2 Neli Ward LPN [facility], Inc.; [place] [employer] [facility], Inc. 02-12-2013 15:35-0500 Body surface area Derived from formula 2.11 m2 Neli Ward LPN [facility], Inc.; [place] [employer] [facility], Inc. 02-12-2013 15:35-0500 Body temperature 97.9 [degF] Neli Ward LPN [facility], [facility].; [facility] Comment on above: Method: Tympanic 02-12-2013 15:35-0500 Body weight 91.63 kg Neli Ward LPN [facility], [facility].; [facility] [employer], [employer]. 02-12-2013 15:35-0500 Diastolic blood pressure 89 mm[Hg] Neli Ward LPN [facility], [facility].; [facility] [employer], [employer]. Comment on above: Patient Position: Sitting; Cuff Location : Left Arm; Cuff Size: Standard 02-12-2013 15:35-0500 Heart rate 73 /min Neli Ward LPN [facility], [facility].; [facility], Inc. Comment on above: Pattern: Regular 02-12-2013 15:35-0500 Systolic blood pressure 154 mm[Hg] Neli Ward LPN [facility], [facility].; [employer], [employer]. Comment on above: Patient Position: Sitting; Cuff Location : Left Arm; Cuff Size: Standard 11-10-2012 14:48-0400 Body temperature 98 [degF] Elaine Simon LESTER [facility], [employer].; [employer] [facility], [employer]. Comment on above: Method: Tympanic 11-10-2012 14:48-0400 Body weight 88.45 kg Elaine Simon LESTER [facility], [facility].; [facility], Inc[facility] 11-10-2012 14:48-0400 Diastolic blood pressure 88 mm[Hg] Elaine Simon LESTER [facility], [facility].; [facility]. Comment on above: Patient Position: Sitting; Cuff Location : Left Arm; Cuff Size: Large 11-10-2012 14:48-0400 Heart rate 74 /min Elaine Simon LPN [facility], [facility].; [facility]. Comment on above: Pattern: Regular 11-10-2012 14:48-0400 Inhaled oxygen concentration 20 % [facility], [facility].; [facility]. Comment on above: Room air 11-10-2012 14:48-0400 Inhaled oxygen concentration 21 % Katelyn Alfred [facility], [facility].; [place] [facility]. Comment on above: Room air 11-10-2012 14:48-0400 SaO2% (BldA) [Mass fraction] 98 % Katelyn Alfred [facility], [facility].; [place] [facility]. 11-10-2012 14:48-0400 Systolic blood pressure 153 mm[Hg] Elaine Simon [facility], [facility].; [place] [employer] [facility]. Comment on above: Patient Position: Sitting; Cuff Location : Left Arm; Cuff Size: Large 08-19-2012 10:04-0400 Body height 179.07 cm Jameson Espinosa MD Work Phone: [facility], [facility].; [facility]. 08-19-2012 10:04-0400 Body mass index (BMI) [Ratio] 27.58 kg/m2 Jameson Espinosa MD Work Phone: [facility], [facility].; [facility] Hospital[facility]. 08-19-2012 10:04-0400 Body surface area Derived from formula 2.08 m2 Jameson Espinosa MD Work Phone: [facility], [employer].; [place] [facility]. 08-19-2012 10:04-0400 Body weight 88.45 kg Jameson Espinosa MD Work Phone: [facility].; [place] [facility]. 08-19-2012 10:04-0400 Diastolic blood pressure 78 mm[Hg] Jameson Espinosa MD Work Phone: [facility] [employer]. Comment on above: Patient Position: Sitting; Cuff Location : Left Arm; Cuff Size: Large 08-19-2012 10:04-0400 Heart rate 68 /min Jameson Espinosa MD Work Phone: [facility] [employer]. Comment on above: Pattern: Regular 08-19-2012 10:04-0400 Systolic blood pressure 142 mm[Hg] Jameson Espinosa MD Work Phone: [facility] [employer]. Comment on above: Patient Position: Sitting; Cuff Location : Left Arm; Cuff Size: Large 08-11-2012 15:04-0400 Body weight 88.45 kg Jeni Cheung LPN [place] [facility], [employer]. 08-11-2012 15:04-0400 Diastolic blood pressure 85 mm[Hg] Jeni Cheung LPN [place] [employer]. Comment on above: Patient Position: Sitting; Cuff Location : Left Arm; Cuff Size: Standard 08-11-2012 15:04-0400 Heart rate 78 /min Jeni Cheung LPN [place] [facility].; [employer]. Comment on above: Pattern: Regular 08-11-2012 15:04-0400 Systolic blood pressure 130 mm[Hg] Jeni Cheung LPN [place] [facility].; [employer]. Comment on above: Patient Position: Sitting; Cuff Location : Left Arm; Cuff Size: Standard 07-08-2012 13:38-0400 Body weight 89.36 kg Jameson Espinosa MD Work Phone: [place] [employer]. 07-08-2012 13:38-0400 Diastolic blood pressure 88 mm[Hg] Jameson Espinosa MD Work Phone: [place] [employer]. Comment on above: Patient Position: Sitting; Cuff Location : Left Arm; Cuff Size: Large 07-08-2012 13:38-0400 Heart rate 77 /min Jameson Espinosa MD Work Phone: [facility], [employer]. Comment on above: Pattern: Regular 07-08-2012 13:38-0400 Systolic blood pressure 138 mm[Hg] Jameson Espinosa MD Work Phone: [facility], [employer]. Comment on above: Patient Position: Sitting; Cuff Location : Left Arm; Cuff Size: Large 05-23-2012 13:48-0500 Body weight 90.27 kg Jeni Cheung LPN [facility], [facility].; [facility], [place]. 05-23-2012 13:48-0500 Diastolic blood pressure 80 mm[Hg] Jeni Cheung LPAdvent[facility], [employer].; [employer]. Comment on above: Patient Position: Sitting; Cuff Location : Left Arm; Cuff Size: Standard 05-23-2012 13:48-0500 Heart rate 81 /min Jeni Cheung SUPERINT[employer]ENT [employer] [facility], [employer]. Comment on above: Pattern: Regular 05-23-2012 13:48-0500 Systolic blood pressure 153 mm[Hg] Jeni Cheung LPN [facility], [employer]. Comment on above: Patient Position: Sitting; Cuff Location : Left Arm; Cuff Size: Standard 05-14-2012 13:00-0500 Body height 179.07 cm Elaine [employer] [facility] [employer] [facility], Inc.; [employer], [place]. 05-14-2012 13:00-0500 Body mass index (BMI) [Ratio] 27.87 kg/m2 Katelyn Alfred [facility], Inc.; [facility], [place]. 05-14-2012 13:00-0500 Body surface area Derived from formula 2.08 m2 Katelyn Stuckey [facility], [facility].;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 [employer] [facility]. Start: 09-02-2018 Patient Education DIVERTICULIT IS Indication: Diverticulitis Start: 02-Sep-2018 Instruction Type: Patient Education [facility] [email or web address].; [facility] [employer]. Start: 01-09-2018 Patient Education SUTURE CARE Indication: SCC (squamous cell carcinoma) Start: 09-Jan-2018 Instruction Type: Patient Education [facility].; [place] [employer] [facility] [employer]. Start: 09-10-2017 Im adm prq id subq/i m njxs ea vaccine IMMUNIZATION ADMIN EACH ADD ([id number]) Start: 10-Sep-2017 Intent [facility]; [employer] [facility] [employer]. Start: 09-10-2017 Patient Education TIA Indicati on: Transient cerebral ischemia, unspecified type Start: 10-Sep-2017 Instruction Type: Patient Education [facility].; [place] [employer] [facility] [employer]. Start: 03-21-2017 Destruction premalignant lesion 1st ACTINIC KERATOSIS FREEZE ([id number]) Start: 21-Mar-2017 Intent [facility] [employer]; [facility] [employer] [facility]. Start: 03-21-2017 Destruction premalignant lesion 2-14 ea ACTINIC KERATOSIS FREEZE EACH, 2-14 ([id number]) Start: 21-Mar-2017 Intent [facility] [employer]; [employer] [facility] [employer]. 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, NON-PNEUMATIC, WITH OR WITHOUT JOINTS, WITH OR WITHOUT INTERFACE MATERIAL, PREFABRICATED ([id number]) Start: 27-Sep-2016 Intent Comments: post-op shoe [facility] [employer]; [employer] [place] [employer] [facility] [employer] Comment on above: post-op shoe Start: 09-27-2016 Radex toe minimum 2 views X-RAY TOE(S) ([id number]) Start: 27-Sep-2016 Intent [employer]; [facility] [employer] [place] [employer] Start: 06-02-2015 Patient Education HYPERTENSION Indication: Benign hypertension Start: 02-Jun-2015 Instruction Type: Patient Education [employer]; [employer] [place]. Start: 04-28-2015 Patient Education HYPERTENSION Indication: Benign hypertension Start: 28-Apr-2015 Instruction Type: Patient Education [employer] [place]. Start: 08-23-2014 Chest x-ray X-RAY CHEST- T WO VIEWS - AP/LL ([id number]) Start: 23-Aug-2014 [facility] [employer]; [employer]. Start: 08-23-2014 Cv strs tst xers&/or rx cont ecg w/si&r CARDIOVASCULAR EXERCISE STRESS TEST - WITH IMAGING (32452) ([id number]) Start: 23-Aug-2014 [facility] [employer]; [employer]. Start: 08-23-2014 Patient Education HYPERTENSION Indication: Benign hypertension Start: 23-Aug-2014 Instruction Type: Patient Education [employer]; [employer]. Start: 05-04-2014 Patient Education TOBACCO - WA YS TO QUIT Indication: Smoker Start: 04-May-2014 Instruction Type: Patient Education [employer]; [employer]. Start: 04-27-2014 Patient Education LYMPHADENOPA THY Indication: LYMPHADENITIS (Renamed from Adenitis) Start: 27-Apr-2014 Instruction Type: Patient Education [employer]; [employer]. Start: 03-15-2014 Patient Education HYPERTENSION Indication: Labile hypertension Start: 15-Mar-2014 Instruction Type: Patient Education [employer]; [employer] [place]. Start: 02-26-2014 Patient Education [employer] [facility] [employer]. Exercise tolerance test [facility] Work Phone: Measurement of respiratory function [facility] Work Phone: Patient referral [facility] Work Phone: [facility] Immunizations Immunization Date Immunization Notes Care Provider Esteban ferrer 10-25-2021 pneumococcal conjuga te vaccine, 13 valent Jameson Espinosa MD Work Phone: [facility]; [facility] Comment on above: Site: Right DeltoidV IS Given: * Pneumococcal Conjugate (PCV13) (01/27/15) 05-26-2020 COVID-Pfizer (30 MCG /0.3 ML) Jameson Espinosa MD Work Phone: [facility]; [facility] 04-28-2020 COVID-Pfizer (30 MCG /0.3 ML) Jameson Espinosa MD Work Phone: [facility]; [facility] Hospital[facility]rainSt[facility] Cell [employer] 09-10-2017 *IMMUNIZATION ADMIN ([id number]) TRENT STEVENS MD Work Phone: [facility]; [facility] 09-10-2017 pneumococcal conjuga te vaccine, 13 valent TRENT STEVENS MD Work Phone: [facility]; [facility]. Comment on above: Site: Right DeltoidV IS Given: * Multiple Vaccines (DTaP, Hib, Hepatitis B, Polio, and PCV13) (01/27/15) 09-10-2017 tetanus toxoid, redu maryann diphtheria toxoid, and acellular pertussis vaccine, adsorbed TRENT STEVENS MD Work Phone: [facility]; [facility] Comment on above: Site: Left DeltoidVI S Given: * Tdap (Tetanus, Diphtheria, Pertussis) (05/18/14) 05-13-2014 zoster vaccine, live TRENT STEVENS MD Work Phone: [facility]; [place] [facility] Comment on above: given at [facility] 03-15-2014 varicella zoster imm une globulin TRENT STEVENS MD Work Phone: [facility] 08-19-2012 pneumococcal polysaccharide vaccine, 23 valmagda Espinosa MD Work Phone: [facility]; [facility] Comment on above: Site: Deltoid (Left) VIS Given: * Pneumococcal Polysaccharide (PPSV23) (12/28/08) influenza virus vacc ine, unspecified formulation TRENT STEVENS MD Work Phone: [facility] Comment on above: Refused. 02/21/2021 influenza virus vacc ine, unspecified formulation TRENT STEVENS MD Work Phone: [facility] Comment on above: Refused. 02/21/2021 Payers Date Payer Category Payer Unknown [id number] 2024 Medicare [id number] 2024 Unknown [id number] 2024 Self-pay [id number] 2018 Unknown [id number] 1950 Unknown [id number] 2.16.8 [id number] 1950 Unknown [id number] 2.16.8 [id number] Unknown [employer] Unknown [id number] 2.16.8 [id number] Unknown [id number] 2.16.8 [id number] Unknown [id number] 2.16.8 [id number] Unknown [id number] 2.16.8 [id number] Unknown [id number] 2.16.8 [id number] Unknown [id number] 2.16.8 [id number] Unknown [id number] 2.16.8 [id number] Unknown [id number] 2.16.8 [id number] Unknown [id number] 2.16.8 [id number] Unknown [id number] 2.16.8 [id number] Social History Date Type Detail Facility Start: 10-04-2021 End: 05-21-2023 Tobacco smoking status WVIS Unknown if ever smoked [facility] Start: 1950 Sex Assigned At Male [facility] Alcohol Use: Alcohol Use: ; Occasional alcohol use. [facility].; [facility] Caffeine Use Caffeine Use [facility] HospitalBrainSt[facility] Cell [facility]; [facility] Hospital[facility]rainSt[facility] Cell [facility] Occasional alcohol use [facility]; [facility] Work Phone: Alcohol Use: Alcohol Use: ; 1 to 7 drinks per week. 2 drinks per occasion. [facility].; [place] [facility] Marital status: Marital status: ; . [facility] HospitalBrainStorm Cell Therapeutics [facility].; [facility] Tobacco use: Tobacco use: ; S mokes 1 pack of cigarettes per day. [facility] HospitalBrainSt[facility] Cell The[facility].; [place] [facility] Smokes 1 pack of cigarettes per day [facility] HospitalBrainSt[facility] Cell The[facility].; [facility] [employer] [facility]. Work Phone: Ex-smoker [facility].; [facility] [employer] [facility] Work Phone: [facility].; [place] [facility] Work Phone: Start: 01-15-2024 Tobacco smoking stat us WVIS Smokes tobacco daily (finding) [facility] NEGATED: Highlighted row No Social History Information Available No Social History Information Available [facility], [employer] [facility] Work Phone: Medical Equipment Procedure Code Equipment Code Equipment Origin al Text Equipment Identifier Dates Peripheral arter y endovascular stent-graft, drug-coated ()[id number] FDA Start: 11-27-2023 Drug-eluting peripheral artery stent, bare-metal ()[id number] FDA Start: 01-15-2024 Femoral vessel s uture implantation set ()[id number] FDA Start: 01-15-2024 Progress note 12-07-2024 Note Date & Type Note Facility 12-07-2024 Progress note [facility] Progress note 12-07-2024 Note Date & Type Note Facility 12-07-2024 Progress note Note Date/Time December 07, 2024 1:43pm [facility] [address] [place] [address] OFFICE VISIT Date of Service: 12/07/24 MR#: [id number] Acct: [id number] Name: MCKENNA CAMPOVERDE Rep #: [id number] : 1950 Provider: Dr. Akbar Hernandez MD Age/Sex: 74/M Location: [facility] Status: Signed HPI HPI History of Present Illness Details: This gentleman with a history of peripheral arterial disease status post percutaneous intervention to bilateral SFAs, hypertension and dyslipidemia is here for follow-up visit. According to him, he has bilateral hip claudication with strenuous exertion only. Per patient, he has had an episode where and he had sharp right sided chest discomfort that lasted for a few seconds only. Denies any shortness of breath. No exertional chest discomfort. Denies orthopnea or PND. No ankle edema. Denies any palpitations. Intake Vital Signs 06/02/24 13:03 12/07/24 13:24 Height 5 ft 9 in 5 ft 9 in Weight: 191 lb 191 lb BMI 28.2 28.2 BP 117/75 122/74 H Blood Pressure Location Lt brachial Lt brachial Position Sitting Sitting Respiration 16 16 Pulse 66 65 Pulse Source NIBP Monitor Intake Visit Reasons: 6 M FU Rehabilitation Services Coordinator Required: No Accompanied by: Allergies pravastatin Adverse Reaction (Severe, Verified 12/07/24 13:25) Panic attack ciprofloxacin (From Cipro) Adverse Reaction (Intermediate, Verified 12/07/24 13:25) Hives Medications ?Medication ?Instructions ?Recorded ?Confirmed ?Type aspirin 81 mg tablet,delayed 81 mg PO DAILY 07/16/23 0 12/07/24 History release losartan 50 mg tablet 50 mg PO QDAY #90 tabs 09/0812/07/24 Rx amlodipine 5 mg tablet 5 mg PO DAILY #90 tabs 10/3012/07/24 Rx clopidogrel 75 mg tablet 75 mg PO DAILY #90 tabs 11/1612/07/24 Rx Ejection fraction %: 65 Have you fallen in the past year?: No PFSH Medical History Hypertensive heart disease Diastolic dysfunction without heart failure Abnormal ECG Nicotine dependence Dyslipidemia PAD (peripheral artery disease) SK (seborrheic keratosis) Essential hypertension Neck pain Hyperlipidemia Anxiety Claudication History of TIA (transient ischemic attack) Elevated BP without diagnosis of hypertension Nicotine dependence, cigarettes, uncomplicated SOB (shortness of breath) Diverticulitis Headache Flank pain Left knee pain Low back pain Claudication Decreased hearing of right ear Generalized anxiety disorder Surgical History Hx of vasectomy Hx of knee surgery Family History Father Lung cancer Mother Hypertension Social History Smoking Status: Current every day smoker tobacco type: cigarettes Tobacco: How many years used: 55 Electronic Cigarette Use: not used second hand exposure: No alcohol intake: current alcohol intake frequency: a few times a week substance use type: does not use caffeine: Yes Type: coffee Number of servings: 2 ROS Const Const: Positive for fatigue and weakness Eyes Eyes: Negative for change in vision ENT ENT: Negative for dizziness or balance problems Cardio Chest Pain: Yes Frequency: other (one time yest-think pulled muscle) Character: sharp Duration: brief Palpitations: No Edema: None Resp Respiratory: Negative for SOB with activity, SOB at rest or SOB orthopnea\SOB lying down GI GI: Negative nausea or heartburn Musc Musc: Negative for balance problems Neuro Neuro: Positive for weakness; Negative for dizziness, lightheadedness, near syncope or syncope Endo Endo: Positive for fatigue Cardiology Exam Const Appearance: comfortable and no acute distress Nutritional Appearance: well nourished Neck Neck: no JVD Carotids: Negative bruit Chest Auscultation: Bilateral: Clear to Auscultation Cardio Rate: regular rate Rhythm: regular rhythm Heart sounds: S1 normal and S2 normal Neuro General: patient alert, patient awake and patient oriented x3 Extremities Lower Extremity Edema: None: Bilateral Supplemental Info Supplemental Information Labs: LDL Cholesterol 140 mg/dL (0-130) H HDL Cholesterol 41 mg/dL (40-) Cholesterol 214 mg/dL (200) H Triglycerides 165 mg/dL (-199) Diagnostics: Electrocardiogram Catheterization Lab Venous Doppler Study Pulmonary: No Data to Display Past Visits: Cardiology Visit 12/07/24 Assessment and Plan Assessment and Plan (1) PAD (peripheral artery disease): Status: Chronic Comment: Status post percutaneous intervention to bilateral SFAs and right popliteal. Plan: No claudication. Continue aspirin and Plavix. Unfortunately he continues to smoke. Counseled to quit. Check bilateral exercise ABIs. (2) Essential hypertension: Status: Chronic Plan: Amlodipine, losartan. (3) Dyslipidemia: Status: Chronic Plan: Does not not wish to be on any cholesterol-lowering medications. (4) Nicotine dependence: Status: Chronic Plan: Patient unfortunately continues to smoke. Counseled to stop. (5) Hypertensive heart disease: Status: Chronic Plan: Losartan. Amlodipine. Repeat echo. (6) Diastolic dysfunction without heart failure: Status: Chronic Plan: Risk factor modification. (7) Chest pain: Status: Chronic Plan: Atypical however with his history of vascular disease and risk factors, will check Lexiscan stress Myoview. Plan Details Follow Up: 6 Months Coding Level of Care Code Off vis,est,level 4 Diagnoses PAD (peripheral artery disease) I73.9 Essential hypertension I10 Dyslipidemia E78.5 Nicotine dependence F17.200 Hypertensive heart disease I11.9 Diastolic dysfunction without heart failure I51.89 Chest pain R07.9 Coding Level of Care Code Off vis,est,level 4 Diagnoses PAD (peripheral artery disease) I73.9 Essential hypertension I10 Dyslipidemia E78.5 Nicotine dependence F17.200 Hypertensive heart disease I11.9 Diastolic dysfunction without heart failure I51.89 Chest pain R07.9 Clinical Quality Measures Falls Risk Screening/Assistive Devices Have you fallen in the past year?: No Cardiac Ejection fraction %: 65 12/07/24 1343 <Electronically signed by Ila Hernandez MD> Date _ Ial Hernandez MD Cosigner Signature: Date (if applicable) CC: Dr. Jameson Espinosa MD ~ [facility] Work Phone: Evaluation note Note Date & Type Note Facility Evaluation note Diagnosis Onset Date Nicotine dependence, cigaret erika, uncomplicated acute SOB (shortness of breath) ac [facility] Work Phone: Evaluation note Note Date & Type Note Facility Evaluation note Diagnosis Onset Date Claudication acute History of TIA (transient ischemic attack) [facility] Work Phone: Evaluation note Note Date & Type Note Facility Evaluation note Diagnosis Onset Date Claudication acute History of TIA (transient ischemic attack) acute Claudication acute History of TIA (transient ischemic attack) [facility] Work Phone: Evaluation note Note Date & Type Note Facility Evaluation note Diagnosis Onset Date Dyslipidemia chronic Essential hypertension chron ic Nicotine dependence chronic PAD (peripheral artery disease) [facility] Work Phone: Evaluation note Note Date & Type Note Facility Evaluation note Diagnosis Onset Date Resolution Chest pain chronic November 1:05pm Diastolic dysfunction without heart failure chronic December 07, 2024 1:05pm Dyslipidemia chronic December 072024 1:05pm Essential hypertension chronic Se ptember 2024 1:05pm Hypertensive heart disease chronic December 07, 2024 1:05pm Nicotine dependence chronic Septe mber 2024 1:05pm PAD (peripheral artery disease) chronic December 07, 2024 1:05pm [facility] Work Phone: Reason for referral (narrative) Note Date & Type Note Facility Reason for referral (narrative) No reason for referral information available [facility] Work Phone: Summary Purpose Family History No Family History Records Found Relationship Condition Age at Onset Recorded Date/T priti father Malignant neoplasm of lung Unknown Cerebrovascular Accident Status:Active Comment s:Mother. Coronary Artery [...] Family History Of. Lung Cancer Status:Active Comments:Father. Relationship Condition Age at Onset Recorded Date/T priti father Malignant neoplasm of lung Unknown mother Hypertension Unknown Cerebrovascular Accident Status:Active Comment s:Mother. Coronary Artery [...] Comments:Father. Advance Directives No Advanced Directives Records Found Advance Directive Response Recorded Date/ Time Advance Directives Yes January 15, 2024 8:08am Chief Complaint and Reason for Visit Chief Complaint SOB NICOTINE DEP Reason for Visit Nicotine dependence, cigarettes, uncomplicated SOB (shortness of breath) Chief Complaint SOB NICOTINE DEP SOB Shortness of breath SOB Shortness of breath Reason for Visit Nicotine dependence, cigarettes, uncomplicated SOB (shortness of breath) Chief Complaint CLAUDICATION HX OF TIA Reason for Visit Claudication History of TIA (transient ischemic attack) Chief Complaint CLAUDICATION HX OF TIA 2 M FU [id number] Reason for Visit Claudication History of TIA (transient ischemic attack) Claudication History of TIA (transient ischemic attack) Chief Complaint HTN (BROWN) E ORDER ACUTE CYSTITIS Reason for Visit Dyslipidemia Essential hypertension Nicotine dependence PAD (peripheral artery disease) Chief Complaint HTN (BROWN) E ORDER ACUTE CYSTITIS PALP Reason for Visit Dyslipidemia Essential hypertension Nicotine dependence PAD (peripheral artery disease) Chief Complaint Admit Date 6 M FU December 07, 2024 1:05pm Reason for Visit Admit Date Chest pain December 07, 2024 1:05pm Diastolic dysfunction without heart fail ure December 07, 2024 1:05pm Dyslipidemia December 07, 2024 1:05pm Essential hypertension December 07, 025 1:05pm Hypertensive heart disease November 1:05pm Nicotine dependence December 07, 2024 1:05pm PAD (peripheral artery disease) Septembe r 2024 1:05pm Additional Source Comments (unrecognized sect ion and content) No Status Records FoundNo Status Records FoundNo Status Records FoundNo Status Records FoundNo Status Records FoundNo Status Records FoundNo Status Records Found INFORMATION SOURCE (unrecogn ized section and content) DATE CREATED AUTHOR 02/12/2018 [facility] ([place]) DATE CREATED AUTHOR AUTHOR'S ORGANIZ ATION 04/13/2020 [facility]) DATE CREATED AUTHOR AUTHOR'S ORGANIZ ATION 06/27/2020 [facility] DATE CREATED AUTHOR AUTHOR'S ORGANIZ ATION 03/17/2022 [facility] DATE CREATED AUTHOR AUTHOR'S ORGANIZ ATION 05/23/2023 [facility] DATE CREATED AUTHOR AUTHOR'S ORGANIZ ATION 12/29/2023 [facility] DATE CREATED AUTHOR AUTHOR'S ORGANIZ ATION 02/04/[address] [facility] Goals (unrecognized section and content) Goals may be documented in a n alternate sectionGoals may be documented in an alternate sectionGoals may be documented in an alternate sectionGoals may be documented in an alternate sectionGoals may be documented in an alternate sectionGoals may be documented in an alternate sectionGoals may be documented in an alternate sectionGoals may be documented in an alternate sectionGoals may be documented in an alternate sectionGoals may be documented in an alternate section Care Teams (unrecognized sec tion and content) Team Status: Active Member Role Status Dates Dr. Jameson Espinosa MD Primary Care Provider Active Team Status: Inactive Member Role Status Dates Dr. Jameson Espinosa MD Primary Care Provider, Referring Provider Active DORA Aly Attending Provider Active Team Status: Active Member Role Status Dates Dr. Jameson Espinosa MD Primary Care Provider Active Dr. Mckenna Dial MD Attending Provider Active Team Status: Inactive Member Role Status Dates Dr. Jameson Espinosa MD Primary Care Provider Active DORA Aly Attending Provider, Referring Provider Active Team Status: Active Member Role Status Dates Dr. Jameson Espinosa MD Primary Care Provider Active Dr. Mckenna Dial MD Attending Provider Active DORA Aly Referring Provider Active Team Status: Active Member Role Status Dates Dr. Jameson Espinosa MD Primary Care Provider Active Dr. Eulalio Núñez MD Attending Provider, Referr ing Provider Active Team Status: Inactive Member Role Status Dates Dr. Jameson Espinosa MD Primary Care Provider Active Dr. Mason Espinosa DO Attending Provider, Referring Pro vider Active Team Status: Inactive Member Role Status Dates Dr. Jameson Espinosa MD Primary Care Provider Active Dr. Eulalio Núñez MD Attending Provider, Referr ing Provider Active Team Status: Inactive Member Role Status Dates Dr. Jameson Espinosa MD Primary Care Provider, Referring Provider Active Dr. Ila Hernandez MD Attending Provider Active Team Status: Inactive Member Role Status Dates Dr. Jameson Espinosa MD Primary Care Provider Active Dr. Ila Hernandez MD Attending Provider, Referring Pr ovider Active Team Status: Active Member Role Status Dates Dr. Jameson Espinosa MD Primary Care Provider Active Dr. Ila Hernandez MD Attending Provider Active Team Status: Active Member Role/Relationship Status Dates Dr. Jameson Espinosa MD Primary Care Provider Active Team Status: Inactive Member Role/Relationship Status Dates Dr. Jameson Espinosa MD Primary Care Provider Active Start: December 07, 2024 End: December 07, 2024 Dr. Jameson Espinosa MD Referring Provider Active S tart: December 07, 2024 End: December 07, 2024 Dr. Ila Hernandez MD Attending Provider Active Start: December 07, 2024 End: December 07, 2024 FOR RECORDS PERTAINING TO PATIENTS WHO ARE [...] BE BASED ON THE PRIMARY CLINICAL RECORDS. [facility], [facility]. provides no warranty or guarantee of the accuracy or completeness of information in this document.
[2025-02-11 07:37] LABS: Anion Gap 9 (5-15); BUN 25 mg/dL (4-19); BUN/Creat Ratio 15.8 RATIO (10-20); Calcium,Total 9.2 mg/dL (7.6-11.0); Carbon Dioxide 24.6 mmol/L (21.0-32.0); Chloride 105 mmol/L (98-108); Estimated Creatinine Clearance 44.60 ml/min (50-250); Glucose 109 mg/dL (70-99); Potassium 3.9 mmol/L (3.3-5.1)
--- NOTE | 2025-02-11 09:21 | PCM.DC ---
Discharge Instructions DC O2, CPAP, BIPAP needs Home O2 Discharge instructions: No Dressing / Incision Discharge Activity: Return to Normal Activity and No Restrictions May resume sexual activity in: No Restrictions Dressing / Incision Call your doctor if your incision/area has: Continuous Slow Oozing, Sudden Increased Bleeding, Increased Pain/ Swelling, Increased Redness, Foul Smelling Discharge and Swelling at the incision site Call your doctor if you observe: Fever of 101 or Higher, Coldness, Increased Pain, Numbness or Tingling and Change in Color Follow Up Care Please Follow Up With: Ila Hernandez MD When: 2-4 weeks Test Results: Test results from this visit will be discussed in further detail at your follow-up appointment, if applicable. Discharge Plan Admission Attending Provider: Ila Hernandez Primary Care Provider: Jameson Sen Instructions Print Language: Belarusian Discharge Orders/Prescriptions Prescriptions: New nitroglycerin [Nitrostat] 0.4 mg tablet, sublingual 0.4 mg sublingual Q5M PRN (Reason: chest pain) Qty: 14 6RF Rx Instructions: do not exceed 3 doses per episode No Action aspirin 81 mg tablet,delayed release (DR/EC) 81 mg PO DAILY losartan 50 mg tablet 50 mg PO QDAY Qty: 90 3RF clopidogrel 75 mg tablet 75 mg PO DAILY Qty: 90 3RF amlodipine 5 mg tablet 5 mg PO DAILY Qty: 90 3RF Referrals / Follow Up: Jameson Sen MD [Primary Care Provider, Medical] Disposition Disposition (needs filled in before D/C Order can be placed): Home, Self Care
[2025-02-11 09:35] LABS: Cholesterol 240 mg/dL (<=200); Low Density Lipoprotein Calc. 169 mg/dL; Triglycerides 163 mg/dL; Very Low Density Lipoprotein 33 mg/dL (5-40); cholesterol:hdl ratio screen 5.91
--- NOTE | 2025-02-11 09:38 | CL.I_ITS ---
Patient Name: MCKENNA CAMPOVERDE Study Date: 02/11/2025 Performing: Ila Hernandez MD Ht: 69 inches 175.26 cm : 1950 Wt: 191.3 lbs 86.64 kg Age: 74 Gender: male BSA: 2.03 PROCEDURE(S) PERFORMED IC12-([id number]/[id number])SHARRON W/WO PTCA, SINGLE CORONARY ARTERY IC12-([id number]/[id number])SHARRON W/WO PTCA, SINGLE CORONARY ARTERY CLINICAL PROFILE AND CO-MORBIDITIES Indications: Staged PCI, Stable Known CAD Heart Failure: None Angina Classification Anginal Classification w/in 2 Weeks: CCS III CAD Presentations: Stable angina. CONCLUSIONS proximally using 3.0 mm balloon Successful SHARRON Mid RPLV using [place] 2.0x15 mm ,post-dilated using 2.25 mm balloon RECOMMENDATIONS ASA Indefinitley P2Y12 inhibitors for atleast 6 months DESCRIPTION OF PROCEDURE The patient arrived to the procedure lab. The risks and benefits of the procedure as well as a full description of our services here and current unavailability of surgical backup were fully explained to the patient and/or their significant other prior to the catheterization. The Timeout was completed, verifying the correct patient and procedure. The patient's procedural site was prepped and draped in the usual fashion. Local anesthetic was given subcutaneously to right radial region with Lidocaine 2%. Using a modified Seldinger technique, arterial access was obtained via the right radial artery, a 6Fr sheath was inserted.. XB 3 Guide catheter was inserted and engaged into the LCA. Runthrough Guide wire was advanced to the Diag 1. Runthrough (2) Guide wire was advanced to the LAD. Emerge 2.5 x 12 Balloon catheter was inserted. Balloon catheter was advanced across lesion in the LAD, proximal. Angiogram performed pre balloon dilatation. PTCA balloon inflated at 6 atms for 13 secs. Angiogram performed post balloon dilatation. [place] 2.5 x 38 Drug Eluting stent was inserted. Emerge 2.5 x 20 Balloon catheter was inserted. Balloon catheter was advanced across lesion in the LAD, proximal. PTCA balloon inflated at 8 atms for 14 secs. PTCA balloon inflated at 10 atms for 12 secs. [place] 2.5 x 38 Drug Eluting stent was reinserted Drug Eluting stent was advanced across the lesion in the LAD, proximal. NC Emerge 2.5 x 15 Balloon catheter was inserted. Balloon catheter was advanced across lesion in the LAD, proximal. NC Euphora 3.0 x 8 Balloon catheter was inserted. AL 0.75 Guide catheter was inserted and engaged into the RCA. Runthrough Guide wire was advanced to the RCA. [place] 2.0 x 15 Drug Eluting stent was inserted. Drug Eluting stent was advanced across the lesion in the RPL mid Angiogram performed post stent deployment. NC Emerge 2.25 x 12 Balloon catheter was inserted. Balloon catheter was advanced across lesion in the RPL mid Angiogram performed pre balloon dilatation. Angiogram performed post balloon dilatation. The arterial sheath was pulled and a TR Band was applied for hemostasis INTERVENTION INFORMATION LESION SITE: LAD (Proximal) lesion length: 36 mm, Lesion Complexity: High/C Pre Stenosis: 90 % Pre intervention KAELA flow: 3 Post Stenosis: 0 % Post intervention KAELA flow: 3 Lesion Devices: Terumo .014 180cm Runthrough Extra Floppy straight Cordis 6 Fr XB3.0 100cm Guide Catheter Terumo .014 180cm Runthrough Extra Floppy straight Jonatan Sci EMERGE MR 2.50x12 BALLOON Medtronic 2.50 x 38 PRINCESS FRONTIER SHARRON Jonatan Sci EMERGE MR 2.50x20 BALLOON Jonatan Sci NC EMERGE MR 2.50x15 BALLOON Medtronic NC EUPHORA RX 3.0x08 BALLOON LESION SITE: RPL (2nd) Lesion Complexity: Non-High/Non-C Pre Stenosis: 99 % Pre intervention KAELA flow: 2 PROCEDURE: Drug Eluting Stent with post dilatation Post Stenosis: 0 % Post intervention KAELA flow: 3 Lesion Devices: Terumo .014 180cm Runthrough Extra Floppy straight Cordis 6 Fr AL.75 100cm Guide Catheter Medtronic 2.00 x 15 PRINCESS FRONTIER SHARRON Jonatan Sci NC EMERGE MR 2.25x12 BALLOON COMPLICATIONS No Complications PROCEDURE MEDICATIONS Versed 1 mg IV Fentanyl 50 mcg IV Oxygen: 2 L/min via nasal cannula Heparin given IA 02/11/2025 08:02:28 Heparin 6000 unit(s) IV 02/11/2025 08:05:52 Nitro 100 mcg IC 02/11/2025 08:36:07 Nitro 200 mcg IC 02/11/2025 08:46:39 Nitro 200 mcg IC 02/11/2025 08:59:40 Plavix 300 mg PO 02/11/2025 09:12:26 Verapamil 2.5mg, Ntg 200mcgs, 2000 units of Heparin given IA 02/11/2025 08:02:28 IV Bolus: .9 NaCl 300 ml total 02/11/2025 09:18:41 SUMMARY OF HEMODYNAMIC DATA Time AIR REST ECG 07:23:49 AO 94/54 (69) SA 08:09:49 Signed By Ila Hernandez MD On 02/11/2025 09:37:35 Ila Hernandez MD
--- NOTE | 2025-02-11 10:28 | PHA.DC.COU.R ---
Pharmacy [facility] Counseling Pharmacy Services has performed discharge medication counseling for this patient. The patient was counseled on the following discharge medications and changes in medications for homegoing review. - Nitroglycerine 0.4 mg tablet The Reason for Use, instructions for use, and potential side effects were reviewed for all new medications. The patient's questions regarding all of their medications were answered. The patient was able to verbally demonstrate an understanding of their discharge medications. Medications at Discharge Home Medications aspirin 81 mg tablet,delayed release 81 mg PO DAILY 07/16/23 losartan 50 mg tablet 50 mg PO QDAY #90 tabs 09/08/24 amlodipine 5 mg tablet 5 mg PO DAILY #90 tabs 10/30/24 clopidogrel 75 mg tablet 75 mg PO DAILY #90 tabs 10/30/24 nitroglycerin 0.4 mg sublingual tablet (Nitrostat) 0.4 mg sublingual Q5M PRN chest pain #14 tabs 02/11/25
[2025-02-11] MEDS: 0.9% Normal Saline (1000mL) 1,000 ML 100 ML IV (11:08)
[2025-02-11 12:13] LABS: ACT Activated Clotting Time 266 sec (74-137)
[2025-02-11 12:13] LABS: ACT Activated Clotting Time 250 sec (74-137)
[2025-02-11 12:13] LABS: ACT Activated Clotting Time 312 sec (74-137)
--- NOTE | 2025-02-11 12:30 | CRPHASE1_ITS ---
Patient Communication Patient Information PHII Cardiac Rehab Discussed with Patient:: Yes Guide to Cardiac Rehab Given to Patient:: Yes Cardiac Rehab Facility Choice List Given to Patient:: Yes Communication to Cardiac Rehab Choice Program [facility] CR PHII:: Communication Given to CR Track Watchman:: Ila Hernandez Phase II Cardiac Rehab:: Yes Sessions:: 36 sessions - 3 days/wk, 12 weeks Cardiac Rehabilitation Info Program Information Cardiac Rehabilitation Program Information: Cardiac Rehab The cardiac rehab team at [facility] consists of highly skilled exercise physiologists, nurses, respiratory therapists and physicians working together with you. Our purpose is to help you have a full recovery and achieve the goals you set for yourself. Over the years many of our patients have returned to activities they assumed they would never do again! We can help restore your confidence and motivation to make lifestyle changes that can have a significant impact on your health and quality of life! We can help answer questions and concerns you may have about exercise, lifestyle, medications, diet, stress and anxiety which are common following a hospitalization. WE monitor ECG and vital signs during exercise and discuss your progress with you and report to your physician(s). Cardiac Rehab is proven to help reduce readmissions, improve functional capacity and lower recurrence of problems with your heart. Our Cardiac Rehab program is Certified by the [place] [employer] of Cardio-Vascular and Pulmonary Rehabilitation (AACVPR) and Accredited by the [place] [employer] through our [facility]. You can contact us at . We invite you to call us with your questions or to get started in our program. If you have other questions or concerns be sure to ask your physician/provider during your follow-up visit. WE look forward to seeing you!
--- NOTE | 2025-02-11 12:31 | CRPH1.INSTRU ---
General Education Discussed with Patient CAD and cardiac anatomy and function:: Patient communicates acknowledgment and Family returns demonstration Explanation of diagnoses and procedures:: Patient communicates acknowledgment and Family returns demonstration Sign/Symptoms of HI:: Patient communicates acknowledgment and Family returns demonstration Antiplatelet therapy: Patient communicates acknowledgment and Family returns demonstration Proper use of NTG-SL: Patient communicates acknowledgment and Family returns demonstration Emergency procedures and activation of EMS: Patient communicates acknowledgment and Family returns demonstration Compliance of all prescribed medications: Patient communicates acknowledgment and Family returns demonstration Smoking Risk Factors Patient Nicotine/Smoking Risk Factors Are:: Cigarettes Recommendations Recommendations Include:: Smoking cessation strategies/Smoking packet and Participation in a smoking cessation program Response Code Nicotine/Smoking Response Code:: Patient communicates acknowledgment and Family communicates acknowledgment Dyslipidemia Risk Factors Patient Dyslipidemia Risk Factors Are:: Total Cholesterol, Triglycerides, HDL and LDL Recommendations Recommendations Include:: Lipid profile not available Response Code Dyslipidemia Response Code:: Patient communicates acknowledgment and Family communicates acknowledgment Hypertension Recommendations Recommendations Include:: Maintain BP <130/85, Decrease/maintain normal body weight and Moderation of ETOH Response Code Hypertension:: Patient communicates acknowledgment and Family communicates acknowledgment Sedentary Risk Factors Patient Sedentary Risk Factors Are:: Lack of regular exercise Recommendations Recommendations Include:: Aerobic exercise 5-7 times/week for 20-30 minutes continuously, Benefits of regular exercise, Discussed home walking program and Monitored Outpatient Cardiac Rehab Response Code Sedentary Response Code:: Patient communicates acknowledgment and Family communicates acknowledgment
[2025-02-11] MEDS: Magnesium Sulfate 2 GM in Dextrose 5%-Water (100mL Bag) 100 ML IV (19:41)
[2025-02-11] MEDS: Potassium Chloride Oral Tablet 20 MEQ 40 MEQ PO (20:21)
[2025-02-12 00:18] VITALS: BP 144/80; PULSE 65; RESP 16; TEMP 36.4; O2SAT 96
[2025-02-12 03:00] VITALS: PULSE 55
[2025-02-12 06:39] VITALS: BP 136/79; PULSE 54; RESP 16; TEMP 36.3; O2SAT 96
[2025-02-12 06:56] LABS: Hematocrit 42.9 % (40-54); Hemoglobin 14.7 g/dL (13.0-16.5); Mean Corp Hgb Conc 34.3 g/dL (32-36); Mean Corpuscular Volume 89.4 fL (80-94); Mean Platelet Vol. 9.0 fl (6.2-12.0); Platelet Count 197 K/mm3 (150-450); RBC Distribution Width CV 14.4 % (11.6-14.6); RBC Distribution Width SD 47.8 fl (35.1-43.9); Red Blood Count 4.80 M/mm3 (4.6-6.2); White Blood Count 8.1 K/mm3 (4.4-11.0)
[2025-02-12 07:26] LABS: AST(SGOT) 27 U/L (<=37); Alanine Aminotransfer ALT/SGPT 21 U/L (<=46); Albumin, Serum 3.7 g/dL (3.4-4.8); Alkaline Phosphatase 71 U/L (40-129); Anion Gap 10 (5-15); BUN 19 mg/dL (4-19); BUN/Creat Ratio 14.2 RATIO (10-20); Calcium,Total 8.8 mg/dL (7.6-11.0); Carbon Dioxide 20.2 mmol/L (21.0-32.0); Chloride 109 mmol/L (98-108); Estimated Creatinine Clearance 46.93 ml/min (50-250); Globulin 2.9 g/dL (2.2-4.2); Glucose 110 mg/dL (70-99); Potassium 4.1 mmol/L (3.3-5.1)
--- NOTE | 2025-02-12 08:41 | PN.CARD_ITS ---
Subjective Subjective Patient feels well except some PVCs noted over night on the monitor when the heart rate was in the mid 40s. No chest pain overnight. No ST segment changes noted on the twelve-lead EKG he was given magnesium and potassium with significant improvement Objective Data Vital Signs: Vital Signs Temp Pulse Resp BP Pulse Ox O2 Del Method 97.4 F L 54 L 16 136/79 H 96 Room Air 02/12/25 06:39 02/12/25 06:39 02/12/25 06:39 02/12/25 06:39 02/12/25 06:39 02/12/25 06:39 Oxygen Delivery Method Room Air Weight: 186 lb 1.122 oz Body Mass Index (BMI) 27.4 Intake & Output: Intake and Output for Last 24 Hours 02/10/25 02/11/25 02/12/25 23:59 23:59 23:59 Intake Total 1943 Balance 1943 Lab / Micro Data 02/12/25 06:39 02/12/25 06:39 Labs: Laboratory Results - last 24 hr 02/11/25 07:03: Triglycerides 163, Cholesterol 240 H, LDL Cholesterol, Calc 169, VLDL Cholesterol 33, HDL Cholesterol 41, Cholesterol/HDL Ratio 5.91 02/11/25 08:13: Activated Clotting Time 312 H 02/11/25 08:53: Activated Clotting Time 266 H 02/11/25 09:12: Activated Clotting Time 250 H 02/12/25 06:39: WBC 8.1, RBC 4.80, Hgb 14.7, Hct 42.9, MCV 89.4, MCH 30.6, MCHC 34.3, RDW Std Deviation 47.8 H, RDW Coeff of Caty 14.4, Plt Count 197, MPV 9.0, Sodium 140, Potassium 4.1, Chloride 109 H, Carbon Dioxide 20.2 L, Anion Gap 10, BUN 19, Creatinine 1.36 H, Estim Creat Clear Calc 46.93 L, Est GFR (MDRD) Non-Af 54 L, BUN/Creatinine Ratio 14.2, Glucose 110 H, Calcium 8.8, Total Bilirubin 0.29, AST 27, ALT 21, Alkaline Phosphatase 71, Total Protein 6.6, Albumin 3.7, Globulin 2.9, Albumin/Globulin Ratio 1.3 Rhythm Strip Rhythm Strip: Sinus Rhythm Cardiology Labs/Tests 02/11/25 07:03: Triglycerides 163, Cholesterol 240 H, VLDL Cholesterol 33, HDL Cholesterol 41, Cholesterol/HDL Ratio 5.91 02/12/25 06:39: WBC 8.1, RBC 4.80, Hgb 14.7, Hct 42.9, MCV 89.4, MCH 30.6, MCHC 34.3, Plt Count 197, MPV 9.0, Sodium 140, Potassium 4.1, Chloride 109 H, Carbon Dioxide 20.2 L, Anion Gap 10, BUN 19, Creatinine 1.36 H, Est GFR (MDRD) Non-Af 54 L, BUN/Creatinine Ratio 14.2, Glucose 110 H, Calcium 8.8, Total Bilirubin 0.29 Rhythm: EKG: ECHO: Stress Test: Cardiac Cath: PCI: CT Surgery: Holter monitor: EPS: PPM: CXR: Chest CT Scan: Physical Exam Const alert and oriented x3 HEENT normocephalic and head/scalp atraumatic Neck full ROM and no lymphadenopathy Carotids: normal carotid upstroke Lymph Lymphatic: no lymphadenopathy noted Chest inspection of chest normal Resp normal respiratory effort Cardio regular rate and regular rhythm Palpation: normal PMI Rhythm: regular rhythm Heart Sounds: S1 normal GI normal to inspection, nondistended, normoactive bowel sounds no CVA tenderness Extremity normal to inspection Skin no rashes or lesions noted Psych mental status grossly normal Assessment & Plan Assessment/Plan (1) CAD (coronary artery disease): PLAN: Status post PCI with drug-eluting stent to mid LAD and PLV branch of the right coronary artery. No acute EKG changes. Will continue dual antiplatelet therapy for minimum of 6-month. Cardiac rehabitation program recommended (2) Dilated aortic root: PLAN: Continue to optimize BP control and follow-up via echocardiographic study annually (3) Diastolic dysfunction without heart failure: PLAN: No acute respiratory distress at this time well compensated appears euvolemic (4) Hypertensive heart disease: PLAN: Continue to optimize BP control and risk factors (5) Nicotine dependence: PLAN: Definite need to quit tobacco especially with his underlying Donna vascular disease?CAD/PVD (6) PAD (peripheral artery disease): PLAN: Residual hip claudication however previous bilateral SFA stenting and continues to increase activity as tolerated but as mentioned above definite need to quit tobacco and consider alternatives to treat his hyperlipidemia for goal LDL less than 55 (7) Hyperlipidemia: PLAN: Goal LDL less than 55 for which based on his reluctance to consider statin would be a good candidate for PCSK9 monoclonal antibodies in the future (8) PVCs (premature ventricular contractions): PLAN: Will obtain a middle school guidance counselor as an outpatient to quantify the PVCs and determine the appropriate treatment strategy
--- NOTE | 2025-02-12 09:27 | CASEMGMT ---
JACKSON Met with patient to complete JACKSON form. JACKSON form and its content were verbally explained and patient's questions were answered to the best of my ability.? Patient voiced understanding and signed JACKSON form.? Patient provided a copy of signed JACKSON form and original placed in patient's chart.? Patient had no further questions. Mayelin Barr, Discharge Planning Asst
--- NOTE | 2025-02-12 09:29 | CASEMGMT ---
Patient has order for discharge. RN CM in to discuss needs at discharge. Patient denies needs or help at discharge. Patient had no further questions or concerns.
[2025-02-12 09:30] VITALS: BP 134/84; PULSE 61; RESP 18; TEMP 36.4; O2SAT 97
[2025-02-12] MEDS: Aspirin E.C. 81 MG Tablet PO (09:38)
[2025-02-12 09:52] VITALS: BP 134/84; PULSE 61; RESP 18; TEMP 36.4; O2SAT 97
== END 2025-02-12 10:16 | disposition home or self-care (01) ==
LOC: CLSP 09:23 → PCU 10:17
PROVIDERS: Admitting Provider Internal Medicine Cardiovascular Disease; PCP Family Medicine; Referring Provider Internal Medicine Cardiovascular Disease; Visit Provider Internal Medicine Cardiovascular Disease
DX: R94.39 Abnormal result of other cardiovascular function study (principal); I25.118 Atherosclerotic heart disease of native coronary artery with other forms of angina pectoris; F17.210 Nicotine dependence, cigarettes, uncomplicated; I11.9 Hypertensive heart disease without heart failure; E78.5 Hyperlipidemia, unspecified; I49.3 Ventricular premature depolarization; I73.9 Peripheral vascular disease, unspecified; I77.810 Thoracic aortic ectasia; Z79.02 Long term (current) use of antithrombotics/antiplatelets; Z79.899 Other long term (current) drug therapy; Z79.82 Long term (current) use of aspirin; I07.1 Rheumatic tricuspid insufficiency; I51.89 Other ill-defined heart diseases
CPT/HCPCS: 36415; 80048; 80053; 80061; 85027; 85347; 92928; 93005; 96361; 96365; 96366; 99152; 99153; 99221; C1725; C1874; C1887; C1894; Q9967; C1769; C9600; G0378